=== PATIENT | female | born 1965 | race Caucasian/White ===

== ENCOUNTER 2016-09-13 12:51 | Emergency (ER) | payer OTHER ==
[~2016-09-13] VITALS: Ht 152.4 cm; Wt 79.1 kg
[~2016-09-13 12:51] MED LIST: ARIP20TA4 PO; ASPI81TA28 PO; ATV/1 PO; BUPR-83 PO; BUPR200T2 PO; BUPR8MIS SL; CLON1TAB3 PO; LAMO25TA PO; SERT50TA PO; TRAZ100T29 PO
[2016-09-13 13:02] VITALS: TEMP 36.9; Ht 152.4 cm; Wt 79.1 kg
--- NOTE | 2016-09-13 13:27 | EMERGENCY ROOM VISIT NOTE ---
History Report prepared by Lalitha: Denise Mac Under the Supervision of: Dr. Drake Low M.D. First contact with patient: 13:14 Chief Complaint: HEMATURIA Stated Complaint: BLOOD IN URINE, FEVER, VOMITING,NAUSEA AND PAIN History of Present Illness The patient is a 51 year old female who presents to the Emergency Room with complaints of intermittent hematuria over the last nine months. She currently rates her discomfort as a 7/10 in severity. The patient reports that the hematuria comes and goes and notes that her last episode was two weeks ago. She reports that she saw her PCP's office a week and a half ago regarding the issue and states that she had an ultrasound of her kidneys and bladder that came back normal. The patient reports that she was referred to urology and states that this past week she had a cystoscopy which was normal. The patient reports that over the last two weeks she has been feeling ill. She associates an intermittent fever, nausea, vomiting, intermittent epigastric abdominal pain and intermittent lower back pain. The patient denies any burning with urination and urinary frequency. She reports a history of pancreatitis, but denies her symptoms today feeling similar to her symptoms she experienced with pancreatitis. The patient reports a history of a hysterectomy. She denies being on any anti-coagulants. Source of History: patient Onset: nine months Position: other (global) Symptom Intensity: 7/10 Quality: other (hematuria) Timing: intermittent Associated Symptoms: + fevers, + nausea, + vomiting, + abdominal pain ( epigastric), + back pain (low), No urinary symptoms Review of Systems All systems have been listed, reviewed, and are negative other than those previously mentioned. Please see Additional Medical History Sheet. Past Medical & Surgical Medical Problems: (1) Bipolar Disorder, Unspecified (2) Depressive Disorder Nec (3) Drug Abuse Nec-Unspec (4) Encounter for monitoring Suboxone maintenance therapy (5) Hypertension Nos (6) Lumbar Disc Displacement (7) Lumbosacral Spondylosis (8) Manic-Depressive Nos (9) Opioid Dependence-Remiss (10) Osteoporosis Nos (11) Panic Disorder Without Agoraphobia (12) Unspecified Episodic Mood Disorder Social History Problems: (1) Tobacco Use Disorder Family History Gallbladder disease Kidney disease Kidney stones Social History Smoking Status: Current Every Day Smoker Alcohol Use: none Drug Use: other Marital Status: Housing Status: lives alone Occupation Status: unemployed Current/Historical Medications Scheduled Aripiprazole (Aripiprazole), 10 MG PO DAILY Aspirin (Aspirin Ec), 81 MG PO DAILY Buprenorphine Hcl-Naloxone Hcl (Suboxone 8-2 Mg), 8 MG SL DAILY Bupropion (Wellbutrin Sr), 200 MG PO QAM Bupropion (Wellbutrin), 100 MG PO afternoon Clonazepam (Klonopin), 1 MG PO HS Lamotrigine (Lamictal), 50 MG PO BID Pantoprazole Sodium (Protonix), 1 TAB PO DAILY Sertraline (Zoloft), 0.5 TAB PO DAILY Trazodone Hcl (Trazodone), 200 MG PO HS Scheduled PRN Lorazepam (Ativan), 1 MG PO BID PRN for Anxiety Allergies Coded Allergies: No Known Allergies (Verified , 09/13/16) Physical Exam Vital Signs Date Time Temp Pulse Resp B/P (MAP) Pulse Ox O2 Delivery O2 Flow Rate FiO2 09/13/16 15:00 85 17 152/77 96 Room Air 09/13/16 13:02 36.9 86 18 120/75 100 Room Air Physical Exam GENERAL: Patient awake, alert, oriented x 3. Patient follows commands. Patient does not appear toxic. Patient is adequately hydrated and well- nourished. SKIN: No erythema, pallor, cyanosis or rash HEENT: Normal head, pupils equal, reactive to light and accommodation. Neck: Without adenopathy, no neck vein distention. LUNGS: Clear to auscultation. No wheezes, no rales, no rhonchi. HEART: 2/6 systolic murmur. No gallops. No rubs ABDOMEN: Obese, vague epigastric tenderness. No masses, no rebound, no hepatomegaly or splenomegaly. EXTREMITIES: 1+ plus pedal edema. No signs of trauma. No pedal or pretibial edema. No calf or thigh tenderness. NEUROLOGIC: Cranial nerves II-XII within normal limits. No gross motor sensory function deficits. Medical Decision & Procedures Laboratory Results 09/13/16 13:30 09/13/16 13:30 Test 09/13/16 13:30 Red Blood Count 4.19 M/uL (4.2-5.4) Mean Corpuscular Volume 87.6 fL (80-100) Mean Corpuscular Hemoglobin 29.6 pg (25-34) Mean Corpuscular Hemoglobin Concent 33.8 g/dl (32-36) RDW Standard Deviation 42.5 fL (36.4-46.3) RDW Coefficient of Variation 13.3 % (11.5-14.5) Mean Platelet Volume 9.3 fL (7.4-10.4) Urine Color YELLOW Urine Appearance CLEAR (CLEAR) Urine pH 6.5 (4.5-7.5) Urine Specific [place] 1.014 (1.000-1.030) Urine Protein NEG (NEG) Urine Glucose (UA) NEG (NEG) Urine Ketones NEG (NEG) Urine Occult Blood 1+ (NEG) Urine Nitrite NEG (NEG) Urine Bilirubin NEG (NEG) Urine Urobilinogen NEG (NEG) Urine Leukocyte Esterase NEG (NEG) Urine WBC (Auto) 1-5 /hpf (0-5) Urine RBC (Auto) 5-10 /hpf (0-4) Urine Hyaline Casts (Auto) 0 /lpf (0-5) Urine Epithelial Cells (Auto) 5-10 /lpf (0-5) Urine Bacteria (Auto) NEG (NEG) Anion Gap 8.0 mmol/L (3-11) Est Creatinine Clear Calc Drug Dose 61.9 ml/min Estimated GFR () 75.5 Estimated GFR (Non- 65.2 BUN/Creatinine Ratio 11.7 (10-20) Calcium Level 8.6 mg/dl (8.5-10.1) Total Bilirubin 0.2 mg/dl (0.2-1) Aspartate Amino Transf (AST/SGOT) 16 U/L (15-37) Alanine Aminotransferase (ALT/SGPT) 31 U/L (12-78) Alkaline Phosphatase 119 U/L (45-117) Total Protein 7.8 gm/dl (6.4-8.2) Albumin 3.8 gm/dl (3.4-5.0) Globulin 4.0 gm/dl (2.5-4.0) Albumin/Globulin Ratio 1.0 (0.9-2) Lipase 209 U/L (73-393) Laboratory results as stated above per my review. ED Course 1314: Past medical records reviewed. The patient was evaluated in room C5. A complete history and physical examination was performed. 1511: I reevaluated the patient and she is resting comfortably. I discussed the exam findings with her and I discussed the treatment plan. She verbalized complete understanding and agreement. She is ready for discharge shortly. 1517: Ordered Protonix 40 mg PO. Medical Decision Nurses notes reviewed. Medical history sheet reviewed. Differential diagnosis includes but is not limited to: gastroenteritis, peptic/gastric ulcer diseae, pancreatitis, Crohn's disease, ulcerative colitis. The patient has had chronic hematuria for some time. She had a recent cystoscopy which did not apparently find a source. She now is here with upper abdominal pain. Multiple labs and urinalysis were obtained. Please see above. The patient is not anemic. Her white count is not elevated. She has no evidence of pancreatitis. I believe that she most likely has peptic or gastric ulcer or possibly gastritis. The patient was given Protonix here will continue that medication at home. The patient was strongly encouraged to follow-up with her family physician. I'm cautious about the use of narcotics in this patient as she is currently taking Suboxone. Medication Reconciliation: I attest that I have personally reviewed the patient' s current medication list. Blood pressure Screening: Patient was found to have normal blood pressure on screening and does not require follow up. Impression Primary Impression: Epigastric pain Additional Impression: History of hematuria Scribe Attestation The scribe's documentation has been prepared under my direction and personally reviewed by me in its entirety. I confirm that the note above accurately reflects all work, treatment, procedures, and medical decision making performed by me. Departure Information Dispostion Home / Self-Care Prescriptions Pantoprazole Sodium (PROTONIX) 20 Mg Tab 1 TAB PO DAILY for 30 Days, #30 TAB Prov: Drake Low M.D. 09/13/16 Referrals Camilla Chau D.O. (PCP) Forms HOME CARE DOCUMENTATION FORM, IMPORTANT VISIT INFORMATION Patient Instructions My [facility] [employer] Additional Instructions Take 1 Protonix daily. Continue all of your current medications as prescribed. 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 Problem Qualifiers
[2016-09-13 13:43] LABS: HEMATOCRIT 36.7 % (37-47); MEAN CELL VOLUME 87.6 fL (80-100); MEAN CORPUSCULAR HEMOGLOBIN 29.6 pg (25-34); MEAN CORPUSCULAR HGB CONC 33.8 g/dl (32-36); MEAN PLATELET VOLUME 9.3 fL (7.4-10.4); PLATELET COUNT 262 K/uL (130-400); RED BLOOD COUNT 4.19 M/uL (4.2-5.4); WHITE BLOOD COUNT 7.54 K/uL (4.8-10.8)
[2016-09-13] MEDS ORDERED: ARIP1TAB15 PO (13:46)
[2016-09-13 13:48] LABS: MANUAL MICROSCOPIC REQUIRED? NO; REVIEW REQ? NO; URINE APPEARANCE CLEAR (CLEAR); URINE BILIRUBIN NEG (NEG); URINE COLOR YELLOW; URINE NITRITE NEG (NEG); URINE PH 6.5 (4.5-7.5); URINE SPECIFIC GRAVITY 1.014 (1.000-1.030); UROBILINOGEN NEG (NEG); ZZUR CULT IF INDIC CLEAN CATCH NO
[2016-09-13 13:57] LABS: BUN/CREATININE RATIO 11.7 (10-20); CALCIUM 8.6 mg/dl (8.5-10.1); POTASSIUM 3.7 mmol/L (3.5-5.1)
[2016-09-13] MEDS ORDERED: PANTOprazole SOD 40 MG TAB PO STA (15:17)
[2016-09-13] MEDS ORDERED: PRT/20 PO (15:24)
[2016-09-13 15:37] VITALS: BP 152/77; PULSE 85; O2SAT 96
== END 2016-09-13 15:37 | disposition home or self-care (01) ==
LOC: C.EDB 12:54 → C.EDC 15:37
DX: R10.13 Epigastric pain (principal); R31.9 Hematuria, unspecified; G89.29 Other chronic pain; F31.9 Bipolar disorder, unspecified; I10 Essential (primary) hypertension; M81.0 Age-related osteoporosis without current pathological fracture; F17.200 Nicotine dependence, unspecified, uncomplicated; Z79.82 Long term (current) use of aspirin; Z79.899 Other long term (current) drug therapy; Z83.79 Family history of other diseases of the digestive system; Z84.1 Family history of disorders of kidney and ureter

== ENCOUNTER 2023-06-12 14:21 | Inpatient (IN) ==
--- NOTE | 2023-06-12 14:30 | ED Triage Note ---
Date of Service June 12, 2023 Provider in Triage Author: Perry Wick History of Present Illness This patient was briefly evaluated while in triage. An abbreviated physical exam was performed. This patient is a 58-year-old Female who presents to the ED for evaluation of constipation for the past few weeks. Patient has only had a few small bowel movements over this period of time. The patient usually takes ducosate sodium at nighttime. The patient has also been using lactulose as prescribed by her PCP. The patient recently switched to Senokot and MiraLAX with a few additional small bowel movements. The patient reports progressively worsening pain over the past week. Patient reports discomfort mostly on the left side of the abdomen. Patient reports nausea without vomiting. The patient currently rates her discomfort a 7 out of 10. Patient reports having a low-grade fever this morning of 100.5 F. Physical Exam CONSTITUTIONAL: Healthy and well nourished. Patient appears in mild discomfort. HEENT: No scleral icterus or conjunctival injection. RESPIRATORY: Clear to auscultation bilaterally with no wheezing, crackles, rhonchi or stridor. CARDIOVASCULAR: Regular rate and rhythm with no murmurs, rubs or gallops. GASTROINTESTINAL: Bowel sounds present in all quadrants. Patient has mild left sided abdominal tenderness to palpation without rigidity, guarding or rebound. INTEGUMENTARY: No rash or other significant dermatologic conditions noted. HEMATOLOGIC: No ecchymosis or petechiae. PSYCHIATRIC: Positive affect. NEUROLOGIC: No focal neurologic deficits noted. Initial orders for labs and / or imaging were placed and patient was placed in the waiting area until a bed is available. Please see further documentation for the full ED course.
[2023-06-12] MEDS: ONDANSETRON INJ 2 MG/ML 2 ML VIAL IV STA (14:56)
[2023-06-12] MEDS: SODIUM CHLORIDE 0.9% 500 ML IV ONE (14:56)
[2023-06-12 15:13] LABS: Basophils # (auto) 0.06 K/uL (0.00-0.20); Basophils % (auto) 0.7 %; Eosinophils # (auto) 0.18 K/uL (0.00-0.50); Eosinophils % (auto) 2.2 %; Hematocrit (blood only) 31.7 % (37.0-47.0); Hemoglobin 10.2 g/dl (12.0-16.0); Immature Granulocytes # (auto) 0.03 K/uL (0.01-0.20); Immature Granulocytes % (auto) 0.4 %; Lymphocytes # (auto) 1.45 K/uL (1.20-3.40); Lymphocytes % (auto) 17.5 %; Mean Corpuscular Hemoglobin 28.8 pg (25.0-34.0); Mean Corpuscular Hgb Conc 32.2 g/dL (32.0-36.0); Mean Corpuscular Volume 89.5 fL (80.0-100.0); Mean Platelet Volume 9.2 fL (9.4-12.4); Monocytes # (auto) 0.54 K/uL (0.11-0.59); Monocytes % (auto) 6.5 %; Neutrophils # (auto) 6.01 K/uL (1.40-6.50); Neutrophils % (auto) 72.7 %; Platelet Count 241 K/uL (130-400); RDW Coefficient of Variation 12.7 % (11.5-14.5); RDW Standard Deviation 42.1 fL (36.4-46.3); Red Blood Count 3.54 M/uL (4.20-5.40); White Blood Count 8.27 K/ul (4.8-10.8)
[2023-06-12 15:27] LABS: Albumin Globulin Ratio 1.3 (0.9-2); Albumin Level 3.9 gm/dl (3.4-5.0); BUN Creatinine Ratio 12.6 (10-20); Bilirubin,Total 0.3 mg/dl (0.2-1.0); Calcium 9.1 mg/dl (8.6-10.3); Creatinine Clr Calc Pharmacy 49.2 ml/min; Est GFR (African American) 76.5 ml/min; Globulin 2.9 gm/dl (2.5-4.0); Potassium 2.9 mmol/L (3.5-5.1); Total Protein 6.8 gm/dl (6.0-8.3)
[2023-06-12] MEDS: OPTIRAY 320 100ml IV ONE (15:50)
--- NOTE | 2023-06-12 16:19 | CT Scan Report ---
CT SCAN OF THE ABDOMEN AND PELVIS WITH IV CONTRAST CLINICAL HISTORY: Left lower quadrant abdominal pain. COMPARISON STUDY: Abdominal CT dated 12/30/2013. TECHNIQUE: Following the IV administration of 91 cc of Optiray 320, CT scan of the abdomen and pelvi s is performed from the lung bases to the proximal femora. Images are reviewed in the axial, sagittal , and coronal planes. IV contrast was administered without complication. A dose lowering technique wa s utilized adhering to the principles of ALARA. CT DOSE: 848.51 mGy.cm FINDINGS: Lung bases: The heart is normal in size and without pericardial effusion. There is bibasilar scarring /atelectasis. There is trace left pleural effusion. No airspace consolidation is seen typical for pne umonia. A 10 mm pleural-based nodule in the right middle lobe is seen on image #10 and a pleural-base d nodule in the left lower lobe is seen on image #19. These are unchanged from 2014 and of doubtful s ignificance. Liver: The contrast-enhanced liver is normal in size, contour, and attenuation. There is mild to mode rate intrahepatic biliary ductal dilatation. The hepatic veins and portal veins are patent. Gallbladder: Surgically absent noting clips in the gallbladder fossa. Spleen: Normal in size and attenuation. Pancreas: Unremarkable. Adrenal glands: Unremarkable. Kidneys: The contrast enhanced kidneys are normal in size and without hydronephrosis. The kidneys enh ance symmetrically. A 2.1 cm indeterminate low-attenuation lesion in the lower pole of left kidney is been present dating back to 2013 and likely represents a complex cyst. Additional subcentimeter tiffany ical hypodensities also likely represent cysts but are too small for definitive characterization. Abdominal vasculature: The abdominal aorta is normal in course and caliber noting moderate atheroscle rotic calcification. Bowel: There is no bowel obstruction. Moderate to severe fecal retention is noted in the right colon extending to the descending colon. There is wall thickening and pericolonic inflammation and fluid in volving the left colon at and below the splenic flexure. This is consistent with a nonspecific coliti s, likely STIR coronal. The appendix is not visualized. Peritoneum: There is no intraperitoneal free air or abdominal ascites. There is a fat-containing umbi lical hernia. There is also a fat and fluid containing supraumbilical hernia. Lymphadenopathy: None. Pelvic viscera: The bladder is normal as visualized. The uterus is surgically absent. No adnexal lesi on is seen. Skeletal structures: The skeletal structures are osteopenic. There is a [id number] acute to sub acute appearing superior end plate compression fracture of L1. Fragment retropulsed at this level by up to 6 mm. Paravertebral edema is noted. There is a chronic compression deformity of T11 with eviden ce of prior vertebroplasty. There is spondylotic change throughout the lumbar spine with surgical katarina nge at the lumbosacral junction. No lytic or blastic lesions are seen. There are subacute/healing lef t-sided rib fractures. There are bilateral sacral insufficiency fractures. IMPRESSION: 1. There is moderate to severe fecal retention in the right colon. 2. There is wall thickening involving the left colon at and below the splenic flexure with surroundin g infiltration and fluid. The appearance is consistent with a nonspecific colitis, possibly stercoral . Clinical correlation will be required. 3. No bowel obstruction is seen. 4. There is an acute subacute appearing superior endplate compression fracture of L1 with surrounding paravertebral edema. Correlate clinically. 5. There are subacute/healing left-sided rib fractures. 6. Bilateral sacral insufficiency fractures. 7. There is a 2.1 cm indeterminate lesion in the lower pole of left kidney. This has been present bere ing back to 2014 and likely represents a complex cyst. Nonemergent renal ultrasound is recommended in follow-up. 8. Trace left pleural effusion. 9. Additional findings as above. ACT 112: Negative or not required by law. Electronically signed by: Robbin Lee M.D. 06/12/2023 4:16 PM
--- NOTE | 2023-06-12 16:19 | Emergency Department Note ---
Impression & Plan Stercoral colitis, Constipation ED Provider Note Name: THEO SHAW Age: 58 Sex: Female Arrives Via: Walk-In Informant: Patient ED Provider: Benito Pepper MD Chief Complaint: Abdominal pain Impression: As per impression above Medical Decision Making: Pleasant 58-year-old female with history of chronic constipation, renal colic, venous insufficiency arrives for evaluation of worsening abdominal pain. Patient with 3 weeks of worsening constipation though rapidly worsening abdominal pain in the last few days. On examination she does have some moderate tenderness over the upper abdomen with an easily reducible ventral hernia. No specific peritonitis. She does have hypoactive bowel sounds. CT obtained prior to my evaluation concerning for stercoral colitis and when reviewing with radiologist possibility of minimal pneumatosis. Patient is not having severe pain relatively stable. Labs are reassuring. I did discuss the case with general surgery who evaluated patient agree no indication for surgical intervention at this time. Suggested hospitalization and GI eval/bowel regimen. Will start on antibiotics. She is not septic I do not feel that blood cultures and lactic acid are necessary at this time. She was hydrated some while in department. Triage/Nursing Notes reviewed by Me Differential:Obstruction, diverticulitis, perforation, aortic pathology, bowel ischemia, pancreatitis, renal colic, pyelonephritis, many other pathology here. Vital Signs: reviewed and remarkable for tachy Interventions: nss bolus, zofran iv, zosyn iv Labs:ED labs Reviewed by me and remarkable for no significant abnormalities Imaging:CT ab pelvis as per my informal interpretation shows significant inflammation throughout the left transverse colon and moderate ascending constipation. As per radiologist notes this is consistent with stercoral colitis and minimal pneumatosis possible though no clear evidence of free air or abscess appreciated. Consults:Dr. Murguia general surgery agrees with IV antibiotics hospitalization bowel regimen. Dr. Tiffany Nunes hospitalist Plan: Disposition:Hospitalization. Condition: Good History of Present Illness: 58-year-old female arrives for evaluation of abdominal pain. Patient with 3 weeks of increasing abdominal discomfort. Pain is upper abdomen mostly on the left side but sometimes radiates to right side. At times she feels like she can feel a lump in her upper mid abdomen that goes away. It has been associated with decreased appetite. She is attempted multiple different anticonstipation meds as her bowel movements have decreased significantly. She does note that she continues to pass gas periodically and has had a few very small bowel movements. Previous abdominal surgery including hysterectomy and cholecystectomy. Denies history of diverticulitis. Denies falls, trauma, injuries. Dulcolax, senna, Colace, MiraLAX have not improved her symptoms. Notes multiple attempts at colonoscopy over the past without ability to do scope due to inability to clear bowel. Past Medical History:Chronic constipation, renal colic, venous insufficiency Home Medications:See Below Allergies:oxybutynin Vitals:Blood Pressure: 150/91, Pulse 118, RR 18, T 36.5C, O2 97% on RA Physical Exam: GENERAL: Patient is uncomfortable appearing and in mild distress. Dehydrated appearing RESPIRATORY: No dyspnea. Clear to auscultation and equal bilaterally. CARDIOVASCULAR: Tachy.No murmur appreciated. GASTROINTESTINAL: Soft abdomen with diffuse upper abdominal tenderness palpation. There is a ventral hernia super umbilical easily reducible. Hypoactive bowel sounds noted. EXTREMITIES: Normal motion all extremities, no cyanosis, bilateral lower leg edema. NEUROLOGIC: Alert and oriented. No focal neurologic deficits appreciated SKIN: No rash, no jaundice, no diaphoresis. PSYCH: Appropriate GCS: 15 ED Course: Times/Reassessments: Patient notes feeling bit better after IV fluids she is comfortable plan for hospitalization. Benito Pepper MD Past Med/Surg History Medical History (Updated 06/12/23 @ 19:45 by Benito Pepper MD) Renal colic on right side Surgical History History of cystoscopy History of cholecystectomy History of hysterectomy Social History Smoking Status: Current every day smoker Preferred Language: Upper Sorbian Feels Safe at Home: Yes Allergies Allergies Allergy/AdvReac Type Severity Reaction Status Date / Time oxybutynin [From Ditropan] AdvReac Severe DRY MOUTH Verified 05/08/23 10:12 Home Meds Home Medications Medication Instructions Recorded Confirmed [id number] 250 2 tab PO Q6H PRN Pain 03/18/23 06/12/23 mg-250 mg-65 mg tablet (Excedrin Extra Strength) atorvastatin 20 mg tablet 20 mg PO QAM 03/18/23 06/12/23 famotidine 40 mg tablet 40 mg PO HS PRN Heartburn 03/18/23 06/12/23 furosemide 20 mg tablet (Lasix) 20 mg PO DAILY PRN fluid 03/18/23 06/12/23 accumulation hydroxyzine pamoate 50 mg capsule 50 mg PO HS Sleep 03/18/23 06/12/23 metoprolol succinate 25 mg 12.5 mg PO QAM 03/18/23 06/12/23 tablet,extended release 24 hr ondansetron HCl 4 mg tablet 4 mg PO Q8H PRN Nausea 03/18/23 06/12/23 potassium chloride 10 mEq 10 meq PO DAILY PRN if taking Lasix 03/18/23 06/12/23 tablet,extended release(part/cryst) trazodone 100 mg tablet 100 mg PO HS 03/18/23 06/12/23 buprenorphine 8 mg-naloxone 2 mg 1 film sublingual BID 06/12/23 06/12/23 sublingual film cholecalciferol (vitamin D3) 50 50 mcg PO DAILY 06/12/23 06/12/23 mcg (2,000 unit) tablet lorazepam 0.5 mg tablet 0.5 mg PO DAILY PRN severe anxiety 06/12/23 06/12/23 pantoprazole 40 mg tablet,delayed 40 mg PO AMHS 06/12/23 06/12/23 release teriparatide 20 mcg/dose (600 600 mcg subcut QAM 06/12/23 06/12/23 mcg/2.4 mL) subcutaneous pen injector (Forteo) venlafaxine 25 mg tablet 25 mg PO QAM 06/12/23 06/12/23 venlafaxine 75 mg capsule,extended 75 mg PO QAM 06/12/23 06/12/23 release 24 hr Results & Data (ED) Vital Signs Vital Signs - 24 hr 06/12/23 14:25 06/12/23 16:39 06/12/23 19:17 Temperature 36.5 C Temperature Source Temporal Artery Scan Pulse Rate 118 H 77 Pulse Rate [Right Finger] 78 Pulse Rate from SpO2 Sensor 77 Respiratory Rate 18 16 16 Respiratory Effort / Characteristics Non-Labored Spontaneous Non-Labored Respiratory Depth Normal Normal Blood Pressure 150/91 H 126/76 Blood Pressure [Right Arm] 123/74 Blood Pressure Mean 110 92 Blood Pressure Mean [Right Arm] 90 Pulse Oximetry 97 96 92 Oxygen Delivery Method Room Air Room Air Room Air Sepsis Recent Fever Within 48 Hours Yes Sepsis New/Unexplained Change in Mental Status No Sepsis Action Taken by Nursing No Action Required 06/12/23 19:30 Temperature Temperature Source Pulse Rate 72 Pulse Rate [Right Finger] Pulse Rate from SpO2 Sensor 70 Respiratory Rate 20 Respiratory Effort / Characteristics Respiratory Depth Blood Pressure 142/81 H Blood Pressure [Right Arm] Blood Pressure Mean 100 Blood Pressure Mean [Right Arm] Pulse Oximetry 96 Oxygen Delivery Method Room Air Sepsis Recent Fever Within 48 Hours Sepsis New/Unexplained Change in Mental Status Sepsis Action Taken by Nursing Laboratory Data 06/12/23 14:55 06/12/23 14:55 Lab Results 06/12/23 06/12/23 Range/Units 14:55 16:00 WBC 8.27 (4.8-10.8) K/ul RBC 3.54 L (4.20-5.40) M/uL Hgb 10.2 L (12.0-16.0) g/dl Hct 31.7 L (37.0-47.0) % MCV 89.5 (80.0-100.0) fL MCH 28.8 (25.0-34.0) pg MCHC 32.2 (32.0-36.0) g/dL RDW Std Deviation 42.1 (36.4-46.3) fL RDW Coeff of Meghan 12.7 (11.5-14.5) % Plt Count 241 (130-400) K/uL MPV 9.2 L (9.4-12.4) fL Immature Gran % (Auto) 0.4 % Neut % (Auto) 72.7 % Lymph % (Auto) 17.5 % Grant % (Auto) 6.5 % Eos % (Auto) 2.2 % Baso % (Auto) 0.7 % Neut # (Auto) 6.01 (1.40-6.50) K/uL Lymph # (Auto) 1.45 (1.20-3.40) K/uL Grant # (Auto) 0.54 (0.11-0.59) K/uL Eos # (Auto) 0.18 (0.00-0.50) K/uL Baso # (Auto) 0.06 (0.00-0.20) K/uL Immature Gran # (Auto) 0.03 (0.01-0.20) K/uL Sodium 140 (136-145) mmol/L Potassium 2.9 L (3.5-5.1) mmol/L Chloride 105 (98-107) mmol/L Carbon Dioxide 28 (21-32) mmol/L Anion Gap 7 (3-11) BUN 12 (6-23) mg/dl Creatinine 0.95 (0.6-1.2) mg/dl Est Cr Clr Drug Dosing 49.2 ml/min Est GFR ( Amer) 76.5 ml/min Est GFR (Non-Af Amer) 66.0 ml/min BUN/Creatinine Ratio 12.6 (10-20) Glucose 90 (70-99(Fasting)) mg/dl Calcium 9.1 (8.6-10.3) mg/dl Total Bilirubin 0.3 (0.2-1.0) mg/dl AST 12 L (13-39) U/L ALT 5 L (7-52) U/L Alkaline Phosphatase 106 H (34-104) U/L Total Protein 6.8 (6.0-8.3) gm/dl Albumin 3.9 (3.4-5.0) gm/dl Globulin 2.9 (2.5-4.0) gm/dl Albumin/Globulin Ratio 1.3 (0.9-2) Lipase 18 (11-82) U/L Urine Color Yellow Urine Appearance Clear (Clear) Urine pH 6.0 (4.5-7.5) Ur Specific [place] 1.018 (1.000-1.030) Urine Protein Trace H (Negative) Urine Glucose (UA) Negative (Negative) Urine Ketones Negative (Negative) Urine Blood 3+ H (Negative) Urine Nitrite Negative (Negative) Urine Bilirubin Negative (Negative) Urine Urobilinogen Negative (Negative) Ur Leukocyte Esterase Negative (Negative) Urine WBC (Auto) 1-5 (0-5) /hpf Urine RBC (Auto) >30 H (0-4) /hpf U Hyaline Cast (Auto) 0 (0-5) /lpf U Epithel Cells (Auto) 0-5 (0-5) /lpf Urine Bacteria (Auto) Negative (Negative) Administered Medications Potassium Chloride (K Moose / Wtr) 10 meq in 100 mls @ 100 mls/hr IV Q1H NURA Stop: 06/12/23 20:14 Last Admin: 06/12/23 18:27 Dose: 100 mls/hr Documented By: WILMAN Nicotine (Nicotine 14 Mg/24 Hr Patch) 14 mg TD QAM NURA Stop: 07/12/23 17:44 Last Admin: 06/12/23 18:27 Dose: 14 mg Documented By: WILMAN Discontinued Medications Sodium Chloride (Nss) 500 mls @ 999 mls/hr IV .Q31M ONE Stop: 06/12/23 14:59 Last Infusion: 06/12/23 15:27 Dose: Infused Documented By: Admin: 06/12/23 14:56 Dose: 999 mls/hr Documented By: REGINO Sodium Chloride (Nss) 1,000 mls @ 999 mls/hr IV .Q1H1M ONE Stop: 06/12/23 17:16 Last Infusion: 06/12/23 17:40 Dose: Infused Documented By: Admin: 06/12/23 16:39 Dose: 999 mls/hr Documented By: JUVENCIO Piperacillin Sod/Tazobactam Sod (Zosyn) 4.5 gm in 100 mls @ 200 mls/hr IV NOW ONE Stop: 06/12/23 17:16 Last Infusion: 06/12/23 18:25 Dose: Infused Documented By: Admin: 06/12/23 17:53 Dose: 200 mls/hr Documented By: AMOL Ioversol (Optiray 320 100ml) 91 ml IV ONCE ONE Stop: 06/12/23 15:51 Last Admin: 06/12/23 15:50 Dose: 91 ml Documented By: ADOLFO Ondansetron HCl (Ondansetron Inj 2 Mg/Ml 2 Ml Vial) 4 mg IV NOW STA Stop: 06/12/23 14:30 Last Admin: 06/12/23 14:56 Dose: 4 mg Documented By: REGINO Potassium Chloride (Potassium Chloride Crtab 20 Meq Tabcr) 40 meq PO NOW STA Stop: 06/12/23 18:03 Last Admin: 06/12/23 18:27 Dose: 40 meq Documented By: WILMAN Imaging Data Radiologist's Impression: Abdomen/Pelvis CT 06/12/23 14:30 CT SCAN OF THE ABDOMEN AND PELVIS WITH IV CONTRAST CLINICAL HISTORY: Left lower quadrant abdominal pain. COMPARISON STUDY: Abdominal CT dated 12/30/2013. TECHNIQUE: Following the IV administration of 91 cc of Optiray 320, CT scan of the abdomen and pelvis is performed from the lung bases to the proximal femora. Images are reviewed in the axial, sagittal, and coronal planes. IV contrast was administered without complication. A dose lowering technique was utilized adhering to the principles of ALARA. CT DOSE: 848.51 mGy.cm FINDINGS: Lung bases: The heart is normal in size and without pericardial effusion. There is bibasilar scarring/atelectasis. There is trace left pleural effusion. No airspace consolidation is seen typical for pneumonia. A 10 mm pleural-based nodule in the right middle lobe is seen on image #10 and a pleural-based nodule in the left lower lobe is seen on image #19. These are unchanged from 2014 and of doubtful significance. Liver: The contrast-enhanced liver is normal in size, contour, and attenuation. There is mild to moderate intrahepatic biliary ductal dilatation. The hepatic veins and portal veins are patent. Gallbladder: Surgically absent noting clips in the gallbladder fossa. Spleen: Normal in size and attenuation. Pancreas: Unremarkable. Adrenal glands: Unremarkable. Kidneys: The contrast enhanced kidneys are normal in size and without hydronephrosis. The kidneys enhance symmetrically. A 2.1 cm indeterminate low- attenuation lesion in the lower pole of left kidney is been present dating back to 2014 and likely represents a complex cyst. Additional subcentimeter cortical hypodensities also likely represent cysts but are too small for definitive characterization. Abdominal vasculature: The abdominal aorta is normal in course and caliber noting moderate atherosclerotic calcification. Bowel: There is no bowel obstruction. Moderate to severe fecal retention is noted in the right colon extending to the descending colon. There is wall thickening and pericolonic inflammation and fluid involving the left colon at and below the splenic flexure. This is consistent with a nonspecific colitis, likely STIR coronal. The appendix is not visualized. Peritoneum: There is no intraperitoneal free air or abdominal ascites. There is a fat-containing umbilical hernia. There is also a fat and fluid containing supraumbilical hernia. Lymphadenopathy: None. Pelvic viscera: The bladder is normal as visualized. The uterus is surgically absent. No adnexal lesion is seen. Skeletal structures: The skeletal structures are osteopenic. There is a [id number] acute to subacute appearing superior end plate compression fracture of L1. Fragment retropulsed at this level by up to 6 mm. Paravertebral edema is noted. There is a chronic compression deformity of T11 with evidence of prior vertebroplasty. There is spondylotic change throughout the lumbar spine with surgical change at the lumbosacral junction. No lytic or blastic lesions are seen. There are subacute/healing left-sided rib fractures. There are bilateral sacral insufficiency fractures. IMPRESSION: 1. There is moderate to severe fecal retention in the right colon. 2. There is wall thickening involving the left colon at and below the splenic flexure with surrounding infiltration and fluid. The appearance is consistent with a nonspecific colitis, possibly stercoral. Clinical correlation will be required. 3. No bowel obstruction is seen. 4. There is an acute subacute appearing superior endplate compression fracture of L1 with surrounding paravertebral edema. Correlate clinically. 5. There are subacute/healing left-sided rib fractures. 6. Bilateral sacral insufficiency fractures. 7. There is a 2.1 cm indeterminate lesion in the lower pole of left kidney. This has been present dating back to 2013 and likely represents a complex cyst. Nonemergent renal ultrasound is recommended in follow-up. 8. Trace left pleural effusion. 9. Additional findings as above. ACT 112: Negative or not required by law. Electronically signed by: Robbin Lee M.D. 06/12/2023 4:16 PM Discharge Plan Visit Data Chief Complaint: Constipation Stated Complaint: CONSTIPATION 3WKS ED Provider: Benito Pepper Discharge Problem: Stercoral colitis, Constipation Forms Stand Alone Forms: My [facility] [place] Prescriptions Prescriptions: No Action Excedrin Extra Strength 250-250-65 mg tablet 2 tab PO Q6H PRN (Reason: Pain) metoprolol succinate 25 mg tablet extended release 24 hr 12.5 mg PO QAM Rx Instructions: 1/2 tablet dose hydroxyzine pamoate 50 mg capsule 50 mg PO HS Rx Instructions: ordered as needed but takes it every night famotidine 40 mg tablet 40 mg PO HS PRN (Reason: Heartburn) atorvastatin 20 mg tablet 20 mg PO QAM ondansetron HCl 4 mg tablet 4 mg PO Q8H PRN (Reason: Nausea) furosemide [Lasix] 20 mg tablet 20 mg PO DAILY PRN (Reason: fluid accumulation) potassium chloride 10 mEq tablet,ER particles/crystals 10 meq PO DAILY PRN (Reason: if taking Lasix) trazodone 100 mg tablet 100 mg PO HS teriparatide [Forteo] 20 mcg/dose (600mcg/2.4mL) pen injector 600 mcg SUBCUT QAM venlafaxine 25 mg tablet 25 mg PO QAM lorazepam 0.5 mg tablet 0.5 mg PO DAILY MDD 10 tabs a month PRN (Reason: severe anxiety) venlafaxine 75 mg capsule,extended release 24hr 75 mg PO QAM pantoprazole 40 mg tablet,delayed release (DR/EC) 40 mg PO AMHS cholecalciferol (vitamin D3) 50 mcg (2,000 unit) Tablet 50 mcg PO DAILY buprenorphine-naloxone 8-2 mg film 1 film sublingual BID Referrals Referrals: Camilla Chau DO [Primary Care Provider] - Discharge Problem: Constipation Qualifiers: Constipation type: slow transit constipation Qualified Code(s): K59.01 - Slow transit constipation
[2023-06-12 16:22] LABS: Appearance Urine Clear (Clear); Bacteria Urine Automated Negative (Negative); Bilirubin Urine Negative (Negative); Blood Urine 3+ (Negative); Cast Urine Automated 0 /lpf (0-5); Color Urine Yellow; Epithelial Cell Urine Auto 0-5 /lpf (0-5); Glucose Urine UA Negative (Negative); Ketones Urine Negative (Negative); Leukocyte Esterase Urine Negative (Negative); Nitrite Urine Negative (Negative); Protein Urine Trace (Negative); RBC Urine Automated >30 /hpf (0-4); Specific Gravity Urine 1.018 (1.000-1.030); Urobilinogen Urine Negative (Negative)
[2023-06-12] MEDS: SODIUM CHLORIDE 0.9% 1,000 ML IV ONE (16:39)
--- NOTE | 2023-06-12 17:11 | Surgery Consultation ---
Date of Consultation June 12, 2023 Assessment & Plan (1) Constipation: Her CT images and results were personally viewed and interpreted by myself She has moderate constipation and some inflammation of her left colon consistent with stercoral colitis No plans for any surgical intervention Can have clears tonight from my perspective Would give IV ABX and consult GI for aggressive bowel regimen She would only require surgery if her colon perforated (2) Stercoral colitis: History of Present Illness Reason for Consultation: Constipation, Stercoral colitis History of Present Illness This is a 58 yo female who presented to the ER with 3 weeks of progressive abdominal pain and constipation. She states her pain was initially generalized and then is more on the left side of the abdomen now. She states it is sharp without radiation. No aggravating or relieving factors. She has not had a bowel movement in about a week. She has had nausea but no emesis. She normally takes colace at night but was instructed to take miralax as well which has not helped. She states she had a low grade fever. No melena or hematochezia prior. She has never had a full colonoscopy due to unable to being prepped completely. She has had 2 C-sections and a hysterectomy as well as cholecystectomy. Allergies Allergy/AdvReac Type Severity Reaction Status Date / Time oxybutynin [From Ditropan] AdvReac Severe DRY MOUTH Verified 05/08/23 10:12 Home Medications Medication Instructions Recorded Confirmed Type [id number]-[id number]-[id number] 250 2 tab PO Q6H PRN 03/18/23 05/08/23 History mg-250 mg-65 mg tablet (Excedrin Extra Strength) atorvastatin 20 mg tablet 20 mg PO DAILY 03/18/23 05/08/23 History docusate sodium 100 mg capsule 100 mg PO DAILY 03/18/23 05/08/23 History famotidine 40 mg tablet 40 mg PO DAILY PRN 03/18/23 05/08/23 History furosemide 20 mg tablet (Lasix) 20 mg PO DAILY 03/18/23 05/08/23 History hydroxyzine pamoate 25 mg capsule 25 mg PO BID PRN 03/18/23 05/08/23 History hydroxyzine pamoate 50 mg capsule 50 mg PO ONCE 03/18/23 05/08/23 History lorazepam 1 mg tablet (Ativan) 0.5 mg PO BID PRN Anxiety 03/18/23 05/08/23 History metoprolol succinate 25 mg 12.5 mg PO DAILY 03/18/23 05/08/23 History tablet,extended release 24 hr ondansetron HCl 4 mg tablet 4 mg PO Q8H 03/18/23 05/08/23 History pantoprazole 20 mg tablet,delayed 40 mg PO BID 03/18/23 05/08/23 History release (Protonix) potassium chloride 10 mEq 10 meq PO DAILY 03/18/23 05/08/23 History tablet,extended release(part/cryst) topiramate 50 mg tablet 50 mg PO DAILY 03/18/23 05/08/23 History trazodone 100 mg tablet 100 mg PO HS 03/18/23 05/08/23 History venlafaxine 75 mg capsule,extended 75 mg PO DAILY 03/18/23 05/08/23 History release 24 hr gabapentin 300 mg capsule 300 mg PO TID 04/10/23 05/08/23 History buprenorphine HCl 8 mg sublingual 8 mg sublingual DAILY 05/08/23 05/08/23 History tablet buprenorphine 8 mg-naloxone 2 mg 1 tab sublingual BID 06/12/23 06/12/23 History sublingual tablet naloxegol 25 mg tablet (Movantik) 25 mg PO DAILY 06/12/23 06/12/23 History Patient History Medical History (Updated 06/12/23 @ 17:09 by Deepak Murguia DO) Renal colic on right side Surgical History History of cystoscopy History of cholecystectomy History of hysterectomy Social History Smoking Status: Current every day smoker Preferred Language: Mozambican Feels Safe at Home: Yes Review of Systems Constitutional: no fever and no chills Eyes: no blind spots and no worsening vision Ear, Nose, Mouth, Throat: no ear pain and no hearing loss Respiratory: no cough and no dyspnea Cardiovascular: no chest pain and no dyspnea on exertion Gastrointestinal: + abdominal pain, + nausea and + constip ation; no vomiting, no diarrhea/loose stools, no blood in stools and no melena Genitourinary: no dysuria and no urinary hesitancy Musculoskeletal: no back pain and no neck pain Integumentary: no acne, no erythema and no dry skin Neurologic: no paresthesia and no headache(s) Psychiatric: no behavioral changes and no depression Hematologic / Lymphatic: no easy bleeding and no easy bruising Physical Exam Constitutional: WD/WN, vitals as above Eyes: PERRL, conjunctivae normal, anicteric sclerae ENMT: external ear and nose normal, oropharynx normal Neck: trachea midline, no thyromegaly Respiratory: normal respiratory effort, lungs clear to auscultation Cardiovascular: RRR, no murmur, no edema Gastrointestinal (Abdomen): Inspection/Auscultation: abdomen normal to inspection; abdomen not distended Percussion/Palpation: + abdomen tender (mild generalized) and abdomen soft; no guarding Musculoskeletal: no cyanosis or clubbing, extremities motor strength 5/5 Skin: no rashes, warm and dry Neurologic: PERRL, EOMI, accommodation nl, no face palsy, no dysarthria Psychiatric: A+Ox3, euthymic affect Results & Data Vital Signs (Past 12 Hours) Vital Signs Temp Pulse Pulse Resp BP BP Pulse Ox 06/12/23 16:39 78 16 123/74 96 06/12/23 14:25 36.5 C 118 H 18 150/91 H 97 O2 Del Method 06/12/23 16:39 Room Air 06/12/23 14:25 Room Air PG Care Time/CCT Total # of Minutes Spent Total Time Spent with Patient: Total time spent is greater than 50% in coordination of care (as documented) at patient's floor/unit and/or counseling patient: Coding Level of Care Code 74248 INT INP/OBS CARE 3/75MIN Diagnoses Constipation K59.00 Stercoral colitis K52.89
--- NOTE | 2023-06-12 17:30 | History & Physical Report ---
Date of Service June 12, 2023 Assessment & Plan (1) Abdominal pain: (2) Constipation: (3) Stercoral colitis: Plan: - Admit to med surg - Gen surg has seen the patient and are recommending that GI be consulted for follow up - Started on tap water enema and do Q6H starting now, will continue dulcolax and miralax daily, pt has trialed lactulose at home without effect - Cont IV zosyn - Follow blood cultures, negative lactic, afebrile here, WBC is stable at 8.27 and other labs appear WNL - Replace potassium as it is 2.9 on admission with 40 meq PO, 20 meq IV, trend am labs (4) Osteoporosis: Plan: - Hx of such, continue vit D supplementation 2000 U - PT/OT consults (5) Tobacco use: Plan: - Ordered nicotine patch 14 mcg daily - encouraged cessation at bedside (6) Compression fracture of L1 vertebra: Plan: - Noted on CT as acute L1 fracutre, consult ortho spine for possible recommendation with brace - PT/OT consults - Pain control with Suboxone which is likely contributing to constipation as above (7) Opioid dependence on agonist therapy: Plan: - As above, may continue suboxone therapy for now (8) Venous stasis ulcers: Plan: - Hx of such, non currently - Pressure offloading measures and repositioning with hx of lymphedema DVT ppx: teds, scds FEN/GI: Clear liquids Lines: 2 PIV CODE: FULL Dispo: From home, likely to remain in the hospital x 1-2 days A total of 75 minutes were spent with greater than 50% of that time face to face with the patient, personally reviewing all current laboratories, imaging studies, past medication reconciliation, outpatient chart review, and discussion with specialists to collaborate care for the patient with attending. Please see attending documentation for corrections and/or additions. History of Present Illness Chief Complaint: Constipation, abdominal complaints Primary Care Provider: Camilla Chau DO This is a 58-year-old female with PMHx of osteoporosis, history of closed fracture of the sacrum which is now healed, chronic tobacco use, CKD stage III, hypothyroidism, hx of venous stasis ulceration and following with wound care, bipolar type II disorder, iron deficiency anemia, history of opioid abuse, who presents to the hospital with acute abdominal pain. She is found to have moderate to severe constipation/fecal retention concerning for stercoral constipation, as well as an acute L1 compression fracture noted on imaging. General surgery was consulted and is recommending GI involvement. She has previously followed with Dr. Sol with [facility]. Pt reports hx of constipation for the past 3 weeks, small bowel movements previously, but no BM for the past week. Reports she is passing gas. Po intake is difficult for her due to abdominal pain and she is eating only 1 meal per day. Pt is taking suboxone 8-2 film daily which was switched over from tablet on Thursday this past week. She also reports that at home was using Lactulose 2 Tbsp BID along with dulcolax BID and didn't see any improvement in constipation. She reports lower abdominal pain on the left and right. Reporting subjective fevers and shaking intermittently in the past 2 days or so. Lives at home, ambulates with cane at baseline. Allergies Allergy/AdvReac Type Severity Reaction Status Date / Time oxybutynin [From Ditropan] AdvReac Severe DRY MOUTH Verified 05/08/23 10:12 Home Medications Medication Instructions Recorded Confirmed Type bfumnao-lobsapyttmefx-syieeoba 250 2 tab PO Q6H PRN Pain 03/18/23 06/12/23 History mg-250 mg-65 mg tablet (Excedrin Extra Strength) atorvastatin 20 mg tablet 20 mg PO QAM 03/18/23 06/12/23 History famotidine 40 mg tablet 40 mg PO HS PRN Heartburn 03/18/23 06/12/23 History furosemide 20 mg tablet (Lasix) 20 mg PO DAILY PRN fluid 03/18/23 06/12/23 History accumulation hydroxyzine pamoate 50 mg capsule 50 mg PO HS Sleep 03/18/23 06/12/23 History metoprolol succinate 25 mg 12.5 mg PO QAM 03/18/23 06/12/23 History tablet,extended release 24 hr ondansetron HCl 4 mg tablet 4 mg PO Q8H PRN Nausea 03/18/23 06/12/23 History potassium chloride 10 mEq 10 meq PO DAILY PRN if taking Lasix 03/18/23 06/12/23 History tablet,extended release(part/cryst) trazodone 100 mg tablet 100 mg PO HS 03/18/23 06/12/23 History buprenorphine 8 mg-naloxone 2 mg 1 film sublingual BID 06/12/23 06/12/23 History sublingual film cholecalciferol (vitamin D3) 50 50 mcg PO DAILY 06/12/23 06/12/23 History mcg (2,000 unit) tablet lorazepam 0.5 mg tablet 0.5 mg PO DAILY PRN severe anxiety 06/12/23 06/12/23 History pantoprazole 40 mg tablet,delayed 40 mg PO AMHS 06/12/23 06/12/23 History release teriparatide 20 mcg/dose (600 20 mcg subcut QAM 06/12/23 06/12/23 History mcg/2.4 mL) subcutaneous pen injector (Forteo) venlafaxine 25 mg tablet 25 mg PO QAM 06/12/23 06/12/23 History venlafaxine 75 mg capsule,extended 75 mg PO QAM 06/12/23 06/12/23 History release 24 hr Past Med/Surg History Medical History Renal colic on right side Surgical History History of cystoscopy History of cholecystectomy History of hysterectomy Social History Smoking Status: Current every day smoker Tobacco Type: Cigarettes Cigarettes Per Day: 15; Second Hand Exposure: No; Do You Dip or Chew Tobacco: No; Tobacco Cessation Education Requested by Patient: No Hx Alcohol Use: No Hx Substance Use: No Preferred Language: Uzbek Communication Ability: Effective Sand Buffer Required: No Beliefs That Will Affect Care: None Current Living Situation: Alone Other Information That Helps Us Care for You: No Feels Safe at Home: Yes Safety Concerns: Feels Safe At This Time Assistive Devices: Cane, Glasses and Hospital Bed Review of Systems Review of Systems: Constitutional: + subjective fever, + sweats and chills Eyes: No diplopia, no worsening or blurred vision ENT: normal hearing, no trouble swallowing Respiratory: No cough, sputum, dyspnea at rest or on exertion Cardiovascular: No chest pain, tightness or palpitations Abdomen: As per HPI Musculoskeletal: No joint pain, calf pain, + chronic lymphedema and BLE swelling Neurologic: No weakness, numbness/tingling, + uses cane for issues with balance Psychiatric: + bipolar, + anxiety Skin: No rash or itch, healed venous stasis ulcerations Physical Exam Physical Exam: General: awake, alert, no apparent distress, appears older than stated age Head: Normocephalic, atraumatic ENT: PERRL, EOMI, no pharyngeal exudate, mucous membranes moist Chest: Clear to auscultation, on room air, no adventitious breath sounds Cardiac: Regular rate and rhythm, + FLAKITA, no JVD, normal peripheral pulses, good capillary refill Abdominal: + hypoactive BS x 4 quadrants, no tinkling or high pitch sounds, distended, hard LLQ + tender to palpation in LLQ and RLQ, no rebound or guarding Extremities: + lymphedema, no pitting edema, + healed venous ulcerations, no surrounding erythema, otherwise normal inspection,calfs nontender to palpation Psych: Normal mood and affect Neuro: AAO x 3, strength intact bilaterally and rated 5/5, no motor deficits, speech is clear, no peripheral sensory deficits Results & Data Results & Data Vital Signs (Past 12 Hours) Vital Signs Temp Pulse Pulse Resp BP BP Pulse Ox 06/12/23 16:39 78 16 123/74 96 06/12/23 14:25 36.5 C 118 H 18 150/91 H 97 O2 Del Method 06/12/23 16:39 Room Air 06/12/23 14:25 Room Air Laboratory Results 06/12/23 06/12/23 16:00 14:55 WBC 8.27 RBC 3.54 L Hgb 10.2 L Hct 31.7 L MCV 89.5 MCH 28.8 MCHC 32.2 RDW Std Deviation 42.1 RDW Coeff of Meghan 12.7 Plt Count 241 MPV 9.2 L Immature Gran % (Auto) 0.4 Neut % (Auto) 72.7 Lymph % (Auto) 17.5 Emmet % (Auto) 6.5 Eos % (Auto) 2.2 Baso % (Auto) 0.7 Neut # (Auto) 6.01 Lymph # (Auto) 1.45 Emmet # (Auto) 0.54 Eos # (Auto) 0.18 Baso # (Auto) 0.06 Immature Gran # (Auto) 0.03 Sodium 140 Potassium 2.9 L Chloride 105 Carbon Dioxide 28 Anion Gap 7 BUN 12 Creatinine 0.95 Est Cr Clr Drug Dosing 49.2 Est GFR ( Amer) 76.5 Est GFR (Non-Af Amer) 66.0 BUN/Creatinine Ratio 12.6 Glucose 90 Calcium 9.1 Total Bilirubin 0.3 AST 12 L ALT 5 L Alkaline Phosphatase 106 H Total Protein 6.8 Albumin 3.9 Globulin 2.9 Albumin/Globulin Ratio 1.3 Lipase 18 Urine Color Yellow Urine Appearance Clear Urine pH 6.0 Ur Specific [place] 1.018 Urine Protein Trace H Urine Glucose (UA) Negative Urine Ketones Negative Urine Blood 3+ H Urine Nitrite Negative Urine Bilirubin Negative Urine Urobilinogen Negative Ur Leukocyte Esterase Negative Urine WBC (Auto) 1-5 Urine RBC (Auto) >30 H U Hyaline Cast (Auto) 0 U Epithel Cells (Auto) 0-5 Urine Bacteria (Auto) Negative Diagnostic Findings Abdomen/Pelvis CT 06/12/23 14:30 CT SCAN OF THE ABDOMEN AND PELVIS WITH IV CONTRAST CLINICAL HISTORY: Left lower quadrant abdominal pain. COMPARISON STUDY: Abdominal CT dated 12/30/2013. TECHNIQUE: Following the IV administration of 91 cc of Optiray 320, CT scan of the abdomen and pelvis is performed from the lung bases to the proximal femora. Images are reviewed in the axial, sagittal, and coronal planes. IV contrast was administered without complication. A dose lowering technique was utilized adhering to the principles of ALARA. CT DOSE: 848.51 mGy.cm FINDINGS: Lung bases: The heart is normal in size and without pericardial effusion. There is bibasilar scarring/atelectasis. There is trace left pleural effusion. No airspace consolidation is seen typical for pneumonia. A 10 mm pleural-based nodule in the right middle lobe is seen on image #10 and a pleural-based nodule in the left lower lobe is seen on image #19. These are unchanged from 2014 and of doubtful significance. Liver: The contrast-enhanced liver is normal in size, contour, and attenuation. There is mild to moderate intrahepatic biliary ductal dilatation. The hepatic veins and portal veins are patent. Gallbladder: Surgically absent noting clips in the gallbladder fossa. Spleen: Normal in size and attenuation. Pancreas: Unremarkable. Adrenal glands: Unremarkable. Kidneys: The contrast enhanced kidneys are normal in size and without hydronephrosis. The kidneys enhance symmetrically. A 2.1 cm indeterminate low- attenuation lesion in the lower pole of left kidney is been present dating back to 2013 and likely represents a complex cyst. Additional subcentimeter cortical hypodensities also likely represent cysts but are too small for definitive characterization. Abdominal vasculature: The abdominal aorta is normal in course and caliber noting moderate atherosclerotic calcification. Bowel: There is no bowel obstruction. Moderate to severe fecal retention is noted in the right colon extending to the descending colon. There is wall thickening and pericolonic inflammation and fluid involving the left colon at and below the splenic flexure. This is consistent with a nonspecific colitis, likely STIR coronal. The appendix is not visualized. Peritoneum: There is no intraperitoneal free air or abdominal ascites. There is a fat-containing umbilical hernia. There is also a fat and fluid containing supraumbilical hernia. Lymphadenopathy: None. Pelvic viscera: The bladder is normal as visualized. The uterus is surgically absent. No adnexal lesion is seen. Skeletal structures: The skeletal structures are osteopenic. There is a gyqf-ed-hdymbogl acute to subacute appearing superior end plate compression fracture of L1. Fragment retropulsed at this level by up to 6 mm. Paravertebral edema is noted. There is a chronic compression deformity of T11 with evidence of prior vertebroplasty. There is spondylotic change throughout the lumbar spine with surgical change at the lumbosacral junction. No lytic or blastic lesions are seen. There are subacute/healing left-sided rib fractures. There are bilateral sacral insufficiency fractures. IMPRESSION: 1. There is moderate to severe fecal retention in the right colon. 2. There is wall thickening involving the left colon at and below the splenic flexure with surrounding infiltration and fluid. The appearance is consistent with a nonspecific colitis, possibly stercoral. Clinical correlation will be required. 3. No bowel obstruction is seen. 4. There is an acute subacute appearing superior endplate compression fracture of L1 with surrounding paravertebral edema. Correlate clinically. 5. There are subacute/healing left-sided rib fractures. 6. Bilateral sacral insufficiency fractures. 7. There is a 2.1 cm indeterminate lesion in the lower pole of left kidney. This has been present dating back to 2013 and likely represents a complex cyst. Nonemergent renal ultrasound is recommended in follow-up. 8. Trace left pleural effusion. 9. Additional findings as above. ACT 112: Negative or not required by law. Electronically signed by: Robbin Lee M.D. 06/12/2023 4:16 PM ECG Additional Comments: Reviewed without ST wave inversion or signs of ischemia. Code Status & VTE Plan Code Status Full code - discussed with pt at bedside Supervising Physician Co-Signing Physician Notes delayed entry date of service noted above Attending Addendum: care coordinated with JAY Isaac please refer to her notes for full details, I agree with her notes patient seen and examined, records reviewed by myself as well VS noted and reviewed oriented , not in distress, speaks in sentences with no effort nor accessory muscle use normal rate, regular rhythm, no murmurs clear breath sounds bilaterally non distended, soft, mild tenderness L quadrants no bipedal edema, erythema, warmth no neuro deficits diagnoses and plan of care as per JAY Durand's notes Toby Allen MD (8) Venous stasis ulcers Laterality: unspecified laterality Non-pressure ulcer stage: limited to breakdown of skin Varicose vein presence: unspecified whether present Venous stasis ulcer site: calf Qualified Code(s): I83.002 - Varicose veins of unspecified lower extremity with ulcer of calf; L97.201 - Non-pressure chronic ulcer of unspecified calf limited to breakdown of skin
[2023-06-12] MEDS: PIPERACILLIN/TAZOBACTAM 4.5 GM/100 ML BAG IV ONE (17:53)
[2023-06-12] MEDS: NICOTINE 14 MG/24 HR PATCH TD SCH (18:27)
[2023-06-12] MEDS: POTASSIUM CHLORIDE / WTR 10 MEQ/100 ML PLCT IV SCH (18:27)
[2023-06-12] MEDS: POTASSIUM CHLORIDE CRTAB 20 MEQ TABCR PO STA (18:27)
[2023-06-12] MEDS ORDERED: FAMOTIDINE 40 MG TABLET PO PRN (22:10)
[2023-06-12] MEDS: SODIUM CHLORIDE 0.9% 1,000 ML IV SCH (22:10)
[2023-06-12] MEDS ORDERED: NON-FORMULARY MEDICATION (Aspirin-Acetaminophen-Caffeine [Excedrin Extra Strength] 250-250 PO PRN (22:10)
[2023-06-12] MEDS ORDERED: FUROSEMIDE 20 MG TAB PO PRN (22:10)
[2023-06-12] MEDS ORDERED: POTASSIUM CHLORIDE 10 MEQ TABCR PO PRN (22:10)
[2023-06-12] MEDS ORDERED: ONDANSETRON 4 MG OD TAB PO PRN (22:26)
[2023-06-12] MEDS: BUPRENORPHINE/NALOXONE 8/2 MG TAB SL SCH (23:03)
[2023-06-12] MEDS: hydrOXYzine HCl 25 MG TAB PO SCH (23:04)
[2023-06-12] MEDS: PANTOprazole 40 MG TAB PO SCH (23:04)
[2023-06-12] MEDS: traZODone HCL 100 MG TAB PO SCH (23:04)
[2023-06-12] MEDS: PIPERACILLIN/TAZOBACTAM 4.5 GM in DEXTROSE 5% MINI-B 100 ML IV SCH (23:05)
--- OUTSIDE RECORDS SUMMARY | 2023-06-13 04:00 | External Medical Summary | Summary of Care ---
Author Name Unknown Organization [facility] Address [address] [place] [address] Phone [phone] Care Team Providers Care Head Mva Reactor Operator Name Role Phone Camilla Chau DO Primary Care Provider [phone] Reason for Visit * Reason Onset Date Comments FYI 06/10/2023 Encounter Details Date Type Department Care Team (Late st Contact Info) Description 06/10/2023 Telephone [facility] [address] [place] [address] Camilla Chau DO [address] [place] [address] FYI Allergies Active Allergy Reactions Criticality Noted Date Comments Oxybutynin 08/31/2018 Terrible dry mouth and constipation Influenza Vaccines 12/27/2021 Pt stated she won't get it because it makes her "deathly ill" documented as of this encounter (statuses as of 06/10/2023) Medications Medication Sig Dispensed Refills Start Date End Date Status traZODone (DESYREL) 100 MG Tablet 2 Tablets at bedtime. 0 07/23/2015 Active Topiramate 50 MG Oral Tablet Take 1 Tablet by mouth in the morning and 1 Tablet before bedtime. 0 Active Excedrin Extra Strength 250-250-65 MG Oral Tablet (Aspirin-Acetaminoph en-Caffeine) Take 2 Tablets by mouth every 8 hours as needed. 0 Active hydrOXYzine Pamoate 50 MG Oral Capsule (Vistaril) 1 CAP DAILY AT NIGHT 0 04/14/2022 Active Venlafaxine HCl ER 75 MG Oral Capsule Extended Release 24 Hour (Effexor XR) TAKE 1 CAPSULE BY MOUTH DAILY IN THE MORNING 0 06/16/2022 Active Pantoprazole Sodium 40 MG Oral Tablet Delayed Release (Protonix) Take 1 Tablet by mouth in the morning and 1 Tablet before bedtime. 180 Tablet 3 09/25/2022 Active Famotidine 40 MG Oral Tablet (Pepcid)Indications: Gastroesophageal reflux disease without esophagitis Take 1 Tablet by mouth at bedtime as needed for Heartburn. 90 Tablet 3 10/27/2022 Active Acetaminophen 500 MG Oral Tablet (Tylenol Extra Strength) Take 1 Tablet by mouth every 6 hours as needed for Pain, Moderate. Usually one in the morning and 2 before bed 0 Active Triamcinolone Acetonide 0.1 % External Cream (Aristocort)Indicati ons:Rash and nonspecific skin eruption Apply topically to affected area 2 times a day. To affected area. 15 g 5 02/10/2023 Active LORazepam 0.5 MG Oral Tablet (Ativan) Take 1 Tablet by mouth every 6 hours as needed for Anxiety (take for medical observer anxiety PRN). 0 02/06/2023 Active Furosemide 20 MG Oral Tablet (Lasix)Indications:L ymphedema Take 1 Tablet by mouth in the morning. 30 Tablet 11 03/09/2023 Active Potassium Chloride ER 10 MEQ Oral Capsule Extended ReleaseIndications:L ymphedema Take 1 Capsule by mouth in the morning and 1 Capsule before bedtime. 60 Capsule 5 03/09/2023 Active Metoprolol Succinate ER 25 MG Oral Tablet Extended Release 24 Hour (toPROL XL)Indications:PAC (premature atrial contraction),NICM (nonischemic cardiomyopathy) ([facility]) TAKE 1 TABLET BY MOUTH EVERY DAY 90 Tablet 3 04/03/2023 Active Buprenorphine HCl 8 MG Sublingual Tablet Sublingual (Subutex) 1 twice daily 0 05/07/2023 A ctive Lactulose 10 GM/15ML Oral Solution (Constulose) As needed 0 03/09/2023 Active Vitamin D3 50 MCG (2000 UT) Oral Capsule Take 1 Capsule by mouth in the morning. 0 Active Teriparatide (Recombinant) 600 MCG/2.4ML Subcutaneous Solution Pen-injector (Forteo) Inject 20 mcg under the skin in the morning. 2.4 mL 11 05/12/2023 Active BD Pen Needle Ida U/F 32G X 4 MM (Insulin Pen Needle) Use as directed 30 Each 11 05/12/2023 Active Ondansetron HCl 4 MG Oral TabletIndications:Ce llulitis of left lower extremity,Cellulitis of right lower extremity,Edema, unspecified type Take 1 Tablet by mouth every 8 hours as needed for Nausea. 30 Tablet 0 05/15/2023 Active Atorvastatin Calcium 20 MG Oral Tablet (Lipitor) TAKE 1 TABLET BY MOUTH EVERY DAY IN THE MORNING 90 Tablet 1 05/20/2023 Active predniSONE 10 MG Oral Tablet (Deltasone) Take 5 tablets by mouth daily for five days, then 4 tablets for one day, then 3 tablets for one day, then 2 tablets for one day, then 1 tablet. Then discontinue. 35 Tablet 0 05/25/2023 Active documented as of this encounter (statuses as of 06/10/2023) Active Problems Problem Noted Date Diagnosed Date History of opioid abuse 05/23/2023 Dyslipidemia 05/23/2023 Chronic insomnia 05/23/2023 Iron deficiency anemia 02/05/2022 Hx of nonmelanoma skin cancer 01/30/2022 Overview: basal cell carcinoma (L central upper abdomen 01/25) Chronic kidney disease, stage 3b 10/14/2021 Overview: Per CKD protocol Encounter for monitoring Suboxone maintenance th erapy 01/13/2021 High risk for fracture due to osteoporosis by DE XA scan 01/13/2021 Bipolar 2 disorder 01/13/2021 Sebopsoriasis 04/28/2019 Tobacco use disorder 03/13/2014 Obesity, BMI 33.63 01/14/11 01/14/2011 Migraine with aura and witho ut status migrainosus, not intractable 06/24/2010 Acquired hypothyroidism 12/28/2007 documented as of this encounter (statuses as of 06/10/2023) Resolved Problems Problem Noted Date Diagnosed Date Resolved Date Stage 3b chronic kidney disease 02/05/2022 02/20/2022 Prediabetes 12/16/2021 03/19/2023 Overview: Per Prediabetes protocol Food insecurity 09/16/2021 05/23/2023 Overview: Per [facility] Protocol Panic disorder without agoraphobia 01/13/2021 05/23/2023 Stage 3a chronic kidney disease 02/13/2020 10/17/2021 Overview: Per CKD protocol Prediabetes 07/18/2019 06/19/2021 Overview: Per Prediabetes protocol Kidney disease, chronic, sta ge III (GFR 30-59 ml/min) 02/15/2018 02/16/2020 Overview: Per CKD protocol #1 Abdominal pain, generalized 03/13/2014 09/24/2016 History of diarrhea 03/13/2014 09/25/19 17 History of constipation 03/13/201409/05 Wound, open, ear 03/13/2014 09/24/2016 Poikiloderma of [place] 08/15/201305/07 Seborrheic dermatitis 08/15/20132016 Overview: ICD-10 update of inactive term Cardiomyopathy 08/15/2013 03/13/2014 Kidney disease, chronic, sta ge III (GFR 30-59 ml/min) 05/30/2013 11/10/2014 Overview: Per CKD protocol #1 Tobacco use disorder 12/10/2010 014 Chronic rhinitis 12/10/2010 09/24/2016 ACUTE EXUDATIVE PHARYNGITIS 12/10/2010 09/24/2016 Dysfunction of eustachian tube 12/10/2010 09/24/2016 Fever 12/10/2010 09/24/2016 Malaise and fatigue 12/10/2010 09/25/19 17 Myalgia and myositis 12/10/2010 017 Anemia 04/23/2010 05/23/2023 Chest pain 12/28/2007 09/24/2016 ADVANCE DIRECTIVE INFORMATION 09/12/2004 05/23/2023 Overview: No, Advance Directive brochure given to patient. BIPOLAR AFFEC, MIXED-MOD 07/12/2004 documented as of this encounter (statuses as of 06/10/2023) Immunizations Name Administration Dates Next Due COVID-19 mRNA, LNP-s, No Pre serve, 2-Dose Series (Pfizer) 07/14/2020,06/23/2020 Pneumococcal Conjugate Vaccine, 20-valent (Prevn ar20) 09/25/2022 TDAP (age 11 and older)(Adacel) 04/19/2007 documented as of this encounter Social History Tobacco Use Types Packs/Day Years Used Date Smoking Tobacco: Every Day Cigarettes 1 41 Passive Smoke Exposure: Never Smokeless Tobacco: Never Alcohol Use Standard Drinks/Week Comments No 0 (1 standard drink = 0.6 oz pur e alcohol) PHQ-2 Answer Date Recorded PHQ Adult Total Score 6 12/05/2021 Hunger Vital Sign Answer Date Recorded Within the past 12 months, y ou worried that your food would run out before you got the money to buy more. Sometimes true Within the past 12 months, t he food you bought just didn't last and you didn't have money to get more. Never true Sex and Gender Information Value Date Recorded Sex Assigned at Female 10/06/2018 12:37 PM EDT Gender Identity Female 10/06/2018 12:37 PM EDT Sexual Orientation Straight 10/06/2018 12 :37 PM EDT Job Start Date Occupation Industry Not on file Not on file Not on file documented as of this encounter Miscellaneous Notes * Telephone Encounter - Socorro Gutierrez OSA - 06/10/2023 11:39 AM EST Pt making Dr. Chau aware that pt scheduled an upcoming appointment with Dr. Durand as Dr. Hanley no openings. Per SendRR message. documented in this encounter Plan of Treatment Upcoming Encounters Date Type Department Care Team (Late st Contact Info) Description 06/11/2023 1:00 PM EST [facility] [place] [address] [facility] [facility] [address] [facility] [address] [place] [address] 06/16/2023 3:00 PM EDT [facility] [place] [address] [place] [place] [address] Edinson Durand MD [address] [place] [address] 07/03/2023 3:30 PM EDT Office Visit [facility]ology[facility] [place] [address] [facility] [place] [phone] Elizabeth Serrano CRNP [address] [place] [address] [place] [address] 07/13/2023 10:50 AM EDT [facility] [place] [address] [place] [address] Camilla Chau DO [address] [place] [address] 08/12/2023 11:00 AM EDT Office Visit Cardiology, [facility] [address] [facility] [place] [address] Kitty Cali PAJessica 132 [facility] [place] [address] 09/10/2023 10:30 AM EDT Office Visit Rheumatology [facility] [address] [facility] [place] [address] Selvin Spear PA-C [address] [facility] [place] [address] 10/02/2023 11:00 AM EDT Imaging Radiology [address] 132 [facility] [place] [address] 11/02/2023 11:00 AM EDT Imaging Radiology, [address] [place] [address] 03/15/2024 10:30 AM EST Office Visit Rheumatology [place] [address] [facility] [place] [address] Marcelo Kim CRNP [address] [facility] [place] [address] 03/29/2024 3:00 PM EST Office Visit Dermatology, [place] [phone] [facility] [place] [address] Keiko Almodovar PA-C [address] [place] [address] [place] [address] Health Maintenance Due Date Last Done Comments Hepatitis B (1 of 3 - 19+ 3-dose series) 01/17/1984 Cologuard 2010 Fecal Occult Blood Test 2010 Sigmoidoscopy 2010 Zoster Vaccines (1 of 2) 2015 DTaP,Tdap,and Td Vaccines (2 - Td or Tdap) 04/19/2017 04/19/2007 *BISPHONATE OR OTHER ACCEPTABLE MEDICATION NEEDED FOR OSTEOPOROSIS (REFER TO SMARTSET #1146) 01/15/2021 COVID-19 Vaccine ( season) 2022 07/14/2020, 06/23/2020 Depression Screening 12/05/2022 12/05/2021 Influenza Vaccine (FLU shot) (#1) 2022 Mammogram 08/05/2023 08/04/2022, 05/0 04/2022, 07/09/2021, Additional history exists Albumin/Creatinine Ratio 09/26/2023 023, 09/23/2021, 08/08/2020, Additional history exists CKD PHOS USE SMARTSET 44163 09/26/2023 09/25/2022, 0 04/08/2018 DXA Scan 10/30/2023 10/29/2021, 10/29/2021 GFR 11/13/2023 05/15/2023, 04/07, 03/09/2023, Additional history exists CKD HGB USE SMARTSET 01034 04/30/202404/30, 04/30/2023, 03/09/2023, Additional history exists Diabetes Screening 04/30/2026 04/30/2023, 1 05/10/2022, 09/25/2022, Additional history exists Lipid Panel 11/11/2026 11/11/2021, 11/04, 05/10/2020, Additional history exists Colonoscopy 04/18/2029 04/18/2019, 04/06, 12/16/2012, Additional history exists Colorectal Cancer Screening 04/18/2029 Pneumococcal Vaccine: Pediatrics (0 to 5 Years) and At-Risk Patients (6 to 64 Years) Completed 09/25/2022 LUNG CANCER SCREENING - USE SMARTSET 00570 Completed 09/30/2022 VITAMIN D LEVEL ONCE IN A LIFETIME-USE SMARTSET# [id number] Completed 05/15/2023, 11/17/2022, 05/13/2022, Additional history exists GARDASIL-HPV IMMUNIZATION SERIES Aged Out No longer eligible based on patient's age to complete this topic MENINGOCOCCAL (MENACTRA/MENVEO) Aged Out No longer eligible based on patient's age to complete this topic documented as of this encounter Medical Devices Implanted Type Area Material Assistant Device Identifier Shelf Expiration Date Model / Serial / Lot Cement Hv-R C01a - [id number] Implanted:Qty: 1 on 05/14/2022 by Chao Lund MD at OR [facility] N/A: Spine Thoracic [employer] : NEURO CARE 01/03/2025 C01A / / [id number] documented as of this encounter Advance Directives Latest Code Status on File Code Status Date Activated Date Inactivated Comments Full Code 05/14/2022 7:03 AM 05/14/2022 2:27 PM This or sal reflects the patients wishes and were consensually agreed upon. Question Answer Comments Discussion of Advance Directives occurred with: Patient Care Teams Head Mva Reactor Operator Relationship Specialty Start Date End Date Camilla Chau DO [address] [place] [address] PCP - General Family Medicine 11/17/11 documented as of this encounter
--- OUTSIDE RECORDS SUMMARY | 2023-06-13 04:01 | External Medical Summary | Summary of Care ---
Author Name Unknown Organization [facility] Address [address] [place] [address] Phone [phone] Care Team Providers Care National Sales Executive Name Role Phone Camilla Chau DO Primary Care Provider [phone] Reason for Visit * Reason Onset Date Comments Appointment 04/22/2023 Encounter Details Date Type Department Care Team ([facility] st Contact Info) Description 04/22/2023 Telephone Nephrology, [place] [address] [facility] [place] [address] Sobia Sun MD [address] [facility] [place] [address] Appointment Allergies Active Allergy Reactions Criticality Noted Date Comments Oxybutynin 08/31/2018 Terrible dry mouth and constipation Influenza Vaccines 12/27/2021 Pt stated she won't get it because it makes her "deathly ill" documented as of this encounter (statuses as of 05/29/2023) Medications Medication Sig Dispensed Refills Start Date End Date Status traZODone (DESYREL) 100 MG Tablet 2 Tablets at bedtime. 0 07/23/2015 Active Topiramate 50 MG Oral Tablet Take 1 Tablet by mouth in the morning and 1 Tablet before bedtime. 0 Active Excedrin Extra Strength 250-250-65 MG Oral Tablet (Aspirin-Acetami nophen-Caffeine) Take 2 Tablets by mouth every 8 [...] 09/25/2022 Active Famotidine 40 MG Oral Tablet (Pepcid)Indicati ons:Gastroesopha geal reflux disease without esophagitis Take 1 Tablet by mouth at bedtime as needed for Heartburn. 90 Tablet 3 10/27/2022 Active Acetaminophen 500 MG Oral Tablet (Tylenol Extra Strength) Take 1 Tablet by mouth every 6 hours as needed for Pain, Moderate. Usually one in the morning and 2 before bed 0 Active Triamcinolone Acetonide 0.1 % External Cream (Aristocort)Jodee cations:Rash and nonspecific skin eruption Apply topically to affected area 2 times a day. To affected area. 15 g 5 02/10/2023 Active LORazepam 0.5 MG Oral Tablet (Ativan) Take 1 Tablet by mouth every 6 hours as needed for Anxiety (take for fountain server anxiety PRN). 0 02/06/2023 Active Furosemide 20 MG Oral Tablet (Lasix)Indicatio ns:Lymphedema Take 1 Tablet by mouth in the morning. 30 Tablet 11 03/09/2023 Active Potassium Chloride ER 10 MEQ Oral Capsule Extended ReleaseIndicatio ns:Lymphedema Take 1 Capsule by mouth in the morning and 1 Capsule before bedtime. 60 Capsule 5 03/09/2023 Active Metoprolol Succinate ER 25 MG Oral Tablet Extended Release 24 Hour (toPROL XL)Indications:P AC (premature atrial contraction),PATTI M (nonischemic cardiomyopathy) ([facility]) TAKE 1 TABLET BY MOUTH EVERY DAY 90 Tablet 3 04/03/2023 Active Buprenorphine HCl-Naloxone HCl 8-2 MG Sublingual Film 1 Film in the morning and 1 Film before bedtime. Take one in the AM and one half film in PM. 0 05/12/19 24 Discontinued hydrOXYzine Pamoate 25 MG Oral Capsule Take 1 Capsule by mouth 3 times a day as needed for Anxiety. 0 05/12/19 24 Discontinued Docusate Sodium 100 MG Oral Capsule (Colace) Take 1 Capsule by mouth in the morning and 1 Capsule before bedtime. 0 05/12/19 24 Discontinued Insulin Pen Needle 31G X 5 MM USE TO INJECT FORTEO EVERY DAY 30 Each 11 04/09/2022 05/12/19 24 Discontinued Atorvastatin Calcium 20 MG Oral Tablet (Lipitor) TAKE 1 TABLET BY MOUTH EVERY DAY IN THE MORNING 90 Tablet 1 11/28/2022 05/20/19 24 Discontinued Ondansetron HCl 4 MG Oral TabletIndication s:Cellulitis of left lower extremity,Cellul itis of right lower extremity,Edema, unspecified type Take 1 Tablet by mouth every 8 hours as needed for Nausea. 30 Tablet 0 02/24/2023 05/15/19 24 Discontinued(Ref ill) Mupirocin 2 % External Ointment (Bactroban)Indic ations:Celluliti s of left lower extremity,Cellul itis of right lower extremity,Edema, unspecified type Apply topically to affected area 3 times a day for 14 days. To affected area for up to 14 days. 30 g 2 02/24/2023 05/12/19 24 Discontinued Doxycycline Hyclate 100 MG Oral CapsuleIndicatio ns:Cellulitis and abscess of left leg Take 1 Capsule by mouth in the morning and 1 Capsule before bedtime. Do all this for 10 days. Until gone.. 20 Capsule 0 03/09/2023 05/12/19 24 Discontinued Ondansetron HCl 4 MG Oral Tablet Take 1 Tablet by mouth every 6 hours as needed for Nausea. 30 Tablet 0 04/15/2023 05/12/19 24 Discontinued documented as of this encounter (statuses as of 05/29/2023) Active Problems Problem Noted Date Diagnosed Date [...] Tobacco use disorder 03/13/2014 Obesity, BMI 33.63 10/11/11 01/14/2011 Migraine with aura and witho ut status migrainosus, not intractable 06/24/2010 Acquired hypothyroidism 12/28/2007 documented as of this encounter (statuses as of 05/29/2023) Resolved Problems Problem Noted Date Diagnosed Date [...] 12/10/2010 09/24/2016 Malaise and fatigue 12/10/2010 09/25/19 Myalgia and myositis 12/10/2010 017 Anemia 04/23/2010 05/23/2023 Chest pain 12/28/2007 09/24/2016 ADVANCE DIRECTIVE INFORMATION 09/12/2004 05/23/2023 Overview: No, Advance Directive brochure given to patient. BIPOLAR AFFEC, MIXED-MOD 07/12/2004 documented as of this encounter (statuses as of 05/29/2023) Immunizations Name Administration Dates Next Due COVID-19 [...] encounter Miscellaneous Notes * Telephone Encounter - Kristel Mcguire OSA - 05/29/2023 8:52 AM EST 05/29/23 Called patient, left message. Trying to get patient re-scheduled with Nephrology for appointment. Referral is under active requests. Letter and My G message being sent out as well. patient being removed from list. * Telephone Encounter - Kristel Mcguire OSA - 05/27/2023 11:33 AM EST 05/27/23 Called patient, left message. Trying to get patient re-scheduled with Nephrology for appointment. Referral is under active requests. My G message being sent out as well. * Telephone Encounter - Kristel Mcguire OSA - 04/22/2023 3:13 PM EST 04/22/23 Called patient, left message. Trying to get patient scheduled with Nephrology for appointment. Referral is under active requests. My G message being sent out as well. documented in this encounter Plan of Treatment Upcoming Encounters Date Type Department Care Team (Late st Contact Info) Description 05/30/2023 1:45 PM EST Imaging Radiology [address] 132 [facility] [place] [address] 06/05/2023 1:30 PM EST [facility] [employer] [address] [facility] [phone] [facility] [address] [facility] [place] [address] 07/03/2023 3:30 PM EDT Office Visit [facility]ology[facility] [phone] Elizabeth Serrano CRNP [address] [place] [address] [place] [address] 07/13/2023 10:50 AM EDT Office Visit Family Practice, [employer] [address] [place] [facility] [place] [address] Camilla Chau DO [address] [place] [facility] [address] 08/12/2023 11:00 AM EDT Office Visit Cardiology, [facility] 132 [place] [address] Kitty Cali PA-C 132 [facility] [address] 09/10/2023 10:30 AM EDT Office Visit Rheumatology [address] [place] [address] Selvin Spear PA-C [address] [place], [place] [address] [address] 10/02/2023 11:00 AM EDT Imaging Radiology [facility] [address] [place] [address] 11/02/2023 11:00 AM EDT [address] Radiology, [address] [address] 03/15/2024 10:30 AM EST Office Visit Rheumatology [address] [address] Marcelo Kim CRNP [address] [place] [address] [place] [address] 03/29/2024 3:00 PM EST Office Visit Dermatology, [employer] [address] [place] [facility] [place] [address] Keiko Almodovar PA-C [address] [place] [address] [place] [address] Health Maintenance Due Date Last Done Comments Hepatitis B (1 of 3 - 19+ 3-dose series) 01/17/1984 Cologuard 2010 Fecal Occult Blood Test 2010 Sigmoidoscopy 2010 Zoster Vaccines (1 of 2) 2015 DTaP,Tdap,and Td Vaccines (2 - Td or Tdap) 04/19/2017 04/19/2007 *BISPHONATE OR OTHER ACCEPTABLE MEDICATION NEEDED FOR OSTEOPOROSIS (REFER TO SMARTSET #1146) 01/15/2021 COVID-19 Vaccine (3 season) 2022 07/14/2020, 06/23/2020 Depression Screening 12/05/2022 12/05/2021 Influenza Vaccine (FLU shot) (#1) 2022 Mammogram 08/05/2023 08/04/2022, 05/0 04/2022, 07/09/2021, Additional history exists Albumin/Creatinine Ratio 09/26/2023 023, 09/23/2021, 08/08/2020, Additional history exists CKD PHOS USE SMARTSET 52074 09/26/2023 09/25/2022, 0 04/08/2018 DXA Scan 10/30/2023 10/29/2021, 10/29/2021 GFR 11/13/2023 05/15/2023, 04/07, 03/09/2023, Additional history exists CKD HGB USE SMARTSET 83869 04/30/202404/30, 04/30/2023, 03/09/2023, Additional history exists Diabetes Screening 04/30/2026 04/30/2023, 1 05/10/2022, 09/25/2022, Additional history exists Lipid Panel 11/11/2026 11/11/2021, 11/04, 05/10/2020, Additional history exists Colonoscopy 04/18/2029 04/18/2019, 04/06, 12/16/2012, Additional history exists Colorectal Cancer Screening 04/18/2029 Pneumococcal Vaccine: Pediatrics (0 to 5 Years) and At-Risk Patients (6 to 64 Years) Completed 09/25/2022 LUNG CANCER SCREENING - USE SMARTSET 75537 Completed 09/30/2022 VITAMIN D LEVEL ONCE IN A LIFETIME-USE SMARTSET# 24284 Completed 05/15/2023, 11/17/2022, 05/13/2022, Additional history exists GARDASIL-HPV IMMUNIZATION SERIES Aged Out No longer eligible based on patient's age to complete this topic MENINGOCOCCAL (MENACTRA/MENVEO) Aged Out No longer eligible based on patient's age to complete this topic documented as of this encounter Medical Devices Implanted Type Area Saturator Device Identifier Shelf Expiration Date Model / Serial / Lot Cement Hv-R C01a - [id number] Implanted:Qty: 1 on 05/14/2022 by Chao Lund MD at OR [facility] N/A: Spine Thoracic [employer] : NEURO CARE 01/03/2025 C01A / / [id number] documented as of this encounter Additional Health Concerns Infection Onset Date Last Indicated Resolved Time 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 Question Answer Comments Discussion of Advance Directives occurred with: Patient Care Teams National Sales Executive Relationship Specialty Start Date End Date Camilla Chau DO [address] [place] [address] PCP - General Family Medicine 11/17/11 documented as of this encounter
--- OUTSIDE RECORDS SUMMARY | 2023-06-13 04:01 | External Medical Summary | Summary of Care ---
Author Name Unknown Organization [facility] Address [address] [place] [address] Phone [phone] Care Team Providers Care Antisubmarine Weapons Officer Name Role Phone Camilla Chau DO Primary Care Provider [phone] Reason for Visit * Reason Onset Date Comments Medication Pre-auth 05/28/2023 [employer] appr kallie and shipped Encounter Details Date Type Department Care Team (Late st Contact Info) Description 05/28/2023 Telephone Rheumatology [facility] [address] [place] [address] Marcelo Kim CRNP [address] [place] [address] Medication Pre-auth (Evenity approved and ... Allergies Active Allergy Reactions Criticality Noted Date Comments Oxybutynin 08/31/2018 Terrible dry mouth and constipation Influenza Vaccines 12/27/2021 Pt stated she won't get it because it makes her "deathly ill" documented as of this encounter (statuses as of 05/28/2023) Medications Medication Sig Dispensed Refills Start Date [...] hours as needed for Anxiety (take for geophysical observer anxiety PRN). 0 02/06/2023 Active Furosemide [...] (toPROL XL)Indications:PAC (premature atrial contraction),NICM (nonischemic cardiomyopathy) ([facility]) TAKE 1 TABLET BY MOUTH [...] as of this encounter (statuses as of 05/28/2023) Active Problems Problem Noted Date Diagnosed Date [...] as of this encounter (statuses as of 05/28/2023) Resolved Problems Problem Noted Date Diagnosed Date [...] as of this encounter (statuses as of 05/28/2023) Immunizations Name Administration Dates Next Due COVID-19 [...] encounter Miscellaneous Notes * Telephone Encounter - Marcelo Kim CRNP - 05/28/2023 7:59 AM EST LVMTCB documented in this encounter Plan of Treatment Upcoming Encounters Date Type Department Care Team (Late st Contact Info) Description 05/30/2023 1:45 PM EST Imaging Radiology [address] 132 [facility] [place] [address] 07/03/2023 3:30 PM EDT Office Visit Hematology/Oncology [facility] 200 [facility] [place], [place] [address] Elizabeth Serrano CRNP [address] [place] [address] [place] [address] 07/13/2023 10:50 AM EDT Office Visit [facility] [address] [place] [facility] [place] [phone] Camilla Chau DO [address] [place] [address] 08/12/2023 11:00 AM EDT Office Visit Cardiology, [facility] [address] Kitty Cali PA-Radha [facility] [address] 09/10/2023 10:30 AM EDT Office Visit Rheumatology [address] [place] [address] Selvin Spear [facility] [place] [address] 10/02/2023 11:00 AM EDT Imaging Radiology [address] 132 [facility] [address] 11/02/2023 11:00 AM EDT Imaging Radiology, [address] [place] [address] 03/15/2024 10:30 AM EST Office Visit Rheumatology [address] [place] [address] Marcelo Kim CRNP [address] [facility] [place] [address] 03/29/2024 3:00 PM EST Office Visit Dermatology, [place] [address] [address] [facility] [place] [address] Keiko Almodovar PA-C [address] [place] [address] [place] [address] Health Maintenance Due Date Last Done Comments Hepatitis B (1 of 3 - 19+ 3-dose series) 01/17/1984 Cologuard 2010 Fecal Occult Blood Test 2010 Sigmoidoscopy 2010 Zoster Vaccines (1 of 2) 2015 DTaP,Tdap,and Td Vaccines (2 - Td or Tdap) 04/19/2017 04/19/2007 *BISPHONATE OR OTHER ACCEPTABLE MEDICATION NEEDED FOR OSTEOPOROSIS (REFER TO SMARTSET #1146) 01/15/2021 COVID-19 Vaccine ( - season) 2022 07/14/2020, 06/23/2020 Depression Screening 12/05/2022 12/05/2021 Influenza Vaccine (FLU shot) (#1) 2022 Mammogram 08/05/2023 08/04/2022, 05/0 04/2022, 07/09/2021, Additional history exists Albumin/Creatinine Ratio 09/26/2023 023, 09/23/2021, 08/08/2020, Additional history exists CKD PHOS USE SMARTSET 88284 09/26/2023 09/25/2022, 0 04/08/2018 DXA Scan 10/30/2023 10/29/2021, 10/29/2021 GFR 11/13/2023 05/15/2023, 04/07, 03/09/2023, Additional history exists CKD HGB USE SMARTSET 55936 04/30/202404/30, 04/30/2023, 03/09/2023, Additional history exists Diabetes Screening 04/30/2026 04/30/2023, 1 05/10/2022, 09/25/2022, Additional history exists Lipid Panel 11/11/2026 11/11/2021, 11/04, 05/10/2020, Additional history exists Colonoscopy 04/18/2029 04/18/2019, 04/06, 12/16/2012, Additional history exists Colorectal Cancer Screening 04/18/2029 Pneumococcal Vaccine: Pediatrics (0 to 5 Years) and At-Risk Patients (6 to 64 Years) Completed 09/25/2022 LUNG CANCER SCREENING - USE SMARTSET 09790 Completed 09/30/2022 VITAMIN D LEVEL ONCE IN A LIFETIME-USE SMARTSET# 38015 Completed 05/15/2023, 11/17/2022, 05/13/2022, Additional history exists GARDASIL-HPV IMMUNIZATION SERIES Aged Out No longer eligible based on patient's age to complete this topic MENINGOCOCCAL (MENACTRA/MENVEO) Aged Out No longer eligible based on patient's age to complete this topic documented as of this encounter Medical Devices Implanted Type Area Supervisor Filling And Packing Device Identifier Shelf Expiration Date Model / Serial / Lot Cement Hv-R C01a - [id number] Implanted:Qty: 1 on 05/14/2022 by Chao Lund MD at OR [facility] N/A: Spine Thoracic [employer] : NEURO CARE 01/03/2025 C01A / / [id number] documented as of this encounter Advance Directives Latest Code Status on File Code Status Date Activated Date Inactivated Comments Full Code 05/14/2022 7:03 AM 05/14/2022 2:27 PM This or sal reflects the patients wishes and were consensually agreed upon. Question Answer Comments Discussion of Advance Directives occurred with: Patient Care Teams Antisubmarine Weapons Officer Relationship Specialty Start Date End Date Camilla Chau DO [address] [place] [address] PCP - General Family Medicine 11/17/11 documented as of this encounter
--- OUTSIDE RECORDS SUMMARY | 2023-06-13 04:01 | External Medical Summary | Summary of Care ---
Author Name Unknown Organization [facility] Address [address] [place] [address] Phone [phone] Care Team Providers Care Enamel Applier Name Role Phone Camilla Chau DO Primary Care Provider [phone] Reason for Visit * Reason Onset Date Comments Precert Not Needed 05/21/2023 Forteo Encounter Details Date Type Department Care Team (Late st Contact Info) Description 05/21/2023 Telephone Rheumatology [facility] [address] [place] [address] Marcelo Armstrong CRNP [address] [place] [address] Precert Not Needed ( Forteo) Allergies Active Allergy Reactions Criticality Noted Date Comments Oxybutynin 08/31/2018 Terrible dry mouth and constipation Influenza Vaccines 12/27/2021 Pt stated she won't get it because it makes her "deathly ill" documented as of this encounter (statuses as of 06/02/2023) Medications Medication Sig Dispensed Refills Start Date [...] hours as needed for Anxiety (take for inspector golf ball anxiety PRN). 0 02/06/2023 Active Furosemide 20 [...] (toPROL XL)Indications:PAC (premature atrial contraction),NICM (nonischemic cardiomyopathy) ([facility]) [...] THE MORNING 90 Tablet 1 05/20/2023 Active documented as of this encounter (statuses as of 06/02/2023) Active Problems Problem Noted Date Diagnosed Date [...] as of this encounter (statuses as of 06/02/2023) Resolved Problems Problem Noted Date Diagnosed Date [...] as of this encounter (statuses as of 06/02/2023) Immunizations Name Administration Dates Next Due COVID-19 mRNA, LNP-s, No Pre serve, 2-Dose Series (Spacious App) 07/14/2020,06/23/2020 Pneumococcal Conjugate Vaccine, 20-valent (Prevn ar20) [...] Miscellaneous Notes * Telephone Encounter - Marcelo Armstrong CRNP - 06/02/2023 12:04 PM EST See Patient message. Thank you * Telephone Encounter - Carolyne Allred OSA - 05/21/2023 1:24 PM EST Take Off Worker - Patient Related Communication Reason for Call: Pt just got her first injection .she received letter in the mail about it not being continued. She received temporary supply . They are advising to change the medication or authorization or requesting approval to continue the medication . Please call to discuss. She has telehealth appt today from 3-4 . Please call cell first if no answer call home . KATHIE Cabrera * Telephone Encounter - Daniela Serrano [facility] - 05/21/2023 12:34 PM EST Rheumatology Pre-Certification Request Medication/Disease State Information: Diagnosis: Age-related osteoporosis without current pathological fracture [M81.0] Patient Age: [age] year old Medication/Dose/Route/Interval: Teriperatide (Generic Forteo) 20 mcg daily x 2 years Site of Care: Self-Administered Failed or Intolerant to or Contraindicated: Oral Bisphosphonate: no Comment: Patient bisphosphonate and evenity naiive. She previously started Forteo in Apr 2022-July 2022 then stopped after her mother's passing. Would like to resume therapy. Recommend anabolic therapy such as Forteo > anti-resorptive therapy such as Fosamax or Reclast since patient has a recent spinal fracture (sacral fracture 01/2023). Rheumatology Office Information: Coat Maker: MARCELO ARMSTRONG Rheumatology Pharmacist: Daniela Serrano Notification to the Clinic Needed: Hiroc Appointment Needed:no Labs Needed:no documented in this encounter Plan of Treatment Upcoming Encounters Date Type Department Care Team (Late st Contact Info) Description 06/05/2023 1:30 PM EST Laboratory [address] [phone] [facility] [address] [place] [facility] [place] [address] 07/03/2023 3:30 PM EDT Office Visit Hematology/Oncology [facility] [place] [address] [facility] [phone] Elizabeth Serrano CRNP [address] [place] [address] [place] [address] 07/13/2023 10:50 AM EDT [facility] [place] [address] [address] [facility] [phone] Camilla Chau DO [address] [place] [address] 08/12/2023 11:00 AM EDT Office Visit Cardiology, [facility] 132 [place] [address] Kitty Cali PA-C 132 [facility] [place] [address] 09/10/2023 10:30 AM EDT Office Visit Rheumatology [address] [place] [address] Selvin Spear PA-C [address] [place] [address] [place] [address] 10/02/2023 11:00 AM EDT Imaging Radiology [facility] [facility] [address] 11/02/2023 11:00 AM EDT Imaging Radiology, [address] [place] [address] 03/15/2024 10:30 AM EST Office Visit Rheumatology [address], [place] [address] Marcelo Armstrong, RAZ [address] [place] [address] [place] [address] 03/29/2024 3:00 PM EST Office Visit Dermatology, [place] [address] [facility] [address] Keiko Almodovar PAJessica [address] [place] [address] [place] [address] Health Maintenance Due Date Last Done Comments Hepatitis B (1 of 3 - 19+ 3-dose series) 01/17/1984 Cologuard 2010 Fecal Occult Blood Test 2010 Sigmoidoscopy 2010 Zoster Vaccines (1 of 2) 2015 DTaP,Tdap,and Td Vaccines (2 - Td or Tdap) 04/19/2017 04/19/2007 *BISPHONATE OR OTHER ACCEPTABLE MEDICATION NEEDED FOR OSTEOPOROSIS (REFER TO SMARTSET #1146) 01/15/2021 COVID-19 Vaccine (3 - 2022- season) 2022 07/14/2020, 06/23/2020 Depression Screening 12/05/2022 12/05/2021 Influenza Vaccine (FLU shot) (#1) 2022 Mammogram 08/05/2023 08/04/2022, 05/0 04/2022, 07/09/2021, Additional history exists Albumin/Creatinine Ratio 09/26/2023 023, 09/23/2021, 08/08/2020, Additional history exists CKD PHOS USE SMARTSET 51598 09/26/2023 09/25/2022, 0 04/08/2018 DXA Scan 10/30/2023 10/29/2021, 10/29/2021 GFR 11/13/2023 05/15/2023, 04/07, 03/09/2023, Additional history exists CKD HGB USE SMARTSET 81008 04/30/202404/30, 04/30/2023, 03/09/2023, Additional history exists Diabetes Screening 04/30/2026 04/30/2023, 1 05/10/2022, 09/25/2022, Additional history exists Lipid Panel 11/11/2026 11/11/2021, 11/04, 05/10/2020, Additional history exists Colonoscopy 04/18/2029 04/18/2019, 04/06, 12/16/2012, Additional history exists Colorectal Cancer Screening 04/18/2029 Pneumococcal Vaccine: Pediatrics (0 to 5 Years) and At-Risk Patients (6 to 64 Years) Completed 09/25/2022 LUNG CANCER SCREENING - USE SMARTSET 05004 Completed 09/30/2022 VITAMIN D LEVEL ONCE IN A LIFETIME-USE SMARTSET# 05664 Completed 05/15/2023, 11/17/2022, 05/13/2022, Additional history exists GARDASIL-HPV IMMUNIZATION SERIES Aged Out No longer eligible based on patient's age to complete this topic MENINGOCOCCAL (MENACTRA/MENVEO) Aged Out No longer eligible based on patient's age to complete this topic documented as of this encounter Medical Devices Implanted Type Area Group Fitness Instructor Device Identifier Shelf Expiration Date Model / Serial / Lot Cement Hv-R C01a - [id number] Implanted:Qty: 1 on 05/14/2022 by Chao Lund MD at OR [facility] N/A: Spine Thoracic [employer] : NEURO CARE 01/03/2025 C01A / / [id number] documented as of this encounter Advance Directives Latest Code Status on File Code Status Date Activated Date Inactivated Comments Full Code 05/14/2022 7:03 AM 05/14/2022 2:27 PM This or sal reflects the patients wishes and were consensually agreed upon. Question Answer Comments Discussion of Advance Directives occurred with: Patient Care Teams Enamel Applier Relationship Specialty Start Date End Date Camilla Chau DO [address] [place] [address] PCP - General Family Medicine 11/17/11 documented as of this encounter
--- OUTSIDE RECORDS SUMMARY | 2023-06-13 04:01 | External Medical Summary | Summary of Care ---
Author Name Unknown Organization [facility] Address [address] [place] [address] Phone [phone] Care Team Providers Care Auxiliary Operator Name Role Phone Camilla Chau DO Primary Care Provider [phone] Reason for Visit * Reason Onset Date Comments Appointment 04/22/2023 Encounter Details Date Type Department Care Team ([facility] st Contact Info) Description 04/22/2023 Telephone Nephrology, [place] 200 [facility] [place] [address] Sobia Sun MD 200 [facility] [place] [address] Appointment Allergies Active Allergy Reactions Criticality Noted Date Comments Oxybutynin 08/31/2018 Terrible dry mouth and constipation Influenza Vaccines 12/27/2021 Pt stated she won't get it because it makes her "deathly ill" documented as of this encounter (statuses as of 05/27/2023) Medications Medication Sig Dispensed Refills Start Date [...] hours as needed for Anxiety (take for machinery cleaner anxiety PRN). 0 02/06/2023 Active Furosemide 20 [...] AC (premature atrial contraction),PATTI M (nonischemic cardiomyopathy) ([facility]) TAKE 1 TABLET BY MOUTH EVERY DAY [...] as of this encounter (statuses as of 05/27/2023) Active Problems Problem Noted Date Diagnosed Date [...] as of this encounter (statuses as of 05/27/2023) Resolved Problems Problem Noted Date Diagnosed Date [...] as of this encounter (statuses as of 05/27/2023) Immunizations Name Administration Dates Next Due COVID-19 [...] Description 05/30/2023 1:45 PM EST Imaging Radiology [address] 132 [facility] [place] [address] 07/03/2023 3:30 PM EDT Office Visit Hematology/Oncology [facility] [phone] Elizabeth Serrano CRNP 400 [facility] [place] [address] 07/13/2023 10:50 AM EDT Office Visit [facility] [address] [place] [address] [place] [phone] Camilla Chau DO [address] [place] [address] 08/12/2023 11:00 AM EDT Office Visit Cardiology, [facility] 132 [facility] [place] [address] Kitty Cali PA-C [address] [place] [address] 09/10/2023 10:30 AM EDT Office Visit Rheumatology [address] [place] [address] Selvin Spear PA-C [address] [place] [address] [place] [address] 10/02/2023 11:00 AM EDT Imaging Radiology [facility] 1st [facility], [place] [address] [place] [place] [address] 11/02/2023 11:00 AM EDT Imaging Radiology, [address] [place] [address] 03/15/2024 10:30 AM EST Office Visit Rheumatology [address] [place] [address] Marcelo Kim CRNP [address] [place] [address] [place] [address] 03/29/2024 3:00 PM EST Office Visit Dermatology[address] [address] Keiko Almodovar PAJessica [address] [place] [address] [place] [address] Health Maintenance Due Date Last Done Comments [...] Additional history exists CKD PHOS USE SMARTSET 78091 09/26/2023 09/25/2022, 0 04/08/2018 DXA Scan 10/30/2023 10/29/2021, 10/29/2021 GFR 11/13/2023 05/15/2023, 04/07, 03/09/2023, Additional history exists CKD HGB USE SMARTSET 98331 04/30/202404/30, 04/30/2023, 03/09/2023, Additional history exists Diabetes Screening 04/30/2026 04/30/2023, 1 05/10/2022, 09/25/2022, Additional history exists Lipid Panel 11/11/2026 11/11/2021, 11/04, 05/10/2020, Additional history exists Colonoscopy 04/18/2029 04/18/2019, 04/06, 12/16/2012, Additional history exists Colorectal Cancer Screening 04/18/2029 Pneumococcal Vaccine: Pediatrics (0 to 5 Years) and At-Risk Patients (6 to 64 Years) Completed 09/25/2022 LUNG CANCER SCREENING - USE SMARTSET 03060 Completed 09/30/2022 VITAMIN D LEVEL ONCE IN A LIFETIME-USE SMARTSET# 52134 Completed 05/15/2023, 11/17/2022, 05/13/2022, Additional history exists GARDASIL-HPV IMMUNIZATION SERIES Aged Out No longer eligible based on patient's age to complete this topic MENINGOCOCCAL (MENACTRA/MENVEO) Aged Out No longer eligible based on patient's age to complete this topic documented as of this encounter Medical Devices Implanted Type Area Horticultural Services Supervisor Device Identifier Shelf Expiration Date Model / Serial / Lot Cement Hv-R C01a - [id number] Implanted:Qty: 1 on 05/14/2022 by Chao Lund MD at OR [facility] N/A: Spine Thoracic [employer] : NEURO CARE 01/03/2025 C01A / / [id number] documented as of this encounter Additional Health [...] Advance Directives occurred with: Patient Care Teams Auxiliary Operator Relationship Specialty Start Date End Date Camilla Chau DO [address] [facility] [address] PCP - General Family Medicine 11/17/11 documented as of this encounter
--- OUTSIDE RECORDS SUMMARY | 2023-06-13 04:01 | External Medical Summary | Summary of Care ---
Author Name Unknown Organization [facility] Address [address] [place] [address] Phone [phone] Care Team Providers Care Assistant Sales Director Name Role Phone Camilla Chau DO Primary Care Provider [phone] Reason for Visit * Reason Onset Date Comments Precert Not Needed 05/21/2023 Forteo Encounter Details Date Type Department Care Team (Late st Contact Info) Description 05/21/2023 Telephone Rheumatology [facility] [address] [place] [address] Marcelo Armstrong CRNP [email or web address] [place] [address] Precert Not Needed ( Forteo) Allergies Active Allergy Reactions Criticality Noted Date Comments Oxybutynin 08/31/2018 Terrible dry mouth and constipation Influenza Vaccines 12/27/2021 Pt stated she won't get it because it makes her "deathly ill" documented as of this encounter (statuses as of 06/03/2023) Medications Medication Sig Dispensed Refills Start Date [...] hours as needed for Anxiety (take for enlisted aircrew/aerial observer/gunner anxiety PRN). 0 02/06/2023 Active Furosemide 20 [...] (toPROL XL)Indications:PAC (premature atrial contraction),NICM (nonischemic cardiomyopathy) ([facility]) TAKE 1 TABLET BY MOUTH [...] as of this encounter (statuses as of 06/03/2023) Active Problems Problem Noted Date Diagnosed Date [...] as of this encounter (statuses as of 06/03/2023) Resolved Problems Problem Noted Date Diagnosed Date [...] as of this encounter (statuses as of 06/03/2023) Immunizations Name Administration Dates Next Due COVID-19 mRNA, LNP-s, No Pre serve, 2-Dose Series ([employer]) 07/14/2020,06/23/2020 Pneumococcal Conjugate Vaccine, 20-valent (Prevn ar20) [...] Allred OSA - 05/21/2023 1:24 PM EST Improvement Intern - Patient Related Communication Reason for Call: [...] Cabrera * Telephone Encounter - Daniela Serrano [facility] - 05/21/2023 12:34 PM EST Rheumatology Pre-Certification [...] fracture (sacral fracture 01/2023). Rheumatology Office Information: Suction Dredge Dumping Supervisor: MARCELO ARMSTRONG Rheumatology Pharmacist: Daniela Serrano Notification to the Clinic Needed: Hiroc Appointment Needed:no Labs Needed:no documented in this encounter Plan of Treatment Upcoming Encounters Date Type Department Care Team (Late st Contact Info) Description 06/05/2023 1:30 PM EST Laboratory Laboratory, [address] [phone] [facility] Laboratory [address] [place] [address] 07/03/2023 3:30 PM EDT Office Visit Hematology/Oncology [facility] [place] [facility] [phone] Elizabeth Serrano CRNP [address] [place] [address] [place] [address] 07/13/2023 10:50 AM EDT Office Visit [facility], [place] [address] [address] [facility] [phone] Camilla Chau DO [address] [place] [facility] [place] [address] 08/12/2023 11:00 AM EDT Office Visit Cardiology, [facility] 132 [place] [address] Kitty Cali PA-C 132 [facility] [place] [address] 09/10/2023 10:30 AM EDT Office Visit Rheumatology [address] [place] [address] Selvin Spear PA-C [address] [place] [address] [place] [address] 10/02/2023 11:00 AM EDT Imaging Radiology [facility] 1st [facility] 132 [facility] [address] 11/02/2023 11:00 AM EDT Imaging Radiology, [address] [place] [address] 03/15/2024 10:30 AM EST Office Visit Rheumatology [address], [place] [address] Marcelo Armstrong, RAZ [address] [place] [address] [place] [address] 03/29/2024 3:00 PM EST Office Visit Dermatology, [place] [address] [facility] [address] Keiko Almodovar PAJessica [address] [place] [address] [place] [address] Health Maintenance Due Date Last Done Comments [...] Additional history exists CKD PHOS USE SMARTSET 58718 09/26/2023 09/25/2022, 0 04/08/2018 DXA Scan 10/30/2023 10/29/2021, 10/29/2021 GFR 11/13/2023 05/15/2023, 04/07, 03/09/2023, Additional history exists CKD HGB USE SMARTSET 92922 04/30/202404/30, 04/30/2023, 03/09/2023, Additional history exists Diabetes Screening 04/30/2026 04/30/2023, 1 05/10/2022, 09/25/2022, Additional history exists Lipid Panel 11/11/2026 11/11/2021, 11/04, 05/10/2020, Additional history exists Colonoscopy 04/18/2029 04/18/2019, 04/06, 12/16/2012, Additional history exists Colorectal Cancer Screening 04/18/2029 Pneumococcal Vaccine: Pediatrics (0 to 5 Years) and At-Risk Patients (6 to 64 Years) Completed 09/25/2022 LUNG CANCER SCREENING - USE SMARTSET 32946 Completed 09/30/2022 VITAMIN D LEVEL ONCE IN A LIFETIME-USE SMARTSET# 94612 Completed 05/15/2023, 11/17/2022, 05/13/2022, Additional history exists GARDASIL-HPV IMMUNIZATION SERIES Aged Out No longer eligible based on patient's age to complete this topic MENINGOCOCCAL (MENACTRA/MENVEO) Aged Out No longer eligible based on patient's age to complete this topic documented as of this encounter Medical Devices Implanted Type Area Manufacturing Maintenance Technician Device Identifier Shelf Expiration Date Model / Serial / Lot Cement Hv-R C01a - [id number] Implanted:Qty: 1 on 05/14/2022 by Chao Lund MD at OR [facility] N/A: Spine Thoracic [employer] : NEURO CARE 01/03/2025 C01A / / [id number] documented as of this encounter Advance Directives Latest Code Status on File Code Status Date Activated Date Inactivated Comments Full Code 05/14/2022 7:03 AM 05/14/2022 2:27 PM This or sal reflects the patients wishes and were consensually agreed upon. Question Answer Comments Discussion of Advance Directives occurred with: Patient Care Teams Assistant Sales Director Relationship Specialty Start Date End Date Camilla Chau DO [address] [place] [address] PCP - General Family Medicine 11/17/11 documented as of this encounter
--- OUTSIDE RECORDS SUMMARY | 2023-06-13 04:01 | External Medical Summary | Summary of Care ---
Author Name Unknown Organization [facility] Address [address] [place] [address] Phone [phone] Care Team Providers Care Rougher Merchant Mill Name Role Phone Camilla Chau DO Primary Care Provider [phone] Reason for Visit * Reason Onset Date Comments Precert Not Needed 05/21/2023 Forteo Encounter Details Date Type Department Care Team (Late st Contact Info) Description 05/21/2023 Telephone Rheumatology [facility] [address] [employer] [employer] [place] [address] Marcelo Armstrong CRNP [address] [place] [address] Precert Not Needed ( Forteo) Allergies [...] hours as needed for Anxiety (take for chief service observer anxiety PRN). 0 02/06/2023 Active Furosemide [...] (toPROL XL)Indications:PAC (premature atrial contraction),NICM (nonischemic cardiomyopathy) ([facility]) TAKE 1 TABLET BY MOUTH EVERY DAY [...] mRNA, LNP-s, No Pre serve, 2-Dose Series ([employer]) 07/14/2020,06/23/2020 Pneumococcal Conjugate Vaccine, 20-valent (Prevn ar20) [...] encounter Miscellaneous Notes * Telephone Encounter - Carolyne Allred OSA - 05/21/2023 1:24 PM EST Head Bookkeeper - Patient Related Communication Reason for Call: [...] fracture (sacral fracture 01/2023). Rheumatology Office Information: Engineering Operations Leader: MARCELO ARMSTRONG Rheumatology Pharmacist: Daniela Serrano Notification to the Clinic Needed: Hiroc Appointment Needed:no Labs Needed:no documented in this encounter Plan of Treatment Upcoming Encounters Date Type Department Care Team (Late st Contact Info) Description 05/30/2023 1:45 PM EST Imaging Radiology [facility] [address] [facility] 132 [facility] [place] [address] 07/03/2023 3:30 PM EDT Office Visit Hematology/Oncology [facility] 200 [facility] [address] Elizabeth Serrano CRNP 400 [facility] [place] [address] 07/13/2023 10:50 AM EDT Office Visit [facility] [address] [place] [address] [place] [phone] Camilla Chau DO [address] [place] [address] 08/12/2023 11:00 AM EDT Office Visit Cardiology, [facility] 132 [facility] [place] [address] Kitty Cali PA-C 132 [facility] [place] [address] 09/10/2023 10:30 AM EDT Office Visit Rheumatology [address] [place] [address] Selvin Spear PA-C [address] [place] [address] [place] [address] 10/02/2023 11:00 AM EDT Imaging Radiology [facility] 1st [facility], [place] [address] [place] [address] 11/02/2023 11:00 AM EDT Imaging Radiology, [address] [place] [address] 03/15/2024 10:30 AM EST Office Visit Rheumatology [address] [place] [address] Marcelo Armstrong CRNP [address] [place] [address] [place] [address] 03/29/2024 3:00 PM EST Office Visit Dermatology, [address] [address] Keiko Almodovar PA-C [address] [place] [address] [place] [address] Health Maintenance Due Date Last Done Comments [...] Additional history exists CKD PHOS USE SMARTSET 74175 09/26/2023 09/25/2022, 0 04/08/2018 DXA Scan 10/30/2023 10/29/2021, 10/29/2021 GFR 11/13/2023 05/15/2023, 04/07, 03/09/2023, Additional history exists CKD HGB USE SMARTSET 10675 04/30/202404/30, 04/30/2023, 03/09/2023, Additional history exists Diabetes Screening 04/30/2026 04/30/2023, 1 05/10/2022, 09/25/2022, Additional history exists Lipid Panel 11/11/2026 11/11/2021, 11/04, 05/10/2020, Additional history exists Colonoscopy 04/18/2029 04/18/2019, 04/06, 12/16/2012, Additional history exists Colorectal Cancer Screening 04/18/2029 Pneumococcal Vaccine: Pediatrics (0 to 5 Years) and At-Risk Patients (6 to 64 Years) Completed 09/25/2022 LUNG CANCER SCREENING - USE SMARTSET 57576 Completed 09/30/2022 VITAMIN D LEVEL ONCE IN A LIFETIME-USE SMARTSET# 24796 Completed 05/15/2023, 11/17/2022, 05/13/2022, Additional history exists GARDASIL-HPV IMMUNIZATION SERIES Aged Out No longer eligible based on patient's age to complete this topic MENINGOCOCCAL (MENACTRA/MENVEO) Aged Out No longer eligible based on patient's age to complete this topic documented as of this encounter Medical Devices Implanted Type Area Tube Station Attendant Device Identifier Shelf Expiration Date Model / Serial / Lot Cement Hv-R C01a - [id number] Implanted:Qty: 1 on 05/14/2022 by Chao Lund MD at OR [facility] N/A: Spine Thoracic [employer] : NEURO CARE 01/03/2025 C01A / / [id number] documented as of this encounter Advance Directives Latest Code Status on File Code Status Date Activated Date Inactivated Comments Full Code 05/14/2022 7:03 AM 05/14/2022 2:27 PM This or sal reflects the patients wishes and were consensually agreed upon. Question Answer Comments Discussion of Advance Directives occurred with: Patient Care Teams Rougher Merchant Mill Relationship Specialty Start Date End Date Camilla Chau DO [address] [facility] [place] [address] PCP - General Family Medicine 11/17/11 documented as of this encounter
--- OUTSIDE RECORDS SUMMARY | 2023-06-13 04:01 | External Medical Summary | Summary of Care ---
Author Name Unknown Organization [facility] Address [address] [place] [address] Phone [phone] Care Team Providers Care Grinding Room Inspector Name Role Phone Camilla Chau DO Primary Care Provider [phone] Reason for Visit * Reason Onset Date Comments Precert Not Needed 05/21/2023 Forteo Encounter Details Date Type Department Care Team (Late st Contact Info) Description 05/21/2023 Telephone Rheumatology [facility] [address] [employer] [address] [employer] [place] [address] Marcelo Armstrong CRNP [address] [place] [address] Precert Not Needed ( Forteo) Allergies [...] hours as needed for Anxiety (take for cafeteria food server anxiety PRN). 0 02/06/2023 Active Furosemide [...] XL)Indications:PAC (premature atrial contraction),NICM (nonischemic cardiomyopathy) ([facility]) TAKE 1 TABLET BY MOUTH EVERY DAY [...] mRNA, LNP-s, No Pre serve, 2-Dose Series ([employer]) 07/14/2020,06/23/2020 Pneumococcal Conjugate Vaccine, 20-valent (Prevn ar20) [...] Allred OSA - 05/21/2023 1:24 PM EST Central Office Trouble Shooter - Patient Related Communication Reason for Call: [...] Cabrera * Telephone Encounter - Daniela Serrano [facility] - 05/21/2023 12:34 PM EST [...] fracture (sacral fracture 01/2023). Rheumatology Office Information: Parimutuel Ticket Checker: MARCELO ARMSTRONG Rheumatology Pharmacist: Daniela Serrano Notification to the Clinic Needed: Hiroc Appointment Needed:no Labs Needed:no documented in this encounter Plan of Treatment Upcoming Encounters Date Type Department Care Team (Late st Contact Info) Description 05/30/2023 1:45 PM EST Imaging Radiology [facility] 1st [facility] 132 [facility] [place] [address] 06/05/2023 1:30 PM EST Laboratory Laboratory, [address] [address] [facility] [address] [place] [address] 07/03/2023 3:30 PM EDT Office Visit Hematology/Oncology [facility] 200 [facility] [phone] Elizabeth Serrano CRNP 400 [facility] [place] [address] 07/13/2023 10:50 AM EDT Office Visit [facility] [place] [address] [facility] [phone] Camilla Chau DO [address] [facility] [address] 08/12/2023 11:00 AM EDT Office Visit Cardiology, [facility] 132 [facility] [address] Kitty Cali PA-C 132 [facility] [place] [address] 09/10/2023 10:30 AM EDT Office Visit Rheumatology [address] [place], [place] [address] Selvin Spear PA-C [address] [place] [address] [place] [address] 10/02/2023 11:00 AM EDT Imaging Radiology [facility] 1st [facility] 132 [facility] [place] [address] 11/02/2023 11:00 AM EDT Imaging Radiology, [address] [place] [address] 03/15/2024 10:30 AM EST Office Visit Rheumatology [address] [place], [place] [address] Marcelo Armstrong CRNP [address] [place] [address] [place], [place] [address] 03/29/2024 3:00 PM EST Office Visit Dermatology[address] [place] [address] Keiko Almodovar PA-C [address] [place] [address] [place] [address] Health Maintenance Due Date Last Done Comments [...] Additional history exists CKD PHOS USE SMARTSET 95331 09/26/2023 09/25/2022, 0 04/08/2018 DXA Scan 10/30/2023 10/29/2021, 10/29/2021 GFR 11/13/2023 05/15/2023, 04/07, 03/09/2023, Additional history exists CKD HGB USE SMARTSET 13426 04/30/202404/30, 04/30/2023, 03/09/2023, Additional history exists Diabetes Screening 04/30/2026 04/30/2023, 1 05/10/2022, 09/25/2022, Additional history exists Lipid Panel 11/11/2026 11/11/2021, 11/04, 05/10/2020, Additional history exists Colonoscopy 04/18/2029 04/18/2019, 04/06, 12/16/2012, Additional history exists Colorectal Cancer Screening 04/18/2029 Pneumococcal Vaccine: Pediatrics (0 to 5 Years) and At-Risk Patients (6 to 64 Years) Completed 09/25/2022 LUNG CANCER SCREENING - USE SMARTSET 65992 Completed 09/30/2022 VITAMIN D LEVEL ONCE IN A LIFETIME-USE SMARTSET# 67377 Completed 05/15/2023, 11/17/2022, 05/13/2022, Additional history exists GARDASIL-HPV IMMUNIZATION SERIES Aged Out No longer eligible based on patient's age to complete this topic MENINGOCOCCAL (MENACTRA/MENVEO) Aged Out No longer eligible based on patient's age to complete this topic documented as of this encounter Medical Devices Implanted Type Area Senior Tax Accountant Device Identifier Shelf Expiration Date Model / Serial / Lot Cement Hv-R C01a - [id number] Implanted:Qty: 1 on 05/14/2022 by Chao Lund MD at OR [facility] N/A: Spine Thoracic [employer] : NEURO CARE 01/03/2025 C01A / / [id number] documented as of this encounter Advance Directives Latest Code Status on File Code Status Date Activated Date Inactivated Comments Full Code 05/14/2022 7:03 AM 05/14/2022 2:27 PM This or sal reflects the patients wishes and were consensually agreed upon. Question Answer Comments Discussion of Advance Directives occurred with: Patient Care Teams Grinding Room Inspector Relationship Specialty Start Date End Date Camilla Chau DO [address] [place] [address] PCP - General Family Medicine 11/17/11 documented as of this encounter
--- OUTSIDE RECORDS SUMMARY | 2023-06-13 04:01 | External Medical Summary | Summary of Care ---
Author Name Unknown Organization [facility] Address [address] [place] [address] Phone [phone] Care Team Providers Care Radio Sportscaster Name Role Phone Camilla Chau DO Primary Care Provider [phone] Reason for Visit * Reason Onset Date Comments Precert Not Needed 05/21/2023 Forteo Encounter Details Date Type Department Care Team (Late st Contact Info) Description 05/21/2023 Telephone Rheumatology [facility] [address] [place] [address] Marcelo Armstrong CRNP [address] [place] [address] Precert Not Needed ( Forteo) Allergies [...] hours as needed for Anxiety (take for windows server architect anxiety PRN). 0 02/06/2023 Active Furosemide 20 [...] (toPROL XL)Indications:PAC (premature atrial contraction),NICM (nonischemic cardiomyopathy) ([facility]) TAKE 1 TABLET BY MOUTH [...] mRNA, LNP-s, No Pre serve, 2-Dose Series (for; to (do) Centers) 07/14/2020,06/23/2020 Pneumococcal Conjugate Vaccine, 20-valent (Prevn ar20) [...] Allred OSA - 05/21/2023 1:24 PM EST Ditcher - Patient Related Communication Reason for Call: [...] Cabrera * Telephone Encounter - Daniela Serrano [facility] - 05/21/2023 12:34 PM EST Rheumatology Pre-Certification [...] fracture (sacral fracture 01/2023). Rheumatology Office Information: [place] Line Attendant: MARCELO ARMSTRONG Rheumatology Pharmacist: Daniela Serrano Notification to the Clinic Needed: Hiroc Appointment Needed:no Labs Needed:no documented in this encounter Plan of Treatment Upcoming Encounters Date Type Department Care Team (Late st Contact Info) Description 06/05/2023 1:30 PM EST Laboratory Laboratory, [address] [phone] [facility] [address] [place] [address] 07/03/2023 3:30 PM EDT Office Visit Hematology/Oncology [facility] [place] 200 [facility] [phone] Elizabeth Serrano CRNP [address] [place] [address] [place] [address] 07/13/2023 10:50 AM EDT Office Visit [facility], [place] [address] [address] [facility] [phone] Camilla Chau DO [address] [place] [facility] [place] [address] 08/12/2023 11:00 AM EDT Office Visit Cardiology, [facility] 132 [place] [address] Kitty Cali PA-C 132 [place] [address] 09/10/2023 10:30 AM EDT Office Visit Rheumatology [address] [place] [address] Selvin Spear PA-C [address] [place] [address] [place] [address] 10/02/2023 11:00 AM EDT Imaging Radiology [facility] 1st [facility] 132 [facility] [address] 11/02/2023 11:00 AM EDT Imaging Radiology, [address] [place] [address] 03/15/2024 10:30 AM EST Office Visit Rheumatology [address], [place] [address] Marcelo Armstrong, RAZ [address] [place] [address] [place] [address] 03/29/2024 3:00 PM EST Office Visit Dermatology, [place] [address] [facility] [address] Keiko Almodovar PAJessica [address] [place] [address] [place] [address] Health Maintenance Due Date Last Done Comments [...] Additional history exists CKD PHOS USE SMARTSET 56951 09/26/2023 09/25/2022, 0 04/08/2018 DXA Scan 10/30/2023 10/29/2021, 10/29/2021 GFR 11/13/2023 05/15/2023, 04/07, 03/09/2023, Additional history exists CKD HGB USE SMARTSET 97262 04/30/202404/30, 04/30/2023, 03/09/2023, Additional history exists Diabetes Screening 04/30/2026 04/30/2023, 1 05/10/2022, 09/25/2022, Additional history exists Lipid Panel 11/11/2026 11/11/2021, 11/04, 05/10/2020, Additional history exists Colonoscopy 04/18/2029 04/18/2019, 04/06, 12/16/2012, Additional history exists Colorectal Cancer Screening 04/18/2029 Pneumococcal Vaccine: Pediatrics (0 to 5 Years) and At-Risk Patients (6 to 64 Years) Completed 09/25/2022 LUNG CANCER SCREENING - USE SMARTSET 01516 Completed 09/30/2022 VITAMIN D LEVEL ONCE IN A LIFETIME-USE SMARTSET# 99881 Completed 05/15/2023, 11/17/2022, 05/13/2022, Additional history exists GARDASIL-HPV IMMUNIZATION SERIES Aged Out No longer eligible based on patient's age to complete this topic MENINGOCOCCAL (MENACTRA/MENVEO) Aged Out No longer eligible based on patient's age to complete this topic documented as of this encounter Medical Devices Implanted Type Area Campus Director Device Identifier Shelf Expiration Date Model / Serial / Lot Cement Hv-R C01a - [id number] Implanted:Qty: 1 on 05/14/2022 by Chao Lund MD at OR [facility] N/A: Spine Thoracic [employer] : NEURO CARE 01/03/2025 C01A / / [id number] documented as of this encounter Advance Directives Latest Code Status on File Code Status Date Activated Date Inactivated Comments Full Code 05/14/2022 7:03 AM 05/14/2022 2:27 PM This or sal reflects the patients wishes and were consensually agreed upon. Question Answer Comments Discussion of Advance Directives occurred with: Patient Care Teams Radio Sportscaster Relationship Specialty Start Date End Date Camilla Chau DO [address] [place] [address] PCP - General Family Medicine 11/17/11 documented as of this encounter
--- OUTSIDE RECORDS SUMMARY | 2023-06-13 04:01 | External Medical Summary | Summary of Care ---
Author Name Unknown Organization [facility] Address [address] [place] [address] Phone [phone] Care Team Providers Care Worship Director Name Role Phone Camilla Chau DO Primary Care Provider [phone] Reason for Visit * Reason Onset Date Comments Precert Not Needed 05/21/2023 Forteo Encounter Details Date Type Department Care Team (Late st Contact Info) Description 05/21/2023 Telephone Rheumatology [facility] [address] [place] [address] Marcelo Armstrong CRNP [address] [place] [address] Precert Not Needed ( Forteo) Allergies [...] hours as needed for Anxiety (take for paper conservator anxiety PRN). 0 02/06/2023 Active Furosemide 20 [...] (premature atrial contraction),NICM (nonischemic cardiomyopathy) ([facility]) TAKE 1 TABLET BY MOUTH EVERY [...] mRNA, LNP-s, No Pre serve, 2-Dose Series ([facility]) 07/14/2020,06/23/2020 Pneumococcal Conjugate Vaccine, 20-valent (Prevn ar20) [...] Allred OSA - 05/21/2023 1:24 PM EST Procurement Officer - Patient Related Communication Reason for Call: [...] Telephone Encounter - Daniela Serrano [facility] - 05/21/2023 12:34 PM EST Rheumatology Pre-Certification [...] fracture (sacral fracture 01/2023). Rheumatology Office Information: Owner Oral Surgeon: MARCELO ARMSTRONG Rheumatology Pharmacist: Daniela Serrano Notification to the Clinic Needed: Hiroc Appointment Needed:no Labs Needed:no documented in this encounter Plan of Treatment Upcoming Encounters Date Type Department Care Team (Late st Contact Info) Description 05/30/2023 1:45 PM EST Imaging Radiology [facility] 1st [facility] [address] [facility] [place] [address] 07/03/2023 3:30 PM EDT Office Visit Hematology/Oncology [facility] [address] Elizabeth Serrano CRNP 400 [facility] [place] [address] 07/13/2023 10:50 AM EDT Office Visit [facility] [address] [place] [address] [place] [phone] Camilla Chau DO [address] [place] [address] 08/12/2023 11:00 AM EDT Office Visit Cardiology, [facility] 132 [facility] [place] [address] Kitty Cali PA-C 132 [facility] [place] [address] 09/10/2023 10:30 AM EDT Office Visit Rheumatology [address] [place] [address] Selvin Spear PA-C [address] [place] [address] [place] [address] 10/02/2023 11:00 AM EDT Imaging Radiology [facility] 1st [facility] [place] [address] [place] [address] 11/02/2023 11:00 AM EDT Imaging Radiology, [address] [place] [address] 03/15/2024 10:30 AM EST Office Visit Rheumatology [address] [place] [address] Marcelo Armstrong CRNP [address] [place] [address] [place] [address] 03/29/2024 3:00 PM EST Office Visit Dermatology, [address] [address] Keiko Almodovar PA-C [address] [place] [address] [place] [address] Health Maintenance Due Date Last Done Comments [...] Additional history exists CKD PHOS USE SMARTSET 39750 09/26/2023 09/25/2022, 0 04/08/2018 DXA Scan 10/30/2023 10/29/2021, 10/29/2021 GFR 11/13/2023 05/15/2023, 04/07, 03/09/2023, Additional history exists CKD HGB USE SMARTSET 57148 04/30/202404/30, 04/30/2023, 03/09/2023, Additional history exists Diabetes Screening 04/30/2026 04/30/2023, 1 05/10/2022, 09/25/2022, Additional history exists Lipid Panel 11/11/2026 11/11/2021, 11/04, 05/10/2020, Additional history exists Colonoscopy 04/18/2029 04/18/2019, 04/06, 12/16/2012, Additional history exists Colorectal Cancer Screening 04/18/2029 Pneumococcal Vaccine: Pediatrics (0 to 5 Years) and At-Risk Patients (6 to 64 Years) Completed 09/25/2022 LUNG CANCER SCREENING - USE SMARTSET 22766 Completed 09/30/2022 VITAMIN D LEVEL ONCE IN A LIFETIME-USE SMARTSET# 78608 Completed 05/15/2023, 11/17/2022, 05/13/2022, Additional history exists GARDASIL-HPV IMMUNIZATION SERIES Aged Out No longer eligible based on patient's age to complete this topic MENINGOCOCCAL (MENACTRA/MENVEO) Aged Out No longer eligible based on patient's age to complete this topic documented as of this encounter Medical Devices Implanted Type Area Polymerization Engineer Device Identifier Shelf Expiration Date Model / Serial / Lot Cement Hv-R C01a - [id number] Implanted:Qty: 1 on 05/14/2022 by Chao Lund MD at OR [facility] N/A: Spine Thoracic [employer] : NEURO CARE 01/03/2025 C01A / / [id number] documented as of this encounter Advance Directives Latest Code Status on File Code Status Date Activated Date Inactivated Comments Full Code 05/14/2022 7:03 AM 05/14/2022 2:27 PM This or sal reflects the patients wishes and were consensually agreed upon. Question Answer Comments Discussion of Advance Directives occurred with: Patient Care Teams Worship Director Relationship Specialty Start Date End Date Camilla Chau DO [address] [facility] [place] [address] PCP - General Family Medicine 11/17/11 documented as of this encounter
--- OUTSIDE RECORDS SUMMARY | 2023-06-13 04:02 | External Medical Summary | Summary of Care ---
Author Name Unknown Organization [facility] Address [address] [facility] [place] [address] Phone [phone] Care Team Providers Care Licensed Practical Vocational Nurse Name Role Phone Camilla Chau DO Primary Care Provider [phone] Reason for Visit * Reason Comments NEW PATIENT Lo-spine Encounter Details Date Type Department Care Team (Late st Contact Info) Description 05/25/2023 12:50 PM EST Office Visit Orthopaedics [facility] [address] [place] [address] Padilla Johnson MD [address] [place] [address] Bilateral low back pain without sciatica, unspecified chronicity* Allergies Active Allergy Reactions Criticality Noted Date Comments Oxybutynin 08/31/2018 Terrible dry mouth and constipation Influenza Vaccines 12/27/2021 Pt stated she won't get it because it makes her "deathly ill" documented as of this encounter (statuses as of 05/25/2023) Medications Medication Sig Dispensed Refills Start Date [...] hours as needed for Anxiety (take for field observer anxiety PRN). 0 02/06/2023 Active Furosemide [...] (toPROL XL)Indications:PAC (premature atrial contraction),NICM (nonischemic cardiomyopathy) ([facility]) TAKE 1 TABLET BY MOUTH EVERY [...] as of this encounter (statuses as of 05/25/2023) Active Problems Problem Noted Date Diagnosed Date [...] as of this encounter (statuses as of 05/25/2023) Resolved Problems Problem Noted Date Diagnosed Date [...] as of this encounter (statuses as of 05/25/2023) Immunizations Name Administration Dates Next Due COVID-19 [...] on file documented as of this encounter Progress Notes * Padilla Johnson MD - 05/25/2023 1:13 PM EST Narcisa Thakur [id number] Narcisa Thakur is a 58 year old female who presents for consultation for low back injury/pain to [facility]. Consult requested by Self. Narcisa Thakur is here unaccompanied Quality: reviewed and agree with Nursing Notes for HPI elements History: History - Presents to [facility] (Walk-in Clinic). presents today for low back pain. Pt states this pain just randomly happened, woke up last Thursday and felt pressure then turned into pain. Has difficulties walking. Only time she does not have pain is when sitting ROS: ROS per HPI otherwise non-contributory Past Medical History: Diagnosis Date Anxiety and depression Bipolar I, most recent episode depressed, severe (HCC) Bipolar Affective Disorder Depressed-Severe Cardiac dysrhythmia, unspecified Arrhythmia, unspecified Cardiomyopathy (HCC) Chronic insomnia 05/23/2023 Dyslipidemia 05/23/2023 GERD (gastroesophageal reflux disease) History of opioid abuse ([facility]) Last use 2007 HLD (hyperlipidemia) Obstructive sleep apnea Sleep apnea, obstructive Family History Adopted: Yes Problem Relation Age of Onset No Past Hx None Pt is adopted. Multiple Sclerosis Father Lung Disorder Father Pneumonia, age 41 Social History Socioeconomic History Marital status: Spouse name: Not on file Number of children: Not on file Years of education: Not on file Highest education level: Not on file Occupational History Not on file Tobacco Use Smoking status: Every Day Current packs/day: 1.00 Average packs/day: 1 pack/day for 41.0 years (41.0 ttl pk-yrs) Types: Cigarettes Passive exposure: Never Smokeless tobacco: Never Vaping Use Vaping Use: Never used Substance and Sexual Activity Alcohol use: No Drug use: Not Currently Types: Oxycodone Comment: Last use 2007 Sexual activity: Not Currently Other Topics Concern Not on file Social History Narrative Recovering drug addict, was Opiates on for 20 years. Lives with her daughter, who is 16. Social Determinants of Health Financial Resource Strain: Not on file Food Insecurity: Food Insecurity Present (02/20/2023) Hunger Vital Sign Worried About Running Out of Food in the Last Year: Sometimes true Ran Out of Food in the Last Year: Never true Transportation Needs: Not on file Physical Activity: Not on file Stress: Not on file Social Connections: Not on file Intimate Partner Violence: Not on file Housing Stability: Not on file Physical Exam Constitutional: Generally well-nourished and in no acute distress Psychiatric: Mood and Affect normal Eyes: EOMI Respiratory: Normal respiratory effort with regular rate and rhythm Able to flex her hips and extend her knee Strength 4/5 bilaterally Tender palpate across her lumbar spine Radiology (I have personally reviewed the following films): 05/25/2023: Four view x-ray of the lumbar spine Penetration limits already, L5-S1 fusion, significant degenerative changes multiple levels - per my interpretation. Awaiting formal radiology interpretation. Assessment and Plan: 1) acute on chronic back issues History of L5-S1 fusion through [facility] although her surgeon is no longer part of that practice Patient having severe pain across her back and although I do not note any acute fractures the studyis somewhat limited. She is considered high risk for fracture based on osteoporosis She also is following with [facility] for her chronic back pain and has an MRI pending for this coming Thursday which is 5 days from now. She is also scheduled June 08 with them for follow-up of that study Discussed with her that I am not a back specialist and I recommend keeping those studies. Offered prednisone taper which I provided She denies new incontinence or saddle anesthesia. Her research computing specialist are reportedly aware that those are a chronic issue for her. He has also had recent sacral fracture. For progression of symptoms despite that treatment while she awaits her MRI and consultation she isto present to the ER I also recommend she call [facility] to alert them that her symptoms have increased to see if they are able to see her sooner Padilla Johnson MD Primary Care Sports Medicine Orthopaedics [address] [address] documented in this encounter Nursing Notes * Bianca Downing MED ASSIST - 05/25/2023 12:50 PM EST Patient presents today for low back pain. Pt states this pain just randomly happened, woke up last Thursday and felt pressure then turned into pain. Has difficulties walking. Only time she does not have pain is when sitting. documented in this encounter Plan of Treatment Upcoming Encounters Date Type Department Care Team (Late st Contact Info) Description 05/29/2023 10:00 AM EST Office Visit Nephrico, [place] [address] [place] [address] Kvng Steele MD 200 [facility] [place] [address] 05/30/2023 1:45 PM EST Imaging Radiology [address] 132 [facility] [place] [address] 07/03/2023 3:30 PM EDT Office Visit Hematology/Oncology [facility] 200 [facility] [place] [phone] Elizabeth Serrano CRNP [address] [place] [address] 07/13/2023 10:50 AM EDT Office Visit [facility] [address] [place] [phone] Camilla Chau DO [address] [place] [address] 08/12/2023 11:00 AM EDT Office Visit Cardiology, [facility] 132 [facility] [place] [address] Kitty Cali PA-C 132 [facility] [place] [address] 09/10/2023 10:30 AM EDT Office Visit Rheumatology [place] [address] [facility] [place] [address] Selvin Spear PAMónicaC [address] [place] [address] [place] [address] 10/02/2023 11:00 AM EDT Imaging Radiology [address] 132 [facility] [place] [address] 11/02/2023 11:00 AM EDT Imaging Radiology, [address] [place] [address] 03/15/2024 10:30 AM EST Office Visit Rheumatology [address] [place] [address] Marcelo Kim CRNP [address] [place] [address] 03/29/2024 3:00 PM EST Office Visit Dermatology, [place] [address] [facility] [address] Keiko Almodovar PA-C [address] [place] [address] [place] [address] Pending Results Name Type Priority Associated Diagnoses Date /Time XR L SPINE COMPLETE Medical Imaging Routine Bilateral low back pain without sciatica, unspecified chronicity 05/25/2023 1:09 PM EST Health Maintenance Due Date Last Done Comments [...] Additional history exists CKD PHOS USE SMARTSET 10159 09/26/2023 09/25/2022, 0 04/08/2018 DXA Scan 10/30/2023 10/29/2021, 10/29/2021 GFR 11/13/2023 05/15/2023, 04/07, 03/09/2023, Additional history exists CKD HGB USE SMARTSET 20119 04/30/202404/30, 04/30/2023, 03/09/2023, Additional history exists Diabetes Screening 04/30/2026 04/30/2023, 1 05/10/2022, 09/25/2022, Additional history exists Lipid Panel 11/11/2026 11/11/2021, 11/04, 05/10/2020, Additional history exists Colonoscopy 04/18/2029 04/18/2019, 04/06, 12/16/2012, Additional history exists Colorectal Cancer Screening 04/18/2029 Pneumococcal Vaccine: Pediatrics (0 to 5 Years) and At-Risk Patients (6 to 64 Years) Completed 09/25/2022 LUNG CANCER SCREENING - USE SMARTSET 03233 Completed 09/30/2022 VITAMIN D LEVEL ONCE IN A LIFETIME-USE SMARTSET# 87585 Completed 05/15/2023, 11/17/2022, 05/13/2022, Additional history exists GARDASIL-HPV IMMUNIZATION SERIES Aged Out No longer eligible based on patient's age to complete this topic MENINGOCOCCAL (MENACTRA/MENVEO) Aged Out No longer eligible based on patient's age to complete this topic documented as of this encounter Medical Devices Implanted Type Area Bicycle Technician Device Identifier Shelf Expiration Date Model / Serial / Lot Cement Hv-R C01a - [id number] Implanted:Qty: 1 on 05/14/2022 by Chao Lund MD at OR [facility] N/A: Spine Thoracic [employer] : NEURO CARE 01/03/2025 C01A / / [id number] documented as of this encounter Visit Diagnoses Diagnosis Bilateral low back pain without sciatica, unspecified chronicity- Primary documented in this encounter Advance Directives Latest Code Status on File Code Status Date Activated Date Inactivated Comments Full Code 05/14/2022 7:03 AM 05/14/2022 2:27 PM This or sal reflects the patients wishes and were consensually agreed upon. Question Answer Comments Discussion of Advance Directives occurred with: Patient Care Teams Licensed Practical Vocational Nurse Relationship Specialty Start Date End Date Camilla Chau DO [address] [place] [address] PCP - General Family Medicine 11/17/11 documented as of this encounter
--- OUTSIDE RECORDS SUMMARY | 2023-06-13 04:02 | External Medical Summary | Summary of Care ---
Author Name Unknown Organization [facility] Address [address] [place] [address] Phone [phone] Care Team Providers Care Supervisor Lens Generating Name Role Phone Bill Chaua Yvette BENITO Primary Care Provider [phone] Encounter Details Date Type Department Care Team (Late st Contact Info) Description 05/25/2023 Orders Only Outcomes Research Department [address] [place] [address] Lea Berry CHRA [employer] Research Other*[id number] Allergies Active Allergy Reactions Criticality Noted Date [...] XL)Indications:PAC (premature atrial contraction),NICM (nonischemic cardiomyopathy) ([facility]) TAKE 1 TABLET BY MOUTH EVERY DAY [...] Pen Needle) Use as directed 30 Each 05/12/2023 Active Ondansetron HCl 4 MG Oral [...] on file documented as of this encounter Plan of Treatment Upcoming Encounters Date Type Department Care Team (Late st Contact Info) Description 05/29/2023 10:00 AM EST Office Visit Nephrology, [facility] [address] [place] [address] Kvng Steele MD [address] [place] [address] 05/30/2023 1:45 PM EST Imaging Radiology [address] 132 [facility] [place] [address] 07/03/2023 3:30 PM EDT Office Visit Hematology/Oncology [facility] [place] [address] [place] [address] Elizabeth Serrano CRNP 400 [facility] [place] [address] 07/13/2023 10:50 AM EDT Office Visit [facility] [address] [facility] [phone] Camilla Chau DO [address] [facility] [place] [address] 08/12/2023 11:00 AM EDT Office Visit Cardiology, [facility] [address] Kitty Cali PA-C 132 [facility] [address] 09/10/2023 10:30 AM EDT Office Visit Rheumatology [address] [place] [address] Selvin Spear PA-C [address] [place] [address] [place] [address] 10/02/2023 11:00 AM EDT Imaging Radiology [address] [facility] [place] [address] 11/02/2023 11:00 AM EDT Imaging Radiology, [address] [place] [address] 03/15/2024 10:30 AM EST Office Visit Rheumatology [address] [place], [place] [address] Marcelo Kim CRNP [address] [place] [address] [place] [address] 03/29/2024 3:00 PM EST Office Visit [address] [address] Keiko Almodovar PA-C [address] [place] [address] [place] [address] Scheduled Orders Name Type Priority Associated Diagnoses Orde r Schedule MYCODE SUBSEQUENT ADULT Lab Routine MyCode Research Other*[id number] Every 6 Months for 2 Occurrences starting 05/25/2023 until 06/13/2024 Health Maintenance Due Date Last Done Comments Hepatitis B (1 of 3 - 19+ 3-dose series) 01/17/1984 Cologuard 2010 Fecal Occult Blood Test 2010 Sigmoidoscopy 2010 Zoster Vaccines (1 of 2) 2015 DTaP,Tdap,and Td Vaccines (2 - Td or Tdap) 04/19/2017 04/19/2007 *BISPHONATE OR OTHER ACCEPTABLE MEDICATION NEEDED FOR OSTEOPOROSIS (REFER TO SMARTSET #1146) 01/15/2021 COVID-19 Vaccine (3 - season) 2022 07/14/2020, 06/23/2020 Depression Screening 12/05/2022 12/05/2021 Influenza Vaccine (FLU shot) (#1) 2022 Mammogram 08/05/2023 08/04/2022, 050 04/2022, 07/09/2021, Additional history exists Albumin/Creatinine Ratio 09/26/2023 023, 09/23/2021, 08/08/2020, Additional history exists CKD PHOS USE SMARTSET 60267 09/26/2023 09/25/2022, 0 04/08/2018 DXA Scan 10/30/2023 10/29/2021, 10/29/2021 GFR 11/13/2023 05/15/2023, 04/07, 03/09/2023, Additional history exists CKD HGB USE SMARTSET 51083 04/30/202404/30, 04/30/2023, 03/09/2023, Additional history exists Diabetes Screening 04/30/2026 04/30/2023, 1 05/10/2022, 09/25/2022, Additional history exists Lipid Panel 11/11/2026 11/11/2021, 11/04, 05/10/2020, Additional history exists Colonoscopy 04/18/2029 04/18/2019, 04/06, 12/16/2012, Additional history exists Colorectal Cancer Screening 04/18/2029 Pneumococcal Vaccine: Pediatrics (0 to 5 Years) and At-Risk Patients (6 to 64 Years) Completed 09/25/2022 LUNG CANCER SCREENING - USE SMARTSET 52565 Completed 09/30/2022 VITAMIN D LEVEL ONCE IN A LIFETIME-USE SMARTSET# 18580 Completed 05/15/2023, 11/17/2022, 05/13/2022, Additional history exists GARDASIL-HPV IMMUNIZATION SERIES Aged Out No longer eligible based on patient's age to complete this topic MENINGOCOCCAL (MENACTRA/MENVEO) Aged Out No longer eligible based on patient's age to complete this topic documented as of this encounter Medical Devices Implanted Type Area Passenger Tire Builder Device Identifier Shelf Expiration Date Model / Serial / Lot Cement Hv-R C01a - [id number] Implanted:Qty: 1 on 05/14/2022 by Chao Lund MD at OR [facility] N/A: Spine Thoracic [employer] : NEURO CARE 01/03/2025 C01A / / [id number] documented as of this encounter Visit Diagnoses Diagnosis MyCode Research Other*[id number] documented in this encounter Advance Directives Latest Code Status on File Code Status Date Activated Date Inactivated Comments Full Code 05/14/2022 7:03 AM 05/14/2022 2:27 PM This or sal reflects the patients wishes and were consensually agreed upon. Question Answer Comments Discussion of Advance Directives occurred with: Patient Care Teams Supervisor Lens Generating Relationship Specialty Start Date End Date Camilla Chau DO [address] [place] [place] [address] PCP - General Family Medicine 11/17/11 documented as of this encounter
--- OUTSIDE RECORDS SUMMARY | 2023-06-13 04:02 | External Medical Summary | Summary of Care ---
Author Name Unknown Organization [facility] Address [address] [place] [address] Phone [phone] Care Team Providers Care Medical Office Administrator Name Role Phone Camilla Chau DO Primary Care Provider [phone] Reason for Visit * Reason Onset Date Comments Medication Pre-auth 05/21/2023 Forteo Encounter Details Date Type Department Care Team (Late st Contact Info) Description 05/21/2023 Telephone Rheumatology [facility] [address] [place] [address] Marcelo Armstrong CRNP [address] [place] [address] Medication Pre-auth (Forteo) Allergies Active Allergy Reactions Criticality Noted Date Comments Oxybutynin 08/31/2018 Terrible dry mouth and constipation Influenza Vaccines 12/27/2021 Pt stated she won't get it because it makes her "deathly ill" documented as of this encounter (statuses as of 05/21/2023) Medications Medication Sig Dispensed Refills Start Date [...] hours as needed for Anxiety (take for hotel server anxiety PRN). 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 BIPOLAR AFFEC, MIXED-MOD 07/12/2004 documented as of this encounter (statuses as of 05/21/2023) Resolved Problems Problem Noted Date Diagnosed Date Resolved Date Stage 3b chronic kidney disease 02/05/2022 02/20/2022 Prediabetes 12/16/2021 03/19/2023 Overview: Per Prediabetes protocol Stage 3a chronic kidney disease 02/13/2020 10/17/2021 Overview: Per CKD protocol Prediabetes 07/18/2019 06/19/2021 Overview: Per Prediabetes protocol Kidney disease, chronic, sta ge III (GFR 30-59 ml/min) 02/15/2018 02/16/2020 Overview: Per CKD protocol #1 Abdominal pain, generalized 03/13/2014 09/24/2016 History of diarrhea 03/13/2014 09/25/19 17 History of constipation 03/13/201409/05 Wound, open, ear 03/13/2014 09/24/2016 Seborrheic dermatitis 08/15/20132016 Overview: ICD-10 update of inactive term Cardiomyopathy 08/15/2013 03/13/2014 Kidney disease, chronic, sta ge III (GFR 30-59 ml/min) 05/30/2013 11/10/2014 Overview: Per CKD protocol #1 Obesity, BMI 33.63 01/14/11 01/14/2011 09/24/2016 Tobacco use disorder 12/10/2010 014 Chronic rhinitis 12/10/2010 09/24/2016 ACUTE EXUDATIVE PHARYNGITIS 12/10/2010 09/24/2016 Dysfunction of eustachian tube 12/10/2010 09/24/2016 Fever 12/10/2010 09/24/2016 Malaise and fatigue 12/10/2010 09/25/19 17 Myalgia and myositis 12/10/2010 017 Chest pain 12/28/2007 09/24/2016 documented as of this encounter (statuses as of 05/21/2023) Immunizations Name Administration Dates Next Due COVID-19 [...] Allred OSA - 05/21/2023 1:24 PM EST [place] - Patient Related Communication Reason for Call: [...] KATHIE Cabrera * Telephone Encounter - Daniela Serrano, [facility] - 05/21/2023 12:34 PM EST Rheumatology Pre-Certification [...] fracture (sacral fracture 01/2023). Rheumatology Office Information: Pretzel Twisting Machine Operator: MARCELO ARMSTRONG Rheumatology Pharmacist: Daniela Serrano Notification to the Clinic Needed: Hiroc Appointment Needed:no Labs Needed:no Electronically signed by Daniela Serrano, [facility] at 05/21/2023 12:49 PM EST documented in this encounter Plan of Treatment Upcoming Encounters Date Type Department Care Team (Late st Contact Info) Description 05/29/2023 10:00 AM EST Office Visit Nephrology, [facility] [address] [facility] [place] [address] Kvng Steele MD [address] [facility] [place] [address] 05/30/2023 1:45 PM EST Imaging Radiology [address] 132 [facility] [place] [address] 07/03/2023 3:30 PM EDT Office Visit Hematology/Oncology [facility] [address] [facility] [place] [address] Elizabeth Serrano CRNP 400 [facility] [place] [address] 07/13/2023 10:50 AM EDT Office Visit [facility] [address] [place] [phone] Camilla Chau DO [address] [place] [address] 08/12/2023 11:00 AM EDT Office Visit Cardiology, [facility] [address] [facility] [place] [address] Kitty Cali PA-C 132 [facility] [place] [address] 09/10/2023 10:30 AM EDT Office Visit Rheumatology [address] [place] [address] Selvin Spear PA-C [address] [place] [address] [place] [address] 10/02/2023 11:00 AM EDT Imaging Radiology [facility] 1st [facility] [address] [facility] [place] [address] 11/02/2023 11:00 AM EDT Imaging Radiology, [address] [place] [address] 03/15/2024 10:30 AM EST Office Visit Rheumatology [address] [place] [address] Marcelo Armstrong CRNP [address] [place] [address] [place] [address] 03/29/2024 3:00 PM EST Office Visit Dermatology[address] [place] [address] Keiko Almodovar PA-C [address] [place] [address] [place] [address] Health Maintenance Due Date Last Done Comments Hepatitis B (1 of 3 - 3-dose series) 1965 Cologuard 2010 Fecal Occult Blood Test 2010 [...] Additional history exists CKD PHOS USE SMARTSET 93857 09/26/2023 09/25/2022, 0 04/08/2018 DXA Scan 10/30/2023 10/29/2021, 10/29/2021 GFR 11/13/2023 05/15/2023, 04/07, 03/09/2023, Additional history exists CKD HGB USE SMARTSET 37513 04/30/202404/30, 04/30/2023, 03/09/2023, Additional history exists Diabetes Screening 04/30/2026 04/30/2023, 1 05/10/2022, 09/25/2022, Additional history exists Lipid Panel 11/11/2026 11/11/2021, 11/04, 05/10/2020, Additional history exists Colonoscopy 04/18/2029 04/18/2019, 04/06, 12/16/2012, Additional history exists Colorectal Cancer Screening 04/18/2029 Pneumococcal Vaccine: Pediatrics (0 to 5 Years) and At-Risk Patients (6 to 64 Years) Completed 09/25/2022 LUNG CANCER SCREENING - USE SMARTSET 61016 Completed 09/30/2022 VITAMIN D LEVEL ONCE IN A LIFETIME-USE SMARTSET# 30437 Completed 05/15/2023, 11/17/2022, 05/13/2022, Additional history exists GARDASIL-HPV IMMUNIZATION SERIES Aged Out No longer eligible based on patient's age to complete this topic MENINGOCOCCAL (MENACTRA/MENVEO) Aged Out No longer eligible based on patient's age to complete this topic documented as of this encounter Medical Devices Implanted Type Area Diagnostic Imaging Manager Device Identifier Shelf Expiration Date Model / Serial / Lot Cement Hv-R C01a - [id number] Implanted:Qty: 1 on 05/14/2022 by Chao Lund MD at OR [facility] N/A: Spine Thoracic [employer] : NEURO CARE 01/03/2025 C01A / / [id number] documented as of this encounter Advance Directives Latest Code Status on File Code Status Date Activated Date Inactivated Comments Full Code 05/14/2022 7:03 AM 05/14/2022 2:27 PM This or sal reflects the patients wishes and were consensually agreed upon. Question Answer Comments Discussion of Advance Directives occurred with: Patient Care Teams Medical Office Administrator Relationship Specialty Start Date End Date Camilla Chau DO [address] [facility] [address] PCP - General Family Medicine 11/17/11 documented as of this encounter
--- OUTSIDE RECORDS SUMMARY | 2023-06-13 04:02 | External Medical Summary | Summary of Care ---
Author Name Unknown Organization [facility] Address [address] [place] [address] Phone [phone] Care Team Providers Care Die Hardener Name Role Phone Camilla Chau DO Primary Care Provider + [phone] Encounter Details Date Type Department Care Team (Late st Contact Info) Description 05/23/2023 Telephone Family Practice [facility] [address] [place] [address] Scotty Giron MD [address] [place] [address] Allergies Active Allergy Reactions Criticality Noted Date Comments Oxybutynin 08/31/2018 Terrible dry mouth and constipation Influenza Vaccines 12/27/2021 Pt stated she won't get it because it makes her "deathly ill" documented as of this encounter (statuses as of 05/23/2023) Medications Medication Sig Dispensed Refills Start Date [...] (premature atrial contraction),NICM (nonischemic cardiomyopathy) ([facility]) TAKE 1 TABLET BY MOUTH [...] as of this encounter (statuses as of 05/23/2023) Active Problems Problem Noted Date Diagnosed Date [...] as of this encounter (statuses as of 05/23/2023) Resolved Problems Problem Noted Date Diagnosed Date [...] as of this encounter (statuses as of 05/23/2023) Immunizations Name Administration Dates Next Due COVID-19 mRNA, LNP-s, No Pre serve, 2-Dose Series (SpinGo) 07/14/2020,06/23/2020 Pneumococcal Conjugate Vaccine, 20-valent (Prevn ar20) [...] Care Team (Late st Contact Info) Description 05/23/2023 3:40 PM EST Telemedicine Family Practice [facility] 132 [facility] [place] [address] Scotty Giron MD 132 [facility] [place] [address] 05/29/2023 10:00 AM EST Office Visit Nephrology, [facility] [address] [place] [address] Kvng Steele MD [address] [place] [address] 05/30/2023 1:45 PM EST Imaging Radiology [address] 132 [facility] [place] [address] 07/03/2023 3:30 PM EDT Office Visit Hematology/Oncology [facility] [address] [place] [address] Elizabeth Serrano CRNP [address] [place] [address] 07/13/2023 10:50 AM EDT Office Visit Family [facility], [place] [address] [place] [facility] [place] [place] [phone] Camilla Chau, [address] [place] [facility] [place] [address] 08/12/2023 11:00 AM EDT Office Visit Cardiology, [facility] 132 [place] [address] Kitty Cali, PA-C 132 [place] [address] 09/10/2023 10:30 AM EDT Office Visit Rheumatology [place] [address] [facility] [place] [address] Selvin Spear PA-C [facility] [place] [place] [address] 10/02/2023 11:00 AM EDT Imaging Radiology [address] [place] [address] 11/02/2023 11:00 AM EDT Imaging Radiology, [place] [address] [facility] [place] [address] 03/15/2024 10:30 AM EST Office Visit Rheumatology [address] [place] [address] Marcelo Kim CRNP 55[address] [facility] [place] [address] 03/29/2024 3:00 PM EST Office Visit Dermatology, [place] [address] [place] [facility] [place] [address] Keiko Almodovar PA-C [address] [place] [address] [place] [address] Health Maintenance Due Date Last Done Comments Hepatitis B (1 of 3 - 19+ 3-dose series) 01/17/1984 Cologuard 2010 Fecal Occult Blood Test 2010 Sigmoidoscopy 2010 Zoster Vaccines (1 of 2) 2015 DTaP,Tdap,and Td Vaccines (2 - Td or Tdap) 04/19/2017 04/19/2007 *BISPHONATE OR OTHER ACCEPTABLE MEDICATION NEEDED FOR OSTEOPOROSIS (REFER TO SMARTSET #1146) 01/15/2021 COVID-19 Vaccine ( - 2022- season) 2022 07/14/2020, 06/23/2020 Depression Screening 12/05/2022 12/05/2021 Influenza Vaccine (FLU shot) (#1) 2022 Mammogram 08/05/2023 08/04/2022, 050 04/2022, 07/09/2021, Additional history exists Albumin/Creatinine Ratio 09/26/2023 023, 09/23/2021, 08/08/2020, Additional history exists CKD PHOS USE SMARTSET 24438 09/26/2023 09/25/2022, 0 04/08/2018 DXA Scan 10/30/2023 10/29/2021, 10/29/2021 GFR 11/13/2023 05/15/2023, 04/07, 03/09/2023, Additional history exists CKD HGB USE SMARTSET 26373 04/30/202404/30, 04/30/2023, 03/09/2023, Additional history exists Diabetes Screening 04/30/2026 04/30/2023, 1 05/10/2022, 09/25/2022, Additional history exists Lipid Panel 11/11/2026 11/11/2021, 11/04, 05/10/2020, Additional history exists Colonoscopy 04/18/2029 04/18/2019, 04/06, 12/16/2012, Additional history exists Colorectal Cancer Screening 04/18/2029 Pneumococcal Vaccine: Pediatrics (0 to 5 Years) and At-Risk Patients (6 to 64 Years) Completed 09/25/2022 LUNG CANCER SCREENING - USE SMARTSET 32155 Completed 09/30/2022 VITAMIN D LEVEL ONCE IN A LIFETIME-USE SMARTSET# 79315 Completed 05/15/2023, 11/17/2022, 05/13/2022, Additional history exists GARDASIL-HPV IMMUNIZATION SERIES Aged Out No longer eligible based on patient's age to complete this topic MENINGOCOCCAL (MENACTRA/MENVEO) Aged Out No longer eligible based on patient's age to complete this topic documented as of this encounter Medical Devices Implanted Type Area Restorative Coordinator Device Identifier Shelf Expiration Date Model / Serial / Lot Cement Hv-R C01a - [id number] Implanted:Qty: 1 on 05/14/2022 by Chao Lund MD at OR [facility] N/A: Spine Thoracic [employer] : NEURO CARE 01/03/2025 C01A / / [id number] documented as of this encounter Advance Directives Latest Code Status on File Code Status Date Activated Date Inactivated Comments Full Code 05/14/2022 7:03 AM 05/14/2022 2:27 PM This or sal reflects the patients wishes and were consensually agreed upon. Question Answer Comments Discussion of Advance Directives occurred with: Patient Care Teams Die Hardener Relationship Specialty Start Date End Date Camilla Chau DO [address] [place] [address] PCP - General Family Medicine 11/17/11 documented as of this encounter
--- OUTSIDE RECORDS SUMMARY | 2023-06-13 04:02 | External Medical Summary | Summary of Care ---
Author Name Unknown Organization [facility] Address [address] [place] [address] Phone [phone] Care Team Providers Care Hand Rigger Name Role Phone Camilla Chau DO Primary Care Provider [phone] Reason for Visit * Reason Onset Date Comments Medication Pre-auth 05/21/2023 Forteo Encounter Details Date Type Department Care Team (Late st Contact Info) Description 05/21/2023 Telephone Rheumatology [facility] [address] [place] [address] Marcelo Armstrong CRNP [address] [place] [address] Medication Pre-auth (Forteo) Allergies Active Allergy [...] hours as needed for Anxiety (take for casino beverage server anxiety PRN). 0 02/06/2023 Active Furosemide [...] (toPROL XL)Indications:PAC (premature atrial contraction),NICM (nonischemic cardiomyopathy) ([facility]) TAKE 1 TABLET BY MOUTH EVERY DAY [...] encounter Miscellaneous Notes * Telephone Encounter - Daniela Serrano RPh - 05/21/2023 12:34 PM EST Rheumatology Pre-Certification [...] fracture (sacral fracture 01/2023). Rheumatology Office Information: Plumber Supervisor: MARCELO ARMSTRONG Rheumatology Pharmacist: Daniela Serrano Notification to the Clinic Needed: Hiroc Appointment Needed:no Labs Needed:no documented in this encounter Plan of Treatment Upcoming Encounters Date Type Department Care Team (Late st Contact Info) Description 05/29/2023 10:00 AM EST Office Visit Nephrology, [place] [facility] [place] [address] Kvng Steele MD [address] [place], [place] [address] 05/30/2023 1:45 PM EST Imaging Radiology [address] [facility] [address] 07/03/2023 3:30 PM EDT Office Visit Hematology/Oncology [facility] [address] [place] [address] Elizabeth Serrano CRNP 400 [facility] [place] [address] 07/13/2023 10:50 AM EDT Office Visit [address] [phone] Camilla Chau [address] [place] [address] 08/12/2023 11:00 AM EDT Office Visit Cardiology, [facility] [address] Kitty Cali PAJessica [address] [facility] [address] 09/10/2023 10:30 AM EDT Office Visit Rheumatology [place] [address] [facility] [place], [place] [address] Selvin Spear PA-C [address] [place] [address] 10/02/2023 11:00 AM EDT Imaging Radiology [address] [facility] [address] 11/02/2023 11:00 AM EDT Imaging Radiology, [place] [address] [facility] [place] [address] 03/15/2024 10:30 AM EST Office Visit Rheumatology [facility] [address] [facility] [place] [address] Marcelo Armstrong CRNP [address] [facility] [place] [address] 03/29/2024 3:00 PM EST Office Visit Dermatology[address] [place] [address] Keiko Almodovar PA-C [address] [place] [address] [place] [address] Health Maintenance Due Date Last Done Comments [...] Additional history exists CKD PHOS USE SMARTSET 58399 09/26/2023 09/25/2022, 0 04/08/2018 DXA Scan 10/30/2023 10/29/2021, 10/29/2021 GFR 11/13/2023 05/15/2023, 04/07, 03/09/2023, Additional history exists CKD HGB USE SMARTSET 44206 04/30/202404/30, 04/30/2023, 03/09/2023, Additional history exists Diabetes Screening 04/30/2026 04/30/2023, 1 05/10/2022, 09/25/2022, Additional history exists Lipid Panel 11/11/2026 11/11/2021, 11/04, 05/10/2020, Additional history exists Colonoscopy 04/18/2029 04/18/2019, 04/06, 12/16/2012, Additional history exists Colorectal Cancer Screening 04/18/2029 Pneumococcal Vaccine: Pediatrics (0 to 5 Years) and At-Risk Patients (6 to 64 Years) Completed 09/25/2022 LUNG CANCER SCREENING - USE SMARTSET 45258 Completed 09/30/2022 VITAMIN D LEVEL ONCE IN A LIFETIME-USE SMARTSET# 47066 Completed 05/15/2023, 11/17/2022, 05/13/2022, Additional history exists GARDASIL-HPV IMMUNIZATION SERIES Aged Out No longer eligible based on patient's age to complete this topic MENINGOCOCCAL (MENACTRA/MENVEO) Aged Out No longer eligible based on patient's age to complete this topic documented as of this encounter Medical Devices Implanted Type Area Rn Endocrinology Device Identifier Shelf Expiration Date Model / Serial / Lot Cement Hv-R C01a - [id number] Implanted:Qty: 1 on 05/14/2022 by Chao Lund MD at OR [facility] N/A: Spine Thoracic [employer] : NEURO CARE 01/03/2025 C01A / / [id number] documented as of this encounter Advance Directives Latest Code Status on File Code Status Date Activated Date Inactivated Comments Full Code 05/14/2022 7:03 AM 05/14/2022 2:27 PM This or sal reflects the patients wishes and were consensually agreed upon. Question Answer Comments Discussion of Advance Directives occurred with: Patient Care Teams Hand Rigger Relationship Specialty Start Date End Date Camilla Chau DO [address] [facility] [address] PCP - General Family Medicine 11/17/11 documented as of this encounter
--- OUTSIDE RECORDS SUMMARY | 2023-06-13 04:02 | External Medical Summary | Summary of Care ---
Author Name Unknown Organization [facility] Address [address] [place] [address] Phone [phone] Care Team Providers Care Slitting Machine Operator Name Role Phone Camilla Chau DO Primary Care Provider [phone] Reason for Visit * Reason Onset Date Comments Medication Pre-auth 05/21/2023 Forteo Encounter Details Date Type Department Care Team (Late st Contact Info) Description 05/21/2023 Telephone Rheumatology [facility] [address] [place] [address] Marcelo Armstrong CRNP [address] [employer] [place] [address] Medication Pre-auth (Forteo) Allergies Active Allergy [...] hours as needed for Anxiety (take for server administrator anxiety PRN). 0 02/06/2023 Active Furosemide 20 [...] (premature atrial contraction),NICM (nonischemic cardiomyopathy) ([facility]) TAKE 1 TABLET BY MOUTH [...] Allred OSA - 05/21/2023 1:24 PM EST [place] - Patient Related Communication Reason for Call: [...] Cabrera * Telephone Encounter - Daniela Serrano, [facility] - 05/21/2023 12:34 PM EST [...] fracture (sacral fracture 01/2023). Rheumatology Office Information: Clean Out Driller Helper: MARCELO ARMSTRONG Rheumatology Pharmacist: Daniela Serrano Notification to the Clinic Needed: Hiroc Appointment Needed:no Labs Needed:no documented in this encounter Plan of Treatment Upcoming Encounters Date Type Department Care Team (Late st Contact Info) Description 05/29/2023 10:00 AM EST Office Visit Nephrology, [facility] 200 [facility] [place] [address] Kvng Steele MD 200 [facility] [place] [address] 05/30/2023 1:45 PM EST Imaging Radiology [address] 132 [facility] [place] [address] 07/03/2023 3:30 PM EDT Office Visit Hematology/Oncology [facility] 200 [facility] [place] [address] Elizabeth Serrano CRNP 400 [facility] [place] [address] 07/13/2023 10:50 AM EDT Office Visit [facility] [address] [place] [phone] Camilla Chau DO [address] [place] [address] 08/12/2023 11:00 AM EDT Office Visit Cardiology, [facility] 132 [facility] [place] [address] Kitty Cali PA-C 132 [facility] [place] [address] 09/10/2023 10:30 AM EDT Office Visit Rheumatology [address] [place] [address] Selvin Spear PA-C [address] [place] [address] [place] [address] 10/02/2023 11:00 AM EDT Imaging Radiology [facility] 1st [facility] [address] [facility] [place] [address] 11/02/2023 11:00 AM EDT Imaging Radiology, [address] [place] [address] 03/15/2024 10:30 AM EST Office Visit Rheumatology [address] [place] [address] Marcelo Armstrong CRNP [address] [place] [address] [place] [address] 03/29/2024 3:00 PM EST Office Visit Dermatology[address] [place] [address] Keiko Almodovar PA-C [address] [place] [address] [place] [address] Health Maintenance Due Date Last Done Comments [...] Additional history exists CKD PHOS USE SMARTSET 24706 09/26/2023 09/25/2022, 0 04/08/2018 DXA Scan 10/30/2023 10/29/2021, 10/29/2021 GFR 11/13/2023 05/15/2023, 04/07, 03/09/2023, Additional history exists CKD HGB USE SMARTSET 83252 04/30/202404/30, 04/30/2023, 03/09/2023, Additional history exists Diabetes Screening 04/30/2026 04/30/2023, 1 05/10/2022, 09/25/2022, Additional history exists Lipid Panel 11/11/2026 11/11/2021, 11/04, 05/10/2020, Additional history exists Colonoscopy 04/18/2029 04/18/2019, 04/06, 12/16/2012, Additional history exists Colorectal Cancer Screening 04/18/2029 Pneumococcal Vaccine: Pediatrics (0 to 5 Years) and At-Risk Patients (6 to 64 Years) Completed 09/25/2022 LUNG CANCER SCREENING - USE SMARTSET 67511 Completed 09/30/2022 VITAMIN D LEVEL ONCE IN A LIFETIME-USE SMARTSET# 44988 Completed 05/15/2023, 11/17/2022, 05/13/2022, Additional history exists GARDASIL-HPV IMMUNIZATION SERIES Aged Out No longer eligible based on patient's age to complete this topic MENINGOCOCCAL (MENACTRA/MENVEO) Aged Out No longer eligible based on patient's age to complete this topic documented as of this encounter Medical Devices Implanted Type Area Factory Clerk Device Identifier Shelf Expiration Date Model / Serial / Lot Cement Hv-R C01a - [id number] Implanted:Qty: 1 on 05/14/2022 by Chao Lund MD at OR [facility] N/A: Spine Thoracic [employer] : NEURO CARE 01/03/2025 C01A / / [id number] documented as of this encounter Advance Directives Latest Code Status on File Code Status Date Activated Date Inactivated Comments Full Code 05/14/2022 7:03 AM 05/14/2022 2:27 PM This or sal reflects the patients wishes and were consensually agreed upon. Question Answer Comments Discussion of Advance Directives occurred with: Patient Care Teams Slitting Machine Operator Relationship Specialty Start Date End Date Camilla Chau DO [address] [facility] [place] [address] PCP - General Family Medicine 11/17/11 documented as of this encounter
--- OUTSIDE RECORDS SUMMARY | 2023-06-13 04:02 | External Medical Summary | Summary of Care ---
Author Name Unknown Organization [facility] Address [address] [place] [address] Phone [phone] Care Team Providers Care Automobile Mechanic Motor Name Role Phone Camilla Chau DO Primary Care Provider [phone] Reason for Visit * Reason Onset Date Comments Medication Pre-auth 05/21/2023 Forteo Encounter Details Date Type Department Care Team (Late st Contact Info) Description 05/21/2023 Telephone Rheumatology [facility] [address] [place] [address] Marcelo Armstrong CRNP [address] [employer] [place] [address] Medication Pre-auth (Forteo) Allergies Active Allergy Reactions Criticality Noted Date Comments Oxybutynin 08/31/2018 Terrible dry mouth and constipation Influenza Vaccines 12/27/2021 Pt stated she won't get it because it makes her "deathly ill" documented as of this encounter (statuses as of 05/26/2023) Medications Medication Sig Dispensed Refills Start Date [...] hours as needed for Anxiety (take for beverage server anxiety PRN). 0 02/06/2023 Active [...] (toPROL XL)Indications:PAC (premature atrial contraction),NICM (nonischemic cardiomyopathy) ([facility]) TAKE 1 TABLET BY MOUTH EVERY DAY [...] as of this encounter (statuses as of 05/26/2023) Active Problems Problem Noted Date Diagnosed Date [...] as of this encounter (statuses as of 05/26/2023) Resolved Problems Problem Noted Date Diagnosed Date [...] as of this encounter (statuses as of 05/26/2023) Immunizations Name Administration Dates Next Due COVID-19 mRNA, LNP-s, No Pre serve, 2-Dose Series ([employer]) 07/14/2020,06/23/2020 Pneumococcal Conjugate Vaccine, 20-valent (Prevn ar20) [...] Allred OSA - 05/21/2023 1:24 PM EST [place] - Patient Related Communication Reason for Call: [...] Cabrera * Telephone Encounter - Daniela Serrano [facility] - 05/21/2023 12:34 PM EST Rheumatology [...] fracture (sacral fracture 01/2023). Rheumatology Office Information: Hand Chain Maker: MARCELO ARMSTRONG Rheumatology Pharmacist: Daniela Serrano Notification to the Clinic Needed: Hiroc Appointment Needed:no Labs Needed:no documented in this encounter Plan of Treatment Upcoming Encounters Date Type Department Care Team (Late st Contact Info) Description 05/29/2023 10:00 AM EST Office Visit Nephrology, [facility] 200 [facility] [place] [address] Kvng Steele MD 200 [facility] [place] [address] 05/30/2023 1:45 PM EST Imaging Radiology [address] 132 [facility] [place] [address] 07/03/2023 3:30 PM EDT Office Visit Hematology/Oncology [facility] 200 [facility] [place] [phone] Elizabeth Serrano CRNP [address] [place] [address] [place] [address] 07/13/2023 10:50 AM EDT Office Visit [facility] [phone] Camilla Chau DO [address] [facility] [place] [address] 08/12/2023 11:00 AM EDT Office Visit Cardiology, [facility] 132 [facility] [place] [address] Kitty Cali PA-C [address] [place] [address] 09/10/2023 10:30 AM EDT Office Visit Rheumatology [address] [place] [address] Selvin Spear PA-C [address] [place] [address] [place] [address] 10/02/2023 11:00 AM EDT Imaging Radiology [facility] 1st [facility] 132 [facility] [place] [address] 11/02/2023 11:00 AM EDT Imaging Radiology, [address] [place] [address] 03/15/2024 10:30 AM EST Office Visit Rheumatology [address] [place] [address] Marcelo Armstrong CRNP [address] [place] [address] [place] [address] 03/29/2024 3:00 PM EST Office Visit Dermatology[address] [address] Keiko Almodovar PA-C [address] [place] [address] [place] [address] Health Maintenance Due Date Last Done Comments [...] Additional history exists CKD PHOS USE SMARTSET 42231 09/26/2023 09/25/2022, 0 04/08/2018 DXA Scan 10/30/2023 10/29/2021, 10/29/2021 GFR 11/13/2023 05/15/2023, 04/07, 03/09/2023, Additional history exists CKD HGB USE SMARTSET 71700 04/30/202404/30, 04/30/2023, 03/09/2023, Additional history exists Diabetes Screening 04/30/2026 04/30/2023, 1 05/10/2022, 09/25/2022, Additional history exists Lipid Panel 11/11/2026 11/11/2021, 11/04, 05/10/2020, Additional history exists Colonoscopy 04/18/2029 04/18/2019, 04/06, 12/16/2012, Additional history exists Colorectal Cancer Screening 04/18/2029 Pneumococcal Vaccine: Pediatrics (0 to 5 Years) and At-Risk Patients (6 to 64 Years) Completed 09/25/2022 LUNG CANCER SCREENING - USE SMARTSET 05917 Completed 09/30/2022 VITAMIN D LEVEL ONCE IN A LIFETIME-USE SMARTSET# 44974 Completed 05/15/2023, 11/17/2022, 05/13/2022, Additional history exists GARDASIL-HPV IMMUNIZATION SERIES Aged Out No longer eligible based on patient's age to complete this topic MENINGOCOCCAL (MENACTRA/MENVEO) Aged Out No longer eligible based on patient's age to complete this topic documented as of this encounter Medical Devices Implanted Type Area Cheese Wrapper Device Identifier Shelf Expiration Date Model / Serial / Lot Cement Hv-R C01a - [id number] Implanted:Qty: 1 on 05/14/2022 by Chao Lund MD at OR [facility] N/A: Spine Thoracic [employer] : NEURO CARE 01/03/2025 C01A / / [id number] documented as of this encounter Advance Directives Latest Code Status on File Code Status Date Activated Date Inactivated Comments Full Code 05/14/2022 7:03 AM 05/14/2022 2:27 PM This or sal reflects the patients wishes and were consensually agreed upon. Question Answer Comments Discussion of Advance Directives occurred with: Patient Care Teams Automobile Mechanic Motor Relationship Specialty Start Date End Date Camilla Chau DO [address] [facility] [place] [address] PCP - General Family Medicine 11/17/11 documented as of this encounter
--- OUTSIDE RECORDS SUMMARY | 2023-06-13 04:02 | External Medical Summary | Summary of Care ---
Author Name Unknown Organization [facility] Address [address] [facility] [place] [address] Phone [phone] Care Team Providers Care Button Bradder Name Role Phone Camilla Chau DO Primary Care Provider [phone] Encounter Details Date Type Department Care Team (Late st Contact Info) Description 05/23/2023 3:40 PM EST Telemedicine Family Practice [facility] [address] [place] [address] Scotty Giron MD [address] [place] [address] Chronic bilateral low back pain with bilateral sciatica* Allergies Active Allergy Reactions Criticality Noted Date Comments Oxybutynin 08/31/2018 Terrible dry mouth and constipation Influenza Vaccines 12/27/2021 Pt stated she won't get it because it makes her "deathly ill" documented as of this encounter (statuses as of 05/24/2023) Medications Medication Sig Dispensed Refills Start Date [...] hours as needed for Anxiety (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 0 02/06/2023 Active Furosemide 20 [...] (premature atrial contraction),NICM (nonischemic cardiomyopathy) ([facility]) TAKE 1 TABLET BY MOUTH EVERY DAY 90 Tablet 3 04/03/2023 Active Buprenorphine HCl 8 MG Sublingual Tablet Sublingual (Subutex) 1 twice daily 0 05/07/2023 A ctive Lactulose 10 GM/15ML Oral Solution (Constulose) As needed 0 03/09/2023 Active Vitamin D3 50 MCG (1999 [place]) Oral Capsule Take 1 Capsule by [...] as of this encounter (statuses as of 05/24/2023) Active Problems Problem Noted Date Diagnosed Date [...] as of this encounter (statuses as of 05/24/2023) Resolved Problems Problem Noted Date Diagnosed Date [...] as of this encounter (statuses as of 05/24/2023) Immunizations Name Administration Dates Next Due COVID-19 mRNA, LNP-s, No Pre serve, 2-Dose Series ([employer]) 07/14/2020,06/23/2020 Pneumococcal Conjugate Vaccine, 20-valent (Prevn ar20) [...] as of this encounter Progress Notes * Scotty Giron MD - 05/24/2023 10:44 AM EST Patient location: HOME. I was in a hospital or clinic location. After connecting through televideo,patient was verified with two unique identifiers. Patient (or authorized legal parts sales representative) was then informed that this was a Telemedicine visit and being conducted confidentially over secure lines. Methods to assure confidentiality were taken. Patient acknowledged consent and understanding of pr ivacy and security of the Telemedicine visit. The patient agreed to participate. SUBJECTIVE: Narcisa Thakur is a 58 year old female. No chief complaint on file. HPI: Records reviewed including recent ortho visits prior to this video visit. Patient complaining of chronic lower back pain. This is a video visit at a weekend clinic so I told unfortunately there is not a whole lot I can do for her today and she needs to follow up with her PCP and back specialists tosort out treatment. Nothing she describes in terms of her pain is acute nor urgent today. 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 Topiramate 50 MG Oral Tablet Take 1 Tablet by mouth in the morning and 1 Tablet before bedtime. Excedrin Extra Strength 250-250-65 MG Oral Tablet (Ybkjrki-Qdjknordivqob-Vpsmnkbh) Take 2 Tablets by mouth every 8 hours as needed. hydrOXYzine Pamoate 50 MG Oral Capsule (Vistaril) 1 CAP DAILY AT NIGHT Venlafaxine HCl ER 75 MG Oral Capsule Extended Release 24 Hour (Effexor XR) TAKE 1 CAPSULE BY MOUTHDAILY IN THE MORNING Pantoprazole Sodium 40 MG Oral Tablet Delayed Release (Protonix) Take 1 Tablet by mouth in the morning and 1 Tablet before bedtime. 180 Tablet 3 Famotidine 40 MG Oral Tablet (Pepcid) Take 1 Tablet by mouth at bedtime as needed for Heartburn. 90Tablet 3 Acetaminophen 500 MG Oral Tablet (Tylenol Extra Strength) Take 1 Tablet by mouth every 6 hours as needed for Pain, Moderate. Usually one in the morning and 2 before bed Triamcinolone Acetonide 0.1 % External Cream (Aristocort) Apply topically to affected area 2 times a day. To affected area. 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 Furosemide 20 MG Oral Tablet (Lasix) Take 1 Tablet by mouth in the morning. 30 Tablet 11 Potassium Chloride ER 10 MEQ Oral Capsule Extended Release Take 1 Capsule by mouth in the morning and 1 Capsule before bedtime. 60 Capsule 5 Metoprolol Succinate ER 25 MG Oral Tablet Extended Release 24 Hour (toPROL XL) TAKE 1 TABLET BY MOUTH EVERY DAY 90 Tablet 3 Buprenorphine HCl 8 MG Sublingual Tablet Sublingual (Subutex) 1 twice daily Lactulose 10 GM/15ML Oral Solution (Constulose) As needed Vitamin D3 50 MCG (1999 UT) Oral Capsule Take 1 Capsule by mouth in the morning. Teriparatide (Recombinant) 600 MCG/2.4ML Subcutaneous Solution Pen-injector (Forteo) Inject 20 mcg under the skin in the morning. 2.4 mL 11 BD Pen Needle Ida U/F 32G X 4 MM (Insulin Pen Needle) Use as directed 30 Each 11 Ondansetron HCl 4 MG Oral Tablet Take 1 Tablet by mouth every 8 hours as needed for Nausea. 30 Tablet 0 Atorvastatin Calcium 20 MG Oral Tablet (Lipitor) TAKE 1 TABLET BY MOUTH EVERY DAY IN THE MORNING 90Tablet 1 No current facility-administered medications for this visit. Allergy: Review of patient's allergies indicates: Allergen Reactions Ditropan [Oxybutynin] Terrible dry mouth and constipation Influenza Vaccines Pt stated she won't get it because it makes her "deathly ill" OBJECTIVE: There were no vitals taken for this visit. Gen: nad ASSESSMENT AND PLAN: (M54.42, M54.41, G89.29) Chronic bilateral low back pain with bilateral sciatica (primary encounterdiagnosis) Plan: advised to follow up with primary care team and her group of specialists Follow up as needed. No other complaints were offered at this time. Scotty Giron MD documented in this encounter Plan of Treatment Upcoming Encounters Date Type Department Care Team (Late st Contact Info) Description 05/29/2023 10:00 AM EST Office Visit Nephrology, [facility] [address] [place] [address] Kvng Steele MD [address] [place] [address] 05/30/2023 1:45 PM EST Imaging Radiology [address], [place] 132 [facility] [place] [address] 07/03/2023 3:30 PM EDT Office Visit Hematology/Oncology [facility] [address] [place] [address] Elizabeth Serrano CRNP [address] [place] [address] 07/13/2023 10:50 AM EDT Office Visit [place] [address] [place] [facility] [place] [address] Camilla Chau DO [address] [facility] [place] [address] 08/12/2023 11:00 AM EDT Office Visit Cardiology, [facility] 132 [facility] [address] Kitty Cali PA-C 132 [place] [address] 09/10/2023 10:30 AM EDT Office Visit Rheumatology [place] [address]50 [facility] [place], [place] [address] Selvin Spear [facility] [place], [place] [address] 10/02/2023 11:00 AM EDT Imaging Radiology [facility] 1st [facility] 132 [facility] [address] 11/02/2023 11:00 AM EDT Imaging Radiology, [address] [place] [address] 03/15/2024 10:30 AM EST Office Visit Rheumatology [address] [place] [address] Marcelo Kim CRNP [address]10 [facility] [place] [address] 03/29/2024 3:00 PM EST Office Visit Dermatology, [place] [address] [place] [address] Keiko Almodovar PA-C [address] [place] [address] [place] [phone] Health Maintenance Due Date Last Done Comments [...] Additional history exists CKD PHOS USE SMARTSET 20548 09/26/2023 09/25/2022, 0 04/08/2018 DXA Scan 10/30/2023 10/29/2021, 10/29/2021 GFR 11/13/2023 05/15/2023, 04/07, 03/09/2023, Additional history exists CKD HGB USE SMARTSET 80270 04/30/202404/30, 04/30/2023, 03/09/2023, Additional history exists Diabetes Screening 04/30/2026 04/30/2023, 1 05/10/2022, 09/25/2022, Additional history exists Lipid Panel 11/11/2026 11/11/2021, 11/04, 05/10/2020, Additional history exists Colonoscopy 04/18/2029 04/18/2019, 04/06, 12/16/2012, Additional history exists Colorectal Cancer Screening 04/18/2029 Pneumococcal Vaccine: Pediatrics (0 to 5 Years) and At-Risk Patients (6 to 64 Years) Completed 09/25/2022 LUNG CANCER SCREENING - USE SMARTSET 77214 Completed 09/30/2022 VITAMIN D LEVEL ONCE IN A LIFETIME-USE SMARTSET# 19457 Completed 05/15/2023, 11/17/2022, 05/13/2022, Additional history exists GARDASIL-HPV IMMUNIZATION SERIES Aged Out No longer eligible based on patient's age to complete this topic MENINGOCOCCAL (MENACTRA/MENVEO) Aged Out No longer eligible based on patient's age to complete this topic documented as of this encounter Medical Devices Implanted Type Area Employer Relations Representative Device Identifier Shelf Expiration Date Model / Serial / Lot Cement Hv-R C01a - [id number] Implanted:Qty: 1 on 05/14/2022 by Chao Lund MD at OR [facility] N/A: Spine Thoracic [employer] : NEURO CARE 01/03/2025 C01A / / [id number] documented as of this encounter Visit Diagnoses Diagnosis Chronic bilateral low back pain with bilateral sciatica- Primary documented in this encounter Advance Directives Latest Code Status on File Code Status Date Activated Date Inactivated Comments Full Code 05/14/2022 7:03 AM 05/14/2022 2:27 PM This or sal reflects the patients wishes and were consensually agreed upon. Question Answer Comments Discussion of Advance Directives occurred with: Patient Care Teams Button Bradder Relationship Specialty Start Date End Date Camilla Chau DO [address] [facility] [place] [address] PCP - General Family Medicine 11/17/11 documented as of this encounter
--- OUTSIDE RECORDS SUMMARY | 2023-06-13 04:02 | External Medical Summary | Summary of Care ---
Author Name Unknown Organization [facility] Address [address] [place] [address] Phone [phone] Care Team Providers Care Repacker Name Role Phone Camilla Chau DO Primary Care Provider [phone] Reason for Visit * Reason Onset Date Comments Medication Pre-auth 05/21/2023 Forteo Encounter Details Date Type Department Care Team (Late st Contact Info) Description 05/21/2023 Telephone Rheumatology [facility] [address] [place] [address] Marcelo Armstrong CRNP [address] [place] [address] Medication Pre-auth (Forteo) Allergies Active Allergy [...] hours as needed for Anxiety (take for buffet server anxiety PRN). 0 02/06/2023 Active Furosemide [...] mRNA, LNP-s, No Pre serve, 2-Dose Series (Akvo) 07/14/2020,06/23/2020 Pneumococcal Conjugate Vaccine, 20-valent (Prevn ar20) [...] Allred OSA - 05/21/2023 1:24 PM EST [place] - Patient Related Communication Reason for Call: [...] Telephone Encounter - Daniela Serrano [facility] - 05/21/2023 12:34 PM EST Rheumatology Pre-Certification [...] fracture (sacral fracture 01/2023). Rheumatology Office Information: Outcome Analyst: MARCELO ARMSTRONG Rheumatology Pharmacist: Daniela Serrano Notification to the Clinic Needed: Hiroc Appointment Needed:no Labs Needed:no documented in this encounter Plan of Treatment Upcoming Encounters Date Type Department Care Team (Late st Contact Info) Description 05/23/2023 3:40 PM EST Telemedicine [facility] [address] [facility] [place] [address] Scotty Giron MD 132 [facility] [place] [address] 05/29/2023 10:00 AM EST Office Visit Nephrology, [facility] [address] [facility] [address] [place] [address] Kvng Steele MD [address] [facility] [place] [address] 05/30/2023 1:45 PM EST Imaging Radiology [facility] 1st [facility] 132 [facility] [place] [address] 07/03/2023 3:30 PM EDT Office Visit Hematology/Oncology [facility] [address] [place] [address] Elizabeth Serrano CRNP [address] [place] [address] 07/13/2023 10:50 AM EDT Office [address] [id number] Camilla Chau DO [address] [place] [address] 08/12/2023 11:00 AM EDT Office Visit Cardiology, [facility] 132 [place] [address] Kitty Cali PA-C [address] [place] [address] 09/10/2023 10:30 AM EDT Office Visit Rheumatology [address] [place] [address] Selvin Spear PA-C [address] [place] [address] [place] [address] 10/02/2023 11:00 AM EDT Imaging Radiology [facility] 1st [facility] [address] [place] [address] 11/02/2023 11:00 AM EDT Imaging Radiology, [address] [place] [address] 03/15/2024 10:30 AM EST Office Visit Rheumatology [address] [place], [place] [address] Marcelo Armstrong CRNP [address] [place] [address] [place] [address] 03/29/2024 3:00 PM EST Office Visit Dermatology, [place] [address] [place] [address] Keiko Almodovar PA-C [address] [place] [address] [place] [address] Health Maintenance Due Date Last Done Comments [...] Additional history exists CKD PHOS USE SMARTSET 62237 09/26/2023 09/25/2022, 0 04/08/2018 DXA Scan 10/30/2023 10/29/2021, 10/29/2021 GFR 11/13/2023 05/15/2023, 04/07, 03/09/2023, Additional history exists CKD HGB USE SMARTSET 31074 04/30/202404/30, 04/30/2023, 03/09/2023, Additional history exists Diabetes Screening 04/30/2026 04/30/2023, 1 05/10/2022, 09/25/2022, Additional history exists Lipid Panel 11/11/2026 11/11/2021, 11/04, 05/10/2020, Additional history exists Colonoscopy 04/18/2029 04/18/2019, 04/06, 12/16/2012, Additional history exists Colorectal Cancer Screening 04/18/2029 Pneumococcal Vaccine: Pediatrics (0 to 5 Years) and At-Risk Patients (6 to 64 Years) Completed 09/25/2022 LUNG CANCER SCREENING - USE SMARTSET 01769 Completed 09/30/2022 VITAMIN D LEVEL ONCE IN A LIFETIME-USE SMARTSET# [id number] Completed 05/15/2023, 11/17/2022, 05/13/2022, Additional history exists GARDASIL-HPV IMMUNIZATION SERIES Aged Out No longer eligible based on patient's age to complete this topic MENINGOCOCCAL (MENACTRA/MENVEO) Aged Out No longer eligible based on patient's age to complete this topic documented as of this encounter Medical Devices Implanted Type Area Hypo Dipper Device Identifier Shelf Expiration Date Model / Serial / Lot Cement Hv-R C01a - [id number] Implanted:Qty: 1 on 05/14/2022 by Chao Lund MD at OR [facility] N/A: Spine Thoracic [employer] : NEURO CARE 01/03/2025 C01A / / [id number] documented as of this encounter Advance Directives Latest Code Status on File Code Status Date Activated Date Inactivated Comments Full Code 05/14/2022 7:03 AM 05/14/2022 2:27 PM This or sal reflects the patients wishes and were consensually agreed upon. Question Answer Comments Discussion of Advance Directives occurred with: Patient Care Teams Repacker Relationship Specialty Start Date End Date Camilla Chau DO [address] [place] [facility] [place] [address] PCP - General Family Medicine 11/17/11 documented as of this encounter
--- OUTSIDE RECORDS SUMMARY | 2023-06-13 04:03 | External Medical Summary | Summary of Care ---
Author Name Unknown Organization [facility] Address [address] [place] [address] Phone [phone] Care Team Providers Care Roll Contour Grinder Name Role Phone Camilla Chau DO Primary Care Provider + [phone] Reason for Visit * Reason Onset Date Comments Appointment 05/12/2023 PT Faxed to Erik er Encounter Details Date Type Department Care Team (Late st Contact Info) Description 05/12/[address] [facility] [address] [place] [address] Camilla Chau DO [address] [place] [address] Appointment (PT Faxed to Anjelica) Allergies Active Allergy Reactions Criticality Noted Date Comments Oxybutynin 08/31/2018 Terrible dry mouth and constipation Influenza Vaccines 12/27/2021 Pt stated she won't get it because it makes her "deathly ill" documented as of this encounter (statuses as of 05/12/2023) Medications Medication Sig Dispensed Refills Start Date [...] for Heartburn. 90 Tablet 3 10/27/2022 Active Atorvastatin Calcium 20 MG Oral Tablet (Lipitor) TAKE 1 TABLET BY MOUTH EVERY DAY IN THE MORNING 90 Tablet 1 11/28/2022 Active Acetaminophen 500 MG Oral Tablet (Tylenol Extra Strength) Take 1 Tablet by mouth every 6 hours as needed for Pain, Moderate. Usually one in the morning and 2 before bed 0 Active Triamcinolone Acetonide 0.1 % External Cream (Aristocort)Indicati ons:Rash and nonspecific skin eruption Apply topically to affected area 2 times a day. To affected area. 15 g 5 02/10/2023 Active Ondansetron HCl 4 MG Oral TabletIndications:Ce llulitis of left lower extremity,Cellulitis of right lower extremity,Edema, unspecified type Take 1 Tablet by mouth every 8 hours as needed for Nausea. 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 0 02/06/2023 Active [...] XL)Indications:PAC (premature atrial contraction),NICM (nonischemic cardiomyopathy) ([facility]) TAKE 1 TABLET BY MOUTH EVERY [...] the morning. 2.4 mL 11 05/12/2023 Active documented as of this encounter (statuses as of 05/12/2023) Active Problems Problem Noted Date Diagnosed Date [...] as of this encounter (statuses as of 05/12/2023) Resolved Problems Problem Noted Date Diagnosed Date [...] as of this encounter (statuses as of 05/12/2023) Immunizations Name Administration Dates Next Due COVID-19 [...] encounter Miscellaneous Notes * Telephone Encounter - Kacie Dickerson OSA - 05/12/2023 12:22 PM EST Faxed PT order to Anjelica [place]. documented in this encounter Plan of Treatment Upcoming Encounters Date Type Department Care Team (Late st Contact Info) Description 05/29/2023 10:00 AM EST Office Visit Nephrology, [facility] [address] [place] [address] Kvng Steele MD [address] [place] [address] 05/30/2023 1:45 PM EST Imaging Radiology [facility] 1st [facility] 132 [facility] [place] [address] 06/05/2023 9:30 AM EST Office Visit Hematology/Oncology [facility] [place] [address] [place] [address] Elizabeth Serrano CRNP [address] [place] [address] 07/13/2023 10:50 AM EDT Office Visit [address] [place] [phone] Camilla Chau DO [address] [place] [address] 08/12/2023 11:00 AM EDT Office Visit Cardiology, [facility] 132 [place] [address] Kitty Cali PA-C 132 [facility] [place] [address] 09/10/2023 10:30 AM EDT Office Visit Rheumatology [address] [place] [address] Selvin Spear PA-C [address] [place], [place] [address] [address] 10/02/2023 11:00 AM EDT Imaging Radiology [facility] 1st [facility] 132 [place] [address] 11/02/2023 11:00 AM EDT Imaging Radiology, [address] [address] 03/15/2024 10:30 AM EST Office Visit Rheumatology [address], [place] [address] Marcelo Kim CRNP [address] [place], [place] [address] [address] 03/29/2024 3:00 PM EST Office Visit Dermatology, [place] [address] [place] [address] Keiko Almodovar PA-C [address] [place] [address] [place] [address] Health Maintenance Due Date Last Done Comments [...] (FLU shot) (#1) 2022 Mammogram 08/05/2023 08/04/2022, 0504/2022, 07/09/2021, Additional history exists Albumin/Creatinine Ratio 09/26/2023 023, 09/23/2021, 08/08/2020, Additional history exists CKD PHOS USE SMARTSET 60641 09/26/2023 09/25/2022, 0 04/08/2018 GFR 10/29/2023 04/30/2023, 12/0 07/2022, 11/17/2022, Additional history exists DXA Scan 10/30/2023 10/29/2021, 10/29/2021 CKD HGB USE SMARTSET 94969 04/30/202404/30, 04/30/2023, 03/09/2023, Additional history exists Diabetes Screening 04/30/2026 04/30/2023, 1 05/10/2022, 09/25/2022, Additional history exists Lipid Panel 11/11/2026 11/11/2021, 11/04, 05/10/2020, Additional history exists Colonoscopy 04/18/2029 04/18/2019, 04/06, 12/16/2012, Additional history exists Colorectal Cancer Screening 04/18/2029 Pneumococcal Vaccine: Pediatrics (0 to 5 Years) and At-Risk Patients (6 to 64 Years) Completed 09/25/2022 LUNG CANCER SCREENING - USE SMARTSET 42042 Completed 09/30/2022 VITAMIN D LEVEL ONCE IN A LIFETIME-USE SMARTSET# 42332 Completed 11/17/2022, 05/13/2022, 04/02/2022 GARDASIL-HPV IMMUNIZATION SERIES Aged Out No longer eligible based on patient's age to complete this topic MENINGOCOCCAL (MENACTRA/MENVEO) Aged Out No longer eligible based on patient's age to complete this topic documented as of this encounter Medical Devices Implanted Type Area Rough Rounder Device Identifier Shelf Expiration Date Model / Serial / Lot Cement Hv-R C01a - [id number] Implanted:Qty: 1 on 05/14/2022 by Chao Lund MD at OR [facility] N/A: Spine Thoracic [employer] : NEURO CARE 01/03/2025 C01A / / [id number] documented as of this encounter Advance Directives Latest Code Status on File Code Status Date Activated Date Inactivated Comments Full Code 05/14/2022 7:03 AM 05/14/2022 2:27 PM This or sal reflects the patients wishes and were consensually agreed upon. Question Answer Comments Discussion of Advance Directives occurred with: Patient Care Teams Roll Contour Grinder Relationship Specialty Start Date End Date Camilla Chau DO [address] [place] [facility] [place] [address] PCP - General Family Medicine 11/17/11 documented as of this encounter
--- OUTSIDE RECORDS SUMMARY | 2023-06-13 04:03 | External Medical Summary | Summary of Care ---
Author Name Unknown Organization [facility] Address [address] [place] [address] Phone [phone] Care Team Providers Care International Tax Manager Name Role Phone Isac Camilla Yvette BENITO Primary Care Provider [phone] Reason for Referral * Precert (Within 24 hrs (call dept; emergent)) - Authorized Specialty Diagnoses / Procedures Referred By Contac t Referred To Contact Radiology Diagnoses Sacral insufficiency fracture with routine healing, subsequent encounter Saddle anesthesia Full incontinence of feces Chronic right-sided low back pain with right-sided sciatica Procedures MRI L SPINE W WO CONTRAST Gerda Cifuentes MD [address] [place] [address] Referral ID Status Reason Start Date Expiration Date V isits Requested Visits Authorized [id number] Authorized 05/04/2023 999 999 Reason for Visit * Reason Comments Follow Up Sacral fx Encounter Details Date Type Department Care Team (Latest Contact Info) Description 05/04/2023 10:30 AM EST Office Visit Orthopaedics [facility] [address] [place] [address] Gerda Cifuentes MD [address] [place] [address] Sacral insufficiency fracture with routine healing, subsequent encounter*; Saddle anesthesia; Full incontinence of feces; Chronic right-sided low back pain with right-sided sciatica Allergies Active Allergy Reactions Criticality Noted Date Comments Oxybutynin 08/31/2018 Terrible dry mouth and constipation Influenza Vaccines 12/27/2021 Pt stated she won't get it because it makes her "deathly ill" documented as of this encounter (statuses as of 05/15/2023) Medications Medication Sig Dispensed Refills Start Date [...] as needed for Anxiety (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 0 02/06/2023 Active Furosemide [...] AC (premature atrial contraction),PATTI M (nonischemic cardiomyopathy) ([facility]) TAKE 1 TABLET BY MOUTH EVERY DAY [...] 30 Each 11 04/09/2022 05/12/19 24 Discontinued Ondansetron HCl 4 MG [...] needed for Nausea. 30 Tablet 0 04/15/2023 02/06/20 24 Discontinued documented as of this encounter (statuses as of 05/15/2023) Active Problems Problem Noted Date Diagnosed Date [...] as of this encounter (statuses as of 05/15/2023) Resolved Problems Problem Noted Date Diagnosed Date [...] as of this encounter (statuses as of 05/15/2023) Immunizations Name Administration Dates Next Due COVID-19 mRNA, LNP-s, No Pre serve, 2-Dose Series (EzFlop - A First of Its Kind Flip Flop) 07/14/2020,06/23/2020 Pneumococcal Conjugate Vaccine, 20-valent (Prevn ar20) [...] as of this encounter Progress Notes * Gerda Cifuentes MD - 05/04/2023 11:42 AM EST Narcisa Thakur is a 58 year old female who presents for follow up hip pain/[facility] [place] [facility] Narcisa Thakur is here unaccompanied History: Chief Complaint Patient presents with Follow Up Sacral fx Nursing Notes: Bianca Downing, MED ASSIST 05/04/23 1026 Signed Patient presents today for follow up on sacral fx, DOI 01/13/23. Pt did not go to PT, due to being in pain. I initially saw patient 02/09/2023 as an ER follow-up for a sacral insufficiency fracture that occurred 01/13/2023. Fracture was nondisplaced if she had no neurologic symptoms. I referred her to physical therapy and advised a 6 week follow up. She had a delay in follow up, but is here today for follow up. She reports that she has had 2 falls since our last encounter. She states that she had imaging after these and was told that there were no new fractures. She also saw her primary care physician 03/09/2023. This office note was reviewed. She reports that she mentioned some new onset numbness in her groin region and buttock as well as 2 episodes of bowel incontinence. She had a CT scan performed after that visit was told everything was okay. She has not had any further episodes of bowel incontinence since but notes that she has some significant fecal urgency that was not there present. She has chronic bladder incontinence that has not changed. She denies any fevers chills or unexplained weight loss. In addition to the above, she notes that she now has pain that radiates down the right leg into thetoes. Follows more of a anterior route down the front and middle aspect of the leg. She also has worsening numbness in the left leg. She has chronic back pain. Had previous surgery at [facility] by Dr. Brand Reports that he has no longer there. Has not seen them recently. Chronic back pain seems to occasionally get better if she bends over. Worsens with standing or sitting up straight. Review of Systems: All others negative except those noted above in HPI. Objective: [facility] 06/23/2022 08:50 04/20/2023 08:02 [facility] Date of Service 2022-06-26 2023-05-04 Appt Label now now [facility] Quality of Life Survey Physical (Pt Reported) 19.9508 [facility] Quality of Life Survey Mental (Pt Reported) 42.5551 Short Form 12 Quality of Life survey Physical Health (Pt Reported) 23.1281 Short Form 12 Quality of Life survey Mental Health (Pt Reported) 39.8655 [place] [address] Mental 41.2382 [place] [address] Mental Full 39.9531 [place] [address] Physical 39.2364 [place] [address] Physical Full 37.2569 Physical Exam There were no vitals filed for this visit. Estimated body mass index is 33.13 kg/m as calculated from the following: Height as of 02/24/23: 1.448 m (4' 9"). Weight as of 03/09/23: 69.4 kg (153 lb 1.6 oz). General: generally well-nourished and in no acute distress HEENT: normocephalic, atraumatic, sclera anicteric. Psych: mood and affect normal , cooperative Card: Peripheral pulses with regular rate and rhythm in affected extremity (s) Resp: equal chest rise, non-tachypneic, non-labored breathing Skin: no rash, normal Neuro: Sensation: Subjectively decreased in an L4 and L5 distribution on the left leg MSK: Back exam: Hunched over gait with use of a cane. Nonantalgic but shuffling. I significant limitations in flexion and extension of the lumbar spine with pain. Strength 5/5 to knee flexion-extension plantar flexion dorsiflexion lower extremities. Reflexes: Patellar (L4) - Right - 2/4 Left - 2/4 Achilles (S1) - Right - 2/4 Left - 2/4 Nerve root tests: Positive slump and straight leg raise bilaterally Radiology (I have personally reviewed the following films): EXAM: CT LUMBAR SPINE WITHOUT CONTRAST HISTORY: Low back pain; Trauma and/or suspected fracture; Mild/moderate trauma; No lumbar CT result available; Lumbar x-ray with questionable finding or inadequate anatomic coverage; No known/automatically detected potential contraindications to CT COMPARISON: Lumbar spine MRI dated 08/04/2022 TECHNIQUE: CT lumbar spine without contrast was performed. FINDINGS: VERTEBRAE: The bones are demineralized. The L1 through L4 vertebral bodies are normal in height andalignment. There is mild loss of L5 vertebral body height and grade 1 anterolisthesis at L5-S1. Postsurgical changes are present related to posterior fusion at L5-S1 with bilateral pedicle screws, vertical connecting rods and an interbody cage. There is partial osseous fusion of the L5-S1 disc space. The bilateral S1 screws projects slightly beyond the anterior cortex. No findings to suggest hardware loosening. No hardware fracture. Sacral insufficiency fractures are present bilaterally with associated sclerosis and callus formation and therefore possibly subacute in age. Mild presacral edema is present. DISC LEVELS: T12-L1: No central or foraminal stenosis. L1-L2: No central or foraminal stenosis. L2-L3: No central or foraminal stenosis. L3-L4: Bulging disc with bilateral facet degeneration and infolding of ligamentum flavum. Mild central and no foraminal stenosis. L4-L5: Central canal is obscured by artifact related to spinal hardware. There is a posterior laminectomy defect. No foraminal stenosis. L5-S1: Central canal and foramina are obscured by artifact related to spinal hardware. SOFT TISSUES: Unremarkable. MISCELLANEOUS: There is no significant abnormality noted otherwise. IMPRESSION: 1. Sacral insufficiency fracture, suspected subacute in age. 2. Postsurgical changes related to posterior and interbody fusion at L5-S1. No hardware fracture orevidence of loosening. Assessment and Plan: ICD-10-CM 1. Sacral insufficiency fracture with routine healing, subsequent encounter M84.48XD 2. Saddle anesthesia R20.0 3. Full incontinence of feces R15.9 4. Chronic right-sided low back pain with right-sided sciatica M54.41 G89.29 58-year-old female who was initially seeing just as a referral for sacral fracture, that has had 2 more recent falls with no new fractures but new symptoms of saddle anesthesia and bladder incontinence in addition to her chronic low back pain. Discussed that with these findings, recommend stat MRI to evaluate for cord compression. Has had a CT scan that was fairly unremarkable but MRI is gold standard for evaluating for cord compression. We will have this performed today and I will review the results with her over the phone. I recommend spine surgery follow up. She has been operated on at [facility] in the past. I recommend that she reach out to them to establish with a provider there. If she was unable to make an appointment there, I asked her to reach out to me at which point I will have an appointment arranged with Dr. Lund. The above assessment and plan were discussed at length. All questions were answered, and the patient expressed understanding. Gerda Cifuentes MD Primary Care Sports Medicine [place] [facility] [address] [place] [address] documented in this encounter Nursing Notes * Bianca Downing MED ASSIST - 05/04/2023 10:24 AM EST Patient presents today for follow up on sacral fx, DOI 01/13/23. Pt did not go to PT, due to being in pain. documented in this encounter Plan of Treatment Upcoming Encounters Date Type Department Care Team (Late st Contact Info) Description 05/29/2023 10:00 AM EST Office Visit Nephrology, [facility] [address] [facility] [address] [place] [address] Kvng Steele MD 200 [facility] [place] [address] 05/30/2023 1:45 PM EST Imaging Radiology [facility] 1st [facility] 132 [facility] [place] [address] 07/03/2023 3:30 PM EDT Office Visit Hematology/Oncology [facility] 200 [facility] [place] [address] Elizabeth Serrano CRNP [address] [place] [address] [place] [address] 07/13/2023 10:50 AM EDT Office Visit Family Practice, [place] [address] [place] [facility] [place] [address] Camilla Chau DO [address] [facility] [place] [address] 08/12/2023 11:00 AM EDT Office Visit Cardiology, [facility] 132 [place] [address] Kitty Cali PA-C [address] [facility] [address] 09/10/2023 10:30 AM EDT Office Visit Rheumatology [address] [place] [address] Selvin Spear PA-C [facility]0 [facility] [place] [address] 10/02/2023 11:00 AM EDT Imaging Radiology [facility] 1st [address] [address] 11/02/2023 11:00 AM EDT Imaging Radiology, [address] [place] [address] 03/15/2024 10:30 AM EST Office Visit Rheumatology [address] [place] [address] Marcelo Kim CRNP [facility]0 [facility] [place] [address] 03/29/2024 3:00 PM EST Office Visit Dermatology, [place] [address] [place] [facility] [place] [address] Keiko Almodovar PA-[address] [place] [address] Scheduled Orders Name Type Priority Associated Diagnoses Orde r Schedule MRI L SPINE W WO CONTRAST Medical Imaging STAT Sacral insufficiency fracture with routine healing, subsequent encounter Saddle anesthesia Full incontinence of feces Chronic right-sided low back pain with right-sided sciatica Expected: 05/04/2023, Expires: 06/03/2024 Health Maintenance Due Date Last Done Comments [...] Additional history exists CKD PHOS USE SMARTSET 43903 09/26/2023 09/25/2022, 0 04/08/2018 GFR 10/29/2023 04/30/2023, 1207/2022, 11/17/2022, Additional history exists DXA Scan 10/30/2023 10/29/2021, 10/29/2021 CKD HGB USE SMARTSET 93587 04/30/202404/30, 04/30/2023, 03/09/2023, Additional history exists Diabetes Screening 04/30/2026 04/30/2023, 1 05/10/2022, 09/25/2022, Additional history exists Lipid Panel 11/11/2026 11/11/2021, 11/04, 05/10/2020, Additional history exists Colonoscopy 04/18/2029 04/18/2019, 04/06, 12/16/2012, Additional history exists Colorectal Cancer Screening 04/18/2029 Pneumococcal Vaccine: Pediatrics (0 to 5 Years) and At-Risk Patients (6 to 64 Years) Completed 09/25/2022 LUNG CANCER SCREENING - USE SMARTSET 79881 Completed 09/30/2022 VITAMIN D LEVEL ONCE IN A LIFETIME-USE SMARTSET# 48015 Completed 11/17/2022, 05/13/2022, 04/02/2022 GARDASIL-HPV IMMUNIZATION SERIES Aged Out No longer eligible based on patient's age to complete this topic MENINGOCOCCAL (MENACTRA/MENVEO) Aged Out No longer eligible based on patient's age to complete this topic documented as of this encounter Medical Devices Implanted Type Area Technical Director Device Identifier Shelf Expiration Date Model / Serial / Lot Cement Hv-R C01a - [id number] Implanted:Qty: 1 on 05/14/2022 by Chao Lund MD at OR [facility] N/A: Spine Thoracic [employer] : NEURO CARE 01/03/2025 C01A / / [id number] documented as of this encounter Visit Diagnoses Diagnosis Sacral insufficiency fracture with routine healing, subsequent encounter- Primary Saddle anesthesia Disturbance of skin sensation Full incontinence of feces Chronic right-sided low back pain with right-sided sciatica documented in this encounter Advance Directives Latest Code Status on File Code Status Date Activated Date Inactivated Comments Full Code 05/14/2022 7:03 AM 05/14/2022 2:27 PM This or sal reflects the patients wishes and were consensually agreed upon. Question Answer Comments Discussion of Advance Directives occurred with: Patient Care Teams International Tax Manager Relationship Specialty Start Date End Date Camilla Chau DO [address] [facility] [address] PCP - General Family Medicine 11/17/11 documented as of this encounter
--- OUTSIDE RECORDS SUMMARY | 2023-06-13 04:03 | External Medical Summary ---
Author Name Unknown Address Unknown Organization K01:[facility] [place] [address] [place] [address] Laboratory Report Ordering Provider Test Date Status NATHANIEL SALGADO 05/15/2023 12:53:49 Final Observation Date Value Abnormality Reference (Units ) Status Creatinine 05/15/2023 12:53:49 1.1 Above high normal 0.5-1.0 (mg/dL) Final Glomerular filtration rate/1.73 sq M.predicted [Volume Rate/Area] in Serum, Plasma or Blood by Creatinine-based formula (CKD-EPI) 05/15/2023 12:53:49 58 Below low normal >=60 (mL/min) Final eGFR is calculated based on the CKD-EPI 2020 equation Performing Location [facility] [place] [address] [place] [address]
--- OUTSIDE RECORDS SUMMARY | 2023-06-13 04:03 | External Medical Summary | Summary of Care ---
Author Name Unknown Organization [facility] Address [address] [place] [address] Phone [phone] Care Team Providers Care Gas Meter Mechanic Name Role Phone Alvarez Caldera DO Primary Care Provider [phone] Encounter Details Date Type Department Care Team (Late st Contact Info) Description 05/15/2023 Refill [facility] [address] [place] [address] Alvarez Caldera DO [address] [place] [address] Cellulitis of left lower extremity; Cellulitis of right lower extremity; Edema, unspecified type Allergies Active Allergy Reactions Criticality Noted Date [...] Excedrin Extra Strength 250-250-65 MG Oral Tablet (Aspirin-Acetamino phen-Caffeine) Take 2 Tablets by mouth every 8 [...] 09/25/2022 Active Famotidine 40 MG Oral Tablet (Pepcid)Indication s:Gastroesophageal reflux disease without esophagitis Take 1 Tablet [...] Active Triamcinolone Acetonide 0.1 % External Cream (Aristocort)Indica tions:Rash and nonspecific skin eruption Apply topically to affected area 2 times a day. To affected area. 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 0 02/06/2023 Active Furosemide 20 MG Oral Tablet (Lasix)Indications :Lymphedema Take 1 Tablet by mouth in the morning. 30 Tablet 11 03/09/2023 Active Potassium Chloride ER 10 MEQ Oral Capsule Extended ReleaseIndications :Lymphedema Take 1 Capsule by mouth in the morning and 1 Capsule before bedtime. 60 Capsule 5 03/09/2023 Active Metoprolol Succinate ER 25 MG Oral Tablet Extended Release 24 Hour (toPROL XL)Indications:PAC (premature atrial contraction),NICM (nonischemic cardiomyopathy) ([facility]) TAKE 1 TABLET BY MOUTH EVERY DAY 90 Tablet 3 04/03/2023 Active Buprenorphine HCl 8 MG Sublingual Tablet Sublingual (Subutex) 1 twice daily 0 05/07/2023 Active Lactulose 10 GM/15ML Oral Solution (Constulose) As [...] 05/12/2023 Active Ondansetron HCl 4 MG Oral TabletIndications: Cellulitis of left lower extremity,Cellulit is of right lower extremity,Edema, unspecified type Take 1 Tablet by mouth every 8 hours as needed for Nausea. 30 Tablet 0 05/15/2023 Active Ondansetron HCl 4 MG Oral TabletIndications: Cellulitis of left lower extremity,Cellulit is of right lower extremity,Edema, unspecified type Take 1 Tablet by mouth every 8 hours as needed for Nausea. 30 Tablet 0 02/24/2023 Discontinue d(Refill) documented as of this encounter (statuses as [...] mRNA, LNP-s, No Pre serve, 2-Dose Series (Creditera) 07/14/2020,06/23/2020 Pneumococcal Conjugate Vaccine, 20-valent (Prevn ar20) [...] encounter Miscellaneous Notes * Telephone Encounter - Alvarez Caldera DO - 05/15/2023 1:49 PM ESTSigned Prescriptions: Disp Refills Ondansetron HCl 4 MG Oral Tablet 30 Tab*0 Sig: Take 1 Tablet by mouth every 8 hours as needed for Nausea.Authorizing Provider: ALVAREZ CALDERA documented in this encounter Plan of Treatment Upcoming Encounters Date Type Department Care Team (Late st Contact Info) Description 05/29/2023 10:00 AM EST Office Visit [facility] [address] [place] [address] Kvng Steele MD [address] [place] [employer], [place] [address] 05/30/2023 1:45 PM EST Imaging Radiology [address] 132 [facility] [place] [address] 06/05/2023 9:30 AM EST Office Visit Hematology/Oncology [facility] [address] [place] [address] Elizabeth Serrano CRNP [facility] [place] [address] 07/13/2023 10:50 AM EDT Office Visit [facility] [address] [place] [address] Alvarez Caldera DO [address] [place] [address] 08/12/2023 11:00 AM EDT Office Visit Cardiology, [facility] 132 [facility] [place] [address] Kitty Cali PA-C [facility] [place] [address] 09/10/2023 10:30 AM EDT Office Visit Rheumatology [address] [place], [place] [address] Selvin Spear PAJessica [address] [place] [address] [place] [address] 10/02/2023 11:00 AM EDT Imaging Radiology [address] 132 [facility] [place] [address] 11/02/2023 11:00 AM EDT Imaging Radiology, [place] [address] [facility] [place] [address] 03/15/2024 10:30 AM EST Office Visit Rheumatology [place] [address] [email or web address] [place] [address] Marcelo Kim CRNP [address] [place] [address] 03/29/2024 3:00 PM EST Office Visit Dermatology, [place] [address] [place] [facility] [place] [address] Keiko Almodovar PA-C [address] [place] [address] [place] [address] Health Maintenance Due Date Last Done Comments [...] 0504/2022, 07/09/2021, Additional history exists Albumin/Creatinine Ratio 09/26/20232 023, 09/23/2021, 08/08/2020, Additional history exists CKD PHOS USE SMARTSET 85810 09/26/2023 09/25/2022, 0 04/08/2018 GFR 10/29/2023 04/30/2023, 1207/2022, 11/17/2022, Additional history exists DXA Scan 10/30/2023 10/29/2021, 10/29/2021 CKD HGB USE SMARTSET 29136 04/30/202404/30, 04/30/2023, 03/09/2023, Additional history exists Diabetes Screening 04/30/2026 04/30/2023, 1 05/10/2022, 09/25/2022, Additional history exists Lipid Panel 11/11/2026 11/11/2021, 11/04, 05/10/2020, Additional history exists Colonoscopy 04/18/2029 04/18/2019, 04/06, 12/16/2012, Additional history exists Colorectal Cancer Screening 04/18/2029 Pneumococcal Vaccine: Pediatrics (0 to 5 Years) and At-Risk Patients (6 to 64 Years) Completed 09/25/2022 LUNG CANCER SCREENING - USE SMARTSET 60199 Completed 09/30/2022 VITAMIN D LEVEL ONCE IN A LIFETIME-USE SMARTSET# 61674 Completed 11/17/2022, 05/13/2022, 04/02/2022 GARDASIL-HPV IMMUNIZATION SERIES Aged Out No longer eligible based on patient's age to complete this topic MENINGOCOCCAL (MENACTRA/MENVEO) Aged Out No longer eligible based on patient's age to complete this topic documented as of this encounter Medical Devices Implanted Type Area Orthopedic Assistant Device Identifier Shelf Expiration Date Model / Serial / Lot Cement Hv-R C01a - [id number] Implanted:Qty: 1 on 05/14/2022 by Chao Lund MD at OR [facility] N/A: Spine Thoracic [employer] : NEURO CARE 01/03/2025 C01A / / [id number] documented as of this encounter Visit Diagnoses Diagnosis Cellulitis of left lower extremity Cellulitis and abscess of leg, except foot Cellulitis of right lower extremity Cellulitis and abscess of leg, except foot Edema, unspecified type documented in this encounter Advance Directives Latest Code Status on File Code Status Date Activated Date Inactivated Comments Full Code 05/14/2022 7:03 AM 05/14/2022 2:27 PM This or sal reflects the patients wishes and were consensually agreed upon. Question Answer Comments Discussion of Advance Directives occurred with: Patient Care Teams Gas Meter Mechanic Relationship Specialty Start Date End Date Alvarez Caldera DO [address] [place] [address] PCP - General Family Medicine 11/17/11 documented as of this encounter
--- OUTSIDE RECORDS SUMMARY | 2023-06-13 04:03 | External Medical Summary ---
Author Name Unknown Address Unknown Organization K01:LABORATORY [facility] [place] - [address] [place] [address] Laboratory Report Ordering Provider Test Date Status ERIC RODRIGUEZ 05/15/2023 12:53:49 Final Observation Date Value Abnormality Reference (Units ) Status MYCODE SPECIMEN-SST 05/15/2023 12:53:49 Freezing of extracted DNA, whole blood and/or serum. Final Performing Location LABORATORY [facility] - [address] [address]
--- OUTSIDE RECORDS SUMMARY | 2023-06-13 04:03 | External Medical Summary ---
Author Name Unknown Address Unknown Organization K01:[facility] [place] [address] [place] [address] Laboratory Report Ordering Provider Test Date Status NATHANIEL SALGADO 05/15/2023 12:53:49 Final Deficient: <20 ng/mL
Ins ufficient: 20-29 ng/mL
Recommended/Optimum:30-50 ng/mL

Vitamin D intoxication is rare. If suspicious of Vitamin D toxicity, evaluation of serum Calcium and PTH is recommended. Observation Date Value Abnormality Reference (Units ) Status 25-OH Vitamin D total 05/15/2023 12:53:49 47 >19 (ng/mL) Final Performing Location LABORATORY C - [address] [place] [address]
--- OUTSIDE RECORDS SUMMARY | 2023-06-13 04:03 | External Medical Summary | Summary of Care ---
Author Name Unknown Organization [facility] Address [address] [place] [address] Phone [phone] Care Team Providers Care Mail Handler Name Role Phone Camilla Chau DO Primary Care Provider [phone] Reason for Visit * Reason Onset Date Comments Medication Refill 05/12/2023 Encounter Details Date Type Department Care Team (Late st Contact Info) Description 05/12/2023 Refill Rheumatology [facility] [address] [place] [address] Marcelo Armstrong CRNP [address] [place] [address] Allergies Active Allergy Reactions Criticality Noted Date [...] hours as needed for Anxiety (take for meteorological observer anxiety PRN). 0 02/06/2023 Active Furosemide [...] (toPROL XL)Indications:PAC (premature atrial contraction),NICM (nonischemic cardiomyopathy) ([facility]) TAKE 1 TABLET BY MOUTH EVERY DAY [...] as directed 30 Each 11 05/12/2023 Active documented as of this [...] encounter Miscellaneous Notes * Telephone Encounter - Mikhail Mora RPh - 05/12/2023 3:34 PM ESTSigned Prescriptions: Disp Refills BD Pen Needle Ida U/F 32G X 4 MM (Insulin*30 Each11 Sig: Use asdirectedAuthorizing Provider: MARCELO ARMSTRONGOrderpearl User: MIKHAIL MORA * Telephone Encounter - Arnol Vail RPh - 05/12/2023 3:25 PM EST Pending rx for pen needles to inject Teriparatide. Please sign if appropriate Thanks, Arnol Vail, PharmD [facility] 05/12/2023, 3:26 PM documented in this encounter Plan of Treatment Upcoming Encounters Date Type Department Care Team (Late st Contact Info) Description 05/29/2023 10:00 AM EST Office Visit Nephrology, [place] [address] Kvng Steele MD [address] [place] [address] 05/30/2023 1:45 PM EST Imaging Radiology [address] 132 [facility] [address] 06/05/2023 9:30 AM EST Office Visit Hematology/Oncology [facility] [address] [place] [address] Elizabeth Serrano CRNP 400 [facility] [place] [address] 07/13/2023 10:50 AM EDT Office Visit [address] [phone] Camilla Chau [address] [place] [address] 08/12/2023 11:00 AM EDT Office Visit Cardiology, [facility] 132 [facility] [place] [address] Kitty Cali PA-Radha 132 [facility] [address] 09/10/2023 10:30 AM EDT Office Visit Rheumatology [place] [address] [place], [place] [address] Selvin Spear PA-C [address] [facility] [place], [place] [address] 10/02/2023 11:00 AM EDT Imaging Radiology [address] 132 [facility] [address] 11/02/2023 11:00 AM EDT Imaging Radiology, [place] [address] [facility] [place] [address] 03/15/2024 10:30 AM EST Office Visit Rheumatology [facility] 2520 [facility] [place] [address] Marcelo Armstrong CRNP 2520 [facility] [place] [address] 03/29/2024 3:00 PM EST Office Visit Dermatology[address] [place] [address] Keiko Almodovar, KEY [address] [place] [address] [place] [address] Health Maintenance Due Date Last Done Comments [...] Additional history exists CKD PHOS USE SMARTSET 40318 09/26/2023 09/25/2022, 0 04/08/2018 GFR 10/29/2023 04/30/2023, 12/0 07/2022, 11/17/2022, Additional history exists DXA Scan 10/30/2023 10/29/2021, 10/29/2021 CKD HGB USE SMARTSET 05265 04/30/202404/30, 04/30/2023, 03/09/2023, Additional history exists Diabetes Screening 04/30/2026 04/30/2023, 1 05/10/2022, 09/25/2022, Additional history exists Lipid Panel 11/11/2026 11/11/2021, 11/04, 05/10/2020, Additional history exists Colonoscopy 04/18/2029 04/18/2019, 04/06, 12/16/2012, Additional history exists Colorectal Cancer Screening 04/18/2029 Pneumococcal Vaccine: Pediatrics (0 to 5 Years) and At-Risk Patients (6 to 64 Years) Completed 09/25/2022 LUNG CANCER SCREENING - USE SMARTSET 78264 Completed 09/30/2022 VITAMIN D LEVEL ONCE IN A LIFETIME-USE SMARTSET# 69510 Completed 11/17/2022, 05/13/2022, 04/02/2022 GARDASIL-HPV IMMUNIZATION SERIES Aged Out No longer eligible based on patient's age to complete this topic MENINGOCOCCAL (MENACTRA/MENVEO) Aged Out No longer eligible based on patient's age to complete this topic documented as of this encounter Medical Devices Implanted Type Area Mail Examiner Device Identifier Shelf Expiration Date Model / Serial / Lot Cement Hv-R C01a - [id number] Implanted:Qty: 1 on 05/14/2022 by Chao Lund MD at OR [facility] N/A: Spine Thoracic [employer] : NEURO CARE 01/03/2025 C01A / / [id number] documented as of this encounter Advance Directives Latest Code Status on File Code Status Date Activated Date Inactivated Comments Full Code 05/14/2022 7:03 AM 05/14/2022 2:27 PM This or sal reflects the patients wishes and were consensually agreed upon. Question Answer Comments Discussion of Advance Directives occurred with: Patient Care Teams Mail Handler Relationship Specialty Start Date End Date Camilla Chau DO [address] [place] [facility] [place] [address] PCP - General Family Medicine 11/17/11 documented as of this encounter
--- OUTSIDE RECORDS SUMMARY | 2023-06-13 04:03 | External Medical Summary ---
Author Name Unknown Address Unknown Organization K01:[facility] [place] [address] [place] [address] Laboratory Report Ordering Provider Test Date Status NATHANIEL SALGADO 05/15/2023 12:53:49 Final Observation Date Value Abnormality Reference (Units ) Status Parathyrin.intact [Mass/volume] in Serum or Plasma 05/15/2023 12:53:49 33 15-65 (pg/mL) Final Performing Location [facility] [place] [address] [place] [address]
--- OUTSIDE RECORDS SUMMARY | 2023-06-13 04:03 | External Medical Summary | Summary of Care ---
Author Name Unknown Organization [facility] Address [address] [place] [address] Phone [phone] Care Team Providers Care Wooden Furniture Polisher Name Role Phone Camilla Chau DO Primary Care Provider [phone] Encounter Details Date Type Department Care Team (Late st Contact Info) Description 05/13/2023 Orders Only PATIENT PORTAL DO NOT DELETE THIS DEPT USED BY [place] [id number] Allergies Active Allergy Reactions Criticality Noted Date Comments Oxybutynin 08/31/2018 Terrible dry mouth and constipation Influenza Vaccines 12/27/2021 Pt stated she won't get it because it makes her "deathly ill" documented as of this encounter (statuses as of 05/13/2023) Medications Medication Sig Dispensed Refills Start Date [...] hours as needed for Anxiety (take for granulator tender anxiety PRN). 0 02/06/2023 Active Furosemide 20 [...] (toPROL XL)Indications:PAC (premature atrial contraction),NICM (nonischemic cardiomyopathy) (HCC) TAKE 1 TABLET BY MOUTH EVERY DAY [...] as of this encounter (statuses as of 05/13/2023) Active Problems Problem Noted Date Diagnosed Date [...] as of this encounter (statuses as of 05/13/2023) Resolved Problems Problem Noted Date Diagnosed Date [...] as of this encounter (statuses as of 05/13/2023) Immunizations Name Administration Dates Next Due COVID-19 [...] 05/29/2023 10:00 AM EST Office Visit Nephrology, [facility] [place] [address] [place] [address] Kvng Steele MD [address] [place] [address] 05/30/2023 1:45 PM EST Imaging Radiology [address] 132 [facility] [place] [address] 06/05/2023 9:30 AM EST Office Visit Hematology/Oncology [facility] 200 [facility] [place] [address] Elizabeth Serrano CRNP 400 [facility] [place] [address] 07/13/2023 10:50 AM EDT Office Visit Family [facility] [address] [place], [place] [address] [phone] Camilla Chau DO [address] [facility] [place] [address] 08/12/2023 11:00 AM EDT Office Visit Cardiology, [facility] 132 [facility] [place] [address] Kitty Cali PA-C 132 [facility] [place] [address] 09/10/2023 10:30 AM EDT Office Visit Rheumatology [place] [address] [facility] [place] [address] Selvin Spear PA-C [facility] [place] [address] 10/02/2023 11:00 AM EDT Imaging [facility] 1st [facility] [place] [address] [facility] [place] [address] 11/02/2023 11:00 AM EDT Imaging Radiology, [address] [place] [address] 03/15/2024 10:30 AM EST Office Visit Rheumatology [address] [place] [address] Marcelo Kim CRNP [address] [place] [address] [place] [address] 03/29/2024 3:00 PM EST Office Visit Dermatology[address] [address] Keiko Almodovar PA-C [address] [place] [address] [place] [address] Health Maintenance Due Date Last Done Comments [...] Additional history exists CKD PHOS USE SMARTSET 99810 09/26/2023 09/25/2022, 0 04/08/2018 GFR 10/29/2023 04/30/2023, 1207/2022, 11/17/2022, Additional history exists DXA Scan 10/30/2023 10/29/2021, 10/29/2021 CKD HGB USE SMARTSET 13595 04/30/202404/30, 04/30/2023, 03/09/2023, Additional history exists Diabetes Screening 04/30/2026 04/30/2023, 1 05/10/2022, 09/25/2022, Additional history exists Lipid Panel 11/11/2026 11/11/2021, 11/04, 05/10/2020, Additional history exists Colonoscopy 04/18/2029 04/18/2019, 04/06, 12/16/2012, Additional history exists Colorectal Cancer Screening 04/18/2029 Pneumococcal Vaccine: Pediatrics (0 to 5 Years) and At-Risk Patients (6 to 64 Years) Completed 09/25/2022 LUNG CANCER SCREENING - USE SMARTSET 47461 Completed 09/30/2022 VITAMIN D LEVEL ONCE IN A LIFETIME-USE SMARTSET# 57495 Completed 11/17/2022, 05/13/2022, 04/02/2022 GARDASIL-HPV IMMUNIZATION SERIES Aged Out No longer eligible based on patient's age to complete this topic MENINGOCOCCAL (MENACTRA/MENVEO) Aged Out No longer eligible based on patient's age to complete this topic documented as of this encounter Medical Devices Implanted Type Area Headlight Assembler Device Identifier Shelf Expiration Date Model / Serial / Lot Cement Hv-R C01a - [id number] Implanted:Qty: 1 on 05/14/2022 by Chao Lund MD at OR [facility] N/A: Spine Thoracic [employer] : NEURO CARE 01/03/2025 C01A / / [id number] documented as of this encounter Advance Directives Latest Code Status on File Code Status Date Activated Date Inactivated Comments Full Code 05/14/2022 7:03 AM 05/14/2022 2:27 PM This or sal reflects the patients wishes and were consensually agreed upon. Question Answer Comments Discussion of Advance Directives occurred with: Patient Care Teams Wooden Furniture Polisher Relationship Specialty Start Date End Date Camilla Chau DO [address] [place] [address] PCP - General Family Medicine 11/17/11 documented as of this encounter
--- OUTSIDE RECORDS SUMMARY | 2023-06-13 04:03 | External Medical Summary | Summary of Care ---
Author Name Unknown Organization [facility] Address [address] [place] [address] Phone [phone] Care Team Providers Care Ferry Engineer Name Role Phone Alvarez Chau DO Primary Care Provider [phone] Reason for Visit * Reason Comments eRx-Medication Refill Encounter Details Date Type Department Care Team (Late st Contact Info) Description 05/19/2023 Refill [facility] [address] [place] [address] Alvarez Chau DO [address] [place] [address] Allergies Active Allergy Reactions Criticality Noted Date Comments Oxybutynin 08/31/2018 Terrible dry mouth and constipation Influenza Vaccines 12/27/2021 Pt stated she won't get it because it makes her "deathly ill" documented as of this encounter (statuses as of 05/20/2023) Medications Medication Sig Dispensed Refills Start Date [...] hours as needed for Anxiety (take for patient observer anxiety PRN). 0 02/06/2023 Active Furosemide [...] XL)Indications:PAC (premature atrial contraction),NICM (nonischemic cardiomyopathy) ([facility]) TAKE 1 TABLET BY MOUTH EVERY DAY [...] THE MORNING 90 Tablet 1 05/20/2023 Active Atorvastatin Calcium 20 MG Oral Tablet (Lipitor) TAKE 1 TABLET BY MOUTH EVERY DAY IN THE MORNING 90 Tablet 1 11/28/2022 Discontinued documented as of this encounter (statuses as of 05/20/2023) Active Problems Problem Noted Date Diagnosed Date [...] as of this encounter (statuses as of 05/20/2023) Resolved Problems Problem Noted Date Diagnosed Date [...] as of this encounter (statuses as of 05/20/2023) Immunizations Name Administration Dates Next Due COVID-19 [...] encounter Miscellaneous Notes * Telephone Encounter - Faby Sanon RP - 05/20/2023 11:06 AM EST Signed Prescriptions: Disp Refills Atorvastatin Calcium 20 MG Oral Tablet (Li*90 Tab*1 Sig: TAKE 1 TABLET BY MOUTH EVERY DAY IN THE MORNINGAuthorizing Provider: ALVAREZ CHAU User: FABY SANON * Telephone Encounter - Faby Sanon RP - 05/20/2023 11:05 AM EST Provided 90 days supply with 1 refill(s) until next routine labs will approximately be drawn. Per refill protocol patient should have lipid on file within past year. Reviewed AMP report, Care Gaps/Health Maintenance, medications list, and for any routine labs typically ordered for this patient. Laborders placed. Patient can complete labs with next routine lab work. Thank you, Faby Sanon, LauritaD. Clinical Pharmacist Centralized Clinical Pharmacy Services (CCPS) (formerly Telepharmacy) 05/20/2023, 11:06 AM documented in this encounter Plan of Treatment Upcoming Encounters Date Type Department Care Team (Late st Contact Info) Description 05/29/2023 10:00 AM EST Office Visit Nephrology, [facility] [address] [place] [address] Kvng Steele MD [address] [place] [address] 05/30/2023 1:45 PM EST Imaging Radiology [address] 132 [facility] [place] [address] 07/03/2023 3:30 PM EDT Office Visit Hematology/Oncology [facility] [address] [place] [address] Elizabeth Serrano, RAZ [address] [place] [address] 07/13/2023 10:50 AM EDT Office Visit [facility] [address] [place] [phone] Alvarez Chau, [address] [place] [address] 08/12/2023 11:00 AM EDT Office Visit Cardiology, [facility] 132 [facility] [place] [address] Kitty Cali PA-C 132 [facility] [place] [address] 09/10/2023 10:30 AM EDT Office Visit Rheumatology [address] [place] [address] Selvin Spear PA-C 2520 [facility] [place] [address] 10/02/2023 11:00 AM EDT Imaging Radiology [facility] 1st [facility] [place] [address] [place] [address] 11/02/2023 11:00 AM EDT Imaging Radiology, [address] [place] [address] 03/15/2024 10:30 AM EST Office Visit Rheumatology [place] [address] [facility] [place] [address] Marcelo Kim CRNP [facility]0 [facility] [place] [address] 03/29/2024 3:00 PM EST Office Visit [address], [place] [address] Keiko Almodovar PA-C [address] [place] [address] [place] [address] Health Maintenance Due Date Last Done Comments [...] Additional history exists CKD PHOS USE SMARTSET 83623 09/26/2023 09/25/2022, 0 04/08/2018 DXA Scan 10/30/2023 10/29/2021, 10/29/2021 GFR 11/13/2023 05/15/2023, 04/07, 03/09/2023, Additional history exists CKD HGB USE SMARTSET 92963 04/30/202404/30, 04/30/2023, 03/09/2023, Additional history exists Diabetes Screening 04/30/2026 04/30/2023, 1 05/10/2022, 09/25/2022, Additional history exists Lipid Panel 11/11/2026 11/11/2021, 11/04, 05/10/2020, Additional history exists Colonoscopy 04/18/2029 04/18/2019, 04/06, 12/16/2012, Additional history exists Colorectal Cancer Screening 04/18/2029 Pneumococcal Vaccine: Pediatrics (0 to 5 Years) and At-Risk Patients (6 to 64 Years) Completed 09/25/2022 LUNG CANCER SCREENING - USE SMARTSET 56764 Completed 09/30/2022 VITAMIN D LEVEL ONCE IN A LIFETIME-USE SMARTSET# 92983 Completed 05/15/2023, 11/17/2022, 05/13/2022, Additional history exists GARDASIL-HPV IMMUNIZATION SERIES Aged Out No longer eligible based on patient's age to complete this topic MENINGOCOCCAL (MENACTRA/MENVEO) Aged Out No longer eligible based on patient's age to complete this topic documented as of this encounter Medical Devices Implanted Type Area Artificial Limb Maker Device Identifier Shelf Expiration Date Model / Serial / Lot Cement Hv-R C01a - [id number] Implanted:Qty: 1 on 05/14/2022 by Chao Lund MD at OR [facility] N/A: Spine Thoracic [employer] : NEURO CARE 01/03/2025 C01A / / [id number] documented as of this encounter Advance Directives Latest Code Status on File Code Status Date Activated Date Inactivated Comments Full Code 05/14/2022 7:03 AM 05/14/2022 2:27 PM This or sal reflects the patients wishes and were consensually agreed upon. Question Answer Comments Discussion of Advance Directives occurred with: Patient Care Teams Ferry Engineer Relationship Specialty Start Date End Date Alvarez Chau DO [address] [place] [address] PCP - General Family Medicine 11/17/11 documented as of this encounter
--- OUTSIDE RECORDS SUMMARY | 2023-06-13 04:03 | External Medical Summary ---
Author Name Unknown Address Unknown Organization K01:[facility] [place] [address] [place] [address] Laboratory Report Ordering Provider Test Date Status ERIC RODRIGUEZ 05/15/2023 12:53:49 Final Observation Date Value Abnormality Reference (Units ) Status MYCODE SPECIMEN-SST 05/15/2023 12:53:49 Freezing of extracted DNA, whole blood and/or serum. Final Performing Location LABORATORY [facility] - [address] [place] [address]
--- OUTSIDE RECORDS SUMMARY | 2023-06-13 04:03 | External Medical Summary | Summary of Care ---
Author Name Unknown Organization [facility] Address [address] [place] [address] Phone [phone] Care Team Providers Care It Application Administrator Name Role Phone Camilla Chau DO Primary Care Provider + [phone] Reason for Visit * Reason Comments Outpatient Testing Encounter Details Date Type Department Care Team (Late st Contact Info) Description 05/15/2023 12:50 PM EST Laboratory Laboratory, [place] [address] [place] [address] [facility] [address] [place] [address] [facility] Other*[id number]; Senile osteoporosis; Chronic kidney disease, stage 3b (HCC) Allergies Active Allergy Reactions Criticality Noted Date [...] (toPROL XL)Indications:PAC (premature atrial contraction),NICM (nonischemic cardiomyopathy) ([facility]) TAKE 1 TABLET BY MOUTH EVERY [...] 10:00 AM EST Office Visit Nephrology, [facility] [address] [place] [address] Kvng Steele MD [address] [place] [address] 05/30/2023 1:45 PM EST Imaging Radiology [address] 132 [facility] [place] [address] 06/05/2023 9:30 AM EST Office Visit Hematology/Oncology [facility] [address] [place] [address] Elizabeth Serrano CRNP 400 [facility] [place] [address] 07/13/2023 10:50 AM EDT Office Visit [facility] [address] [place], [place] [address] [phone] Camilla Chau DO [address] [facility] [place] [address] 08/12/2023 11:00 AM EDT Office Visit Cardiology, [facility] 132 [facility] [address] Kitty Cali PA-C 132 [facility] [place] [address] 09/10/2023 10:30 AM EDT Office Visit Rheumatology [address] [place] [address] Selvin Spear PA-C [address] [place] [address] [place] [address] 10/02/2023 11:00 AM EDT Imaging Radiology [facility] 1st [facility] 132 [facility] [place] [address] 11/02/2023 11:00 AM EDT Imaging Radiology, [address] [place] [address] 03/15/2024 10:30 AM EST Office Visit Rheumatology [address] [place], [place] [address] Marcelo Kim CRNP [address] [place] [address] [place], [place] [address] 03/29/2024 3:00 PM EST Office Visit [address] [place] [address] Keiko Almodovar PA-C [address] [place] [address] [place] [address] Pending Results Name Type Priority Associated Diagnoses Date /Time MYCODE SUBSEQUENT ADULT Lab Routine [employer] Other*[id number] 05/15/2023 12:53 PM EST 25-HYDROXY VITAMIN D Lab Routine Senile osteoporosis 05/15/2023 12:53 PM EST PTH Lab Routine Senile osteoporosis 05/15/2023 12:53 PM EST CREATININE Lab Routine Chronic kidney disease, stage 3b (HCC) 05/15/2023 12:53 PM EST MYCODE SST1 Lab Routine [employer] Other*[id number] 05/15/2023 12:53 PM EST MYCODE SST2 Lab Routine [employer] Other*[id number] 05/15/2023 12:53 PM EST Health Maintenance Due Date Last [...] Additional history exists CKD PHOS USE SMARTSET 02719 09/26/2023 09/25/2022, 0 04/08/2018 GFR 10/29/2023 04/30/2023, 12/0 07/2022, 11/17/2022, Additional history exists DXA Scan 10/30/2023 10/29/2021, 10/29/2021 CKD HGB USE SMARTSET 01300 04/30/202404/30, 04/30/2023, 03/09/2023, Additional history exists Diabetes Screening 04/30/2026 04/30/2023, 1 05/10/2022, 09/25/2022, Additional history exists Lipid Panel 11/11/2026 11/11/2021, 11/04, 05/10/2020, Additional history exists Colonoscopy 04/18/2029 04/18/2019, 04/06, 12/16/2012, Additional history exists Colorectal Cancer Screening 04/18/2029 Pneumococcal Vaccine: Pediatrics (0 to 5 Years) and At-Risk Patients (6 to 64 Years) Completed 09/25/2022 LUNG CANCER SCREENING - USE SMARTSET 94759 Completed 09/30/2022 VITAMIN D LEVEL ONCE IN A LIFETIME-USE SMARTSET# 85985 Completed 11/17/2022, 05/13/2022, 04/02/2022 GARDASIL-HPV IMMUNIZATION SERIES Aged Out No longer eligible based on patient's age to complete this topic MENINGOCOCCAL (MENACTRA/MENVEO) Aged Out No longer eligible based on patient's age to complete this topic documented as of this encounter Medical Devices Implanted Type Area Anesthetic Assistant Device Identifier Shelf Expiration Date Model / Serial / Lot Cement Hv-R C01a - [id number] Implanted:Qty: 1 on 05/14/2022 by Chao Lund MD at OR [facility] N/A: Spine Thoracic [employer] : NEURO CARE 01/03/2025 C01A / / [id number] documented as of this encounter Visit Diagnoses Diagnosis [employer] Other*[id number] Senile osteoporosis Chronic kidney disease, stage 3b (HCC) documented in this encounter Advance Directives Latest Code Status on File Code Status Date Activated Date Inactivated Comments Full Code 05/14/2022 7:03 AM 05/14/2022 2:27 PM This or sal reflects the patients wishes and were consensually agreed upon. Question Answer Comments Discussion of Advance Directives occurred with: Patient Care Teams It Application Administrator Relationship Specialty Start Date End Date Camilla Chau DO [address] [place] [address] PCP - General Family Medicine 11/17/11 documented as of this encounter
--- OUTSIDE RECORDS SUMMARY | 2023-06-13 04:03 | External Medical Summary | Summary of Care ---
Author Name Unknown Organization [facility] Address [address] [place] [address] Phone [phone] Care Team Providers Care [employer] Executive Name Role Phone Camilla Chau DO Primary Care Provider [phone] Reason for Visit * Reason Comments Rheum Follow Up Recheck osteoporosis Encounter Details Date Type Department Care Team (Late st Contact Info) Description 05/12/2023 10:30 AM EST Office Visit Rheumatology [place] [address] [place] [address] Marcelo Kim CRNP [address] [place] [address] Senile osteoporosis*; Generalized osteoarthritis; Chronic kidney disease, stage 3b (HCC); Gait abnormality Allergies Active Allergy Reactions Criticality Noted Date [...] 02/10/2023 Active Ondansetron HCl 4 MG Oral TabletIndications: Cellulitis of left lower extremity,Cellulit is of right lower extremity,Edema, unspecified type Take 1 Tablet by mouth every 8 hours as needed for Nausea. 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 0 02/06/2023 Active Furosemide 20 [...] atrial contraction),NICM (nonischemic cardiomyopathy) ([facility]) TAKE 1 TABLET BY MOUTH EVERY [...] the morning. 2.4 mL 11 05/12/2023 Active Buprenorphine HCl-Naloxone HCl 8-2 MG Sublingual Film 1 Film in the morning and 1 Film before bedtime. Take one in the AM and one half film in PM. 0 4 Discontinued hydrOXYzine Pamoate 25 MG Oral Capsule Take 1 Capsule by mouth 3 times a day as needed for Anxiety. 0 4 Discontinued Docusate Sodium 100 MG Oral Capsule (Colace) Take 1 Capsule by mouth in the morning and 1 Capsule before bedtime. 0 4 Discontinued Insulin Pen Needle 31G X 5 MM USE TO INJECT FORTEO EVERY DAY 30 Each 11 04/09/2022 4 Discontinued Mupirocin 2 % External Ointment (Bactroban)Indicat ions:Cellulitis of left lower extremity,Cellulit is of right lower extremity,Edema, unspecified type Apply topically to affected area 3 times a day for 14 days. To affected area for up to 14 days. 30 g 2 02/24/2023 4 Discontinued Doxycycline Hyclate 100 MG Oral CapsuleIndications :Cellulitis and abscess of left leg Take 1 Capsule by mouth in the morning and 1 Capsule before bedtime. Do all this for 10 days. Until gone.. 20 Capsule 0 03/09/2023 4 Discontinued Ondansetron HCl 4 MG Oral Tablet Take 1 Tablet by mouth every 6 hours as needed for Nausea. 30 Tablet 0 04/15/2023 4 Discontinued documented as of this encounter (statuses [...] mRNA, LNP-s, No Pre serve, 2-Dose Series ([employer]) 07/14/2020,06/23/2020 Pneumococcal Conjugate Vaccine, 20-valent (Prevn ar20) 09/25/2022 TDAP (age 11 and older)(Adacel) 04/19/2007 documented as of this encounter Social History Tobacco Use Types Packs/Day Years Used Date Smoking Tobacco: Every Day Cigarettes 1 41 Passive Smoke Exposure: Never Smokeless Tobacco: Never Tobacco Cessation:Ready to Q uit: Not Asked; Counseling Given: Not Answered Alcohol Use Standard Drinks/Week Comments No 0 [...] on file documented as of this encounter Last Filed Vital Signs Vital Sign Reading Time Taken Comments Blood Pressure 110/58 05/12/2023 10:42 AM EST Pulse - - Temperature 36.5 C (97.7 F) 05/12/2023 10:[address] Respiratory Rate - - Oxygen Saturation - - Inhaled Oxygen Concentration - - Weight 65.8 kg (145 lb) 05/12/2023 10:42 AM EST Height - - Body Mass Index 31.38 02/24/2023 3:22 PM EST documented in this encounter Patient Instructions * Patient Instructions* Marcelo Kim CRNP - 05/12/2023 11:26 AM EST Update labs today Start auth for Forteo Follow up 4 months Continue taking Vit D 2,000 IU daily, recommended to take Calcium 1,200 mg daily Schedule DEXA on or after 10/30/2021 Contact clinic with any questions or concerns Teriparatide Pen Injector Brands: Forteo Uses For bone strength. Instructions This medicine is used by injecting it into the skin. Please ask your doctor, nurse or pharmacist for the correct places on your body where this medicine can be injected. Read and make sure you understand the instructions for measuring dose and using syringe. If you have any questions, talk to your doctor, nurse, or pharmacist. The liquid should be clear and colorless. Check the medicine before each use. If the liquid medicine has any particles in it, appears discolored, or if the vial appears damaged, do not use it. Keep medicine in refrigerator. Do not freeze. If frozen, throw away. Protect medicine from light. Never use any medicine that has . Please ask your doctor, nurse, or pharmacist how to discard unused medicines safely. Change the location of the injection each time. Choose a location at least 1 inch from the last injection. It is important that you keep taking each dose of this medicine on time even if you are feeling well. If you forget to take a dose on time, take it as soon as you remember. If it is almost time for thenext dose, do not take the missed dose. Return to your normal schedule. Do not take 2 doses at one time. Drug interactions can change how medicines work or increase risk for side effects. Tell your healthcare providers about all medicines taken. Include prescription and tlld-lcc-qjooufv medicines, vitamins, and herbal medicines. Speak with your doctor or pharmacist before starting or stopping any medicine. You may need vitamin and mineral supplements while on this medicine. Please speak with your doctor or pharmacist. Keep all appointments for medical exams and tests while on this medicine. Cautions During , this medicine should be used only when clearly needed. Talk to your doctor about the risks and benefits. Tell your doctor and pharmacist if you ever had an allergic reaction to a medicine. Do not use the medication any more than instructed. This medicine may cause dizziness or fainting, especially after exercising or in hot weather. Be very careful when standing or sitting up quickly. Your ability to stay alert or to react quickly may be impaired by this medicine. Do not drive or operate machinery until you know how this medicine will affect you. Please check with your doctor before drinking alcohol while on this medicine. Do not breastfeed while on this medicine. Ask your pharmacist how to properly throw away used needles or syringes. Do not share this medicine with anyone who has not been prescribed this medicine. Some patients have serious side effects from this medicine. Ask your pharmacist to show you the information from the Food and Drug Administration (FDA) and discuss it with you. Side Effects The following is a list of some common side effects from this medicine. Please speak with your doctor about what you should do if you experience these or other side effects. dizziness low blood pressure pain, redness, swelling near injection muscle cramps nausea rapid heartbeat Call your doctor or get medical help right away if you notice any of these more serious side effects: severe or persistent bone, joint or jaw pain confusion constipation fainting muscle weakness unusual or unexplained tiredness or weakness vomiting A few people may have an allergic reaction to this medicine. Symptoms can include difficulty breathing, skin rash, itching, swelling, or severe dizziness. If you notice any of these symptoms, seek medical help quickly. documented in this encounter Progress Notes * Marcelo Kim CRNP - 05/12/2023 8:14 AM EST [facility] ([facility]): follow up Supervised by: Dr. Howard Bentley Previous Visit Plan from 11/11/2022 reviewed. Current medication therapy: None Prior medication therapy: Forteo Date of last labs reviewed from 04/30/2023 Creatinine 1.2, calcium 9.1 Vitamin-D 27 from 11/17/2022 CT scan 03/17/23 IMPRESSION: 1. Sacral insufficiency fracture, suspected subacute in age. 2. Postsurgical changes related to posterior and interbody fusion at L5-S1. No hardware fracture orevidence of loosening. Reason for visit: Patient seen today for further follow-up/evaluation of osteoporosis. She notes she did not start Evenity at this point due to concerns of side effects. She notes she did start taking Vit D 2,000 IU daily supplements, denies taking Calcium supplements. She is wondering about re-star eleazar Ambrose. She notes she fell 01/13/2023 and had a closed fracture of the sacrum which has healed. She notes she has an MRI 05/30 due to lingering pain in the right hip radiating down the thight with a sharp, stabbing pain intermittently. She notes she fell two more times in the fall. She continues to use a cane. She notes she was in too much pain to start Physical therapy. She notes she has venous stasis and saw [facility] center and was treated with ABT and current infection and ulcers are resolved but still wears compression stockings. She notes she in on the first floor and has two steps to get in with railing. She notes she continues to smoke. May be interested in physical therapy at this point. Bone Health Summary: Risks: Falls since last [facility] visit: yes Personal History of Fx since last [facility] Visit: yes- sacral fracture Prevention: Exercise : 3 or more times weekly: No Nutrition: eats calcium rich foods, No Gait: unsteady with walking, Yes, use of cane/walker, Yes, at all times Calcium and Vitamin D supplements in adequate doses: Yes, Vit D Current Smoker: Yes Chronic Glucocorticoid use: No Rheumatoid Arthritis: No Alcohol 3 or more per day: No ROS: . Constitutional: normal . Head normal . Eyes: normal . Ears, nose, throat, mouth: normal . Cardiovascular: normal . Respiratory: normal . Gastrointestinal: nausea . Musculoskeletal: right hip pain . Neurologic: numbness and tingling in the pelvis and buttock area L>R . Skin: scarring on ankles L>R . Psychiatric: normal . Endocrine: normal . Hematologic/lymphatic: normal . Allergic/immunologic: normal . Genitourinary: normal Medications: All other ROS reviewed and negative. Pertinent positives listed in HPI. Current Outpatient Medications Medication Sig Dispense Refill traZODone (DESYREL) 100 MG Tablet 2 Tablets at bedtime. Topiramate 50 MG Oral Tablet Take 1 Tablet by mouth in the morning and 1 Tablet before bedtime. Excedrin Extra Strength 250-250-65 MG Oral Tablet (Fixaoda-Fkwcloiivanmn-Ervegoyi) Take 2 Tablets by mouth every 8 [...] bedtime as needed for Heartburn. 90Tablet 3 Atorvastatin Calcium 20 MG Oral Tablet (Lipitor) TAKE 1 TABLET BY MOUTH EVERY DAY IN THE MORNING 90Tablet 1 Acetaminophen 500 MG Oral Tablet (Tylenol Extra Strength) Take 1 Tablet by mouth every 6 hours as needed for Pain, Moderate. Usually one in the morning and 2 before bed Triamcinolone Acetonide 0.1 % External Cream (Aristocort) Apply topically to affected area 2 times a day. To affected area. 15 g 5 Ondansetron HCl 4 MG Oral Tablet Take 1 Tablet by mouth every 8 hours as needed for Nausea. 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 Furosemide 20 MG Oral Tablet [...] (Constulose) As needed Vitamin D3 50 MCG (2000 UT) Oral Capsule Take 1 Capsule by mouth in the morning. No current facility-administered medications for this visit. Social History: Social History Tobacco Use Smoking status: Every Day Packs/day: 1.00 Years: 41.00 Additional pack years: 0.00 Total pack years: 41.00 Types: Cigarettes Passive exposure: Never Smokeless tobacco: Never Vaping Use Vaping Use: Never used Substance Use Topics Alcohol use: No Drug use: Not Currently Types: Oxycodone Comment: Last use 2007 PHYSICAL EXAM: General appearance: NAD Eyes: Normal Heme/Lymph: goiter: No Musculoskeletal: Kyphosis Yes, muscle strength + 3/5 LE and UE Heart: normal Lungs: normal Neuro: no focal findings Diagnostic Testing: Results of labs and DXA were reviewed and discussed with the patient. Labs: Satisfactory: 25-OH Vitamin D calcium creatinine DXA Result: 10/29/2021 Lumbar spine: 0.577 gms/cm2 T-score: -4.0 Z-score: -2.9 Left femoral neck: 0.565 gms/cm2 T-score: -2.6 Z-score: -1.4 Assessment: (M81.0) Senile osteoporosis (primary encounter diagnosis) Plan: 25-HYDROXY VITAMIN D, PTH, PHYSICAL THERAPY EVALUATION HIGH COMPLEX 45 MIN, DEXA SCAN/BONE MINERAL AXIAL (M15.9) Generalized osteoarthritis Plan: PHYSICAL THERAPY EVALUATION HIGH COMPLEX 45 MIN (N18.32) Chronic kidney disease, stage 3b (HCC) Plan: CREATININE (R26.9) Gait abnormality Plan: PHYSICAL THERAPY EVALUATION HIGH COMPLEX 45 MIN 58 year old female with osteoporosis who needs assessment for ongoing treatment. Since last visit she did not start taking Evenity. We will start new authorization for Forteo as she feels she is ready to be compliant with it at this point. We will get updated labs. Most recent labs were stable. Discussed benefits and side effects with education printed at checkout. Recommended starting calcium supplement and continuing vitamin-D supplement. Recommended physical therapy for improved gait and strength training and placed the order at this time. Will continue to monitor DXA every 2 year. Next DEXA due in October,. I recommend continuation of a healthy diet with calcium rich foods as well as calcium and vitamin D supplement. Patient encouraged to participate in weight-bearing exercise (i.e., walking). Discussed fall avoidance measures and recommend fall prevention. Although falls are never planned, I discussed with the patient the goal of therapy to slow down / stop the process of osteoporosis from progressing. Patient voiced understanding of the discussion. Discussed the above in detail with the patient. All questions were answered. Recommend treatment with Forteo for 2 years then followed by [facility]. Renal disease contraindicating bisphosphonates: CKD 3 GI Disease contraindicating oral bisphosphonates: GERD Plan: The following items are ordered or are in progress: 1. Education: Osteoporosis education was provided by the [facility] team (topics included disease process, DXA, calcium/vitamin D, osteoporosis medications - including administration instructions and risks/benefits, weight bearing exercise, fall prevention/safety). The patient was provided with [facility] patient education instruction sheet(s): Forteo. 2. Prevention: . Eye Examination recommended annually, as good vision may help to prevent falls . Exercise recommended: standing, walking, light lifting . Fall Prevention/Safety Education recommended and discussed . Physical Therapy Evaluation for Gait Training/Exercise Recommendation . Continue calcium rich foods (goal of 3 servings daily) 3. Osteoporosis Medications : Consider Forteo 20mcg subq daily. Prior Auth approved through 2023 we will order medication at thistime 4. Bone Density Testing: due 2 year(s) from previous 5. Laboratory: 25-OH Vitamin D, Creatinine, PTH(intact) 6. Followup: 4 months 7. Discussed the above in detail with the patient. All questions answered. 8. Encouraged patient to contact clinic with any questions or concerns CC. RAZ Gould [facility] Team I saw the patient. I agree with the findings and plan as documented by Marcelo CRANDALL in this note. Howard Bentley MD Rheumatology Department documented in this encounter Nursing Notes * Agustín Aiken LPN - 05/12/2023 10:33 AM EST Chief Complaint Patient presents with Rheum Follow Up Recheck osteoporosis documented in this encounter Plan of Treatment Upcoming Encounters Date Type Department Care Team (Late st Contact Info) Description 05/29/2023 10:00 AM EST Office Visit Nephrology, [facility] [address] [facility] [address] [place] [address] Kvng [place] MD [address] [facility] [place] [place] [address] 05/30/2023 1:45 PM EST Imaging Radiology [facility] 1st [facility] [address] [facility] [place] [address] 06/05/2023 9:30 AM EST Office Visit Hematology/Oncology [facility] [address] [place] [address] Elizabeth Serrano CRNP [address] [place] [address] [place] [address] 07/13/2023 10:50 AM EDT [address] [id number] Camilla Chau DO [address] [place] [address] 08/12/2023 11:00 AM EDT Office Visit Cardiology, [facility] [address] [place] [address] Kitty Cali PA-C [address] [place] [address] 09/10/2023 10:30 AM EDT Office Visit Rheumatology [address] [place] [address] Selvin Spear PA-C [address] [place] [address] [place] [address] 10/02/2023 11:00 AM EDT Imaging Radiology [facility] [address] [place] [address] 11/02/2023 11:00 AM EDT Imaging Radiology, [address] [place] [address] 03/15/2024 10:30 AM EST Office Visit Rheumatology [address] [place] [address] Marcelo Kim CRNP [address] [place] [address] [place] [address] 03/29/2024 3:00 PM EST Office Visit Dermatology, [place] [address] [place] [address] Keiko Almodovar PA-C [address] [place] [address] [place] [address] Scheduled Orders Name Type Priority Associated Diagnoses Orde r Schedule 25-HYDROXY VITAMIN D Lab Routine Senile osteoporosis Expected: 05/12/2023, Expires: 05/12/2024 PTH Lab Routine Senile osteoporosis Expected: 05/12/2023, Expires: 05/12/2024 PHYSICAL THERAPY EVALUATION HIGH COMPLEX 45 MIN Procedures Routine Senile osteoporosis Generalized osteoarthritis Gait abnormality Ordered: 05/12/2023 DEXA SCAN/BONE MINERAL AXIAL Medical Imaging Routine Senile osteoporosis Expected: 10/31/2023, Expires: 06/09/2024 CREATININE Lab Routine Chronic kidney disease, stage 3b (HCC) Expected: 05/12/2023, Expires: 05/12/2024 Health Maintenance Due Date Last Done Comments [...] (FLU shot) (#1) 2022 Mammogram 08/05/2023 08/04/2022, 04/2022, 07/09/2021, Additional history exists Albumin/Creatinine Ratio 09/26/2023 023, 09/23/2021, 08/08/2020, Additional history exists CKD PHOS USE SMARTSET 70253 09/26/2023 09/25/2022, 0 04/08/2018 GFR 10/29/2023 04/30/2023, 1207/2022, 11/17/2022, Additional history exists DXA Scan 10/30/2023 10/29/2021, 10/29/2021 CKD HGB USE SMARTSET [id number] 04/30/202404/30, 04/30/2023, 03/09/2023, Additional history exists Diabetes Screening 04/30/2026 04/30/2023, 1 05/10/2022, 09/25/2022, Additional history exists Lipid Panel 11/11/2026 11/11/2021, 11/04, 05/10/2020, Additional history exists Colonoscopy 04/18/2029 04/18/2019, 04/06, 12/16/2012, Additional history exists Colorectal Cancer Screening 04/18/2029 Pneumococcal Vaccine: Pediatrics (0 to 5 Years) and At-Risk Patients (6 to 64 Years) Completed 09/25/2022 LUNG CANCER SCREENING - USE SMARTSET [id number] Completed 09/30/2022 VITAMIN D LEVEL ONCE IN A LIFETIME-USE SMARTSET# [id number] Completed 11/17/2022, 05/13/2022, 04/02/2022 GARDASIL-HPV IMMUNIZATION SERIES Aged Out No longer eligible based on patient's age to complete this topic MENINGOCOCCAL (MENACTRA/MENVEO) Aged Out No longer eligible based on patient's age to complete this topic documented as of this encounter Medical Devices Implanted Type Area Veterans' Counselor Device Identifier Shelf Expiration Date Model / Serial / Lot Cement Hv-R C01a - [id number] Implanted:Qty: 1 on 05/14/2022 by Chao Lund MD at [facility] N/A: Spine Thoracic [employer] : NEURO CARE 01/03/2025 [id number] / / [id number] documented as of this encounter Visit Diagnoses Diagnosis Senile osteoporosis- Primary Generalized osteoarthritis Generalized osteoarthrosis, unspecified site Chronic kidney disease, stage 3b (HCC) Gait abnormality Abnormality of gait documented in this encounter Advance Directives Latest Code Status on File Code Status Date Activated Date Inactivated Comments Full Code 05/14/2022 7:03 AM 05/14/2022 2:27 PM This or sal reflects the patients wishes and were consensually agreed upon. Question Answer Comments Discussion of Advance Directives occurred with: Patient Care Teams [employer] Executive Relationship Specialty Start Date End Date Camilla Chau DO [address] [place] [address] PCP - General Family Medicine 11/17/11 documented as of this encounter
--- OUTSIDE RECORDS SUMMARY | 2023-06-13 04:03 | External Medical Summary | Summary of Care ---
Author Name Unknown Organization [facility] Address [address] [place] [address] Phone [phone] Care Team Providers Care Operating Room Nurse Name Role Phone Camilla Chau DO Primary Care Provider [phone] Reason for Visit * Reason Onset Date Comments Films 05/19/2023 Encounter Details Date Type Department Care Team ([facility] st Contact Info) Description 05/19/2023 Telephone Radiology Film File [address] [place] [address] Camilla Chau DO [address] [place] [address] Films Allergies Active Allergy Reactions Criticality Noted Date Comments Oxybutynin 08/31/2018 Terrible dry mouth and constipation Influenza Vaccines 12/27/2021 Pt stated she won't get it because it makes her "deathly ill" documented as of this encounter (statuses as of 05/19/2023) Medications Medication Sig Dispensed Refills Start Date [...] hours as needed for Anxiety (take for gaming surveillance observer anxiety PRN). 0 02/06/2023 Active Furosemide [...] (nonischemic cardiomyopathy) (FORMER[facility]) TAKE 1 TABLET BY MOUTH EVERY DAY 90 Tablet 3 04/03/2023 Active Buprenorphine HCl 8 MG Sublingual Tablet Sublingual (Subutex) 1 twice daily 0 05/07/2023 A ctive Lactulose 10 GM/15ML Oral Solution (Constulose) As needed 0 03/09/2023 Active Vitamin D3 50 MCG (2000 UT) Oral Capsule Take 1 Capsule by mouth in the morning. 0 Active Teriparatide (Recombinant) 600 MCG/2.4ML Subcutaneous Solution Pen-injector (AMGaseo) Inject 20 mcg under the skin in [...] for Nausea. 30 Tablet 0 05/15/2023 Active documented as of this encounter (statuses as of 05/19/2023) Active Problems Problem Noted Date Diagnosed Date [...] as of this encounter (statuses as of 05/19/2023) Resolved Problems Problem Noted Date Diagnosed Date [...] as of this encounter (statuses as of 05/19/2023) Immunizations Name Administration Dates Next Due COVID-19 [...] encounter Miscellaneous Notes * Telephone Encounter - Emilia Chambers OSA - 05/19/2023 10:07 AM EST [facility] requesting L Spine images be pushed to their system. Fults Authorization to Release on file. Images pushed to [facility] external connection through PACs Report(s) faxed to [phone]. Successful fax confirmation received. documented in this encounter Plan of Treatment Upcoming Encounters Date Type Department Care Team (Late st Contact Info) Description 05/29/2023 10:00 AM EST Office Visit Nephrology, [facility] [address] [place] [address] Kvng Steele MD [address] [place] [address] [address] 05/30/2023 1:45 PM EST Imaging Radiology [facility] 1st [facility] [place] 132 [facility] [place] [id number] 07/03/2023 3:30 PM EDT Office Visit Hematology/Oncology [facility] L[facility]ano [place] [address] [place] [address] [address] Elizabeth Serrano CRNP [address] [place] [address] [place] [address] 07/13/2023 10:50 AM EDT Office Visit Family Practice, [place] [address] [place] [address] Camilla Chau DO [address] [facility] [place] [address] 08/12/2023 11:00 AM EDT Office Visit [facility], [facility] 132 [place] [address] Kitty Cali PA-C [facility] [address] 09/10/2023 10:30 AM EDT Office Visit Rheumatology [address] [place] [address] Selvin Spear PA-C [address] [place] [address] [place], [place] [address] 10/02/2023 11:00 AM EDT Imaging Radiology [facility] 1st [facility] [address] 11/02/2023 11:00 AM EDT Imaging Radiology, [address] [place] [address] 03/15/2024 10:30 AM EST Office Visit Rheumatology [address] [place] [address] Marcelo Kim CRNP [address] [place] [address] [place] [address] 03/29/2024 3:00 PM EST Office Visit Dermatology, [place] [address] [place] [address] Keiko Almodovar, PAJessica [address] [place] [address] [place] [address] Health Maintenance Due Date Last Done Comments [...] Additional history exists CKD PHOS USE SMARTSET 56797 09/26/2023 09/25/2022, 0 04/08/2018 DXA Scan 10/30/2023 10/29/2021, 10/29/2021 GFR 11/13/2023 05/15/2023, 04/07, 03/09/2023, Additional history exists CKD HGB USE SMARTSET 53232 04/30/202404/30, 04/30/2023, 03/09/2023, Additional history exists Diabetes Screening 04/30/2026 04/30/2023, 1 05/10/2022, 09/25/2022, Additional history exists Lipid Panel 11/11/2026 11/11/2021, 11/04, 05/10/2020, Additional history exists Colonoscopy 04/18/2029 04/18/2019, 04/06, 12/16/2012, Additional history exists Colorectal Cancer Screening 04/18/2029 Pneumococcal Vaccine: Pediatrics (0 to 5 Years) and At-Risk Patients (6 to 64 Years) Completed 09/25/2022 LUNG CANCER SCREENING - USE SMARTSET 50571 Completed 09/30/2022 VITAMIN D LEVEL ONCE IN A LIFETIME-USE SMARTSET# 64304 Completed 05/15/2023, 11/17/2022, 05/13/2022, Additional history exists GARDASIL-HPV IMMUNIZATION SERIES Aged Out No longer eligible based on patient's age to complete this topic MENINGOCOCCAL (MENACTRA/MENVEO) Aged Out No longer eligible based on patient's age to complete this topic documented as of this encounter Medical Devices Implanted Type Area Roofer Applicator Device Identifier Shelf Expiration Date Model / Serial / Lot Cement Hv-R C01a - [id number] Implanted:Qty: 1 on 05/14/2022 by Chao Lund MD at OR [facility] N/A: Spine Thoracic [employer] : NEURO CARE 01/03/2025 C01A / / [id number] documented as of this encounter Advance Directives Latest Code Status on File Code Status Date Activated Date Inactivated Comments Full Code 05/14/2022 7:03 AM 05/14/2022 2:27 PM This or sal reflects the patients wishes and were consensually agreed upon. Question Answer Comments Discussion of Advance Directives occurred with: Patient Care Teams Operating Room Nurse Relationship Specialty Start Date End Date Camilla Chau DO [address] [facility] [address] PCP - General Family Medicine 11/17/11 documented as of this encounter
--- OUTSIDE RECORDS SUMMARY | 2023-06-13 04:04 | External Medical Summary | Summary of Care ---
Author Name Unknown Organization [facility] Address [address] [place] [facility] [place] [address] Phone [phone] Care Team Providers Care Professor Of Apologetics Name Role Phone Camilla Chau DO Primary Care Provider [phone] Encounter Details Date Type Department Care Team (Late st Contact Info) Description 05/05/2023 Telephone Orthopaedics [facility] [address] [place] [address] Gerda Cifuentes MD [address] [place] [address] Allergies Active Allergy Reactions Criticality Noted Date Comments Oxybutynin 08/31/2018 Terrible dry mouth and constipation Influenza Vaccines 12/27/2021 Pt stated she won't get it because it makes her "deathly ill" documented as of this encounter (statuses as of 05/05/2023) Medications Medication Sig Dispensed Refills Start Date End Date Status traZODone (DESYREL) 100 MG Tablet 2 Tablets at bedtime. 0 07/23/2015 Active Buprenorphine HCl-Naloxone HCl 8-2 MG Sublingual Film 1 Film in the morning and 1 Film before bedtime. Take one in the AM and one half film in PM. 0 Active Topiramate 50 MG Oral Tablet Take 1 Tablet by mouth in the morning and 1 Tablet before bedtime. 0 Active Excedrin Extra Strength 250-250-65 MG Oral Tablet (Aspirin-Acetaminoph en-Caffeine) Take 2 Tablets by mouth every 8 hours as needed. 0 Active hydrOXYzine Pamoate 25 MG Oral Capsule Take 1 Capsule by mouth 3 times a day as needed for Anxiety. 0 Active Docusate Sodium 100 MG Oral Capsule (Colace) Take 1 Capsule by mouth in the morning and 1 Capsule before bedtime. 0 Active hydrOXYzine Pamoate 50 MG Oral [...] hours as needed for Anxiety (take for gravity prospecting observer anxiety PRN). 0 02/06/2023 Active Furosemide [...] EVERY DAY 90 Tablet 3 04/03/2023 Active Ondansetron HCl 4 MG Oral Tablet Take 1 Tablet by mouth every 6 hours as needed for Nausea. 30 Tablet 0 04/15/2023 Active documented as of this encounter (statuses as of 05/05/2023) Active Problems Problem Noted Date Diagnosed Date [...] as of this encounter (statuses as of 05/05/2023) Resolved Problems Problem Noted Date Diagnosed Date [...] as of this encounter (statuses as of 05/05/2023) Immunizations Name Administration Dates Next Due COVID-19 mRNA, LNP-s, No Pre serve, 2-Dose Series (Chujian) 07/14/2020,06/23/2020 Pneumococcal Conjugate Vaccine, 20-valent (Prevn ar20) [...] encounter Miscellaneous Notes * Telephone Encounter - Bianca Downing MED ASSIST - 05/05/2023 11:34 AM EST Called patient back. Asked her if everything was okay due to her having a STAT MRI yesterday and not having it completed. She informed me she left home and tried getting to [place]. Does not haveGPS in her car and does not know what to use her phone GPS. She was given paper directions and tried following those but ended up lost and went back home. She called and let them know what happened, they rescheduled her for 05/07/23 here is [facility]. * Telephone Encounter - Bianca Downing MED ASSIST - 05/05/2023 11:14 AM EST Called patient. Patient informed me she is on the phone with the hospital [place]. [place] [phone] [place] she calls. documented in this encounter Plan of Treatment Upcoming Encounters Date Type Department Care Team (Late st Contact Info) Description 05/07/2023 12:15 PM EST Imaging Radiology [facility] 1st [facility] [place] 132 [facility] [place] [address] 05/07/2023 3:00 PM EST Office Visit Hematology/Oncology [facility] [place] [address] [facility] [address] Elizabeth Serrano CRNP [address] [place] [address] 05/12/2023 10:30 AM EST Office Visit [facility]umatology [facility] [address] [facility] [place] [address] Marcelo Kim CRNP [address] [facility] [place] [address] 05/29/2023 10:00 AM EST Office [facility], [facility] [place] [address] Kvng Steele MD [address] [place] [address] 07/13/2023 10:50 AM EDT Office Visit Family Practice, [place] [address] [facility] [place] [id number] Camilla Chau DO [address] [place] [address] 08/12/2023 11:00 AM EDT Office Visit Cardiology, [facility] 132 [facility] [place] [address] Kitty Cali PA-C 132 [facility] [place] [address] 10/02/2023 11:00 AM EDT Imaging Radiology [facility] 1st [facility] 132 [facility] [place] [address] 03/29/2024 3:00 PM EST Office Visit Dermatology, [place] [address] [place] [address] Keiko Almodovar PA-C [address] [place] [address] [place] [address] Health Maintenance Due Date Last Done Comments [...] Additional history exists CKD PHOS USE SMARTSET 51089 09/26/2023 09/25/2022, 0 04/08/2018 GFR 10/29/2023 04/30/2023, 12/07/2022, 11/17/2022, Additional history exists DXA Scan 10/30/2023 10/29/2021, 10/29/2021 CKD HGB USE SMARTSET 80581 04/30/202404/30, 04/30/2023, 03/09/2023, Additional history exists Diabetes Screening 04/30/2026 04/30/2023, 1 05/10/2022, 09/25/2022, Additional history exists Lipid Panel 11/11/2026 11/11/2021, 11/04, 05/10/2020, Additional history exists Colonoscopy 04/18/2029 04/18/2019, 04/06, 12/16/2012, Additional history exists Colorectal Cancer Screening 04/18/2029 Pneumococcal Vaccine: Pediatrics (0 to 5 Years) and At-Risk Patients (6 to 64 Years) Completed 09/25/2022 LUNG CANCER SCREENING - USE SMARTSET 92324 Completed 09/30/2022 VITAMIN D LEVEL ONCE IN A LIFETIME-USE SMARTSET# 50769 Completed 11/17/2022, 05/13/2022, 04/02/2022 GARDASIL-HPV IMMUNIZATION SERIES Aged Out No longer eligible based on patient's age to complete this topic MENINGOCOCCAL (MENACTRA/MENVEO) Aged Out No longer eligible based on patient's age to complete this topic documented as of this encounter Medical Devices Implanted Type Area Crna Device Identifier Shelf Expiration Date Model / Serial / Lot Cement Hv-R C01a - [id number] Implanted:Qty: 1 on 05/14/2022 by Chao Lund MD at OR [facility] N/A: Spine Thoracic [employer] : NEURO CARE 01/03/2025 C01A / / [id number] documented as of this encounter Advance Directives Latest Code Status on File Code Status Date Activated Date Inactivated Comments Full Code 05/14/2022 7:03 AM 05/14/2022 2:27 PM This or sal reflects the patients wishes and were consensually agreed upon. Question Answer Comments Discussion of Advance Directives occurred with: Patient Care Teams Professor Of Apologetics Relationship Specialty Start Date End Date [facility]illa [facility]au [facility] [address] [facility] [id number] PCP - General Family Medicine 11/17/11 documented as of this encounter
--- OUTSIDE RECORDS SUMMARY | 2023-06-13 04:04 | External Medical Summary ---
Author Name Unknown Address Unknown Organization K01:LABORATORY C - [address] [place] [address] Laboratory Report Ordering Provider Test Date Status ERIC RODRIGUEZ 04/30/2023 14:09:18 Final Observation Date Value Abnormality Reference (Units ) Status MYCODE SPECIMEN-SST 04/30/2023 14:09:18 Freezing of extracted DNA, whole blood and/or serum. Final Performing Location [facility] - [address] [place] [address]
--- OUTSIDE RECORDS SUMMARY | 2023-06-13 04:04 | External Medical Summary ---
Author Name Unknown Address Unknown Organization K01:LABORATORY [facility] - [address] [facility] [address] Laboratory Report Ordering Provider Test Date Status LISBETH RIVERA 04/30/2023 14:09:18 Final Observation Date Value Abnormality Reference (Units ) Status SYNC LEUKOCYTES IN BLOOD BY AUTOMATED COUNT 04/30/2023 14:09:18 6.04 4.00-10.80 (K/uL) Final Segs 04/30/2023 14:09:18 57.5 40.0-75.0 (%) Final Lymphs % 04/30/2023 14:09:18 31.6 18.0-42.0 (%) Final Monos 04/30/2023 14:09:18 6.6 1.0-11.0 (%) Final Eosinophils 04/30/2023 14:09:18 2.8 0.0-6.0 (%) Final Basos 04/30/2023 14:09:18 1.2 0.0-2.0 (%) Final Immature Granulocyte, Percent 04/30/2023 14:09:18 0.3 0.0-2.0 (%) Final Absolute Segs 04/30/2023 14:09:18 3.47 1.80-7.70 (K/uL) Final Lymphs, absolute 04/30/2023 14:09:18 1.91 1.00-4.80 (K/ul) Final Monos, Abs 04/30/2023 14:09:18 0.40 0.00-1.10 (K/uL) Final Eos, Abs 04/30/2023 14:09:18 0.17 0.00-0.70 (K/uL) Final Basos, Abs 04/30/2023 14:09:18 0.07 0.00-0.20 (K/uL) Final Immature Granulocytes, Number 04/30/2023 14:09:18 0.02 0.00-0.20 (K/uL) Final Performing Location LABORATORY [facility] - [facility] [address] [place] [address]
--- OUTSIDE RECORDS SUMMARY | 2023-06-13 04:04 | External Medical Summary | Summary of Care ---
Author Name Unknown Organization [facility] Address [address] [facility] [place] [address] Phone [phone] Care Team Providers Care Sat Act Instructor Name Role Phone Camilla Chau DO Primary Care Provider [phone] Encounter Details Date Type Department Care Team (Late st Contact Info) Description 05/05/[address] [facility] [address] [place] [address] Gerda Cifuentes MD [address] [place] [address] Allergies Active Allergy Reactions Criticality Noted Date [...] as needed for Anxiety (take for server assistant anxiety PRN). 0 02/06/2023 Active Furosemide 20 [...] mRNA, LNP-s, No Pre serve, 2-Dose Series (CoachBase) 07/14/2020,06/23/2020 Pneumococcal Conjugate Vaccine, 20-valent (Prevn ar20) [...] [place]. [place] [phone] when she calls. documented in this encounter Plan of Treatment Upcoming Encounters Date Type Department Care Team (Late st Contact Info) Description 05/07/2023 12:15 PM EST Imaging Radiology [facility] 1st [facility] 132 [facility] [place] [address] 05/07/2023 3:00 PM EST Office Visit Hematology/Oncology [facility] 200 [facility] [place] [address] Elizabeth Serrano CRNP 400 [facility] [place] [address] 05/12/2023 10:30 AM EST Office Visit Rheumatology [facility] [facility] [place] [address] Marcelo Kim CRNP [address] [facility] [place] [address] 05/29/2023 10:00 AM EST Office Visit Nephrology, [facility] 200 [facility] [place] [address] Kvng Steele MD 200 [facility] [place] [address] 07/13/2023 10:50 AM EDT Office Visit Family Practice, [place] [address] [place] [address] Camilla Chau DO [address] [place] [address] 08/12/2023 11:00 AM EDT Office Visit Cardiology, [facility] [address] Kitty Cali [facility]C [facility] [address] 10/02/2023 11:00 AM EDT Imaging Radiology [facility] 1st [facility] 132 [place] [address] 03/29/2024 3:00 PM EST Office Visit Dermatology, [place] [address] [place] [address] Keiko Almodovar PA-C [address] [place] [address] [place] [address] Health Maintenance Due Date Last Done Comments [...] Additional history exists CKD PHOS USE SMARTSET 26878 09/26/2023 09/25/2022, 0 04/08/2018 GFR 10/29/2023 04/30/2023, 07/2022, 11/17/2022, Additional history exists DXA Scan 10/30/2023 10/29/2021, 10/29/2021 CKD HGB USE SMARTSET 28475 04/30/202404/30, 04/30/2023, 03/09/2023, Additional history exists Diabetes Screening 04/30/2026 04/30/2023, 1 05/10/2022, 09/25/2022, Additional history exists Lipid Panel 11/11/2026 11/11/2021, 11/04, 05/10/2020, Additional history exists Colonoscopy 04/18/2029 04/18/2019, 04/06, 12/16/2012, Additional history exists Colorectal Cancer Screening 04/18/2029 Pneumococcal Vaccine: Pediatrics (0 to 5 Years) and At-Risk Patients (6 to 64 Years) Completed 09/25/2022 LUNG CANCER SCREENING - USE SMARTSET 17269 Completed 09/30/2022 VITAMIN D LEVEL ONCE IN A LIFETIME-USE SMARTSET# 13651 Completed 11/17/2022, 05/13/2022, 04/02/2022 GARDASIL-HPV IMMUNIZATION SERIES Aged Out No longer eligible based on patient's age to complete this topic MENINGOCOCCAL (MENACTRA/MENVEO) Aged Out No longer eligible based on patient's age to complete this topic documented as of this encounter Medical Devices Implanted Type Area Large Animal Veterinarian Device Identifier Shelf Expiration Date Model / Serial / Lot Cement Hv-R C01a - [id number] Implanted:Qty: 1 on 05/14/2022 by Chao Lund MD at OR [facility] N/A: Spine Thoracic [employer] : NEURO CARE 01/03/2025 C01A / / [id number] documented as of this encounter Advance Directives Latest Code Status on File Code Status Date Activated Date Inactivated Comments Full Code 05/14/2022 7:03 AM 05/14/2022 2:27 PM This or sal reflects the patients wishes and were consensually agreed upon. Question Answer Comments Discussion of Advance Directives occurred with: Patient Care Teams Sat Act Instructor Relationship Specialty Start Date End Date Camilla Chau DO [address] [place] [address] PCP - General Family Medicine 11/17/11 documented as of this encounter
--- OUTSIDE RECORDS SUMMARY | 2023-06-13 04:04 | External Medical Summary ---
Author Name Unknown Address Unknown Organization K01:LAB[facility]ORY [facility] - [address] [place] [address] Laboratory Report Ordering Provider Test Date Status ERIC RODRIGUEZ 04/30/2023 14:09:18 Final Observation Date Value Abnormality Reference (Units ) Status MYCODE SPECIMEN-SST 04/30/2023 14:09:18 Freezing of extracted DNA, whole blood and/or serum. Final Performing Location [facility] - [address] [place] [address]
--- OUTSIDE RECORDS SUMMARY | 2023-06-13 04:04 | External Medical Summary | Summary of Care ---
Author Name Unknown Organization [facility] Address [address] [place] [address] Phone [phone] Care Team Providers Care Product Coordinator Name Role Phone Camilla Chau DO Primary Care Provider + [phone] Reason for Visit * Reason Comments Outpatient Testing Encounter Details Date Type Department Care Team (Late st Contact Info) Description 04/30/2023 2:00 PM EST Laboratory Laboratory, [place] [address] [place] [address] [place] [address] [place] [address] Iron deficiency anemia, unspecified iron deficiency anemia type; MyCode Research Other*[id number] Allergies Active Allergy Reactions Criticality Noted Date Comments Oxybutynin 08/31/2018 Terrible dry mouth and constipation Influenza Vaccines 12/27/2021 Pt stated she won't get it because it makes her "deathly ill" documented as of this encounter (statuses as of 04/30/2023) Medications Medication Sig Dispensed Refills Start Date [...] as of this encounter (statuses as of 04/30/2023) Active Problems Problem Noted Date Diagnosed Date [...] as of this encounter (statuses as of 04/30/2023) Resolved Problems Problem Noted Date Diagnosed Date [...] as of this encounter (statuses as of 04/30/2023) Immunizations Name Administration Dates Next Due COVID-19 [...] Care Team (Late st Contact Info) Description 05/04/2023 10:30 AM EST Office Visit Orthopaedics [facility] [address] [place] [address] Gerda Cifuentes MD [address] [place] [address] 05/07/2023 3:00 PM EST Office Visit Hematology/Oncology [facility] 200 [facility] [place] [address] Elizabeth Serrano CRNP 400 [facility] [place] [address] 05/12/2023 10:30 AM EST Office Visit Rheumatology [place] [id number] [facility] [place] [address] Marcelo Kim CRNP [address] [facility] [place] [address] 07/13/2023 10:50 AM EDT Office Visit [address] [place] [phone] Camilla Chau DO [address] [place] [address] [place] [address] 08/12/2023 11:00 AM EDT Office Visit Cardiology, [facility] 132 [facility] [place] [address] Kitty Cali PA-C [address] [place] [address] 10/02/2023 11:00 AM EDT Imaging [facility] 132 [facility] [place] [address] 03/29/2024 3:00 PM EST Office Visit Dermatology, [place] [address] [place] [address] Keiko Almodovar, KEY [address] [place] [address] [place] [address] Pending Results Name Type Priority Associated Diagnoses Date /Time CBC WITH WBC DIFFERENTIAL Lab STAT Iron deficiency anemia, unspecified iron deficiency anemia type 04/30/2023 2:09 PM EST COMPREHENSIVE METABOLIC PANEL Lab STAT Iron deficiency anemia, unspecified iron deficiency anemia type 04/30/2023 2:09 PM EST FERRITIN Lab STAT Iron deficiency anemia, unspecified iron deficiency anemia type 04/30/2023 2:09 PM EST IRON SCREEN, INCLUDING TIBC Lab STAT Iron deficiency anemia, unspecified iron deficiency anemia type 04/30/2023 2:09 PM EST MYCODE SUBSEQUENT ADULT Lab Routine MyCode Research Other*[id number] 04/30/2023 2:09 PM EST CBC Lab STAT Iron deficiency anemia, unspecified iron deficiency anemia type 04/30/2023 2:09 PM EST DIFFERENTIAL, AUTOMATED Lab STAT Iron deficiency anemia, unspecified iron deficiency anemia type 04/30/2023 2:09 PM EST MYCODE SST1 Lab Routine [employer] Research Other*[id number] 04/30/2023 2:09 PM EST MYCODE SST2 Lab Routine [employer] Other*[id number] 04/30/2023 2:09 PM EST Health Maintenance Due Date Last [...] 08/05/2023 08/04/2022, 0504/2022, 07/09/2021, Additional history exists GFR 09/08/2023 03/09/2023, 11/04, 09/25/2022, Additional history exists Albumin/Creatinine Ratio 09/26/2023 023, 09/23/2021, 08/08/2020, Additional history exists CKD PHOS USE SMARTSET 75613 09/26/2023 09/25/2022, 0 04/08/2018 DXA Scan 10/30/2023 10/29/2021, 10/29/2021 CKD HGB USE SMARTSET 93920 03/09/202403/09, 09/25/2022, 09/25/2022, Additional history exists Diabetes Screening 03/09/2026 03/09/2023, 0 09/25/2022, 05/13/2022, Additional history exists Lipid Panel 11/11/2026 11/11/2021, 11/04, 05/10/2020, Additional history exists Colonoscopy 04/18/2029 04/18/2019, 04/06, 12/16/2012, Additional history exists Colorectal Cancer Screening 04/18/2029 Pneumococcal Vaccine: Pediatrics (0 to 5 Years) and At-Risk Patients (6 to 64 Years) Completed 09/25/2022 LUNG CANCER SCREENING - USE SMARTSET 50719 Completed 09/30/2022 VITAMIN D LEVEL ONCE IN A LIFETIME-USE SMARTSET# 79703 Completed 11/17/2022, 05/13/2022, 04/02/2022 GARDASIL-HPV IMMUNIZATION SERIES Aged Out No longer eligible based on patient's age to complete this topic MENINGOCOCCAL (MENACTRA/MENVEO) Aged Out No longer eligible based on patient's age to complete this topic documented as of this encounter Medical Devices Implanted Type Area Sports Equipment Supervisor Device Identifier Shelf Expiration Date Model / Serial / Lot Cement Hv-R C01a - [id number] Implanted:Qty: 1 on 05/14/2022 by Chao Lund MD at OR [facility] N/A: Spine Thoracic [employer] : NEURO CARE 01/03/2025 C01A / / [id number] documented as of this encounter Visit Diagnoses Diagnosis Iron deficiency anemia, unspecified iron deficiency anemia type MyCode Research Other*[id number] documented in this encounter Advance Directives Latest Code Status on File Code Status Date Activated Date Inactivated Comments Full Code 05/14/2022 7:03 AM 05/14/2022 2:27 PM This or sal reflects the patients wishes and were consensually agreed upon. Question Answer Comments Discussion of Advance Directives occurred with: Patient Care Teams Product Coordinator Relationship Specialty Start Date End Date Camilla Chau DO [address] [facility] [place] [address] PCP - General Family Medicine 11/17/11 documented as of this encounter
--- OUTSIDE RECORDS SUMMARY | 2023-06-13 04:04 | External Medical Summary ---
Author Name Unknown Address Unknown Organization K01:[facility] [place] [address] [place] [address] Laboratory Report Ordering Provider Test Date Status LISBETH RIVERA 04/30/2023 14:09:18 Final Observation Date Value Abnormality Reference (Units ) Status Ferritin 04/30/2023 14:09:18 257 Above high normal 13 -150 (ng/mL) Final Postmenopausal women have hi gher ferritin levels than pre-menopausal women. The above reference interval is based on pre-menopausal women. Performing Location [facility] [place] [place] [address] [place] [address]
--- OUTSIDE RECORDS SUMMARY | 2023-06-13 04:04 | External Medical Summary | Summary of Care ---
Author Name Unknown Organization [facility] Address [address] [place] [address] Phone [phone] Care Team Providers Care Rn Rehab Name Role Phone Camilla Chau DO Primary Care Provider Encounter Details Date Type Department Care Team ([facility] st Contact Info) Description 05/04/2023 Patient Reported Data Patient Survey Ortho [facility]BERD Allergies Active Allergy Reactions Criticality Noted Date Comments Oxybutynin 08/31/2018 Terrible dry mouth and constipation Influenza Vaccines 12/27/2021 Pt stated she won't get it because it makes her "deathly ill" documented as of this encounter (statuses as of 05/04/2023) Medications Medication Sig Dispensed Refills Start Date [...] hours as needed for Anxiety (take for electrical prospecting observer anxiety PRN). 0 02/06/2023 Active [...] (premature atrial contraction),NICM (nonischemic cardiomyopathy) ([facility]) TAKE 1 TABLET BY MOUTH EVERY DAY 90 Tablet 3 04/03/2023 Active Ondansetron HCl 4 MG Oral Tablet Take 1 Tablet by mouth every 6 hours as needed for Nausea. 30 Tablet 0 04/15/2023 Active documented as of this encounter (statuses as of 05/04/2023) Active Problems Problem Noted Date Diagnosed Date [...] as of this encounter (statuses as of 05/04/2023) Resolved Problems Problem Noted Date Diagnosed Date [...] as of this encounter (statuses as of 05/04/2023) Immunizations Name Administration Dates Next Due COVID-19 mRNA, LNP-s, No Pre serve, 2-Dose Series (Adpeps) 07/14/2020,06/23/2020 Pneumococcal Conjugate Vaccine, 20-valent (Prevn ar20) [...] Description 05/07/2023 12:15 PM EST Imaging Radiology [facility] 1st [facility] [address] [facility] [place] [address] 05/07/2023 3:00 PM EST Office Visit Hematology/Oncology [facility] 200 [facility] [place] [address] Elizabeth Serrano CRNP 400 [facility] [place] [address] 05/12/2023 10:30 AM EST Office Visit Rheumatology [place] [address] [facility] [place] [address] Marcelo Kim CRNP [address] [place] [address] 05/29/2023 10:00 AM EST Office Visit Nephrology, [facility] 200 [facility] [place] [address] Kvng Steele MD 200 [facility] [place] [address] 07/13/2023 10:50 AM EDT Office Visit [facility] [address] [facility] [phone] Camilla Chau DO [address] [facility] [place] [address] 08/12/2023 11:00 AM EDT Office Visit Cardiology, [facility] [address] [facility] [place] [address] Kitty Cali PA-C [address] [place] [address] 10/02/2023 11:00 AM EDT Imaging Radiology [address], [place] [address] [place] [address] 03/29/2024 3:00 PM EST Office Visit Dermatology, [place] [address] [facility], [place] [address] Keiko Almodovar PA-C [address] [place] [address] [place] [address] Health Maintenance Due Date Last Done Comments [...] Additional history exists CKD PHOS USE SMARTSET 89696 09/26/2023 09/25/2022, 0 04/08/2018 GFR 10/29/2023 04/30/2023, 12/0 07/2022, 11/17/2022, Additional history exists DXA Scan 10/30/2023 10/29/2021, 10/29/2021 CKD HGB USE SMARTSET 19504 04/30/202404/30, 04/30/2023, 03/09/2023, Additional history exists Diabetes Screening 04/30/2026 04/30/2023, 1 05/10/2022, 09/25/2022, Additional history exists Lipid Panel 11/11/2026 11/11/2021, 11/04, 05/10/2020, Additional history exists Colonoscopy 04/18/2029 04/18/2019, 04/06, 12/16/2012, Additional history exists Colorectal Cancer Screening 04/18/2029 Pneumococcal Vaccine: Pediatrics (0 to 5 Years) and At-Risk Patients (6 to 64 Years) Completed 09/25/2022 LUNG CANCER SCREENING - USE SMARTSET 87069 Completed 09/30/2022 VITAMIN D LEVEL ONCE IN A LIFETIME-USE SMARTSET# 36609 Completed 11/17/2022, 05/13/2022, 04/02/2022 GARDASIL-HPV IMMUNIZATION SERIES Aged Out No longer eligible based on patient's age to complete this topic MENINGOCOCCAL (MENACTRA/MENVEO) Aged Out No longer eligible based on patient's age to complete this topic documented as of this encounter Medical Devices Implanted Type Area Nanotechnologist Device Identifier Shelf Expiration Date Model / Serial / Lot Cement Hv-R C01a - [id number] Implanted:Qty: 1 on 05/14/2022 by Chao Lund MD at OR [facility] N/A: Spine Thoracic [employer] : NEURO CARE 01/03/2025 C01A / / [id number] documented as of this encounter Advance Directives Latest Code Status on File Code Status Date Activated Date Inactivated Comments Full Code 05/14/2022 7:03 AM 05/14/2022 2:27 PM This or sal reflects the patients wishes and were consensually agreed upon. Question Answer Comments Discussion of Advance Directives occurred with: Patient Care Teams Rn Rehab Relationship Specialty Start Date End Date Camilla Chau DO [address] [facility] [address] PCP - General Family Medicine 11/17/11 documented as of this encounter
--- OUTSIDE RECORDS SUMMARY | 2023-06-13 04:04 | External Medical Summary ---
Author Name Unknown Address Unknown Organization K01:LABORATORY [facility] - [address] [place] [address] Laboratory Report Ordering Provider Test Date Status LISBETH RIVERA 04/30/2023 14:09:18 Final Observation Date Value Abnormality Reference (Units ) Status WBC, Total 04/30/2023 14:09:18 6.04 4.00-10.80 (K/uL) Final RBC 04/30/2023 14:09:18 3.43 3.85-5.15 (M/uL) Final Hemoglobin 04/30/2023 14:09:18 10.4 Below low normal 12.0-15.3 (g/dL) Final HCT 04/30/2023 14:09:18 33.4 Below low normal 36.0-45.2 (%) Final MCV 04/30/2023 14:09:18 97.4 81.5-97.5 (fL) Final MCH 04/30/2023 14:09:18 30.3 27.0-34.0 (pg) Final MCHC 04/30/2023 14:09:18 31.1 32.0-36.0 (g/dL) Final RDW 04/30/2023 14:09:18 13.4 11.5-15.5 (%) Final Platelets 04/30/2023 14:09:18 159 140-400 (K/uL) Final MPV 04/30/2023 14:09:18 11.8 6.6-11.1 (fL) Final Nucleated erythrocytes/100 leukocytes [Ratio] in Blood by Automated count 04/30/2023 14:09:18 0 <=0 (/100 WBCs) Final Performing Location LAB[facility]ORY [facility] - [address] [place] [address]
--- OUTSIDE RECORDS SUMMARY | 2023-06-13 04:04 | External Medical Summary ---
Author Name Unknown Address Unknown Organization K01:[facility]ATORY [facility] - [address] [facility] [address] Laboratory Report Ordering Provider Test Date Status LISBETH RIVERA 04/30/2023 14:09:18 Final Observation Date Value Abnormality Reference (Units ) Status BUN 04/30/2023 14:09:18 16 6-20 (mg/dL) Final Creatinine 04/30/2023 14:09:18 1.2 Above high normal 0.5-1.0 (mg/dL) Final Glomerular filtration rate/1.73 sq M.predicted [Volume Rate/Area] in Serum, Plasma or Blood by Creatinine-based formula (CKD-EPI) 04/30/2023 14:09:18 55 Below low normal >=60 (mL/min) Final eGFR is calculated based on the CKD-EPI 2020 equation SODIUM 04/30/2023 14:09:18 146 135-146 (m mol/L) Final Potassium 04/30/2023 14:09:18 4.2 3.5-5.1 (m mol/L) Final Cl 04/30/2023 14:09:18 108 Above high normal 98 -107 (mmol/L) Final CO2 04/30/2023 14:09:18 27 22-32 (mmo l/L) Final Anion gap 04/30/2023 14:09:18 11 7-15 (mmol /L) Final Glucose 04/30/2023 14:09:18 85 70-120 (mg /dL) Final Albumin 04/30/2023 14:09:18 4.1 3.8-5.0 (g /dL) Final AST (Aspartate aminotransferase) 04/30/2023 14:09:18 26 10-35 (U/L) Fin al Alk Phos 04/30/2023 14:09:18 136 Above high normal 35 -130 (U/L) Final Bilirubin, Total 04/30/2023 14:09:18 0.2 <=1 .2 (mg/dL) Final Calcium 04/30/2023 14:09:18 9.1 8.4-10.2 ( mg/dL) Final Protein 04/30/2023 14:09:18 6.4 6.0-8.3 (g /dL) Final ALT (Alanine aminotransferase) 04/30/2023 14:09:18 15 10-35 (U/L) Sanju bustamante Performing Location [facility]ORY [facility] - [facility] [address] [facility] [address]
--- OUTSIDE RECORDS SUMMARY | 2023-06-13 04:05 | External Medical Summary | Summary of Care ---
Author Name Unknown Organization [facility] Address [address] [place] [address] Phone [phone] Care Team Providers Care Commercial Lines Underwriter Name Role Phone Camilla hCau DO Primary Care Provider [phone] Encounter Details Date Type Department Care Team (Late st Contact Info) Description 04/02/[address] [facility] [address] [place] [address] Camilla Chau DO [address] [place] [address] Allergies Active Allergy Reactions Criticality Noted Date Comments Oxybutynin 08/31/2018 Terrible dry mouth and constipation Influenza Vaccines 12/27/2021 Pt stated she won't get it because it makes her "deathly ill" documented as of this encounter (statuses as of 04/24/2023) Medications Medication Sig Dispensed Refills Start Date [...] hours as needed for Anxiety (take for line server anxiety PRN). 0 02/06/2023 Active Furosemide [...] EVERY DAY 90 Tablet 3 04/03/2023 Active documented as of this encounter (statuses as of 04/24/2023) Active Problems Problem Noted Date Diagnosed Date [...] as of this encounter (statuses as of 04/24/2023) Resolved Problems Problem Noted Date Diagnosed Date [...] as of this encounter (statuses as of 04/24/2023) Immunizations Name Administration Dates Next Due COVID-19 [...] encounter Miscellaneous Notes * Telephone Encounter - Kristine Lees LPN - 04/02/2023 8:27 AM EST [facility] requesting [facility] 90 day supply of Fursomide 20mg tab along with potassium cl ER 10 meq capsule. documented in this encounter Plan of Treatment Upcoming Encounters Date Type Department Care Team (Late st Contact Info) Description 04/28/2023 3:00 PM EST Office Visit Cardiology, [facility] [address] Kitty Cali PA-C 132 [facility] [address] 04/29/2023 1:40 PM EST Office Visit Nephrology, [address] [place] [address] Jaime Dillon MD [address] [place] [address] [place] [address] 04/30/2023 2:00 PM EST Laboratory Laboratory, [place] [address] [place] [facility] [place] [phone] [place] [address] [place] [address] 05/04/2023 10:30 AM EST Office Visit Orthopaedics [facility] [address] [place] [address] Gerda Cifuentes MD [address] [place] [address] 05/07/2023 3:00 PM EST Office Visit Hematology/Oncology [facility] [place] 200 [facility] [place] [address] Elizabeth Serrano CRNP 400 [facility] [place] [address] 05/12/2023 10:30 AM EST Office Visit Rheumatology [facility] [address] [facility] [place] [address] Marcelo Kim CRNP [address] [facility] [place] [address] 07/13/2023 10:50 AM EDT Office Visit Family Practice, [place] [address] [place] [phone] Camilla Chau, [address] [place] [address] 10/02/2023 11:00 AM EDT Imaging Radiology [address] 132 [place] [address] 03/29/2024 3:00 PM EST Office Visit Dermatology, [place] [address] [place] [address] Keiko Almodovar PA-C [address] [place] [address] [place] [address] Health Maintenance Due Date Last Done Comments [...] 08/04/2022, 05/0 04/2022, 07/09/2021, Additional history exists GFR 09/08/2023 03/09/2023, 11/04, 09/25/2022, Additional history exists Albumin/Creatinine Ratio 09/26/2023 023, 09/23/2021, 08/08/2020, Additional history exists CKD PHOS USE SMARTSET 60849 09/26/2023 09/25/2022, 0 04/08/2018 DXA Scan 10/30/2023 10/29/2021, 10/29/2021 CKD HGB USE SMARTSET 77059 03/09/202403/09, 09/25/2022, 09/25/2022, Additional history exists Diabetes Screening 03/09/2026 03/09/2023, 0 09/25/2022, 05/13/2022, Additional history exists Lipid Panel 11/11/2026 11/11/2021, 11/04, 05/10/2020, Additional history exists Colonoscopy 04/18/2029 04/18/2019, 04/06, 12/16/2012, Additional history exists Colorectal Cancer Screening 04/18/2029 Pneumococcal Vaccine: Pediatrics (0 to 5 Years) and At-Risk Patients (6 to 64 Years) Completed 09/25/2022 LUNG CANCER SCREENING - USE SMARTSET 25675 Completed 09/30/2022 VITAMIN D LEVEL ONCE IN A LIFETIME-USE SMARTSET# 03167 Completed 11/17/2022, 05/13/2022, 04/02/2022 GARDASIL-HPV IMMUNIZATION SERIES Aged Out No longer eligible based on patient's age to complete this topic MENINGOCOCCAL (MENACTRA/MENVEO) Aged Out No longer eligible based on patient's age to complete this topic documented as of this encounter Medical Devices Implanted Type Area Network Architect Manager Device Identifier Shelf Expiration Date Model / Serial / Lot Cement Hv-R C01a - [id number] Implanted:Qty: 1 on 05/14/2022 by Chao Lund MD at OR [facility] N/A: Spine Thoracic [employer] : NEURO CARE 01/03/2025 C01A / / [id number] documented as of this encounter Additional Health Concerns Infection Onset Date Last Indicated Resolved Time MRSA 02/24/2023 02/24/2023 documented as of this encounter Advance Directives Latest Code Status on File Code Status Date Activated Date Inactivated Comments Full Code 05/14/2022 7:03 AM 05/14/2022 2:27 PM This or sal reflects the patients wishes and were consensually agreed upon. Question Answer Comments Discussion of Advance Directives occurred with: Patient Care Teams Commercial Lines Underwriter Relationship Specialty Start Date End Date Camilla Chau DO [address] [place] [facility] [place] [address] PCP - General Family Medicine 11/17/11 documented as of this encounter
--- OUTSIDE RECORDS SUMMARY | 2023-06-13 04:05 | External Medical Summary | Summary of Care ---
Author Name Unknown Organization [facility] Address [address] [place] [address] Phone [phone] Care Team Providers Care Machine Repair Person Name Role Phone Camilla Chau DO Primary Care Provider + [phone] Reason for Visit * Reason Onset Date Comments Advice 04/09/2023 Encounter Details Date Type Department Care Team (Late st Contact Info) Description 04/09/2023 Telephone [facility] [address] [place] [address] Camilla Chau DO [address] [place] [address] Advice Allergies Active Allergy Reactions Criticality Noted Date Comments Oxybutynin 08/31/2018 Terrible dry mouth and constipation Influenza Vaccines 12/27/2021 Pt stated she won't get it because it makes her "deathly ill" documented as of this encounter (statuses as of 04/21/2023) Medications Medication Sig Dispensed Refills Start Date [...] Excedrin Extra Strength 250-250-65 MG Oral Tablet (Aspirin-Acetamin ophen-Caffeine) Take 2 Tablets by mouth every 8 [...] 09/25/2022 Active Famotidine 40 MG Oral Tablet (Pepcid)Indicatio ns:Gastroesophage al reflux disease without esophagitis Take 1 Tablet [...] Active Triamcinolone Acetonide 0.1 % External Cream (Aristocort)Indic ations:Rash and nonspecific skin eruption Apply topically to affected area 2 times a day. To affected area. 15 g 5 02/10/2023 Active Ondansetron HCl 4 MG Oral TabletIndications :Cellulitis of left lower extremity,Celluli tis of right lower extremity,Edema, unspecified type Take 1 Tablet by mouth every 8 hours as needed for Nausea. 30 Tablet 0 02/24/2023 Active LORazepam 0.5 MG Oral Tablet (Ativan) Take 1 Tablet by mouth every 6 hours as needed for Anxiety (take for windows server support technician anxiety PRN). 0 02/06/2023 Active Furosemide 20 MG Oral Tablet (Lasix)Indication s:Lymphedema Take 1 Tablet by mouth in the morning. 30 Tablet 11 03/09/2023 Active Potassium Chloride ER 10 MEQ Oral Capsule Extended ReleaseIndication s:Lymphedema Take 1 Capsule by mouth in the morning and 1 Capsule before bedtime. 60 Capsule 5 03/09/2023 Active Metoprolol Succinate ER 25 MG Oral Tablet Extended Release 24 Hour (toPROL XL)Indications:PA C (premature atrial contraction),NICM (nonischemic cardiomyopathy) (HCC) TAKE 1 TABLET BY MOUTH EVERY DAY 90 Tablet 3 04/03/2023 Active Ondansetron HCl 4 MG Oral Tablet Take 1 Tablet by mouth every 6 hours as needed for Nausea. 30 Tablet 0 03/09/2023 04/12/2023 Discontinue d(Refill) documented as of this encounter (statuses as of 04/21/2023) Active Problems Problem Noted Date Diagnosed Date [...] as of this encounter (statuses as of 04/21/2023) Resolved Problems Problem Noted Date Diagnosed Date [...] as of this encounter (statuses as of 04/21/2023) Immunizations Name Administration Dates Next Due COVID-19 [...] encounter Miscellaneous Notes * Telephone Encounter - Payton Villarreal LPN - 04/20/2023 3:11 PM EST MyG sent * Telephone Encounter - Camilla Chau DO - 04/20/2023 11:11 AM EST Yes it c ould. I would be willing to have her see a wine specialist if she would like. Let me know * Telephone Encounter - Payton Villarreal LPN - 04/17/2023 8:20 AM EST MyG sent * Telephone Encounter - Camilla Chau DO - 04/13/2023 11:32 AM EST 2020 she had dopplers on her legs to rule out clots. Otherwise she has had no imaging. She did have an echocardiogram in 2021 and showed her heart function is normal. So the swelling is not related to her heart. Once the clot and heart function are normal. The lymphedema is considered the diagnosis, there is no imaging that can be ordered to diagnosis this * Telephone Encounter - Ana Paula Mars LPN - 04/11/2023 12:01 PM EST MYG message sent * Telephone Encounter - Camilla Chau DO - 04/10/2023 8:35 AM EST She has lymphedema in her legs. That has caused cellulitis. She needs to wear compression socks andcont the lasix. Are her legs better * Telephone Encounter - Sangeeta Tejada OSA - 04/09/2023 8:24 AM EST Pt has 2 questions & would like a call back. When was pt diagnosed w/swelling of her legs? 2. Did pt ever get any test done regarding of the swelling of her legs? Please advice. documented in this encounter Plan of Treatment Upcoming Encounters Date Type Department Care Team (Late st Contact Info) Description 04/28/2023 3:00 PM EST Office Visit Cardiology, [facility] [place] [address] Kitty Cali PA-C [address] [place] [address] 04/30/2023 2:00 PM EST Laboratory Laboratory[facility] [place] [address] [address] [facility] [address] [place], Laboratory [address] [place] [address] 05/04/2023 10:30 AM EST Office Visit Orthopaedics [facility] [address] [place] [address] Gerda Cifuentes MD [address] [place] [address] 05/07/2023 3:00 PM EST Office Visit Hematology/Oncology [facility] [place] [address] [place] [address] Elizabeth Serrano CRNP [address] [facility] [place] [address] 05/12/2023 10:30 AM EST Office Visit Rheumatology [facility] [address] [facility] [place] [address] Marcelo Kim CRNP [address] [facility] [place] [address] 07/13/2023 10:50 AM EDT Office Visit Family Practice, [place] [address] [facility] [place] [phone] Camilla Chau, [address] [place] [address] 10/02/2023 11:00 AM EDT Imaging Radiology [facility] 1st [facility] [address] [address] 03/29/2024 3:00 PM EST Office Visit Dermatology, [place] [address] [place] [address] Keiko Almodovar PA-C [address] [place] [address] [place] [address] Health Maintenance Due Date Last Done Comments [...] Additional history exists CKD PHOS USE SMARTSET 30243 09/26/2023 09/25/2022, 0 04/08/2018 DXA Scan 10/30/2023 10/29/2021, 10/29/2021 CKD HGB USE SMARTSET 87529 03/09/202403/09, 09/25/2022, 09/25/2022, Additional history exists Diabetes Screening 03/09/2026 03/09/2023, 0 09/25/2022, 05/13/2022, Additional history exists Lipid Panel 11/11/2026 11/11/2021, 11/04, 05/10/2020, Additional history exists Colonoscopy 04/18/2029 04/18/2019, 04/06, 12/16/2012, Additional history exists Colorectal Cancer Screening 04/18/2029 Pneumococcal Vaccine: Pediatrics (0 to 5 Years) and At-Risk Patients (6 to 64 Years) Completed 09/25/2022 LUNG CANCER SCREENING - USE SMARTSET 78802 Completed 09/30/2022 VITAMIN D LEVEL ONCE IN A LIFETIME-USE SMARTSET# [id number] Completed 11/17/2022, 05/13/2022, 04/02/2022 GARDASIL-HPV IMMUNIZATION SERIES Aged Out No longer eligible based on patient's age to complete this topic MENINGOCOCCAL (MENACTRA/MENVEO) Aged Out No longer eligible based on patient's age to complete this topic documented as of this encounter Medical Devices Implanted Type Area Ceramic Tile Setter Device Identifier Shelf Expiration Date Model / Serial / Lot Cement Hv-R C01a - [id number] Implanted:Qty: 1 on 05/14/2022 by Chao Lund MD at OR [facility] N/A: Spine Thoracic [employer] : NEURO CARE 01/03/2025 C01A / / [id number] documented as of this encounter Additional Health [...] Advance Directives occurred with: Patient Care Teams Machine Repair Person Relationship Specialty Start Date End Date Camilla Chau DO [address] [place], [place] [phone] PCP - General Family Medicine 11/17/11 documented as of this encounter
--- OUTSIDE RECORDS SUMMARY | 2023-06-13 04:05 | External Medical Summary | Summary of Care ---
Author Name Unknown Organization [facility] Address [address] [place] [address] Phone [phone] Care Team Providers Care Harness Placer Name Role Phone Camilla Chau DO Primary Care Provider + [phone] Reason for Visit * Reason Onset Date Comments Advice 04/09/2023 Encounter Details Date Type Department Care Team (Late st Contact Info) Description 04/09/[address] [facility] [address] [place] [address] Camilla Chau DO [address] [place] [address] Advice Allergies Active Allergy Reactions Criticality Noted Date Comments Oxybutynin 08/31/2018 Terrible dry mouth and constipation Influenza Vaccines 12/27/2021 Pt stated she won't get it because it makes her "deathly ill" documented as of this encounter (statuses as of 04/20/2023) Medications Medication Sig Dispensed Refills Start Date [...] as needed for Anxiety (take for food and beverage server anxiety PRN). 0 02/06/2023 Active [...] as of this encounter (statuses as of 04/20/2023) Active Problems Problem Noted Date Diagnosed Date [...] as of this encounter (statuses as of 04/20/2023) Resolved Problems Problem Noted Date Diagnosed Date [...] as of this encounter (statuses as of 04/20/2023) Immunizations Name Administration Dates Next Due COVID-19 [...] be willing to have her see a speed runner if she would like. Let me know [...] 04/28/2023 3:00 PM EST Office Visit Cardiology, [facility] [place] [address] Kitty Cali PA-C [address] [place] [address] 04/30/2023 2:00 PM EST Laboratory Laboratory, [place] [address] [address] [facility] [address] [place], Laboratory [address] [place] [address] 05/04/2023 10:30 AM EST Office Visit Orthopaedics [facility] [address] [place] [address] Gerda Cifuentes MD [address] [place] [address] 05/07/2023 3:00 PM EST Office Visit Hematology/Oncology [facility] [place] [address] [place] [address] Elizabeth Serrano CRNP 400 [facility] [place] [address] 05/12/2023 10:30 AM EST Office Visit Rheumatology [facility] [address] [facility] [place] [address] Marcelo Kim CRNP [address] [facility] [place] [address] 07/13/2023 10:50 AM EDT Office Visit Family Practice, [place] [address] [facility] [place] [phone] Camilla Chau, [address] [place] [address] 10/02/2023 11:00 AM EDT Imaging Radiology [facility] 1st [facility] [address] [address] 03/29/2024 3:00 PM EST Office Visit Dermatology, [place] [address] [place] [address] Keiko Almodovar PA-C [address] [place] [address] [place] [address] Health Maintenance Due Date Last Done Comments [...] Additional history exists CKD PHOS USE SMARTSET 26942 09/26/2023 09/25/2022, 0 04/08/2018 DXA Scan 10/30/2023 10/29/2021, 10/29/2021 CKD HGB USE SMARTSET 27375 03/09/202403/09, 09/25/2022, 09/25/2022, Additional history exists Diabetes Screening 03/09/2026 03/09/2023, 0 09/25/2022, 05/13/2022, Additional history exists Lipid Panel 11/11/2026 11/11/2021, 11/04, 05/10/2020, Additional history exists Colonoscopy 04/18/2029 04/18/2019, 04/06, 12/16/2012, Additional history exists Colorectal Cancer Screening 04/18/2029 Pneumococcal Vaccine: Pediatrics (0 to 5 Years) and At-Risk Patients (6 to 64 Years) Completed 09/25/2022 LUNG CANCER SCREENING - USE SMARTSET 69179 Completed 09/30/2022 VITAMIN D LEVEL ONCE IN A LIFETIME-USE SMARTSET# [id number] Completed 11/17/2022, 05/13/2022, 04/02/2022 GARDASIL-HPV IMMUNIZATION SERIES Aged Out No longer eligible based on patient's age to complete this topic MENINGOCOCCAL (MENACTRA/MENVEO) Aged Out No longer eligible based on patient's age to complete this topic documented as of this encounter Medical Devices Implanted Type Area Dope Firer Device Identifier Shelf Expiration Date Model / Serial / Lot Cement Hv-R C01a - [id number] Implanted:Qty: 1 on 05/14/2022 by Chao Lund MD at OR [facility] N/A: Spine Thoracic [employer] : NEURO CARE 01/03/2025 C01A / / [id number] documented as of this encounter Additional Health [...] Advance Directives occurred with: Patient Care Teams Harness Placer Relationship Specialty Start Date End Date Camilla Chau DO [address], [place] [phone] PCP - General Family Medicine 11/17/11 documented as of this encounter
--- OUTSIDE RECORDS SUMMARY | 2023-06-13 04:05 | External Medical Summary | Summary of Care ---
Author Name Unknown Organization [facility] Address [address] [place] [address] Phone [phone] Care Team Providers Care Bender Helper Name Role Phone Alvarez Chau DO Primary Care Provider + [phone] Reason for Referral * Evaluate & Treat - Unlimited Visits (Within 10 days (routine)) - Authorized Specialty Diagnoses / Procedures Referred By Verito t Referred To Contact Nephrology Diagnoses Worsening renal function Alvarez Chau DO [address] [place] [address] Referral ID Status Reason Start Date Expiration Date Visits Requested Visits Authorized [id number] Authorized Specialty Services Required 04/22/2023 999 999 Question Answer Referral Priority Within 10 days (routine) Where should this appointment be scheduled? Des What condition is this patient being seen for? Other (please specify) Comments Lymphedema Reason for Visit * Reason Onset Date Comments Advice 04/09/2023 Encounter Details Date Type Department Care Team ([facility] st Contact Info) Description 04/09/2023 Telephone [facility], [place] [address] [place] [address] Alvarez Chau DO [address] [place], [place] [phone] Advice Allergies Active Allergy Reactions Criticality Noted Date Comments Oxybutynin 08/31/2018 Terrible dry mouth and constipation Influenza Vaccines 12/27/2021 Pt stated she won't get it because it makes her "deathly ill" documented as of this encounter (statuses as of 04/22/2023) Medications Medication Sig Dispensed Refills Start Date [...] hours as needed for Anxiety (take for breakfast server anxiety PRN). 0 02/06/2023 Active Furosemide [...] as of this encounter (statuses as of 04/22/2023) Active Problems Problem Noted Date Diagnosed Date [...] as of this encounter (statuses as of 04/22/2023) Resolved Problems Problem Noted Date Diagnosed Date [...] as of this encounter (statuses as of 04/22/2023) Immunizations Name Administration Dates Next Due COVID-19 [...] as of this encounter Miscellaneous Notes * Addendum Note - Alvarez Chau DO - 04/22/2023 2:22 PM ESTAddended by: ALVAREZ CHAU on: 04/22/2023 02:22 PM Modules accepted: Orders * Addendum Note - Ana Paula Mars LPN - 04/21/2023 4:47 PM ESTAddended by: ANA PAULA MARS on: 04/21/2023 04:47 PM Modules accepted: Orders * Telephone Encounter - Payton Villarreal LPN - 04/20/2023 3:11 PM EST MyG sent * Telephone Encounter - Alvarez Chau DO - 04/20/2023 11:11 AM EST Yes it c ould. I would be willing to have her see a insurance rater if she would like. Let me know * Telephone Encounter - Payton Villarreal LPN - 04/17/2023 8:20 AM EST MyG sent * Telephone Encounter - Alvarez Chau DO - 04/13/2023 11:32 AM EST [...] MYG message sent * Telephone Encounter - Alvarez Chau DO - 04/10/2023 8:35 AM EST She has lymphedema in her legs. That has caused cellulitis. She needs to wear compression socks andcont the lasix. Are her legs better * Telephone Encounter - Terrell July, - 04/09/2023 8:24 AM EST Pt has [...] 04/28/2023 3:00 PM EST Office Visit Cardiology, [facility] 132 [facility] [place] [address] Kitty Cali PA-C 132 [facility] [place] [address] 04/30/2023 2:00 PM EST Laboratory Laboratory, [place] [address] [place] [phone] [place], [facility] [address] [place] [address] 05/04/2023 10:30 AM EST Office Visit Orthopaedics [facility] 132 [facility] [place] [address] Gerda Cifuentes MD 132 [facility] [place] [address] 05/07/2023 3:00 PM EST Office Visit Hematology/Oncology [facility] [address] [facility] [address] [place] [address] Elizabeth Serrano CRNP [address] [place] [address] [place] [address] 05/12/2023 10:30 AM EST Office Visit Rheumatology [facility] [address] [facility] [place] [address] Marcelo Kim CRNP [address] [facility] [place] [address] 07/13/2023 10:50 AM EDT Office Visit Family Practice, [place] [address] [facility] [phone] Alvarez Chau DO [address] [facility] [place] [address] 10/02/2023 11:00 AM EDT Imaging Radiology [address], [place] [address] [facility] [place] [address] 03/29/2024 3:00 PM EST Office Visit Dermatology, [place] [address] [facility] [place] [address] Keiko Almodovar PA-C [address] [place] [address] [place] [address] Scheduled Referrals Name Type Priority Associated Diagnoses Orde r Schedule NEPHROLOGY REFERRAL OP Referral Within 10 days (routine) Worsening renal function Ordered: 04/22/2023 Health Maintenance Due Date Last Done Comments [...] Additional history exists CKD PHOS USE SMARTSET 88943 09/26/2023 09/25/2022, 0 04/08/2018 DXA Scan 10/30/2023 10/29/2021, 10/29/2021 CKD HGB USE SMARTSET 95205 03/09/202403/09, 09/25/2022, 09/25/2022, Additional history exists Diabetes Screening 03/09/2026 03/09/2023, 0 09/25/2022, 05/13/2022, Additional history exists Lipid Panel 11/11/2026 11/11/2021, 11/04, 05/10/2020, Additional history exists Colonoscopy 04/18/2029 04/18/2019, 04/06, 12/16/2012, Additional history exists Colorectal Cancer Screening 04/18/2029 Pneumococcal Vaccine: Pediatrics (0 to 5 Years) and At-Risk Patients (6 to 64 Years) Completed 09/25/2022 LUNG CANCER SCREENING - USE SMARTSET 51809 Completed 09/30/2022 VITAMIN D LEVEL ONCE IN A LIFETIME-USE SMARTSET# 21049 Completed 11/17/2022, 05/13/2022, 04/02/2022 GARDASIL-HPV IMMUNIZATION SERIES Aged Out No longer eligible based on patient's age to complete this topic MENINGOCOCCAL (MENACTRA/MENVEO) Aged Out No longer eligible based on patient's age to complete this topic documented as of this encounter Medical Devices Implanted Type Area Dog Groomer Device Identifier Shelf Expiration Date Model / Serial / Lot Cement Hv-R C01a - [id number] Implanted:Qty: 1 on 05/14/2022 by [facility]A: Spine Thoracic [employer] : NEURO CARE 01/03/2025 C01A / / [id number] documented as of this encounter Visit Diagnoses Diagnosis Worsening renal function- Primary documented in this encounter Additional Health Concerns Infection Onset [...] Advance Directives occurred with: Patient Care Teams Bender Helper Relationship Specialty Start Date End Date Alvarez Chau DO [address] [place], [place] [phone] PCP - General Family Medicine 11/17/11 documented as of this encounter
--- OUTSIDE RECORDS SUMMARY | 2023-06-13 04:05 | External Medical Summary | Summary of Care ---
Author Name Unknown Organization [facility] Address [address] [place] [address] Phone [phone] Care Team Providers Care Director Operations Name Role Phone Alvarez Chau DO Primary Care Provider + [phone] Reason for Referral * Evaluate & Treat - Unlimited Visits (Within 10 days (routine)) - Authorized Specialty Diagnoses / Procedures Referred By Verito t Referred To Contact Nephrology Diagnoses Worsening renal function Alvarez Chau DO [address] [place] [address] Referral ID Status Reason Start Date Expiration Date Visits Requested Visits Authorized [id number] Authorized Specialty Services Required 04/22/2023 999 999 Question Answer Referral Priority Within 10 days (routine) Where should this appointment be scheduled? Des What condition is this patient being seen for? Other (please specify) Comments Lymphedema Reason for Visit * Reason Onset Date Comments Advice 04/09/2023 Encounter Details Date Type Department Care Team ([facility] st Contact Info) Description 04/09/2023 Telephone [facility], [place] [address] [place] [address] Alvarez Chau DO [address] [place], [place] [phone] Advice Allergies Active Allergy Reactions Criticality Noted [...] encounter Miscellaneous Notes * Telephone Encounter - Keiko Power OSA - 04/22/2023 2:27 PM EST MyG message sent to schedule. 04/22/2023 * Addendum Note - Alvarez Chau DO - 04/22/2023 2:22 PM ESTAddended by: ALVAREZ CHAU on: 04/22/2023 02:22 PM Modules accepted: Orders * Addendum Note - Ana Paula Ramon LPN - 04/21/2023 4:47 PM ESTAddended by: ANA PAULA RAMON on: 04/21/2023 04:47 PM Modules accepted: Orders * Telephone Encounter - Payton Villarreal LPN - 04/20/2023 3:11 PM EST MyG sent * Telephone Encounter - Alvarez Chau DO - 04/20/2023 11:11 AM EST Yes it c ould. I would be willing to have her see a drug counselor if she would like. Let me know [...] this * Telephone Encounter - Ana Paula Ramon LPN - 04/11/2023 12:01 PM EST MYG [...] 04/28/2023 3:00 PM EST Office Visit Cardiology, [facility] 132 [facility] [place] [address] Kitty Cali PA-C 132 [facility] [place] [address] 04/30/2023 2:00 PM EST Laboratory Laboratory, [place] [address] [place] [address] [place] [address] [place] [address] 05/04/2023 10:30 AM EST Office Visit Orthopaedics [facility] [address] [facility] [place] [address] Gerda Cifuentes MD 132 [facility] [place] [address] 05/07/2023 3:00 PM EST Office Visit Hematology/Oncology [place], [place] 200 [facility] [place], [place] [address] Elizabeth Serrano CRNP [address] [place] [address] 05/12/2023 10:30 AM EST Office Visit Rheumatology [facility] [address] [facility] [place] [address] Marcelo Kim CRNP [address] [facility] [place] [address] 07/13/2023 10:50 AM EDT Office Visit Family Practice, [place] [address] [facility] [place] [phone] Alvarez Chau [address] [place] [address] 10/02/2023 11:00 AM EDT Imaging Radiology [address] [facility] [place] [address] 03/29/2024 3:00 PM EST Office Visit Dermatology, [place] [address] [place] [address] Keiko Almodovar PA-C [address] [place] [address] [place] [address] Scheduled Referrals Name Type Priority Associated Diagnoses [...] Additional history exists CKD PHOS USE SMARTSET 23358 09/26/2023 09/25/2022, 0 04/08/2018 DXA Scan 10/30/2023 10/29/2021, 10/29/2021 CKD HGB USE SMARTSET 91061 03/09/202403/09, 09/25/2022, 09/25/2022, Additional history exists Diabetes Screening 03/09/2026 03/09/2023, 0 09/25/2022, 05/13/2022, Additional history exists Lipid Panel 11/11/2026 11/11/2021, 11/04, 05/10/2020, Additional history exists Colonoscopy 04/18/2029 04/18/2019, 04/06, 12/16/2012, Additional history exists Colorectal Cancer Screening 04/18/2029 Pneumococcal Vaccine: Pediatrics (0 to 5 Years) and At-Risk Patients (6 to 64 Years) Completed 09/25/2022 LUNG CANCER SCREENING - USE SMARTSET 80328 Completed 09/30/2022 VITAMIN D LEVEL ONCE IN A LIFETIME-USE SMARTSET# [id number] Completed 11/17/2022, 05/13/2022, 04/02/2022 GARDASIL-HPV IMMUNIZATION SERIES Aged Out No longer eligible based on patient's age to complete this topic MENINGOCOCCAL (MENACTRA/MENVEO) Aged Out No longer eligible based on patient's age to complete this topic documented as of this encounter Medical Devices Implanted Type Area Iuss Analyst Device Identifier Shelf Expiration Date Model / Serial / Lot Cement Hv-R C01a - [id number] Implanted:Qty: 1 on 05/14/2022 by Chao Lund MD at OR [facility] N/A: Spine Thoracic [employer] : NEURO CARE 01/03/2025 C01A / / [id number] documented as of this encounter Visit Diagnoses [...] Advance Directives occurred with: Patient Care Teams Director Operations Relationship Specialty Start Date End Date Alvarez Chau DO [address] [place] [address] PCP - General Family Medicine 11/17/11 documented as of this encounter
--- OUTSIDE RECORDS SUMMARY | 2023-06-13 04:05 | External Medical Summary | Continuity of Care Document ---
Author Name Unknown Organization [facility] [address] 1 Address [address] [place], [place] [id number] Care Team Providers Care Investment Banking Associate Name Role Phone Olivarez Jacey G Primary Care Physician [phone] Encounter [facility] FINNBR [id number] Date(s): 04/22/23 - 04/22/23 [facility] 303 [facility] 1 [facility] 303 [facility], [address] [place], [place] [phone] Encounter Diagnosis Ventricular premature depolarization(Final) - Primary central sleep apnea(Final) - Discharge Disposition: Home or Self Care Attending Physician: MD Uribe Soraya M Referring Physician: MD Uribe Soraya M Allergies, Adverse Reactions, Alerts No Known Allergies Medications atorvastatin 20 mg oral tablet Start: 02/06/23 10:03:00 EDT, 1 tab, PO, Daily Start Date: 02/06/23 Status: Ordered buprenorphine-naloxone 8 mg-[address] 1 & 1/2 FILM STRIPS UNDER TONGUE ONCE A DAY Start Date: 02/06/23 Status: Ordered famotidine 40 mg oral tablet TAKE 1 TABLET BY MOUTH EVERY DAY AT BEDTIME NEEDED FOR HEARTBURN Start Date: 02/06/23 Status: Ordered hydrOXYzine pamoate 25 mg oral capsule TAKE 1 CAP BY MOUTH IN THE MORNING AND 1 CAP AT 2 PM NEEDED FOR ANXIETY Start Date: 02/06/23 Status: Ordered LORazepam 0.5 mg oral tablet Start: 02/06/23 10:04:00 EDT, 1 tab, PO, Daily, PRN: as needed for anxiety Start Date: 02/06/23 Status: Ordered Metoprolol Succinate ER 25 mg oral tablet, extended release Start: 02/06/23 10:02:00 EDT, 0.5 tab, PO, Daily Start Date: 02/06/23 Status: Ordered pantoprazole 40 mg oral delayed release tablet Start: 02/06/23 10:03:00 EDT, 1 tab, PO, Daily Start Date: 02/06/23 Status: Ordered topiramate 50 mg oral tablet Start: 02/06/23 10:04:00 EDT, 1 tab, PO, Daily Start Date: 02/06/23 Status: Ordered traZODone 100 mg oral tablet Start: 02/06/23 10:04:00 EDT, 1 tab, PO, qhs Start Date: 02/06/23 Status: Ordered venlafaxine 75 mg oral capsule, extended release Start: 02/06/23 10:03:00 EDT, 1 cap, PO, Daily Start Date: 02/06/23 Status: Ordered Problem List Condition Confirmation Course Effective Dates Status Health St atus Informant Bipolar illness Confirmed Active CKD (chronic kidney disease) Confirmed Active Osteoporosis Confirmed Active Results Laboratory List Name Date Basic Metabolic Panel (BASIC METAB PANEL ) 04/22/23 Most recent to oldest [Reference Range]: 1 eGFR CKD-EPI [>60 mL/min/1.73 m2] 57 mL/ min/1.73 m2 1 *LOW* (04/22/23 2:07 PM) Estimated CrCl 43.78 mL/min (04/22/23 2:48 PM) Anion Gap [5-14 mmol/L] 7 mmol/L (04/22/23 2:07 PM) BUN [7-20 mg/dL] 20 mg/dL (04/22/23 2:07 PM) Ca [8.4-10.2 mg/dL] 8.8 mg/dL (04/22/23 2:07 PM) Cl- [96-107 mmol/L] 109 mmol/L *HI* (04/22/23 2:07 PM) HCO3 [22-30 mmol/L] 28 mmol/L (04/22/23 2:07 PM) Cret [0.60-1.00 mg/dL] 1.12 mg/dL *HI* (04/22/23 2:07 PM) Glu [74-106 mg/dL] 96 mg/dL (04/22/23 2:07 PM) K [3.5-5.1 mmol/L] 3.6 mmol/L (04/22/23 2:07 PM) Na [137-145 mmol/L] 144 mmol/L (04/22/23 2:07 PM) 1Result Comment: Testing Performed By: Dept of Pathology [facility] [address], [address], [place] [address] Social History Social History Type Response Smoking Status [facility] Sex Female Patient Care team information Care Team Personnel Name: DO Olivarez Katelyn G Position: Referring Member Role: Primary Care Provider Address: Address: [facility] [address] [place] [address] [place] [address]
--- OUTSIDE RECORDS SUMMARY | 2023-06-13 04:05 | External Medical Summary | Summary of Care ---
Author Name Unknown Organization [facility] Address [address] [place] [address] Phone [phone] Care Team Providers Care Senior Office Assistant Name Role Phone Camilla Chau DO Primary Care Provider [phone] Reason for Visit * Reason Onset Date Comments Appointment 04/22/2023 Encounter Details Date Type Department Care Team (Late st Contact Info) Description 04/22/2023 Telephone Nephrology, [place] 200 [facility] [place] [address] Sobia Sun MD 200 [facility] [place] [address] Appointment Allergies Active Allergy Reactions Criticality Noted [...] as needed for Anxiety (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 0 02/06/2023 Active Furosemide 20 [...] 04/28/2023 3:00 PM EST Office Visit Cardiology, [facility] 132 [facility] [place] [address] Kitty Cali PA-C 132 [facility] [place] [address] 04/30/2023 2:00 PM EST Laboratory Laboratory, [place] [address] [facility] [phone] [place], Laboratory [address] [place] [address] 05/04/2023 10:30 AM EST Office Visit Orthopaedics [facility] 132 [facility] [place] [address] Gerda Cifuentes MD [address] [place] [address] 05/07/2023 3:00 PM EST Office Visit Hematology/Oncology [facility] 200 [facility] [place] [address] Elizabeth Serrano CRNP [address] [place] [address] 05/12/2023 10:30 AM EST Office Visit Rheumatology [facility] 25[address] [facility] [place] [address] Marcelo Kim CRNP 25[address] [facility] [place] [address] 07/13/2023 10:50 AM EDT Office Visit Family [facility] [address] [place] [address] Camilla Chau DO [address] [place] [address] 10/02/2023 11:00 AM EDT Imaging Radiology [address] 132 [facility] [place] [address] 03/29/2024 3:00 PM EST Office Visit Dermatology, [place] [address] [place] [address] Keiko Almodovar PA-C [address] [place] [address] [place] [address] Health Maintenance Due Date Last Done Comments [...] Additional history exists CKD PHOS USE SMARTSET 58631 09/26/2023 09/25/2022, 0 04/08/2018 DXA Scan 10/30/2023 10/29/2021, 10/29/2021 CKD HGB USE SMARTSET 40307 03/09/202403/09, 09/25/2022, 09/25/2022, Additional history exists Diabetes Screening 03/09/2026 03/09/2023, 0 09/25/2022, 05/13/2022, Additional history exists Lipid Panel 11/11/2026 11/11/2021, 11/04, 05/10/2020, Additional history exists Colonoscopy 04/18/2029 04/18/2019, 04/06, 12/16/2012, Additional history exists Colorectal Cancer Screening 04/18/2029 Pneumococcal Vaccine: Pediatrics (0 to 5 Years) and At-Risk Patients (6 to 64 Years) Completed 09/25/2022 LUNG CANCER SCREENING - USE SMARTSET 92982 Completed 09/30/2022 VITAMIN D LEVEL ONCE IN A LIFETIME-USE SMARTSET# [id number] Completed 11/17/2022, 05/13/2022, 04/02/2022 GARDASIL-HPV IMMUNIZATION SERIES Aged Out No longer eligible based on patient's age to complete this topic MENINGOCOCCAL (MENACTRA/MENVEO) Aged Out No longer eligible based on patient's age to complete this topic documented as of this encounter Medical Devices Implanted Type Area Receiving And Processing Supervisor Device Identifier Shelf Expiration Date Model / Serial / Lot Cement Hv-R C01a - [id number] Implanted:Qty: 1 on 05/14/2022 by Chao Lund MD at OR [facility] N/A: Spine Thoracic [employer] : NEURO CARE 01/03/2025 C01A / / [id number] documented as of this encounter Additional Health [...] Advance Directives occurred with: Patient Care Teams Senior Office Assistant Relationship Specialty Start Date End Date Camilla Chau DO [address] [place] [address] PCP - General Family Medicine 11/17/11 documented as of this encounter
--- OUTSIDE RECORDS SUMMARY | 2023-06-13 04:05 | External Medical Summary | Summary of Care ---
Author Name Unknown Organization [facility] Address [address] [place] [address] Phone [phone] Care Team Providers Care Mental Health Clinician Name Role Phone Camilla Chau DO Primary Care Provider [phone] Reason for Visit * Reason Onset Date Comments Test Results Imaging Study 04/27/2023 Encounter Details Date Type Department Care Team ([facility] st Contact Info) Description 04/27/2023 Telephone Radiology Film File [address] [place] [address] Camilla Chau DO [address] [place], [place] [id number] Test Results Imaging Study Allergies Active Allergy Reactions Criticality Noted Date Comments Oxybutynin 08/31/2018 Terrible dry mouth and constipation Influenza Vaccines 12/27/2021 Pt stated she won't get it because it makes her "deathly ill" documented as of this encounter (statuses as of 04/27/2023) Medications Medication Sig Dispensed Refills Start Date [...] as of this encounter (statuses as of 04/27/2023) Active Problems Problem Noted Date Diagnosed Date [...] as of this encounter (statuses as of 04/27/2023) Resolved Problems Problem Noted Date Diagnosed Date [...] as of this encounter (statuses as of 04/27/2023) Immunizations Name Administration Dates Next Due COVID-19 [...] encounter Miscellaneous Notes * Telephone Encounter - Nina Garza OSA - 04/27/2023 1:[address] Tobin Platt requesting all spine imaging 05/02/22 through 03/17/23. [place] Authorization to Release form on file. Report(s) faxed to [phone]. Successful fax confirmation received. documented in this encounter Plan of Treatment Upcoming Encounters Date Type Department Care Team (Late st Contact Info) Description 04/28/2023 3:00 PM EST Office Visit Cardiology, [facility] 132 [facility] [place] [address] Kitty Cali PA-C 132 [facility] [place] [address] 04/29/2023 1:40 PM EST Office Visit Nephrology, [address], [place] [address] Jaime Dillon MD [address] [place] [address] [place] [address] 04/30/2023 2:00 PM EST Laboratory Laboratory, [address] [address] [facility] [address] [place] [address] 05/04/2023 10:30 AM EST Office Visit Orthopaedics [facility] 132 [facility] [place] [address] Gerda Cifuentes MD 132 [facility] [place] [address] 05/07/2023 3:00 PM EST Office Visit Hematology/Oncology [facility] 200 [facility] [address] Elizabeth Serrano CRNP 400 [facility] [place] [address] 05/12/2023 10:30 AM EST Office Visit Rheumatology [facility] 2520 [facility] [place] [address] Marcelo Kim CRNP [address] [facility] [place] [address] 07/13/2023 10:50 AM EDT Office Visit Family [facility] 8[address] [facility], [place] [address] Camilla Chau, DO [address] [place] [address] 10/02/2023 11:00 AM EDT Imaging Radiology [facility] 1st [facility] 132 [facility] [place] [address] 03/29/2024 3:00 PM EST Office Visit Dermatology, [place] [address] [place] [address] Keiko Almodovar PA-C [address] [place] [address] [place] [address] Health Maintenance Due Date Last Done Comments [...] Additional history exists CKD PHOS USE SMARTSET 28944 09/26/2023 09/25/2022, 0 04/08/2018 DXA Scan 10/30/2023 10/29/2021, 10/29/2021 CKD HGB USE SMARTSET 39056 03/09/202403/09, 09/25/2022, 09/25/2022, Additional history exists Diabetes Screening 03/09/2026 03/09/2023, 0 09/25/2022, 05/13/2022, Additional history exists Lipid Panel 11/11/2026 11/11/2021, 11/04, 05/10/2020, Additional history exists Colonoscopy 04/18/2029 04/18/2019, 04/06, 12/16/2012, Additional history exists Colorectal Cancer Screening 04/18/2029 Pneumococcal Vaccine: Pediatrics (0 to 5 Years) and At-Risk Patients (6 to 64 Years) Completed 09/25/2022 LUNG CANCER SCREENING - USE SMARTSET 91716 Completed 09/30/2022 VITAMIN D LEVEL ONCE IN A LIFETIME-USE SMARTSET# [id number] Completed 11/17/2022, 05/13/2022, 04/02/2022 GARDASIL-HPV IMMUNIZATION SERIES Aged Out No longer eligible based on patient's age to complete this topic MENINGOCOCCAL (MENACTRA/MENVEO) Aged Out No longer eligible based on patient's age to complete this topic documented as of this encounter Medical Devices Implanted Type Area Hollow Tile Partition Erector Device Identifier Shelf Expiration Date Model / Serial / Lot Cement Hv-R C01a - [id number] Implanted:Qty: 1 on 05/14/2022 by Chao Lund MD at OR [facility] N/A: Spine Thoracic [employer] : NEURO CARE 01/03/2025 C01A / / [id number] documented as of this encounter Advance Directives Latest Code Status on File Code Status Date Activated Date Inactivated Comments Full Code 05/14/2022 7:03 AM 05/14/2022 2:27 PM This or sal reflects the patients wishes and were consensually agreed upon. Question Answer Comments Discussion of Advance Directives occurred with: Patient Care Teams Mental Health Clinician Relationship Specialty Start Date End Date Camilla Chau DO [address] [place] [facility] [place] [address] PCP - General Family Medicine 11/17/11 documented as of this encounter
--- OUTSIDE RECORDS SUMMARY | 2023-06-13 04:05 | External Medical Summary | Summary of Care ---
Author Name Unknown Organization [facility] Address [address] [place] [address] Phone [phone] Care Team Providers Care Corncob Pipe Supervisor Name Role Phone Camilla Chau DO Primary Care Provider [phone] Reason for Visit * Reason Onset Date Comments Advice 04/09/2023 Encounter Details Date Type Department Care Team (Late st Contact Info) Description 04/09/2023 Telephone [facility] [address] [place] [address] Camilla Chau DO [address] [place] [address] Advice Allergies Active Allergy Reactions [...] encounter Miscellaneous Notes * Telephone Encounter - Camilla Chau DO - 04/20/2023 11:11 AM EST Yes it c ould. I would be willing to have her see a director of industrial relations if she would like. Let me know [...] legs better * Telephone Encounter - Terrell JulyKATHIE - 04/09/2023 8:24 AM EST Pt has [...] 04/28/2023 3:00 PM EST Office Visit Cardiology, [facility] 132 [facility] [place] [address] Kitty Cali PA-C 132 [facility] [place] [address] 04/30/2023 2:00 PM EST Laboratory Laboratory, [place] [address] [place] [address] [place], Laboratory [address] [place] [address] 05/04/2023 10:30 AM EST Office Visit Orthopaedics [facility] [place] [address] Gerda Cifuentes MD [address] [place] [address] 05/07/2023 3:00 PM EST Office Visit Hematology/Oncology [facility] [place] 200 [facility] [place] [address] Elizabeth Serrano CRNP [address] [place] [address] 05/12/2023 10:30 AM EST Office Visit Rheumatology [facility] 2520 [facility] [place] [address] Marcelo Kim CRNP [address] [facility] [place] [address] 07/13/2023 10:50 AM EDT Office Visit Family [facility], [place] [address] [place] [address] Camilla Chau, [address] [place] [address] 10/02/2023 11:00 AM EDT Imaging Radiology [facility] 1st [facility] 132 [facility] [place] [address] 03/29/2024 3:00 PM EST Office Visit Dermatology, [place] [address] [place] [address] Keiko Almodovar PA-C [address] [place] [address] [place] [address] Health Maintenance Due Date Last Done Comments Hepatitis B (1 of 3 - 3-dose series) 1965 Cologuard 2010 Fecal Occult Blood Test 2010 Sigmoidoscopy 2010 Zoster Vaccines (1 of 2) 2015 DTaP,Tdap,and Td Vaccines (2 - Td or Tdap) 04/19/2017 04/19/2007 *BISPHONATE OR OTHER ACCEPTABLE MEDICATION NEEDED FOR OSTEOPOROSIS (REFER TO SMARTSET #1146) 01/15/2021 COVID-19 Vaccine (24 season) 2022 07/14/2020, 06/23/2020 Depression Screening 12/05/2022 12/05/2021 Influenza Vaccine (FLU shot) (#1) 2022 Mammogram 08/05/2023 08/04/2022, 05/0 04/2022, 07/09/2021, Additional history exists GFR 09/08/2023 03/09/2023, 11/04, 09/25/2022, Additional history exists Albumin/Creatinine Ratio 09/26/2023 023, 09/23/2021, 08/08/2020, Additional history exists CKD PHOS USE SMARTSET 59798 09/26/2023 09/25/2022, 0 04/08/2018 DXA Scan 10/30/2023 10/29/2021, 10/29/2021 CKD HGB USE SMARTSET 50768 03/09/202403/09, 09/25/2022, 09/25/2022, Additional history exists Diabetes Screening 03/09/2026 03/09/2023, 0 09/25/2022, 05/13/2022, Additional history exists Lipid Panel 11/11/2026 11/11/2021, 11/04, 05/10/2020, Additional history exists Colonoscopy 04/18/2029 04/18/2019, 04/06, 12/16/2012, Additional history exists Colorectal Cancer Screening 04/18/2029 Pneumococcal Vaccine: Pediatrics (0 to 5 Years) and At-Risk Patients (6 to 64 Years) Completed 09/25/2022 LUNG CANCER SCREENING - USE SMARTSET 72143 Completed 09/30/2022 VITAMIN D LEVEL ONCE IN A LIFETIME-USE SMARTSET# [id number] Completed 11/17/2022, 05/13/2022, 04/02/2022 GARDASIL-HPV IMMUNIZATION SERIES Aged Out No longer eligible based on patient's age to complete this topic MENINGOCOCCAL (MENACTRA/MENVEO) Aged Out No longer eligible based on patient's age to complete this topic documented as of this encounter Medical Devices Implanted Type Area Brand Analyst Device Identifier Shelf Expiration Date Model / Serial / Lot Cement Hv-R C01a - [id number] Implanted:Qty: 1 on 05/14/2022 by Chao Lund MD at OR [facility] N/A: Spine Thoracic [employer] : NEURO CARE 01/03/2025 C01A / / [id number] documented as of this encounter Additional Health [...] Advance Directives occurred with: Patient Care Teams Corncob Pipe Supervisor Relationship Specialty Start Date End Date Camilla Chau DO [address] [place] [address] PCP - General Family Medicine 11/17/11 documented as of this encounter
--- OUTSIDE RECORDS SUMMARY | 2023-06-13 04:05 | External Medical Summary | Summary of Care ---
Author Name Unknown Organization [facility] Address [address] [place] [address] Phone [phone] Care Team Providers Care Pleating Supervisor Name Role Phone Camilla Chau DO Primary Care Provider Encounter Details Date Type Department Care Team ([facility] st Contact Info) Description 04/20/2023 Patient Reported Data Patient Survey Ortho OBERD [...] hours as needed for Anxiety (take for time study observer anxiety PRN). 0 02/06/2023 Active Furosemide [...] atrial contraction),NICM (nonischemic cardiomyopathy) ([facility]) TAKE 1 TABLET BY MOUTH EVERY DAY [...] mRNA, LNP-s, No Pre serve, 2-Dose Series (Filmaster) 07/14/2020,06/23/2020 Pneumococcal Conjugate Vaccine, 20-valent (Prevn ar20) [...] 04/28/2023 3:00 PM EST Office Visit Cardiology, [facility] 132 [facility] [place] [address] Kitty Cali PA-C 132 [facility] [place] [address] 04/30/2023 2:00 PM EST Laboratory Laboratory, [place] [address] [place] [phone] [place] [address] [place] [address] 05/04/2023 10:30 AM EST Office Visit Orthopaedics [facility] 132 [facility] [place] [address] Gerda Cifuentes MD 132 [facility] [place] [address] 05/07/2023 3:00 PM EST Office Visit Hematology/Oncology [facility] [place] 200 [facility] [place] [address] Elizabeth Serrano CRNP [address] [place] [address] 05/12/2023 10:30 AM EST Office Visit Rheumatology [place] [address] [facility] [place] [address] Marcelo Kim CRNP [address] [place] [address] [place] [address] 07/13/2023 10:50 AM EDT Office Visit Family Practice, [place] [address] [facility] [address] Camilla Chau DO [address] [facility] [address] 10/02/2023 11:00 AM EDT Imaging Radiology [address], [address] [place] [address] 03/29/2024 3:00 PM EST Office Visit Dermatology, [place] [address] [facility] [address] Keiko Almodovar PA-C [address] [place] [address] [place] [address] Health Maintenance Due Date Last Done Comments [...] 11/04, 09/25/2022, Additional history exists Albumin/Creatinine Ratio 09/26/202309/25/2 023, 09/23/2021, 08/08/2020, Additional history exists CKD PHOS USE SMARTSET 80220 09/26/2023 09/25/2022, 0 04/08/2018 DXA Scan 10/30/2023 10/29/2021, 10/29/2021 CKD HGB USE SMARTSET 07449 03/09/202403/09, 09/25/2022, 09/25/2022, Additional history exists Diabetes Screening 03/09/2026 03/09/2023, 0 09/25/2022, 05/13/2022, Additional history exists Lipid Panel 11/11/2026 11/11/2021, 11/04, 05/10/2020, Additional history exists Colonoscopy 04/18/2029 04/18/2019, 04/06, 12/16/2012, Additional history exists Colorectal Cancer Screening 04/18/2029 Pneumococcal Vaccine: Pediatrics (0 to 5 Years) and At-Risk Patients (6 to 64 Years) Completed 09/25/2022 LUNG CANCER SCREENING - USE SMARTSET 52546 Completed 09/30/2022 VITAMIN D LEVEL ONCE IN A LIFETIME-USE SMARTSET# 58756 Completed 11/17/2022, 05/13/2022, 04/02/2022 GARDASIL-HPV IMMUNIZATION SERIES Aged Out No longer eligible based on patient's age to complete this topic MENINGOCOCCAL (MENACTRA/MENVEO) Aged Out No longer eligible based on patient's age to complete this topic documented as of this encounter Medical Devices Implanted Type Area Commander Police Reserves Device Identifier Shelf Expiration Date Model / Serial / Lot Cement Hv-R C01a - [id number] Implanted:Qty: 1 on 05/14/2022 by Chao Lund MD at OR [facility] N/A: Spine Thoracic [employer] : NEURO CARE 01/03/2025 C01A / / [id number] documented as of this encounter Additional Health [...] Advance Directives occurred with: Patient Care Teams Pleating Supervisor Relationship Specialty Start Date End Date Camilla Chau DO [address] [place] [address] PCP - General Family Medicine 11/17/11 documented as of this encounter
--- OUTSIDE RECORDS SUMMARY | 2023-06-13 04:05 | External Medical Summary | Summary of Care ---
Author Name Unknown Organization [facility] Address [address] [place] [address] Phone [phone] Care Team Providers Care Junior Accountant Name Role Phone Camilla Chau DO Primary Care Provider + [phone] Reason for Visit * Reason Onset Date Comments Advice 04/09/2023 Encounter Details Date Type Department Care Team (Late st Contact Info) Description 04/09/2023 Telephone [facility] [address] [place] [address] Camilla Chau DO [address] [place] [address] Advice Allergies Active Allergy Reactions [...] hours as needed for Anxiety (take for seismic prospecting observer helper anxiety PRN). 0 02/06/2023 Active Furosemide 20 [...] encounter Miscellaneous Notes * Addendum Note - Ana Paula Ramon [...] to have her see a director of district office if she would like. Let me know [...] 04/28/2023 3:00 PM EST Office Visit Cardiology, [facility] 132 [facility] [place] [address] Kitty Cali, [place] [address] [place] [address] 04/30/2023 2:00 PM EST Laboratory Laboratory, [place] [address] [facility], [place] [phone] [facility] [address] [place] [facility] [place] [address] 05/04/2023 10:30 AM EST Office Visit Orthopaedics [facility] 132 [facility] [place] [address] Gerda Cifuentes MD 132 [facility] [place] [address] 05/07/2023 3:00 PM EST Office Visit Hematology[facility]Oncology [facility] [address] [facility] [address] Elizabeth Serrano CRNP [facility] [address] 05/12/2023 10:30 AM EST Office Visit Rheumatology [facility] [address] [facility], [place] [address] Marcelo Kim CRNP [address] [place] [address], [place] [address] 07/13/2023 10:50 AM EDT Office Visit Family Practice, [place] [address] [facility], [place] [phone] Camilla Chau DO [address] [facility], [place] [address] 10/02/2023 11:00 AM EDT Imaging Radiology [facility] 1st [facility] 132 [facility] [place] [address] 03/29/2024 3:00 PM EST Office Visit Dermatology, [place] [address] [facility] [place] [address] Keiko Almodovar PA-C [address] [place] [address] [place] [address] Health Maintenance Due Date Last Done Comments [...] 08/04/2022, 050 04/2022, 07/09/2021, Additional history exists GFR 09/08/2023 03/09/2023, 11/04, 09/25/2022, Additional history exists Albumin/Creatinine Ratio 09/26/2023 023, 09/23/2021, 08/08/2020, Additional history exists CKD PHOS USE SMARTSET 73046 09/26/2023 09/25/2022, 0 04/08/2018 DXA Scan 10/30/2023 10/29/2021, 10/29/2021 CKD HGB USE SMARTSET 82633 03/09/202403/09, 09/25/2022, 09/25/2022, Additional history exists Diabetes Screening 03/09/2026 03/09/2023, 0 09/25/2022, 05/13/2022, Additional history exists Lipid Panel 11/11/2026 11/11/2021, 11/04, 05/10/2020, Additional history exists Colonoscopy 04/18/2029 04/18/2019, 04/06, 12/16/2012, Additional history exists Colorectal Cancer Screening 04/18/2029 Pneumococcal Vaccine: Pediatrics (0 to 5 Years) and At-Risk Patients (6 to 64 Years) Completed 09/25/2022 LUNG CANCER SCREENING - USE SMARTSET 25803 Completed 09/30/2022 VITAMIN D LEVEL ONCE IN A LIFETIME-USE SMARTSET# [id number] Completed 11/17/2022, 05/13/2022, 04/02/2022 GARDASIL-HPV IMMUNIZATION SERIES Aged Out No longer eligible based on patient's age to complete this topic MENINGOCOCCAL (MENACTRA/MENVEO) Aged Out No longer eligible based on patient's age to complete this topic documented as of this encounter Medical Devices Implanted Type Area Receiver Device Identifier Shelf Expiration Date Model / Serial / Lot Cement Hv-R C01a - [id number] Implanted:Qty: 1 on 05/14/2022 by Chao Lund MD at OR [facility] N/A: Spine Thoracic [employer] : NEURO CARE 01/03/2025 C01A / / [id number] documented as of this encounter Additional Health [...] Advance Directives occurred with: Patient Care Teams Junior Accountant Relationship Specialty Start Date End Date Camilla Chau DO [address] [place] [address] PCP - General Family Medicine 11/17/11 documented as of this encounter
--- OUTSIDE RECORDS SUMMARY | 2023-06-13 04:06 | External Medical Summary | Summary of Care ---
Author Name Unknown Organization [facility] Address [address] [place] [address] Phone [phone] Care Team Providers Care Freelance Digital Project Manager Name Role Phone Camilla Chau DO Primary Care Provider + [phone] Reason for Visit * Reason Onset Date Comments Advice 04/09/2023 Encounter Details Date Type Department Care Team (Late st Contact Info) Description 04/09/2023 Telephone [facility] [address] [place] [address] Camilla Chau DO [address] [place] [address] Advice Allergies Active Allergy Reactions Criticality Noted Date Comments Oxybutynin 08/31/2018 Terrible dry mouth and constipation Influenza Vaccines 12/27/2021 Pt stated she won't get it because it makes her "deathly ill" documented as of this encounter (statuses as of 04/11/2023) Medications Medication Sig Dispensed Refills Start Date [...] prospecting observer anxiety PRN). 0 02/06/2023 Active Ondansetron HCl 4 MG Oral Tablet Take 1 Tablet by mouth every 6 hours as needed for Nausea. 30 Tablet 0 03/09/2023 Active Furosemide 20 MG Oral Tablet (Lasix)Indications:L [...] as of this encounter (statuses as of 04/11/2023) Active Problems Problem Noted Date Diagnosed Date [...] as of this encounter (statuses as of 04/11/2023) Resolved Problems Problem Noted Date Diagnosed Date [...] as of this encounter (statuses as of 04/11/2023) Immunizations Name Administration Dates Next Due COVID-19 [...] encounter Miscellaneous Notes * Telephone Encounter - Ana Paula Mars [...] Description 04/30/2023 2:00 PM EST Laboratory Laboratory, [place] [address] [address] [facility] [place] [address] [facility] [address] [place] [address] 05/04/2023 10:30 AM EST Office Visit Orthopaedics [facility] 132 [facility] [place] [address] Gerda Cifuentes MD 132 [facility] [place] [address] 05/07/2023 3:00 PM EST Office Visit Hematology/Oncology [facility] 200 [facility] [place] [address] Elizabeth Serrano CRNP 400 [facility] [place] [address] 05/12/2023 10:30 AM EST Office Visit Rheumatology [address] [place] [address] Marcelo Kim CRNP [address] [place] [address] [place] [address] 07/13/2023 10:50 AM EDT Office Visit Family [facility] [address] [place] [facility] [place] [phone] Camilla Chau DO [address] [place] [address] 10/02/2023 11:00 AM EDT Imaging Radiology [facility] 132 [facility] [place] [address] 03/29/2024 3:00 PM EST Office Visit Dermatology, [place] [address] [place] [address] Keiko Almodovar PA-C [address] [place] [address] [place] [address] Health Maintenance Due Date Last Done Comments [...] Additional history exists CKD PHOS USE SMARTSET 35366 09/26/2023 09/25/2022, 0 04/08/2018 DXA Scan 10/30/2023 10/29/2021, 10/29/2021 CKD HGB USE SMARTSET 07655 03/09/202403/09, 09/25/2022, 09/25/2022, Additional history exists Diabetes Screening 03/09/2026 03/09/2023, 0 09/25/2022, 05/13/2022, Additional history exists Lipid Panel 11/11/2026 11/11/2021, 11/04, 05/10/2020, Additional history exists Colonoscopy 04/18/2029 04/18/2019, 04/06, 12/16/2012, Additional history exists Colorectal Cancer Screening 04/18/2029 Pneumococcal Vaccine: Pediatrics (0 to 5 Years) and At-Risk Patients (6 to 64 Years) Completed 09/25/2022 LUNG CANCER SCREENING - USE SMARTSET 74943 Completed 09/30/2022 VITAMIN D LEVEL ONCE IN A LIFETIME-USE SMARTSET# 85745 Completed 11/17/2022, 05/13/2022, 04/02/2022 GARDASIL-HPV IMMUNIZATION SERIES Aged Out No longer eligible based on patient's age to complete this topic MENINGOCOCCAL (MENACTRA/MENVEO) Aged Out No longer eligible based on patient's age to complete this topic documented as of this encounter Medical Devices Implanted Type Area Lithographic Proofer Device Identifier Shelf Expiration Date Model / Serial / Lot Cement Hv-R C01a - [id number] Implanted:Qty: 1 on 05/14/2022 by Chao Lund MD at OR [facility] N/A: Spine Thoracic [employer] : NEURO CARE 01/03/2025 C01A / / [id number] documented as of this encounter Additional Health [...] Advance Directives occurred with: Patient Care Teams Freelance Digital Project Manager Relationship Specialty Start Date End Date Camilla Chau DO [address] [facility] [place] [address] PCP - General Family Medicine 11/17/11 documented as of this encounter
--- OUTSIDE RECORDS SUMMARY | 2023-06-13 04:06 | External Medical Summary | Summary of Care ---
Author Name Unknown Organization [facility] Address [address] [place] [address] Phone [phone] Care Team Providers Care Lumber Hacker Name Role Phone Camilla Chau DO Primary Care Provider + [phone] Reason for Visit * Reason Onset Date Comments Advice 04/09/2023 Encounter Details Date Type Department Care Team (Late st Contact Info) Description 04/09/2023 Telephone [facility] [address] [place] [address] Camilla Chau DO [address] [place] [address] Advice Allergies Active Allergy Reactions Criticality Noted Date Comments Oxybutynin 08/31/2018 Terrible dry mouth and constipation Influenza Vaccines 12/27/2021 Pt stated she won't get it because it makes her "deathly ill" documented as of this encounter (statuses as of 04/17/2023) Medications Medication Sig Dispensed Refills Start Date [...] as of this encounter (statuses as of 04/17/2023) Active Problems Problem Noted Date Diagnosed Date [...] as of this encounter (statuses as of 04/17/2023) Resolved Problems Problem Noted Date Diagnosed Date [...] as of this encounter (statuses as of 04/17/2023) Immunizations Name Administration Dates Next Due COVID-19 [...] heart function are normal. The lymphedema is consideredthe diagnosis, there is no imaging that can [...] 04/28/2023 3:00 PM EST Office Visit Cardiology, [facility] [address] [place] [address] Kitty Cali PA-C [address] [place] [address] 04/30/2023 2:00 PM EST Laboratory Laboratory, [place] [address] [place] [phone] [place] [address] [place] [address] 05/04/2023 10:30 AM EST Office Visit Orthopaedics [facility] [address] [place] [address] Gerda Cifuentes MD [address] [place] [address] 05/07/2023 3:00 PM EST Office Visit Hematology/Oncology [facility] [address] Elizabeth Serrano CRNP [address] [place] [address] [place] [address] 05/12/2023 10:30 AM EST Office Visit Rheumatology [facility] [facility] [place] [address] Marcelo Kim CRNP [address] [facility] [place] [address] 07/13/2023 10:50 AM EDT Office Visit Family Practice, [place] [address] [facility], [place] [address] Camilla Chau DO [address] [place] [address] 10/02/2023 11:00 AM EDT Imaging Radiology [facility]st [facility] [place] 132 [facility] [place] [address] 03/29/2024 3:00 PM EST Office Visit Dermatology, [place] [address] [place] [facility] [place] [address] Keiko Almodovar PA-C [address] [place] [address] [place] [address] Health Maintenance Due Date Last Done Comments [...] Additional history exists CKD PHOS USE SMARTSET 14562 09/26/2023 09/25/2022, 0 04/08/2018 DXA Scan 10/30/2023 10/29/2021, 10/29/2021 CKD HGB USE SMARTSET 08728 03/09/202403/09, 09/25/2022, 09/25/2022, Additional history exists Diabetes Screening 03/09/2026 03/09/2023, 0 09/25/2022, 05/13/2022, Additional history exists Lipid Panel 11/11/2026 11/11/2021, 11/04, 05/10/2020, Additional history exists Colonoscopy 04/18/2029 04/18/2019, 04/06, 12/16/2012, Additional history exists Colorectal Cancer Screening 04/18/2029 Pneumococcal Vaccine: Pediatrics (0 to 5 Years) and At-Risk Patients (6 to 64 Years) Completed 09/25/2022 LUNG CANCER SCREENING - USE SMARTSET 34557 Completed 09/30/2022 VITAMIN D LEVEL ONCE IN A LIFETIME-USE SMARTSET# 63239 Completed 11/17/2022, 05/13/2022, 04/02/2022 GARDASIL-HPV IMMUNIZATION SERIES Aged Out No longer eligible based on patient's age to complete this topic MENINGOCOCCAL (MENACTRA/MENVEO) Aged Out No longer eligible based on patient's age to complete this topic documented as of this encounter Medical Devices Implanted Type Area Sporting Goods Sales Manager Device Identifier Shelf Expiration Date Model / Serial / Lot Cement Hv-R C01a - [id number] Implanted:Qty: 1 on 05/14/2022 by Chao Lund MD at OR [facility] N/A: Spine Thoracic [employer] : NEURO CARE 01/03/2025 C01A / / [id number] documented as of this encounter Additional Health [...] Advance Directives occurred with: Patient Care Teams Lumber Hacker Relationship Specialty Start Date End Date Camilla Chau DO [address] [facility] [place] [address] PCP - General Family Medicine 11/17/11 documented as of this encounter
--- OUTSIDE RECORDS SUMMARY | 2023-06-13 04:06 | External Medical Summary | Summary of Care ---
Author Name Unknown Organization [facility] Address [address] [place] [address] Phone [phone] Care Team Providers Care Space Operations Officer Name Role Phone Camilla Chau DO Primary Care Provider [phone] Reason for Visit * Reason Comments eRx-Medication Refill Encounter Details Date Type Department Care Team (Late st Contact Info) Description 04/01/2023 Refill Cardiology, [facility] [address] [place] [place] [address] Davon Chau DO [address] [place] [address] PAC (premature atrial contraction); NICM (nonischemic cardiomyopathy) ([facility]) Allergies Active Allergy Reactions Criticality Noted Date Comments Oxybutynin 08/31/2018 Terrible dry mouth and constipation Influenza Vaccines 12/27/2021 Pt stated she won't get it because it makes her "deathly ill" documented as of this encounter (statuses as of 04/13/2023) Medications Medication Sig Dispensed Refills Start Date [...] 02/10/2023 Active Ondansetron HCl 4 MG Oral TabletIndication s:Cellulitis [...] observer helper anxiety PRN). 0 02/06/2023 Active Ondansetron HCl 4 MG Oral Tablet Take 1 Tablet by mouth every 6 hours as needed for Nausea. 30 Tablet 0 03/09/2023 Active Furosemide 20 MG Oral Tablet (Lasix)Indicatio [...] AC (premature atrial contraction),PATTI M (nonischemic cardiomyopathy) (HCC) TAKE 1 TABLET BY MOUTH EVERY DAY 90 Tablet 3 04/03/2023 Active Metoprolol Succinate ER 25 MG Oral Tablet Extended Release 24 Hour (toPROL XL)Indications:P AC (premature atrial contraction),PATTI M (nonischemic cardiomyopathy) (HCC) TAKE 1 TABLET BY MOUTH EVERY DAY 90 Tablet 3 02/17/2022 3 Discontinued Insulin Pen Needle 31G X 5 MM USE TO INJECT FORTEO EVERY DAY 30 Each 11 04/09/2022 4 Additional Information Patient not taking.Reported on 03/09/2023 documented as of this encounter (statuses as of 04/13/2023) Active Problems Problem Noted Date Diagnosed Date [...] as of this encounter (statuses as of 04/13/2023) Resolved Problems Problem Noted Date Diagnosed Date [...] as of this encounter (statuses as of 04/13/2023) Immunizations Name Administration Dates Next Due COVID-19 [...] encounter Miscellaneous Notes * Telephone Encounter - Coleman Henry OSA - 04/13/2023 9:04 AM ESTSigned Prescriptions: Disp Refills Metoprolol Succinate ER 25 MG Oral Tablet *90 Tab*3 Sig: TAKE 1 TABLET BY MOUTH EVERY DAYAuthorizing Provider: DAVON CHAU * Telephone Encounter - Coleman Henry OSA - 04/13/2023 9:04 AM EST Called patient she is all set up for: RETURN CARDIOLOGY at 3:00 PM (30 min)Arrive by 2:45 PM Friday April 28, 2023 * Telephone Encounter - Thelma Nix CMA - 04/01/2023 4:44 PM ESTPending Prescriptions: Disp Refills Metoprolol Succinate ER 25 MG Oral Tablet *90 Tab*3 Sig: TAKE 1 TABLET BY MOUTH EVERY DAY * Telephone Encounter - Thelma Nix CMA - 04/01/2023 4:43 PM EST Scheduling - please contact patient to schedule overdue f/u. * Telephone Encounter - Thelma Nix CMA - 04/01/2023 4:42 PM EST Did you pend patient's preferred pharmacy and medication before forwarding?yes Pharmacy: [id number] [address] [facility] Pending Prescriptions: Disp Refills Metoprolol Succinate ER 25 MG Oral Tablet*90 Tab*3 Sig: TAKE 1 TABLET BY MOUTH EVERY DAY Last Visit: 09/03/2021 (in office), 07/04/2019 (telemedicine) Next Visit: Visit date not found If no future appointments scheduled, and last appointment is greater than a year ago, please schedule patient for a follow-up appointment Last date the medication was ordered: 02/17/22 Is this request for a controlled substance?No Urine Drug Screen:No results found. However, due to the size of the patient record, not all encounters were searched. Please check Results Review for a complete set of results. Patient Phone Numbers Labs: Lab Results Component Value Date/Time CREAT 1.2 (H) 03/09/2023 01:48 PM CREAT 1.3 (H) 12/14/2019 12:14 PM CREAT 0.6 (L) 07/04/1996 02:30 PM POTASSIUM 3.9 03/09/2023 01:48 PM POTASSIUM 4.7 12/14/2019 12:14 PM POTASSIUM 3.8 07/04/1996 02:30 PM TSH 1.47 11/11/2021 08:30 AM TSH 1.86 01/13/2018 04:30 PM TSH 0.55 06/22/1996 02:30 PM LDLCALC 69 05/10/2020 08:05 AM LDLCALC 09/21/2019 11:46 AM Uninterpretable, recommend direct LDL cholesterol testing. LDLDIRECT 74 11/11/2021 08:30 AM LDLDIRECT 70 09/21/2019 11:46 AM ALT 17 09/25/2022 11:33 AM ALT 27 12/14/2019 12:14 PM ALT 43 07/04/1996 02:30 PM HGBA1C 5.6 05/13/2022 11:58 AM HGBA1C 5.8 (H) 12/14/2019 12:14 PM documented in this encounter Plan of Treatment Upcoming Encounters Date Type Department Care Team (Late st Contact Info) Description 04/28/2023 3:00 PM EST Office Visit Cardiology, [facility] 132 [facility] [place] [address] Kitty Cali PA-C 132 [facility] [place] [address] 04/30/2023 2:00 PM EST Laboratory Laboratory, [place] [address] [address] [facility] [phone] [place], [place] [address] [facility] [address] 05/04/2023 10:30 AM EST Office Visit Orthopaedics [facility] 132 [facility] [place] [address] Gerda Cifuentes MD 132 [place] [address] 05/07/2023 3:00 PM EST Office Visit Hematology/Oncology [facility] [place] 200 [facility] [place] [address] Elizabeth Serrano CRNP [address] [place] [address] 05/12/2023 10:30 AM EST Office Visit Rheumatology [facility] [address] [facility] [place] [address] Marcelo Kim CRNP [address] [facility] [place] [address] 07/13/2023 10:50 AM EDT Office Visit Family Practice, [place] [address] [facility], [place] [phone] Camilla Chau, [address] [place] [address] 10/02/2023 11:00 AM EDT Imaging Radiology [address] [place] [address] 03/29/2024 3:00 PM EST Office Visit Dermatology, [place] [address] [place] [address] Keiko Almodovar PA-C [address] [place] [address] [place] [address] Health Maintenance Due Date Last Done Comments [...] Additional history exists CKD PHOS USE SMARTSET 94857 09/26/2023 09/25/2022, 0 04/08/2018 DXA Scan 10/30/2023 10/29/2021, 10/29/2021 CKD HGB USE SMARTSET 66657 03/09/202403/09, 09/25/2022, 09/25/2022, Additional history exists Diabetes Screening 03/09/2026 03/09/2023, 0 09/25/2022, 05/13/2022, Additional history exists Lipid Panel 11/11/2026 11/11/2021, 11/04, 05/10/2020, Additional history exists Colonoscopy 04/18/2029 04/18/2019, 04/06, 12/16/2012, Additional history exists Colorectal Cancer Screening 04/18/2029 Pneumococcal Vaccine: Pediatrics (0 to 5 Years) and At-Risk Patients (6 to 64 Years) Completed 09/25/2022 LUNG CANCER SCREENING - USE SMARTSET 51693 Completed 09/30/2022 VITAMIN D LEVEL ONCE IN A LIFETIME-USE SMARTSET# 36376 Completed 11/17/2022, 05/13/2022, 04/02/2022 GARDASIL-HPV IMMUNIZATION SERIES Aged Out No longer eligible based on patient's age to complete this topic MENINGOCOCCAL (MENACTRA/MENVEO) Aged Out No longer eligible based on patient's age to complete this topic documented as of this encounter Medical Devices Implanted Type Area Fitness Plan Coordinator Device Identifier Shelf Expiration Date Model / Serial / Lot Cement Hv-R C01a - [id number] Implanted:Qty: 1 on 05/14/2022 by Chao Lund MD at OR [facility] N/A: Spine Thoracic [employer] : NEURO CARE 01/03/2025 C01A / / [id number] documented as of this encounter Visit Diagnoses Diagnosis PAC (premature atrial contraction) Supraventricular premature beats NICM (nonischemic cardiomyopathy) (HCC) Other primary cardiomyopathies documented in this encounter Additional Health Concerns [...] Advance Directives occurred with: Patient Care Teams Space Operations Officer Relationship Specialty Start Date End Date Camilla Chau DO [address] [place] [address] PCP - General Family Medicine 11/17/11 documented as of this encounter
--- OUTSIDE RECORDS SUMMARY | 2023-06-13 04:06 | External Medical Summary | Summary of Care ---
Author Name Unknown Organization [facility] Address [address] [place] [address] Phone [phone] Care Team Providers Care Terminal Carman Name Role Phone Camilla Chua DO Primary Care Provider + [phone] Reason for Visit * Reason Onset Date Comments Advice 04/09/2023 Encounter Details Date Type Department Care Team (Late st Contact Info) Description 04/09/2023 Telephone [facility] [address] [place] [address] Camilla Chau DO [address] [place] [address] Advice Allergies Active Allergy Reactions [...] field observer anxiety PRN). 0 02/06/2023 Active Ondansetron [...] 04/28/2023 3:00 PM EST Office Visit Cardiology, [facility] 132 [facility] [address] Kitty Cali PA-C 132 [facility] [address] 04/30/2023 2:00 PM EST Laboratory Laboratory, [place] [address] [place] [phone] [facility] [address] [place] [address] 05/04/2023 10:30 AM EST Office Visit Orthopaedics [facility] 132 [facility] [place] [address] Gerda Cifuentes MD 132 [facility] [place] [address] 05/07/2023 3:00 PM EST Office Visit Hematology/Oncology [facility] [place] 200 [facility] [place] [address] Elizabeth Serrano CRNP [address] [place] [id number] 05/12/2023 10:30 AM EST Office Visit Rheumatology [place] 695[address] [facility] [place], [place] [address] Marcelo Kim CRNP 0660 [facility] [place] [address] 07/13/2023 10:50 AM EDT Office Visit Family Practice, [place] [address] [facility] [phone] Camilla Chau DO 819 [facility] [address] 10/02/2023 11:00 AM EDT Imaging Radiology [facility] 1st [facility], [address] [place] [address] 03/29/2024 3:00 PM EST Office Visit Dermatology, [place] [address] [facility] [address] Keiko Almodovar PA-C [address] [place] [address] [place] [address] Health Maintenance Due Date Last Done Comments [...] 11/04, 09/25/2022, Additional history exists Albumin/Creatinine Ratio 09/26/20232 023, 09/23/2021, 08/08/2020, Additional history exists CKD PHOS USE SMARTSET 24778 09/26/2023 09/25/2022, 0 04/08/2018 DXA Scan 10/30/2023 10/29/2021, 10/29/2021 CKD HGB USE SMARTSET 20344 03/09/202403/09, 09/25/2022, 09/25/2022, Additional history exists Diabetes Screening 03/09/2026 03/09/2023, 0 09/25/2022, 05/13/2022, Additional history exists Lipid Panel 11/11/2026 11/11/2021, 11/04, 05/10/2020, Additional history exists Colonoscopy 04/18/2029 04/18/2019, 04/06, 12/16/2012, Additional history exists Colorectal Cancer Screening 04/18/2029 Pneumococcal Vaccine: Pediatrics (0 to 5 Years) and At-Risk Patients (6 to 64 Years) Completed 09/25/2022 LUNG CANCER SCREENING - USE SMARTSET 33199 Completed 09/30/2022 VITAMIN D LEVEL ONCE IN A LIFETIME-USE SMARTSET# [id number] Completed 11/17/2022, 05/13/2022, 04/02/2022 GARDASIL-HPV IMMUNIZATION SERIES Aged Out No longer eligible based on patient's age to complete this topic MENINGOCOCCAL (MENACTRA/MENVEO) Aged Out No longer eligible based on patient's age to complete this topic documented as of this encounter Medical Devices Implanted Type Area Manager Sap Device Identifier Shelf Expiration Date Model / Serial / Lot Cement Hv-R C01a - [id number] Implanted:Qty: 1 on 05/14/2022 by Chao Lund MD at OR [facility] N/A: Spine Thoracic [employer] : NEURO CARE 01/03/2025 C01A / / [id number] documented as of this encounter Additional Health [...] Advance Directives occurred with: Patient Care Teams Terminal Carman Relationship Specialty Start Date End Date Camilla Chau DO [address] [place] [address] PCP - General Family Medicine 11/17/11 documented as of this encounter
--- OUTSIDE RECORDS SUMMARY | 2023-06-13 04:06 | External Medical Summary | Summary of Care ---
Author Name Unknown Organization [facility] Address [address] [place] [address] Phone [phone] Care Team Providers Care Malt Roaster Name Role Phone Camilla Chau DO Primary Care Provider + [phone] Reason for Visit * Reason Onset Date Comments Advice 04/09/2023 Encounter Details Date Type Department Care Team (Late st Contact Info) Description 04/09/[address] [facility] [address] [place] [address] Camilla Chau DO [address] [place] [address] Advice Allergies Active Allergy Reactions [...] hours as needed for Anxiety (take for room service food server anxiety PRN). 0 02/06/2023 Active Ondansetron HCl [...] Description 04/30/2023 2:00 PM EST Laboratory Laboratory, [place] [address] [facility] [place] [address] [facility] [address] [place] [address] 05/04/2023 10:30 AM EST Office Visit Orthopaedics [facility] 132 [facility] [place] [address] Gerda Cifuentes MD 132 [facility] [place] [address] 05/07/2023 3:00 PM EST Office Visit Hematology/Oncology [facility] 200 [facility] [place] [address] Elizabeth Serrano CRNP 400 [facility] [place] [address] 05/12/2023 10:30 AM EST Office Visit Rheumatology [address] [place] [address] Marcelo Kim CRNP [address] [place] [address] [place] [address] 07/13/2023 10:50 AM EDT Office Visit Family [facility] [address] [facility] [phone] Camilla Chau DO [address] [place] [address] 10/02/2023 11:00 AM EDT [facility] 132 [facility] [place] [address] 03/29/2024 3:00 PM EST Office Visit Dermatology, [place] [address] [place] [address] Keiko Almodovar PA-C [address] [address] [place] [address] Health Maintenance Due Date Last Done Comments [...] Additional history exists CKD PHOS USE SMARTSET 30213 09/26/2023 09/25/2022, 0 04/08/2018 DXA Scan 10/30/2023 10/29/2021, 10/29/2021 CKD HGB USE SMARTSET 74922 03/09/202403/09, 09/25/2022, 09/25/2022, Additional history exists Diabetes Screening 03/09/2026 03/09/2023, 0 09/25/2022, 05/13/2022, Additional history exists Lipid Panel 11/11/2026 11/11/2021, 11/04, 05/10/2020, Additional history exists Colonoscopy 04/18/2029 04/18/2019, 04/06, 12/16/2012, Additional history exists Colorectal Cancer Screening 04/18/2029 Pneumococcal Vaccine: Pediatrics (0 to 5 Years) and At-Risk Patients (6 to 64 Years) Completed 09/25/2022 LUNG CANCER SCREENING - USE SMARTSET 09090 Completed 09/30/2022 VITAMIN D LEVEL ONCE IN A LIFETIME-USE SMARTSET# 31345 Completed 11/17/2022, 05/13/2022, 04/02/2022 GARDASIL-HPV IMMUNIZATION SERIES Aged Out No longer eligible based on patient's age to complete this topic MENINGOCOCCAL (MENACTRA/MENVEO) Aged Out No longer eligible based on patient's age to complete this topic documented as of this encounter Medical Devices Implanted Type Area Fabrication Specialist Device Identifier Shelf Expiration Date Model / Serial / Lot Cement Hv-R C01a - [id number] Implanted:Qty: 1 on 05/14/2022 by Chao Lund MD at OR [facility] N/A: Spine Thoracic [employer] : NEURO CARE 01/03/2025 C01A / / [id number] documented as of this encounter Additional Health [...] Advance Directives occurred with: Patient Care Teams Malt Roaster Relationship Specialty Start Date End Date Camilla Chau DO [address] [facility] [place] [address] PCP - General Family Medicine 11/17/11 documented as of this encounter
--- OUTSIDE RECORDS SUMMARY | 2023-06-13 04:06 | External Medical Summary | Summary of Care ---
Author Name Unknown Organization [facility] Address [address] [place] [address] Phone [phone] Care Team Providers Care Energy Efficiency Specialist Name Role Phone Camilla Chau DO Primary Care Provider Encounter Details Date Type Department Care Team ([facility] st Contact Info) Description 04/20/2023 Patient [...] hours as needed for Anxiety (take for banquet server anxiety PRN). 0 02/06/2023 Active Furosemide [...] (premature atrial contraction),NICM (nonischemic cardiomyopathy) ([facility]) TAKE 1 TABLET BY MOUTH [...] mRNA, LNP-s, No Pre serve, 2-Dose Series ([employer]) 07/14/2020,06/23/2020 Pneumococcal Conjugate Vaccine, 20-valent (Prevn ar20) [...] 04/28/2023 3:00 PM EST Office Visit Cardiology, [facility] 132 [facility] [place] [address] Kitty Cali PA-C 132 [facility] [place] [address] 04/30/2023 2:00 PM EST Laboratory Laboratory, [place] [address] [place] [phone] [place] [address] [place] [address] 05/04/2023 10:30 AM EST Office Visit Orthopaedics [facility] 132 [facility] [place] [address] Gerda Cifuentes MD 132 [facility] [place] [address] 05/07/2023 3:00 PM EST Office Visit Hematology/Oncology [facility] [place] 200 [facility] [place] [address] Elizabeth Serrano CRNP [address] [place] [address] 05/12/2023 10:30 AM EST Office Visit Rheumatology [place] [address] [facility] [place] [address] Marcelo Kim CRNP [address] [place] [address] [place] [address] 07/13/2023 10:50 AM EDT Office Visit Family Practice, [place] [address] [facility] [phone] Camilla Chau DO 8[address] [facility] [address] 10/02/2023 11:00 AM EDT Imaging Radiology [address], [address] [place] [address] 03/29/2024 3:00 PM EST Office Visit Dermatology, [place] [address] [facility] [address] Keiko Almodovar PA-C [address] [place] [address] [place] [address] Health Maintenance Due Date Last Done Comments [...] Additional history exists CKD PHOS USE SMARTSET 50038 09/26/2023 09/25/2022, 0 04/08/2018 DXA Scan 10/30/2023 10/29/2021, 10/29/2021 CKD HGB USE SMARTSET 92082 03/09/202403/09, 09/25/2022, 09/25/2022, Additional history exists Diabetes Screening 03/09/2026 03/09/2023, 0 09/25/2022, 05/13/2022, Additional history exists Lipid Panel 11/11/2026 11/11/2021, 11/04, 05/10/2020, Additional history exists Colonoscopy 04/18/2029 04/18/2019, 04/06, 12/16/2012, Additional history exists Colorectal Cancer Screening 04/18/2029 Pneumococcal Vaccine: Pediatrics (0 to 5 Years) and At-Risk Patients (6 to 64 Years) Completed 09/25/2022 LUNG CANCER SCREENING - USE SMARTSET 37944 Completed 09/30/2022 VITAMIN D LEVEL ONCE IN A LIFETIME-USE SMARTSET# 48996 Completed 11/17/2022, 05/13/2022, 04/02/2022 GARDASIL-HPV IMMUNIZATION SERIES Aged Out No longer eligible based on patient's age to complete this topic MENINGOCOCCAL (MENACTRA/MENVEO) Aged Out No longer eligible based on patient's age to complete this topic documented as of this encounter Medical Devices Implanted Type Area Zig Zag Spring Machine Operator Device Identifier Shelf Expiration Date Model / Serial / Lot Cement Hv-R C01a - [id number] Implanted:Qty: 1 on 05/14/2022 by Chao Lund MD at OR [facility] N/A: Spine Thoracic [employer] : NEURO CARE 01/03/2025 C01A / / [id number] documented as of this encounter Additional Health [...] Advance Directives occurred with: Patient Care Teams Energy Efficiency Specialist Relationship Specialty Start Date End Date Camilla Chau DO [address] [place] [address] PCP - General Family Medicine 11/17/11 documented as of this encounter
--- OUTSIDE RECORDS SUMMARY | 2023-06-13 04:06 | External Medical Summary | Summary of Care ---
Author Name Unknown Organization [facility] Address [address] [place] [address] Phone [phone] Care Team Providers Care Cad Drafter Name Role Phone Camilla Chau DO Primary Care Provider Encounter Details Date Type Department Care Team ([facility] st Contact Info) Description 04/20/2023 Patient Reported [...] (toPROL XL)Indications:PAC (premature atrial contraction),NICM (nonischemic cardiomyopathy) ([facility]) TAKE 1 TABLET BY MOUTH EVERY DAY [...] mRNA, LNP-s, No Pre serve, 2-Dose Series ([employer]) 07/14/2020,06/23/2020 Pneumococcal Conjugate Vaccine, 20-valent (Prevn ar20) [...] 04/28/2023 3:00 PM EST Office Visit Cardiology, [facility] 132 [facility] [place] [address] Kitty Cali PA-C 132 [facility] [place] [address] 04/30/2023 2:00 PM EST Laboratory Laboratory, [place] [address] [place] [address] [place] [address] [place] [address] 05/04/2023 10:30 AM EST Office Visit Orthopaedics [facility] 132 [facility] [place] [address] Gerda Cifuentes MD 132 [facility] [place] [address] 05/07/2023 3:00 PM EST Office Visit Hematology/Oncology [facility] [place] 200 [facility] [place] [address] Elizabeth Serrano CRNP [address] [place] [address] 05/12/2023 10:30 AM EST Office Visit Rheumatology [place] [address] [facility] [place] [address] Marcelo Kim CRNP [address] [place] [address] [place] [address] 07/13/2023 10:50 AM EDT Office Visit Family Practice, [place] [facility] [facility] [phone] Camilla Chau DO [facility] [address] 10/02/2023 11:00 AM EDT Imaging Radiology [address], [address] [place] [address] 03/29/2024 3:00 PM EST Office Visit Dermatology, [place] 8[address] [facility] [address] Keiko Almodovar PA-C [address] [place] [address] [place] [address] Health Maintenance Due Date Last Done Comments [...] Additional history exists CKD PHOS USE SMARTSET 03168 09/26/2023 09/25/2022, 0 04/08/2018 DXA Scan 10/30/2023 10/29/2021, 10/29/2021 CKD HGB USE SMARTSET 54138 03/09/202403/09, 09/25/2022, 09/25/2022, Additional history exists Diabetes Screening 03/09/2026 03/09/2023, 0 09/25/2022, 05/13/2022, Additional history exists Lipid Panel 11/11/2026 11/11/2021, 11/04, 05/10/2020, Additional history exists Colonoscopy 04/18/2029 04/18/2019, 04/06, 12/16/2012, Additional history exists Colorectal Cancer Screening 04/18/2029 Pneumococcal Vaccine: Pediatrics (0 to 5 Years) and At-Risk Patients (6 to 64 Years) Completed 09/25/2022 LUNG CANCER SCREENING - USE SMARTSET 77256 Completed 09/30/2022 VITAMIN D LEVEL ONCE IN A LIFETIME-USE SMARTSET# 59723 Completed 11/17/2022, 05/13/2022, 04/02/2022 GARDASIL-HPV IMMUNIZATION SERIES Aged Out No longer eligible based on patient's age to complete this topic MENINGOCOCCAL (MENACTRA/MENVEO) Aged Out No longer eligible based on patient's age to complete this topic documented as of this encounter Medical Devices Implanted Type Area Rural Mail Carrier Device Identifier Shelf Expiration Date Model / Serial / Lot Cement Hv-R C01a - [id number] Implanted:Qty: 1 on 05/14/2022 by Chao Lund MD at OR [facility] N/A: Spine Thoracic [employer] : NEURO CARE 01/03/2025 C01A / / [id number] documented as of this encounter Additional Health [...] Advance Directives occurred with: Patient Care Teams Cad Drafter Relationship Specialty Start Date End Date Camilla Chau DO [address] [place] [address] PCP - General Family Medicine 11/17/11 documented as of this encounter
--- OUTSIDE RECORDS SUMMARY | 2023-06-13 04:06 | External Medical Summary | Summary of Care ---
Author Name Unknown Organization [facility] Address [address] [place] [address] Phone [phone] Care Team Providers Care Pricing Strategist Name Role Phone Alvarez Caldera DO Primary Care Provider [phone] Reason for Visit * Reason Onset Date Comments Medication Refill 04/12/2023 Encounter Details Date Type Department Care Team (Late st Contact Info) Description 04/12/[address] [facility] [address] [place] [address] Alvarez Caldera DO [address] [place] [address] Allergies Active Allergy Reactions Criticality Noted Date Comments Oxybutynin 08/31/2018 Terrible dry mouth and constipation Influenza Vaccines 12/27/2021 Pt stated she won't get it because it makes her "deathly ill" documented as of this encounter (statuses as of 04/15/2023) Medications Medication Sig Dispensed Refills Start Date [...] hours as needed for Anxiety (take for dining car server anxiety PRN). 0 02/06/2023 Active Furosemide [...] for Nausea. 30 Tablet 0 04/15/2023 Active Ondansetron HCl 4 MG Oral Tablet Take 1 Tablet by mouth every 6 hours as needed for Nausea. 30 Tablet 0 03/09/2023 04/12/2023 Discontinue d(Refill) documented as of this encounter (statuses as of 04/15/2023) Active Problems Problem Noted Date Diagnosed Date [...] as of this encounter (statuses as of 04/15/2023) Resolved Problems Problem Noted Date Diagnosed Date [...] as of this encounter (statuses as of 04/15/2023) Immunizations Name Administration Dates Next Due COVID-19 [...] Telephone Encounter - Alvarez Caldera DO - 04/15/2023 2:22 PM ESTSigned Prescriptions: Disp Refills Ondansetron HCl 4 MG Oral Tablet 30 Tab*0 Sig: Take 1 Tablet by mouth every 6 hours as needed for Nausea. Authorizing Provider: ALVAREZ CALDERA * Telephone Encounter - Linh Mejía [facility] - 04/14/2023 10:17 AM EST Pending Prescriptions: Disp Refills Ondansetron HCl 4 MG Oral Tablet 30 Tab*0 Sig: Take 1 Tablet by mouth every 6 hours as needed for Nausea. * Telephone Encounter - Linh Mejía RPh - 04/14/2023 10:17 AM EST Patient comment: I usually take 1 pill in the AM because I seem to be nauseated first thing in the morning. Forwarding to provider for further evaluation. Please approve and authorize additional refills if you would like patient to continue this medication. Thanks, Linh Mejía, PharmD Clinical Pharmacist [facility] ([facility]) (formerly Telepharmacy) [phone] 04/14/2023,10:17 AM documented in this encounter Plan of Treatment Upcoming Encounters Date Type Department Care Team (Late st Contact Info) Description 04/28/2023 3:00 PM EST Office Visit Cardiology, [facility] [address] [place] [address] Kitty Cali PA-C 132 [place] [address] 04/30/2023 2:00 PM EST Laboratory Laboratory, [address] [phone] [place] [address] [place] [address] 05/04/2023 10:30 AM EST Office Visit Orthopaedics [facility] 132 [place] [address] Gerda Cifuentes MD 132 [place] [address] 05/07/2023 3:00 PM EST Office Visit Hematology/Oncology [facility] [address] [place] [address] Elizabeth Serrano CRNP [address] [place] [address] 05/12/2023 10:30 AM EST Office Visit Rheumatology [facility] 2520 [facility] [place], [place] [address] Marcelo Kim CRNP 2520 [facility] [place], [place] [address] 07/13/2023 10:50 AM EDT Office Visit Family Practice, [place] [address] [facility] [place] [phone] Alvarez Caldera DO [address] [place] [address] 10/02/2023 11:00 AM EDT Imaging Radiology [address] 132 [facility] [address] 03/29/2024 3:00 PM EST Office Visit Dermatology, [place] [address] [place] [address] Keiko Almodovar PA-C [address] [place] [address] [place] [address] Health Maintenance Due Date Last Done Comments [...] Additional history exists CKD PHOS USE SMARTSET 05812 09/26/2023 09/25/2022, 0 04/08/2018 DXA Scan 10/30/2023 10/29/2021, 10/29/2021 CKD HGB USE SMARTSET 84349 03/09/202403/09, 09/25/2022, 09/25/2022, Additional history exists Diabetes Screening 03/09/2026 03/09/2023, 0 09/25/2022, 05/13/2022, Additional history exists Lipid Panel 11/11/2026 11/11/2021, 11/04, 05/10/2020, Additional history exists Colonoscopy 04/18/2029 04/18/2019, 04/06, 12/16/2012, Additional history exists Colorectal Cancer Screening 04/18/2029 Pneumococcal Vaccine: Pediatrics (0 to 5 Years) and At-Risk Patients (6 to 64 Years) Completed 09/25/2022 LUNG CANCER SCREENING - USE SMARTSET 24296 Completed 09/30/2022 VITAMIN D LEVEL ONCE IN A LIFETIME-USE SMARTSET# 03377 Completed 11/17/2022, 05/13/2022, 04/02/2022 GARDASIL-HPV IMMUNIZATION SERIES Aged Out No longer eligible based on patient's age to complete this topic MENINGOCOCCAL (MENACTRA/MENVEO) Aged Out No longer eligible based on patient's age to complete this topic documented as of this encounter Medical Devices Implanted Type Area Test Car Driver Device Identifier Shelf Expiration Date Model / Serial / Lot Cement Hv-R C01a - [id number] Implanted:Qty: 1 on 05/14/2022 by Chao Lund MD at OR [facility] N/A: Spine Thoracic [employer] : NEURO CARE 01/03/2025 C01A / / [id number] documented as of this encounter Additional Health [...] Advance Directives occurred with: Patient Care Teams Pricing Strategist Relationship Specialty Start Date End Date Alvarez Caldera DO [address] [facility] [place] [address] PCP - General Family Medicine 11/17/11 documented as of this encounter
--- OUTSIDE RECORDS SUMMARY | 2023-06-13 04:06 | External Medical Summary | Summary of Care ---
Author Name Unknown Organization [facility] Address [address] [place] [address] Phone [phone] Care Team Providers Care Coke Worker Name Role Phone Camilla Chau DO Primary Care Provider + [phone] Reason for Visit * Reason Onset Date Comments Advice 04/09/2023 Encounter Details Date Type Department Care Team (Late st Contact Info) Description 04/09/2023 Telephone [facility] [address] [place] [address] Camilla Chau DO [address] [place] [address] Advice Allergies Active Allergy Reactions [...] buffet server anxiety PRN). 0 02/06/2023 Active Ondansetron [...] Description 04/30/2023 2:00 PM EST Laboratory Laboratory, [place] [address] [address] [facility] [place] [address] [facility] [address] [place] [address] 05/04/2023 10:30 AM EST Office Visit Orthopaedics [facility] 132 [facility] [place] [address] Gerda Cifuentes MD 132 [facility] [place] [address] 05/07/2023 3:00 PM EST Office Visit Hematology/Oncology [facility] 200 [facility] [place] [address] Elizabeth Serrano CRNP 400 [facility] [place] [address] 05/12/2023 10:30 AM EST Office Visit Rheumatology [address] [place] [address] Marcelo Kim CRNP [address] [place] [address] [place] [address] 07/13/2023 10:50 AM EDT Office Visit Family [facility] [address] [place] [facility] [place] [phone] Camilla Chau DO [address] [place] [address] 10/02/2023 11:00 AM EDT Imaging [facility] 132 [facility] [place] [address] 03/29/2024 3:00 PM EST Office Visit Dermatology, [place] [address] [place] [address] Keiko Almodovar PA-C [address] [place] [address] [place] [address] Health Maintenance Due Date Last Done Comments [...] Additional history exists CKD PHOS USE SMARTSET 91652 09/26/2023 09/25/2022, 0 04/08/2018 DXA Scan 10/30/2023 10/29/2021, 10/29/2021 CKD HGB USE SMARTSET 16921 03/09/202403/09, 09/25/2022, 09/25/2022, Additional history exists Diabetes Screening 03/09/2026 03/09/2023, 0 09/25/2022, 05/13/2022, Additional history exists Lipid Panel 11/11/2026 11/11/2021, 11/04, 05/10/2020, Additional history exists Colonoscopy 04/18/2029 04/18/2019, 04/06, 12/16/2012, Additional history exists Colorectal Cancer Screening 04/18/2029 Pneumococcal Vaccine: Pediatrics (0 to 5 Years) and At-Risk Patients (6 to 64 Years) Completed 09/25/2022 LUNG CANCER SCREENING - USE SMARTSET 05841 Completed 09/30/2022 VITAMIN D LEVEL ONCE IN A LIFETIME-USE SMARTSET# 98446 Completed 11/17/2022, 05/13/2022, 04/02/2022 GARDASIL-HPV IMMUNIZATION SERIES Aged Out No longer eligible based on patient's age to complete this topic MENINGOCOCCAL (MENACTRA/MENVEO) Aged Out No longer eligible based on patient's age to complete this topic documented as of this encounter Medical Devices Implanted Type Area Structural Steel Worker Helper Device Identifier Shelf Expiration Date Model / Serial / Lot Cement Hv-R C01a - [id number] Implanted:Qty: 1 on 05/14/2022 by Chao Lund MD at OR [facility] N/A: Spine Thoracic [employer] : NEURO CARE 01/03/2025 C01A / / [id number] documented as of this encounter Additional Health [...] Advance Directives occurred with: Patient Care Teams Coke Worker Relationship Specialty Start Date End Date Camilla Chau DO [address] [facility] [place] [address] PCP - General Family Medicine 11/17/11 documented as of this encounter
--- OUTSIDE RECORDS SUMMARY | 2023-06-13 04:06 | External Medical Summary | Summary of Care ---
Author Name Unknown Organization [facility] Address [address] [place] [address] Phone [phone] Care Team Providers Care Piece Dye Worker Name Role Phone Camilla Chau DO Primary Care Provider + [phone] Reason for Visit * Reason Onset Date Comments Advice 04/09/2023 Encounter Details Date Type Department Care Team (Late st Contact Info) Description 04/09/2023 Telephone [facility] [address] [place] [address] Camilla Chau DO [address] [place] [address] Advice Allergies Active Allergy Reactions [...] hours as needed for Anxiety (take for wine bottle inspector anxiety PRN). 0 02/06/2023 Active Furosemide 20 [...] 04/28/2023 3:00 PM EST Office Visit Cardiology, [facility] [address] [place] [address] Kitty Cali PA-C [address] [place] [address] 04/30/2023 2:00 PM EST Laboratory Laboratory, [place] [address] [place] [phone] [place] [address] [place] [address] 05/04/2023 10:30 AM EST Office Visit Orthopaedics [facility] [address] [place] [address] Gerda Cifuentes MD [address] [place] [address] 05/07/2023 3:00 PM EST Office Visit Hematology/Oncology [facility] 200 [facility] [address] Elizabeth Serrano CRNP [address] [place] [address] [place] [address] 05/12/2023 10:30 AM EST Office Visit Rheumatology [facility] 25[address] [facility] [place] [address] Marcelo Kim CRNP [address] [facility] [place] [address] 07/13/2023 10:50 AM EDT Office Visit Family Practice, [place] [address] [facility], [place] [address] Camilla Chau DO [address] [place] [address] 10/02/2023 11:00 AM EDT Imaging Radiology [facility] 1st [facility] [place] 132 [facility] [place] [address] 03/29/2024 3:00 PM EST Office Visit Dermatology, [place] [address] [place] [facility] [place] [address] Keiko Almodovar PA-C [address] [place] [address] [place] [address] Health Maintenance Due Date Last Done Comments [...] Additional history exists CKD PHOS USE SMARTSET 39201 09/26/2023 09/25/2022, 0 04/08/2018 DXA Scan 10/30/2023 10/29/2021, 10/29/2021 CKD HGB USE SMARTSET 71494 03/09/202403/09, 09/25/2022, 09/25/2022, Additional history exists Diabetes Screening 03/09/2026 03/09/2023, 0 09/25/2022, 05/13/2022, Additional history exists Lipid Panel 11/11/2026 11/11/2021, 11/04, 05/10/2020, Additional history exists Colonoscopy 04/18/2029 04/18/2019, 04/06, 12/16/2012, Additional history exists Colorectal Cancer Screening 04/18/2029 Pneumococcal Vaccine: Pediatrics (0 to 5 Years) and At-Risk Patients (6 to 64 Years) Completed 09/25/2022 LUNG CANCER SCREENING - USE SMARTSET 58730 Completed 09/30/2022 VITAMIN D LEVEL ONCE IN A LIFETIME-USE SMARTSET# 18488 Completed 11/17/2022, 05/13/2022, 04/02/2022 GARDASIL-HPV IMMUNIZATION SERIES Aged Out No longer eligible based on patient's age to complete this topic MENINGOCOCCAL (MENACTRA/MENVEO) Aged Out No longer eligible based on patient's age to complete this topic documented as of this encounter Medical Devices Implanted Type Area Manager Practice Device Identifier Shelf Expiration Date Model / Serial / Lot Cement Hv-R C01a - [id number] Implanted:Qty: 1 on 05/14/2022 by Chao Lund MD at OR [facility] N/A: Spine Thoracic [employer] : NEURO CARE 01/03/2025 C01A / / [id number] documented as of this encounter Additional Health [...] Advance Directives occurred with: Patient Care Teams Piece Dye Worker Relationship Specialty Start Date End Date Camilla Chau DO [address] [facility] [place] [address] PCP - General Family Medicine 11/17/11 documented as of this encounter
--- OUTSIDE RECORDS SUMMARY | 2023-06-13 04:06 | External Medical Summary | Summary of Care ---
Author Name Unknown Organization [facility] Address [address] [place] [address] Phone [phone] Care Team Providers Care Home Health Lpn Name Role Phone Camilla Chau DO Primary Care Provider + [phone] Reason for Visit * Reason Onset Date Comments Advice 04/09/2023 Encounter Details Date Type Department Care Team (Late st Contact Info) Description 04/09/2023 Telephone [facility] [address] [place] [address] Camilla Chau DO [address] [place] [address] Advice Allergies Active Allergy Reactions [...] hours as needed for Anxiety (take for process server anxiety PRN). 0 02/06/2023 Active Furosemide [...] 04/28/2023 3:00 PM EST Office Visit Cardiology, [facility] [address] [place] [address] Kitty Cali PA-C [address] [place] [address] 04/30/2023 2:00 PM EST Laboratory Laboratory, [place] [address] [place] [phone] [place] [address] [place] [address] 05/04/2023 10:30 AM EST Office Visit Orthopaedics [facility] [address] [place] [address] Gerda Cifuentes MD [address] [place] [address] 05/07/2023 3:00 PM EST Office Visit Hematology/Oncology [facility] 200 [facility] [address] Elizabeth Serrano CRNP [address] [place] [address] [place] [address] 05/12/2023 10:30 AM EST Office Visit Rheumatology [facility] [address] [facility] [place] [address] Marcelo Kim CRNP [address] [facility] [place] [address] 07/13/2023 10:50 AM EDT Office Visit Family Practice, [place] [address] [facility], [place] [address] Camilla Chau DO [address] [place] [address] 10/02/2023 11:00 AM EDT Imaging Radiology [facility] 1st [facility] [place] 132 [facility] [place] [address] 03/29/2024 3:00 PM EST Office Visit Dermatology, [place] [address] [place] [facility] [place] [address] Keiko Almodovar PA-C [address] [place] [address] [place] [address] Health Maintenance Due Date Last Done Comments [...] Additional history exists CKD PHOS USE SMARTSET 87662 09/26/2023 09/25/2022, 0 04/08/2018 DXA Scan 10/30/2023 10/29/2021, 10/29/2021 CKD HGB USE SMARTSET 45774 03/09/202403/09, 09/25/2022, 09/25/2022, Additional history exists Diabetes Screening 03/09/2026 03/09/2023, 0 09/25/2022, 05/13/2022, Additional history exists Lipid Panel 11/11/2026 11/11/2021, 11/04, 05/10/2020, Additional history exists Colonoscopy 04/18/2029 04/18/2019, 04/06, 12/16/2012, Additional history exists Colorectal Cancer Screening 04/18/2029 Pneumococcal Vaccine: Pediatrics (0 to 5 Years) and At-Risk Patients (6 to 64 Years) Completed 09/25/2022 LUNG CANCER SCREENING - USE SMARTSET 45207 Completed 09/30/2022 VITAMIN D LEVEL ONCE IN A LIFETIME-USE SMARTSET# 31357 Completed 11/17/2022, 05/13/2022, 04/02/2022 GARDASIL-HPV IMMUNIZATION SERIES Aged Out No longer eligible based on patient's age to complete this topic MENINGOCOCCAL (MENACTRA/MENVEO) Aged Out No longer eligible based on patient's age to complete this topic documented as of this encounter Medical Devices Implanted Type Area Wedding Day Coordinator Device Identifier Shelf Expiration Date Model / Serial / Lot Cement Hv-R C01a - [id number] Implanted:Qty: 1 on 05/14/2022 by Chao Lund MD at OR [facility] N/A: Spine Thoracic [employer] : NEURO CARE 01/03/2025 C01A / / [id number] documented as of this encounter Additional Health [...] Advance Directives occurred with: Patient Care Teams Home Health Lpn Relationship Specialty Start Date End Date Camilla Chau DO [address] [facility] [place] [address] PCP - General Family Medicine 11/17/11 documented as of this encounter
--- OUTSIDE RECORDS SUMMARY | 2023-06-13 04:07 | External Medical Summary | Summary of Care ---
Author Name Unknown Organization [facility] Address [address] [place] [address] Phone [phone] Care Team Providers Care Merchant Mariner Name Role Phone Camilla Chau DO Primary Care Provider [phone] Reason for Visit * Reason Onset Date Comments Appointment 03/04/2023 Encounter Details Date Type Department Care Team (Late st Contact Info) Description 03/04/2023 Telephone Wound Care, [address] [place] [address] Janet Dolan, [place] [address] [facility] [place] [address] Appointment Allergies Active Allergy Reactions Criticality Noted Date Comments Oxybutynin 08/31/2018 Terrible dry mouth and constipation Influenza Vaccines 12/27/2021 Pt stated she won't get it because it makes her "deathly ill" documented as of this encounter (statuses as of 03/04/2023) Medications Medication Sig Dispensed Refills Start Date [...] Excedrin Extra Strength 250-250-65 MG Oral Tablet (Aspirin-Acetaminop hen-Caffeine) Take 2 Tablets by mouth every 8 hours as needed. 0 Active Metoprolol Succinate ER 25 MG Oral Tablet Extended Release 24 Hour (toPROL XL)Indications:PAC (premature atrial contraction),NICM (nonischemic cardiomyopathy) ([facility]) TAKE 1 TABLET BY MOUTH EVERY DAY 90 Tablet 3 02/17/2022 Active hydrOXYzine Pamoate 25 MG Oral Capsule Take 1 Capsule by mouth 3 times a day as needed for Anxiety. 0 Active Docusate Sodium 100 MG Oral Capsule (Colace) Take 1 Capsule by mouth in the morning and 1 Capsule before bedtime. 0 Active Insulin Pen Needle 31G X 5 MM USE TO INJECT FORTEO EVERY DAY 30 Each 11 04/09/2022 04/09/2023 Active hydrOXYzine Pamoate 50 MG Oral Capsule [...] 09/25/2022 Active Famotidine 40 MG Oral Tablet (Pepcid)Indications :Gastroesophageal reflux disease without esophagitis Take 1 Tablet [...] Active Triamcinolone Acetonide 0.1 % External Cream (Aristocort)Indicat ions:Rash and nonspecific skin eruption Apply topically to affected area 2 times a day. To affected area. 15 g 5 02/10/2023 Active Ondansetron HCl 4 MG Oral TabletIndications:C ellulitis of left lower extremity,Celluliti s of right lower extremity,Edema, unspecified type Take 1 Tablet by mouth every 8 hours as needed for Nausea. 30 Tablet 0 02/24/2023 Active Doxycycline Hyclate 100 MG Oral CapsuleIndications: Cellulitis of left lower extremity,Celluliti s of right lower extremity,Edema, unspecified type Take 1 Capsule by mouth in the morning and 1 Capsule before bedtime. Do all this for 10 days. Take for 7 days. 20 Capsule 0 02/24/2023 03/06/2023 Active Mupirocin 2 % External Ointment (Bactroban)Indicati ons:Cellulitis of left lower extremity,Celluliti s of right lower extremity,Edema, unspecified type Apply topically to affected area 3 times a day for 14 days. To affected area for up to 14 days. 30 g 2 02/24/2023 03/10/2023 Active documented as of this encounter (statuses as of 03/04/2023) Active Problems Problem Noted Date Diagnosed Date Iron deficiency anemia 02/05/2022 Hx of nonmelanoma skin cancer 01/30/2022 Overview: basal cell carcinoma (L central upper abdomen 01/25) Prediabetes 12/16/2021 Overview: Per Prediabetes protocol Chronic kidney disease, stage 3b 10/14/2021 Overview: [...] as of this encounter (statuses as of 03/04/2023) Resolved Problems Problem Noted Date Diagnosed Date Resolved Date Stage 3b chronic kidney disease 02/05/2022 02/20/2022 Stage 3a chronic kidney disease 02/13/2020 10/17/2021 [...] as of this encounter (statuses as of 03/04/2023) Immunizations Name Administration Dates Next Due COVID-19 [...] encounter Miscellaneous Notes * Telephone Encounter - Manjula Sweet OSA - 03/04/2023 10:26 AM EST Patient called back and is rescheduled and aware. * Telephone Encounter - Manjula Sweet OSA - 03/04/2023 9:04 AM EST Called patient and LM for them to Cb and reschedule their appointment today to next Thursday with Dr. Dolan. documented in this encounter Plan of Treatment Upcoming Encounters Date Type Department Care Team (Late st Contact Info) Description 03/09/2023 12:30 PM EST Office Visit [facility] [address] [facility] [phone] Camilla Chau DO [address] [facility] [place] [address] 03/11/2023 10:20 AM EST Office Visit Wound Care, [address] [place] [address] Janet Dolan DPM [address] [place] [address] 03/12/2023 1:20 PM EST Office Visit Dermatology, [place] [address] [place] [address] Keiko Almodovar PA-C [address] [place] [address] [place] [address] 04/30/2023 2:00 PM EST Laboratory Laboratory, [place] [address] [place] [phone] [place], Laboratory [address] [place] [address] 05/04/2023 10:30 AM EST Office [facility] [place] [address] Gerda [facility]ifuentes MD [facility] [place] [address] 05/07/2023 3:00 PM EST Office Visit Hematology/Oncology [facility] [address] [facility] [place] [address] Elizabeth Serrano CRNP [address] [place] [address] 05/12/2023 10:30 AM EST Office Visit Rheumatology [facility] [address] [facility] [place] [address] Marcelo Kim CRNP [address] [facility] [place] [address] Health Maintenance Due Date Last Done Comments [...] 12/05/2021 Influenza Vaccine (FLU shot) (#1) 2022 HbA1c 05/13/2023 05/13/2022, 080 11/2021, 09/23/2021, Additional history exists GFR 05/20/2023 11/17/2022, 09/05, 05/13/2022, Additional history exists Mammogram 08/05/2023 08/04/2022, 050 04/2022, 07/09/2021, Additional history exists Albumin/Creatinine Ratio 09/26/2023 023, 09/23/2021, 08/08/2020, Additional history exists CKD HGB USE SMARTSET 80278 09/26/202309/25, 09/25/2022, 05/13/2022, Additional history exists CKD PHOS USE SMARTSET 01153 09/26/2023 09/25/2022, 0 04/08/2018 DXA Scan 10/30/2023 10/29/2021, 10/29/2021 Lipid Panel 11/11/2026 11/11/2021, 11/04, 05/10/2020, Additional history exists Colonoscopy 04/18/2029 04/18/2019, 04/06, 12/16/2012, Additional history exists Colorectal Cancer Screening 04/18/2029 Pneumococcal Vaccine: Pediatrics (0 to 5 Years) and At-Risk Patients (6 to 64 Years) Completed 09/25/2022 LUNG CANCER SCREENING - USE SMARTSET 23514 Completed 09/30/2022 VITAMIN D LEVEL ONCE IN A LIFETIME-USE SMARTSET# 14453 Completed 11/17/2022, 05/13/2022, 04/02/2022 GARDASIL-HPV IMMUNIZATION SERIES Aged Out No longer eligible based on patient's age to complete this topic MENINGOCOCCAL (MENACTRA/MENVEO) Aged Out No longer eligible based on patient's age to complete this topic documented as of this encounter Medical Devices Implanted Type Area Citrus Peeler Device Identifier Shelf Expiration Date Model / Serial / Lot Cement Hv-R C01a - [id number] Implanted:Qty: 1 on 05/14/2022 by Chao Lund MD at OR [facility] N/A: Spine Thoracic [employer] : NEURO CARE 01/03/2025 C01A / / [id number] documented as of this encounter Additional Health [...] Advance Directives occurred with: Patient Care Teams Merchant Mariner Relationship Specialty Start Date End Date Camilla Chau DO [address] [place] [address] PCP - General Family Medicine 11/17/11 documented as of this encounter
--- OUTSIDE RECORDS SUMMARY | 2023-06-13 04:07 | External Medical Summary ---
Author Name Unknown Address Unknown Organization K01:[facility] [address] [facility] [address] [facility] [address] Laboratory Report Ordering Provider Test Date Status VERENICE PINO 03/09/2023 13:48:50 Final Observation Date Value Abnormality Reference (Units ) Status BUN 03/09/2023 13:48:50 30 Above high normal 6-20 (mg/dL) Final Creatinine 03/09/2023 13:48:50 1.2 Above high normal 0.5-1.0 (mg/dL) Final Glomerular filtration rate/1.73 sq M.predicted [Volume Rate/Area] in Serum, Plasma or Blood by Creatinine-based formula (CKD-EPI) 03/09/2023 13:48:50 50 Below low normal >=60 (mL/min) Final eGFR is calculated based on the CKD-EPI 2020 equation SODIUM 03/09/2023 13:48:50 141 135-146 (m mol/L) Final Potassium 03/09/2023 13:48:50 3.9 3.5-5.1 (m mol/L) Final Cl 03/09/2023 13:48:50 103 98-107 (mm ol/L) Final CO2 03/09/2023 13:48:50 28 22-32 (mmo l/L) Final Anion gap 03/09/2023 13:48:50 10 7-15 (mmol /L) Final Glucose 03/09/2023 13:48:50 85 70-120 (mg /dL) Final Calcium 03/09/2023 13:48:50 8.8 8.4-10.2 ( mg/dL) Final Performing Location [facility] [address] [facility] [address]
--- OUTSIDE RECORDS SUMMARY | 2023-06-13 04:07 | External Medical Summary | Summary of Care ---
Author Name Unknown Organization [facility] Address [address] [place] [address] Phone [phone] Care Team Providers Care Front Office Spec Name Role Phone Camilla Chau DO Primary Care Provider + [phone] Reason for Visit * Reason Onset Date Comments Advice 04/09/2023 Encounter Details Date Type Department Care Team (Late st Contact Info) Description 04/09/2023 Telephone [facility] [address] [place] [address] Camilla Chau DO [address] [place] [address] Advice Allergies Active Allergy Reactions Criticality Noted Date Comments Oxybutynin 08/31/2018 Terrible dry mouth and constipation Influenza Vaccines 12/27/2021 Pt stated she won't get it because it makes her "deathly ill" documented as of this encounter (statuses as of 04/10/2023) Medications Medication Sig Dispensed Refills Start Date [...] hours as needed for Anxiety (take for observer helper anxiety PRN). 0 02/06/2023 Active [...] as of this encounter (statuses as of 04/10/2023) Active Problems Problem Noted Date Diagnosed Date [...] as of this encounter (statuses as of 04/10/2023) Resolved Problems Problem Noted Date Diagnosed Date [...] as of this encounter (statuses as of 04/10/2023) Immunizations Name Administration Dates Next Due COVID-19 [...] Description 04/30/2023 2:00 PM EST Laboratory Laboratory, [place] [address] [place] [phone] Celia Robertson [address] [place] [address] 05/04/2023 10:30 AM EST Office Visit Orthopaedics [address] [place] [address] Gerda Cifuentes MD [facility] [place] [address] 05/07/2023 3:00 PM EST Office Visit Hematology/Oncology [facility] [place] [address] Elizabeth Serrano CRNP 400 [facility] [place] [address] 05/12/2023 10:30 AM EST Office Visit Rheumatology [facility] [address] [facility] [place] [address] Marcelo Kim CRNP [address] [facility] [place] [address] 07/13/2023 10:50 AM EDT Office Visit Family Practice, [place] [address] [facility] [place] [phone] Camilla Chau, DO [address] [place] [address] 10/02/2023 11:00 AM EDT Imaging Radiology [address] 132 [facility] [place] [address] 03/29/2024 3:00 PM EST Office Visit Dermatology, [place] [address] [place] [address] Keiko Almodovar PA-C [address] [place] [address] [place] [address] Health Maintenance Due Date Last Done Comments [...] Additional history exists CKD PHOS USE SMARTSET 23106 09/26/2023 09/25/2022, 0 04/08/2018 DXA Scan 10/30/2023 10/29/2021, 10/29/2021 CKD HGB USE SMARTSET 21304 03/09/202403/09, 09/25/2022, 09/25/2022, Additional history exists Diabetes Screening 03/09/2026 03/09/2023, 0 09/25/2022, 05/13/2022, Additional history exists Lipid Panel 11/11/2026 11/11/2021, 11/04, 05/10/2020, Additional history exists Colonoscopy 04/18/2029 04/18/2019, 04/06, 12/16/2012, Additional history exists Colorectal Cancer Screening 04/18/2029 Pneumococcal Vaccine: Pediatrics (0 to 5 Years) and At-Risk Patients (6 to 64 Years) Completed 09/25/2022 LUNG CANCER SCREENING - USE SMARTSET 41495 Completed 09/30/2022 VITAMIN D LEVEL ONCE IN A LIFETIME-USE SMARTSET# 28152 Completed 11/17/2022, 05/13/2022, 04/02/2022 GARDASIL-HPV IMMUNIZATION SERIES Aged Out No longer eligible based on patient's age to complete this topic MENINGOCOCCAL (MENACTRA/MENVEO) Aged Out No longer eligible based on patient's age to complete this topic documented as of this encounter Medical Devices Implanted Type Area Research Center Director Device Identifier Shelf Expiration Date Model / Serial / Lot Cement Hv-R [id number] - [id number] Implanted:Qty: 1 on 05/14/2022 by Chao Lund MD at OR [facility] N/A: Spine Thoracic [employer] : NEURO CARE 01/03/2025 C01A / / [id number] documented as of this encounter Additional Health [...] Advance Directives occurred with: Patient Care Teams Front Office Spec Relationship Specialty Start Date End Date Camilla Chau DO [address] [facility] [place] [address] PCP - General Family Medicine 11/17/11 documented as of this encounter
--- OUTSIDE RECORDS SUMMARY | 2023-06-13 04:07 | External Medical Summary ---
Author Name Unknown Address Unknown Organization K01:LABORATORY [facility] - [address] [place] [address] Laboratory Report Ordering Provider Test Date Status VERENICE PINO 03/09/2023 13:48:50 Final Observation Date Value Abnormality Reference (Units ) Status WBC, Total 03/09/2023 13:48:50 8.48 4.00-10.80 (K/uL) Final RBC 03/09/2023 13:48:50 3.23 3.85-5.15 (M/uL) Final Hemoglobin 03/09/2023 13:48:50 9.7 Below low normal 12.0-15.3 (g/dL) Final HCT 03/09/2023 13:48:50 31.5 Below low normal 36.0-45.2 (%) Final MCV 03/09/2023 13:48:50 97.5 81.5-97.5 (fL) Final MCH 03/09/2023 13:48:50 30.0 27.0-34.0 (pg) Final MCHC 03/09/2023 13:48:50 30.8 32.0-36.0 (g/dL) Final RDW 03/09/2023 13:48:50 13.9 11.5-15.5 (%) Final Platelets 03/09/2023 13:48:50 209 140-400 (K/uL) Final MPV 03/09/2023 13:48:50 11.1 6.6-11.1 (fL) Final Nucleated erythrocytes/100 leukocytes [Ratio] in Blood by Automated count 03/09/2023 13:48:50 0 <=0 (/100 WBCs) Final Performing Location LAB[facility]ORY [facility] - [address] [place] [place] [address]
--- OUTSIDE RECORDS SUMMARY | 2023-06-13 04:07 | External Medical Summary | Summary of Care ---
Author Name Unknown Organization [facility] Address [address] [place] [address] Phone [phone] Care Team Providers Care Woods Manager Name Role Phone Camilla Chau DO Primary Care Provider [phone] Reason for Visit * Reason Comments Outpatient Testing Encounter Details Date Type Department Care Team (Late st Contact Info) Description 03/09/2023 1:50 PM EST Laboratory Laboratory, [place] [address] [place] [address] [place] [address] [place] [address] Cellulitis and abscess of left leg; Chronic kidney disease, stage 3b (HCC) Allergies Active Allergy Reactions Criticality Noted Date Comments Oxybutynin 08/31/2018 Terrible dry mouth and constipation Influenza Vaccines 12/27/2021 Pt stated she won't get it because it makes her "deathly ill" documented as of this encounter (statuses as of 03/09/2023) Medications Medication Sig Dispensed Refills Start Date [...] (toPROL XL)Indications:PAC (premature atrial contraction),NICM (nonischemic cardiomyopathy) ([facility]) TAKE 1 TABLET BY MOUTH EVERY [...] DAY 30 Each 11 04/09/2022 04/09/2023 Active Additional Information Patient not taking.Reported on 03/09/2023 hydrOXYzine Pamoate 50 MG Oral Capsule (Vistaril) [...] for Nausea. 30 Tablet 0 02/24/2023 Active Mupirocin 2 % External Ointment (Bactroban)Indicat ions:Cellulitis of left lower extremity,Cellulit is of right lower extremity,Edema, unspecified type Apply topically to affected area 3 times a day for 14 days. To affected area for up to 14 days. 30 g 2 02/24/2023 03/10/2023 Active LORazepam 0.5 MG Oral Tablet (Ativan) Take 1 Tablet by mouth every 6 hours as needed for Anxiety (take for senior sql server database developer anxiety PRN). 0 02/06/2023 Active Doxycycline Hyclate 100 MG Oral CapsuleIndications :Cellulitis and abscess of left leg Take 1 Capsule by mouth in the morning and 1 Capsule before bedtime. Do all this for 10 days. Until gone.. 20 Capsule 0 03/09/2023 03/19/2023 Active Ondansetron HCl 4 MG Oral Tablet Take 1 Tablet by mouth every 6 hours as needed for Nausea. 30 Tablet 0 03/09/2023 Active Furosemide 20 MG Oral Tablet (Lasix)Indications :Lymphedema Take 1 Tablet by mouth in the morning. 30 Tablet 11 03/09/2023 Active Potassium Chloride ER 10 MEQ Oral Capsule Extended ReleaseIndications :Lymphedema Take 1 Capsule by mouth in the morning and 1 Capsule before bedtime. 60 Capsule 5 03/09/2023 Active documented as of this encounter (statuses as of 03/09/2023) Active Problems Problem Noted Date Diagnosed Date [...] as of this encounter (statuses as of 03/09/2023) Resolved Problems Problem Noted Date Diagnosed Date [...] as of this encounter (statuses as of 03/09/2023) Immunizations Name Administration Dates Next Due COVID-19 [...] Care Team (Late st Contact Info) Description 03/12/2023 1:20 PM EST Office Visit Dermatology, [place] [address] [address] [facility] [place] [address] Keiko Almodovar PA-C [address] [place] [address] [place] [address] 03/17/2023 11:45 AM EST Imaging Radiology [address], [address] [place] [address] 04/30/2023 2:00 PM EST Laboratory Laboratory, [place] [address] [place] [facility] [place] [phone] [facility] [address] [place] [address] 05/04/2023 10:30 AM EST Office Visit Orthopaedics [facility] [address] [facility] [place] [address] Gerda Cifuentes MD [address] [place] [address] 05/07/2023 3:00 PM EST Office Visit Hematology/Oncology [facility] 200 [facility], [place] [address] Elizabeth Serrano CRNP [address] [facility] [place] [address] 05/12/2023 10:30 AM EST Office Visit Rheumatology [facility] [address] [facility], [place] [address] Marcelo Kim CRNP [address] [place] [address] 07/13/2023 10:50 AM EDT Office Visit [facility] [address] [place] [phone] Camilla Chau DO [address] [place] [address] Pending Results Name Type Priority Associated Diagnoses Date /Time CBC Lab Routine Cellulitis and abscess of left leg 03/09/2023 1:48 PM EST BASIC METABOLIC PANEL Lab Routine Chronic kidney disease, stage 3b (HCC) 03/09/2023 1:48 PM EST Health Maintenance Due Date Last [...] (FLU shot) (#1) 2022 HbA1c 05/13/2023 05/13/2022, 08/0 11/2021, 09/23/2021, Additional history exists GFR 05/20/2023 11/17/2022, 09/05, 05/13/2022, Additional history exists Mammogram 08/05/2023 08/04/2022, 050 04/2022, 07/09/2021, Additional history exists Albumin/Creatinine Ratio 09/26/2023 023, 09/23/2021, 08/08/2020, Additional history exists CKD HGB USE SMARTSET 92815 09/26/202309/25, 09/25/2022, 05/13/2022, Additional history exists CKD PHOS USE SMARTSET 57069 09/26/2023 09/25/2022, 0 04/08/2018 DXA Scan 10/30/2023 10/29/2021, 10/29/2021 Lipid Panel 11/11/2026 11/11/2021, 11/04, 05/10/2020, Additional history exists Colonoscopy 04/18/2029 04/18/2019, 04/06, 12/16/2012, Additional history exists Colorectal Cancer Screening 04/18/2029 Pneumococcal Vaccine: Pediatrics (0 to 5 Years) and At-Risk Patients (6 to 64 Years) Completed 09/25/2022 LUNG CANCER SCREENING - USE SMARTSET 05523 Completed 09/30/2022 VITAMIN D LEVEL ONCE IN A LIFETIME-USE SMARTSET# 85238 Completed 11/17/2022, 05/13/2022, 04/02/2022 GARDASIL-HPV IMMUNIZATION SERIES Aged Out No longer eligible based on patient's age to complete this topic MENINGOCOCCAL (MENACTRA/MENVEO) Aged Out No longer eligible based on patient's age to complete this topic documented as of this encounter Medical Devices Implanted Type Area Fuller Brush Worker Device Identifier Shelf Expiration Date Model / Serial / Lot Cement Hv-R C01a - [id number] Implanted:Qty: 1 on 05/14/2022 by Chao Lund MD at OR [facility] N/A: Spine Thoracic [employer] : NEURO CARE 01/03/2025 C01A / / [id number] documented as of this encounter Visit Diagnoses Diagnosis Cellulitis and abscess of left leg Chronic kidney disease, stage 3b (HCC) documented in this encounter Additional Health Concerns [...] Advance Directives occurred with: Patient Care Teams Woods Manager Relationship Specialty Start Date End Date Camilla Chau DO [address] [facility] [place] [id number] PCP - General Family Medicine 11/17/11 documented as of this encounter
--- OUTSIDE RECORDS SUMMARY | 2023-06-13 04:07 | External Medical Summary | Summary of Care ---
Author Name Unknown Organization [facility] Address [address] [place] [address] Phone [phone] Care Team Providers Care Web Production Manager Name Role Phone Camilla Chau DO Primary Care Provider + [phone] Reason for Referral * Precert (Within 10 days (routine)) - Authorized Specialty Diagnoses / Procedures Referred By Contac t Referred To Contact Radiology Diagnoses Saddle anesthesia Closed fracture of sacrum, unspecified fracture morphology, sequela Procedures CT L SPINE WO CONTRAST Camilla Chau DO [address] [place] [address] Referral ID Status Reason Start Date Expiration Date V isits Requested Visits Authorized [id number] Authorized 03/09/2023 999 999 Reason for Visit * Reason Comments Follow Up Some changes since l ast visit Encounter Details Date Type Department Care Team (Late st Contact Info) Description 03/09/2023 12:30 PM EST Office Visit [facility] [address] [place] [phone] Camilla Chau DO [address], [place] [phone] Cellulitis and abscess of left leg*; Saddle anesthesia; Closed fracture of sacrum, unspecified fracture morphology, sequela; Chronic kidney disease, stage 3b (HCC); Lymphedema Allergies Active Allergy Reactions Criticality Noted Date [...] (nonischemic cardiomyopathy) ([facility]) TAKE 1 TABLET BY MOUTH EVERY [...] hours as needed for Anxiety (take for sql server architect anxiety PRN). 0 02/06/2023 Active Doxycycline Hyclate [...] diarrhea 03/13/2014 09/25/19 17 History of constipation 03/13/2014 0604/2016 Wound, open, ear 03/13/2014 09/24/2016 Seborrheic dermatitis [...] mRNA, LNP-s, No Pre serve, 2-Dose Series (UnBuyThat) 07/14/2020,06/23/2020 Pneumococcal Conjugate Vaccine, 20-valent (Prevn ar20) [...] Sign Reading Time Taken Comments Blood Pressure 122/64 03/09/2023 12:50 PM EST Pulse 80 03/09/2023 12:50 PM EST Temperature 36.7 C (98 F) 03/09/2023 12:50 PM EST Respiratory Rate 18 03/09/2023 12:50 PM EST Oxygen Saturation 99% 03/09/2023 12:50 PM EST Inhaled Oxygen Concentration - - Weight 69.4 kg (153 lb 1.6 oz) 03/09/2023 12:50 PM EST Height - - Body Mass Index 33.13 02/24/2023 3:22 PM EST documented in this encounter Progress Notes * Camilla Chau, DO - 03/09/2023 12:56 PM EST Subjective: Narcisa Thakur is a 58 year old female. Chief Complaint Patient presents with Follow Up Some changes since last visit HPI: 58 year old female with hx of osteoporosis, hx of opiate abuse, migraines, CRI, Hypothyroidismand on meds as listed. She was seen 02/10 for bilateral cellulitis, she has known lymphedema. She was given Keflex. She gotnauseated and stopped after 5 days, and then her infection was worse and was seen on 02/24 she had a Xray and was soft tissue swelling, and then had a culture completed and showed MRSA and was placedon doxy 100 mg and her last dose was this am. She was referred to see wound care, but her 1st appt was canceled and now has another one on Thursday. This is in [place], but she would like to be seen locally. She is not taking the lasix or using the compression socks as she suffered a sacral fracture and has pain with bending. Today she tells me that she gets a numb feeling in the private area, and at times is incontinent ofbowel she has been sitting a lot. Suffered a sacral fracture in January. Still ongoing pain. The wound on the L lower leg is better but still present. No fevers or chills. 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 Buprenorphine HCl-Naloxone HCl 8-2 MG Sublingual Film 1 Film in the morning and 1 Film before bedtime. Take one in the AM and one half film in PM. Topiramate 50 MG Oral Tablet Take 1 Tablet by mouth in the morning and 1 Tablet before bedtime. Excedrin Extra Strength 250-250-65 MG Oral Tablet (Wsmqtnz-Akzfiifeirgqa-Ulxtmtnz) Take 2 Tablets by mouth every 8 hours as needed. Metoprolol Succinate ER 25 MG Oral Tablet Extended Release 24 Hour (toPROL XL) TAKE 1 TABLET BY MOUTH EVERY DAY 90 Tablet 3 hydrOXYzine Pamoate 25 MG Oral Capsule Take 1 Capsule by mouth 3 times a day as needed for Anxiety. hydrOXYzine Pamoate 50 MG Oral Capsule (Vistaril) [...] as needed for Nausea. 30 Tablet 0 Mupirocin 2 % External Ointment (Bactroban) Apply topically to affected area 3 times a day for 14 days. To affected area for up to 14 days. 30 g 2 LORazepam 0.5 MG Oral Tablet (Ativan) Take 1 Tablet by mouth every 6 hours as needed for Anxiety (take for sql server architect anxiety PRN). Docusate Sodium 100 MG Oral Capsule (Colace) Take 1 Capsule by mouth in the morning and 1 Capsule before bedtime. Insulin Pen Needle 31G X 5 MM USE TO INJECT FORTEO EVERY DAY (Patient not taking: Reported on 03/09/2023) 30 Each 11 No current facility-administered medications for this visit. Review of patient's allergies indicates: Allergen Reactions Ditropan [Oxybutynin] Terrible dry mouth and constipation Influenza Vaccines Pt stated she won't get it because it makes her "deathly ill" Objective: BP 122/64 | Pulse 80 | Temp 36.7 C (98 F) (Infrared ) | Resp 18 | Wt 69.4 kg (153 lb 1.6 oz) | SpO2 99% | BMI 33.13 kg/m | BSA 1.67 m Physical Exam: General: alert, healthy, and no distress Heart: regular rate & rhythm, no murmur, and no gallops Lungs: chest symmetric with normal AP diameter, no chest deformities noted, no chest wall tenderness, lungs clear to auscultation Abdomen: abdomen soft, non-tender, normal bowel sounds, and no masses or organomegaly Extremities: bilateral lymphedema. L leg ulcerations, healed. No active drainage. Still some areas of open spots. ASSESSMENT/PLAN: Cellulitis and abscess of left leg (Primary) - CBC; Future; Expected date: 03/09/2023 - Doxycycline Hyclate 100 MG Oral Capsule; Take 1 Capsule by mouth in the morning and 1 Capsule before bedtime. Do all this for 10 days. Until gone.. Will extend meds for 5 more days, as she still has open areas. To use lasix daily. Wear compression socks. To see wound care at [facility] vs [place]. Saddle anesthesia - CT L SPINE WO CONTRAST; Future; Expected date: 03/09/2023 To check her spinal cord with CT scan. If symptoms worsen to report to the ER, we talked about going today, but her daughter's birthday istoday. To gt scan this week if possible. Closed fracture of sacrum, unspecified fracture morphology, sequela - CT L SPINE WO CONTRAST; Future; Expected date: 03/09/2023 Chronic kidney disease, stage 3b (HCC) - BASIC METABOLIC PANEL; Future; Expected date: 03/09/2023 Lymphedema - Furosemide 20 MG Oral Tablet (Lasix); Take 1 Tablet by mouth in the morning. - Potassium Chloride ER 10 MEQ Oral Capsule Extended Release; Take 1 Capsule by mouth in the morning and 1 Capsule before bedtime. Other orders - Ondansetron HCl 4 MG Oral Tablet; Take 1 Tablet by mouth every 6 hours as needed for Nausea. Follow-up: Return in about 4 months (around 07/09/2023). | Check-out note: CT scan of her back. Wound care pls cancel [place] and needs to see [facility]. Labs today. I spent a total of 40-54 minutes (exact time 40 mins) on the date of service in preparation, delivery, and documentation of the care provided to Narcisa Thakur excluding any time spent in the performance of separately billed services. Camilla Chau DO documented in this encounter Nursing Notes * Becca Queen LPN - 03/09/2023 12:44 PM EST Chief Complaint Patient presents with Follow Up Some changes since last visit documented in this encounter Plan of Treatment Upcoming Encounters Date Type Department Care Team (Late st Contact Info) Description 03/12/2023 1:20 PM EST Office Visit [facility] [place] [address] Keiko Almodovar PA-C [address] [place] [address] [place] [address] 03/17/2023 11:45 AM EST Imaging Radiology [facility] [facility] [place] [address] 04/30/2023 2:00 PM EST Laboratory Laboratory, [place] [address] [facility], [place] [address] [facility] Laboratory [address] [place] [facility] [place] [address] 05/04/2023 10:30 AM EST Office Visit Orthopaedics [facility] [place] [address] Gerda Cifuentes MD 132 [facility] [place] [address] 05/07/2023 3:00 PM EST Office Visit Hematology/Oncology [facility] 200 [facility] [address] Elizabeth [facility]errano CRNP [address] [facility] [place] [address] 05/12/2023 10:30 AM EST Office Visit Rheumatology [facility] [address] [facility] [place], [place] [address] Marcelo Kim CRNP [address] [facility], [place] [address] 07/13/2023 10:50 AM EDT Office Visit Family [facility], [place] [address] [facility] [phone] Camilla Chau DO [address] [place] [address] Pending Results Name Type Priority Associated Diagnoses Date /Time CBC Lab Routine Cellulitis and abscess of left leg 03/09/2023 1:48 PM EST BASIC METABOLIC PANEL Lab Routine Chronic kidney disease, stage 3b (HCC) 03/09/2023 1:48 PM EST Scheduled Orders Name Type Priority Associated Diagnoses Orde r Schedule CT L SPINE WO CONTRAST Medical Imaging Routine Saddle anesthesia Closed fracture of sacrum, unspecified fracture morphology, sequela Expected: 03/09/2023, Expires: 04/09/2024 CBC Lab Routine Cellulitis and abscess of left leg Expected: 03/09/2023 (Approximate), Expires: 03/08/2024 BASIC METABOLIC PANEL Lab Routine Chronic kidney disease, stage 3b (HCC) Expected: 03/09/2023 (Approximate), Expires: 03/08/2024 Health Maintenance Due Date Last Done Comments [...] 05/13/2022, Additional history exists Mammogram 08/05/2023 08/04/2022, 05/0 04/2022, 07/09/2021, Additional history exists Albumin/Creatinine Ratio 09/26/2023 023, 09/23/2021, 08/08/2020, Additional history exists CKD HGB USE SMARTSET 61127 09/26/202309/25, 09/25/2022, 05/13/2022, Additional history exists CKD PHOS USE SMARTSET 55648 09/26/2023 09/25/2022, 0 04/08/2018 DXA Scan 10/30/2023 10/29/2021, 10/29/2021 Lipid Panel 11/11/2026 11/11/2021, 11/04, 05/10/2020, Additional history exists Colonoscopy 04/18/2029 04/18/2019, 04/06, 12/16/2012, Additional history exists Colorectal Cancer Screening 04/18/2029 Pneumococcal Vaccine: Pediatrics (0 to 5 Years) and At-Risk Patients (6 to 64 Years) Completed 09/25/2022 LUNG CANCER SCREENING - USE SMARTSET 07299 Completed 09/30/2022 VITAMIN D LEVEL ONCE IN A LIFETIME-USE SMARTSET# 94495 Completed 11/17/2022, 05/13/2022, 04/02/2022 GARDASIL-HPV IMMUNIZATION SERIES Aged Out No longer eligible based on patient's age to complete this topic MENINGOCOCCAL (MENACTRA/MENVEO) Aged Out No longer eligible based on patient's age to complete this topic documented as of this encounter Medical Devices Implanted Type Area Ruby On Rails Engineer Device Identifier Shelf Expiration Date Model / Serial / Lot Cement Hv-R C01a - [id number] Implanted:Qty: 1 on 05/14/2022 by Chao Lund MD at OR [facility] N/A: Spine Thoracic [employer] : NEURO CARE 01/03/2025 C01A / / [id number] documented as of this encounter Visit Diagnoses Diagnosis Cellulitis and abscess of left leg- Primary Saddle anesthesia Disturbance of skin sensation Closed fracture of sacrum, unspecified fracture morphology, sequela Chronic kidney disease, stage 3b (HCC) Lymphedema Other lymphedema documented in this encounter Additional Health Concerns [...] Advance Directives occurred with: Patient Care Teams Web Production Manager Relationship Specialty Start Date End Date Camilla Chau DO [address] [place] [address] PCP - General Family Medicine 11/17/11 documented as of this encounter
--- OUTSIDE RECORDS SUMMARY | 2023-06-13 04:07 | External Medical Summary | Summary of Care ---
Author Name Unknown Organization [facility] Address [address] [place] [address] Phone [phone] Care Team Providers Care Wire Welder Name Role Phone Camilla Chau DO Primary Care Provider [phone] Reason for Visit * Reason Comments eRx-Medication Refill Encounter Details Date Type Department Care Team (Late st Contact Info) Description 04/01/2023 Refill Cardiology, [facility] [address] [place] [address] Zach Chau DO [address] [place] [address] PAC (premature atrial contraction); NICM (nonischemic cardiomyopathy) ([facility]) Allergies Active Allergy Reactions Criticality Noted Date Comments Oxybutynin 08/31/2018 Terrible dry mouth and constipation Influenza Vaccines 12/27/2021 Pt stated she won't get it because it makes her "deathly ill" documented as of this encounter (statuses as of 04/03/2023) Medications Medication Sig Dispensed Refills Start Date [...] FORTEO EVERY DAY 30 Each 11 04/09/2022 Active Additional Information Patient not taking.Reported on [...] DAY 90 Tablet 3 02/17/2022 3 Discontinued documented as of this encounter (statuses as of 04/03/2023) Active Problems Problem Noted Date Diagnosed Date [...] as of this encounter (statuses as of 04/03/2023) Resolved Problems Problem Noted Date Diagnosed Date [...] as of this encounter (statuses as of 04/03/2023) Immunizations Name Administration Dates Next Due COVID-19 [...] encounter Miscellaneous Notes * Telephone Encounter - Thelma Nix CMA [...] preferred pharmacy and medication before forwarding?yes Pharmacy: [id number] [address] [facility] Pending Prescriptions: Disp Refills [...] Description 04/30/2023 2:00 PM EST Laboratory Laboratory, [place] [address] [facility], [place] [phone] [facility] [address] [facility], [place] [address] 05/04/2023 10:30 AM EST Office Visit Orthopaedics [facility] [address] [place] [address] Gerda Cifuentes MD [address] [place] [address] 05/07/2023 3:00 PM EST Office Visit Hematology/Oncology [facility] [address] [facility] [place] [address] Elizabeth Serrano CRNP [address] [facility] [place] [address] 05/12/2023 10:30 AM EST Office Visit Rheumatology [address] [place] [address] Marcelo Kim CRNP [address] [place] [address], [place] [address] 07/13/2023 10:50 AM EDT Office Visit Family Practice, [place] [address] [facility], [place] [phone] Camilla Chau DO [address] [facility] [address] 03/29/2024 3:00 PM EST Office Visit Dermatology, [place] [address] [facility], [place] [address] Keiko Almodovar PA-C [address] [place] [address] [place] [address] Health Maintenance Due Date Last Done Comments [...] Additional history exists CKD PHOS USE SMARTSET 95442 09/26/2023 09/25/2022, 0 04/08/2018 DXA Scan 10/30/2023 10/29/2021, 10/29/2021 CKD HGB USE SMARTSET 23458 03/09/202403/09, 09/25/2022, 09/25/2022, Additional history exists Diabetes Screening 03/09/2026 03/09/2023, 0 09/25/2022, 05/13/2022, Additional history exists Lipid Panel 11/11/2026 11/11/2021, 11/04, 05/10/2020, Additional history exists Colonoscopy 04/18/2029 04/18/2019, 04/06, 12/16/2012, Additional history exists Colorectal Cancer Screening 04/18/2029 Pneumococcal Vaccine: Pediatrics (0 to 5 Years) and At-Risk Patients (6 to 64 Years) Completed 09/25/2022 LUNG CANCER SCREENING - USE SMARTSET 99562 Completed 09/30/2022 VITAMIN D LEVEL ONCE IN A LIFETIME-USE SMARTSET# [id number] Completed 11/17/2022, 05/13/2022, 04/02/2022 GARDASIL-HPV IMMUNIZATION SERIES Aged Out No longer eligible based on patient's age to complete this topic MENINGOCOCCAL (MENACTRA/MENVEO) Aged Out No longer eligible based on patient's age to complete this topic documented as of this encounter Medical Devices Implanted Type Area Flask Cleaner Device Identifier Shelf Expiration Date Model / Serial / Lot Cement Hv-R C01a - [id number] Implanted:Qty: 1 on 05/14/2022 by Chao Lund MD at OR [facility] N/A: Spine Thoracic [employer] : NEURO CARE 01/03/2025 C01A / / [id number] documented as of this encounter Visit Diagnoses [...] Advance Directives occurred with: Patient Care Teams Wire Welder Relationship Specialty Start Date End Date Camilla Chau DO [address] [place], [place] [phone] PCP - General Family Medicine 11/17/11 documented as of this encounter
--- OUTSIDE RECORDS SUMMARY | 2023-06-13 04:08 | External Medical Summary | Summary of Care ---
Author Name Unknown Organization [facility] Address [address] [place] [address] Phone [phone] Care Team Providers Care Cocoa Bean Roaster Helper Name Role Phone Camilla Chau DO Primary Care Provider + [phone] Reason for Referral * Evaluate & Treat - Unlimited Visits (Within 3 days (urgent)) - Authorized Specialty Diagnoses / Procedures Referred By Verito varner Referred To Contact Neuro/Ortho Surgery - Spine. / Neurological Surgery Diagnoses Closed fracture of sacrum with delayed healing, unspecified portion of sacrum, subsequent encounter Luis Ibarra PA-C [address] [place] [address] Referral ID Status Reason Start Date Expiration Date Visits Requested Visits Authorized [id number] Authorized Specialty Services Required 3 [phone] Question Answer Referral Priority Within 3 days (urgent) Where should this appointment be scheduled? [facility] spine region: Back - Thoracic/Lumbar Do you have any recent complete loss of bladder or bowel function? No - has some baseline stress incontinence. h/o sacral fracture with worsening pain * Evaluate & Treat - Unlimited Visits (Within 3 days (urgent)) - Authorized Specialty Diagnoses / Procedures Referred By Verito varner Referred To Contact Wound Care Diagnoses Cellulitis of left lower extremity Cellulitis of right lower extremity Edema, unspecified type Closed fracture of sacrum with delayed healing, unspecified portion of sacrum, subsequent encounter Luis Ibarra PA-C [address] [place] [address] Referral ID Status Reason Start Date Expiration Date Visits Requested Visits Authorized [id number] Authorized Specialty Services Required 3 [phone] Question Answer Referral Priority Within 3 days (urgent) Where should this appointment be scheduled? [facility] Comments Assess for: Hx of wound healing problem Reason for Visit * Reason Comments Pain Increased pain and d rainage from wound on left lower leg for past several days Encounter Details Date Type Department Care Team (Latest Contact Info) Description 02/24/2023 3:20 PM EST Convenient Care Visit [facility] [address] [place] [address] Luis Ibarra PA-C [address] [facility] [place] [address] Cellulitis of left lower extremity*; Cellulitis of right lower extremity; Edema, unspecified type; Closed fracture of sacrum with delayed healing, unspecified portion of sacrum, subsequent encounter Allergies Active Allergy Reactions Criticality Noted Date Comments Oxybutynin 08/31/2018 Terrible dry mouth and constipation Influenza Vaccines 12/27/2021 Pt stated she won't get it because it makes her "deathly ill" documented as of this encounter (statuses as of 02/24/2023) Medications Medication Sig Dispensed Refills Start Date [...] XL)Indications:PA C (premature atrial contraction),NICM (nonischemic cardiomyopathy) ([facility] [...] EVERY DAY 30 Each 11 04/09/2022 4 Active hydrOXYzine Pamoate 50 MG Oral Capsule [...] 02/24/2023 Active Doxycycline Hyclate 100 MG Oral CapsuleIndication s:Cellulitis of left lower extremity,Celluli tis of right lower extremity,Edema, unspecified type Take 1 Capsule by mouth in the morning and 1 Capsule before bedtime. Do all this for 10 days. Take for 7 days. 20 Capsule 0 02/24/2023 3 Active Mupirocin 2 % External Ointment (Bactroban)Indica tions:Cellulitis of left lower extremity,Celluli tis of right lower extremity,Edema, unspecified type Apply topically to affected area 3 times a day for 14 days. To affected area for up to 14 days. 30 g 2 02/24/2023 3 Active Mupirocin 2 % External Ointment (Bactroban) Apply to the inside of the nose twice daily for 2 weeks 15 g 1 08/29/2022 3 Discontinued Hospital, Clinic, or Other Facility Administered Medication Ordered Dose Route Frequency Start Date End Date Status cefTRIAXone (Rocephin) inj 1 gIndications:Cellulitis of left lower extremity,Cellulitis of right lower extremity,Edema, unspecified type 1 g IM ONCE 02/24/2023 02/24/2023 Ended documented as of this encounter (statuses as of 02/24/2023) Active Problems Problem Noted Date Diagnosed Date [...] as of this encounter (statuses as of 02/24/2023) Resolved Problems Problem Noted Date Diagnosed Date [...] as of this encounter (statuses as of 02/24/2023) Immunizations Name Administration Dates Next Due COVID-19 mRNA, LNP-s, No Pre serve, 2-Dose Series (Photorank) 07/14/2020,06/23/2020 Pneumococcal Conjugate Vaccine, 20-valent (Prevn ar20) [...] you didn't have money to get more. Sometimes true 04/2021 Sex and Gender Information Value Date Recorded Sex Assigned at Female 10/06/2018 12:37 PM EDT Gender Identity Female 10/06/2018 12:37 PM EDT Sexual Orientation Straight 10/06/2018 12 :37 PM EDT Job Start Date Occupation Industry Not on file Not on file Not on file documented as of this encounter Last Filed Vital Signs Vital Sign Reading Time Taken Comments Blood Pressure 134/70 02/24/2023 3:22 PM EST Pulse 100 02/24/2023 3:22 PM EST Temperature 36.3 C (97.3 F) 02/24/2023 3:22 PM ES T Respiratory Rate 18 02/24/2023 3:22 PM EST Oxygen Saturation 100% 02/24/2023 3:22 PM EST Inhaled Oxygen Concentration - - Weight 71.2 kg (157 lb) 02/24/2023 3:22 PM EST Height 144.8 cm (4' 9") 02/24/2023 3:22 PM EST Body Mass Index 33.97 02/24/2023 3:22 PM EST documented in this encounter Patient Instructions * Patient Instructions* Luis Ibarra PA-C - 02/24/2023 4:12 PM EST Doxycycline twice a day for 10 days. Do not stop early. Makes you sensitive to the sun. Do not take dairy, tums, rolaids, or multi vitamin two to three hours before or after dose. Can take zofran as needed for nausea. Sometimes taking food with the med can help with the GI upset. Tylenol/motrin as needed as you are allowed, for pain. Change dressing daily, if it gets wet, or dirty. Keep area clean with soap and water, and can apply mupirocin ointment Referral for orthopedics and wound care placed --> follow-up with them in the next few days. Follow-up with PCP in 3 days. Go to ER if acutely worsens. documented in this encounter Progress Notes * Luis Ibarra PA-C - 02/24/2023 3:58 PM EST Images from the original note were not included. Subjective Narcisa Thakur is a 58 year old female with a PMH of CKD3, hypothyroidism, iron deficiency anemia, tobacco use disorder, depression, BPD, suboxone therapy that presents for Pain (Increased pain and drainage from wound on left lower leg for past several days) She was seen here on 02/10 and treated for bilateral LE cellulitis with keflex. Her history was remarkable for having had a sacral fx on 01/13/23, and she was using K+ and lasix PRN. She is back today with increasing pain, drainage, enlarging wound from LLE. She notes that she only took 5 days of her keflex, as she was getting GI upset. She also reports that the pain in her sacral area is increasing, but she does not see ortho again for > two months. Denies urinary symptoms, but does have some baseline stress incontinence/leaking. Denies fever, but has been getting chills. Denies n/v/d, cp, palp, sob, wheezing, cough Objective BP 134/70 | Pulse 100 | Temp 36.3 C (97.3 F) (Tympanic) | Resp 18 | Ht 1.448 m (4' 9") | Wt 71.2 kg (157 lb) | SpO2 100% | BMI 33.97 kg/m | BSA 1.69 m Body mass index is 33.97 kg/m. BP Readings from Last 3 Encounters: 02/24/23 134/70 02/10/23 116/78 11/11/22 102/60 Wt Readings from Last 3 Encounters: 02/24/23 71.2 kg (157 lb) 02/10/23 68.1 kg (150 lb 3.2 oz) 11/11/22 68.5 kg (151 lb) Physical Exam Constitutional: General: She is not in acute distress. Appearance: Normal appearance. She is obese. She is not ill-appearing, toxic- appearing or diaphoretic. Comments: Walks with cane HENT: Head: Normocephalic and atraumatic. Right Ear: External ear normal. Left Ear: External ear normal. Nose: Nose normal. Eyes: Extraocular Movements: Extraocular movements intact. Conjunctiva/sclera: Conjunctivae normal. Pupils: Pupils are equal, round, and reactive to light. Cardiovascular: Rate and Rhythm: Regular rhythm. Tachycardia present. Heart sounds: No murmur heard. No friction rub. No gallop. Pulmonary: Breath sounds: No wheezing, rhonchi or rales. Musculoskeletal: General: Swelling and tenderness present. Cervical back: Normal range of motion and neck supple. Right lower leg: Edema present. Left lower leg: Edema present. Legs: Skin: General: Skin is warm. Capillary Refill: Capillary refill takes 2 to 3 seconds. Findings: Erythema, lesion and rash present. Neurological: General: No focal deficit present. Mental Status: She is alert and oriented to person, place, and time. Psychiatric: Mood and Affect: Mood normal. Thought Content: Thought content normal. Judgment: Judgment normal. Xray from 01/16/23 IMPRESSION IMPRESSION: 1. Postsurgical changes without hardware abnormality. 2. Best seen on the lateral view, there is a slight cortical step-off of the anterior sacrum which could reflect a small nondisplaced fracture Assessment and plan 1. Cellulitis of left lower extremity Worsening and with patient now noting increased pain, drainage, and growing in size, as well as patient being tachycardic with chills, will do CTX in office and switch to doxy. Will follow culture. Zofran PRN Unsure if patient will be able to take care of wound at home due to limited mobility. Wound care referral placed - cefTRIAXone (Rocephin) inj 1 g - Ondansetron HCl 4 MG Oral Tablet; Take 1 Tablet by mouth every 8 hours as needed for Nausea. Dispense: 30 Tablet; Refill: 0 - Doxycycline Hyclate 100 MG Oral Capsule; Take 1 Capsule by mouth in the morning and 1 Capsule before bedtime. Do all this for 10 days. Take for 7 days. Dispense: 20 Capsule; Refill: 0 - WOUND CARE REFERRAL OP - XR TIB/FIB 2 VIEWS - CULTURE, WOUND, DEEP, AEROBIC AND ANAEROBIC 2. Cellulitis of right lower extremity - cefTRIAXone (Rocephin) inj 1 g - Ondansetron HCl 4 MG Oral Tablet; Take 1 Tablet by mouth every 8 hours as needed for Nausea. Dispense: 30 Tablet; Refill: 0 - Doxycycline Hyclate 100 MG Oral Capsule; Take 1 Capsule by mouth in the morning and 1 Capsule before bedtime. Do all this for 10 days. Take for 7 days. Dispense: 20 Capsule; Refill: 0 - WOUND CARE REFERRAL OP 3. Edema, unspecified type - cefTRIAXone (Rocephin) inj 1 g - Ondansetron HCl 4 MG Oral Tablet; Take 1 Tablet by mouth every 8 hours as needed for Nausea. Dispense: 30 Tablet; Refill: 0 - Doxycycline Hyclate 100 MG Oral Capsule; Take 1 Capsule by mouth in the morning and 1 Capsule before bedtime. Do all this for 10 days. Take for 7 days. Dispense: 20 Capsule; Refill: 0 - WOUND CARE REFERRAL OP - XR TIB/FIB 2 VIEWS 4. Closed fracture of sacrum with delayed healing, unspecified portion of sacrum, subsequent encounter Patient reports increased pain, unable to get in before the next two months for follow-up with ortho. Will refer for quicker evaluation. - WOUND CARE REFERRAL OP - SPINE SURGERY REFERRAL OP - XR SACRUM COCCYX MINIMUM 2 VIEWS Follow up Total time today including reviewing chart before the visit, pertinent labs, imaging reports, face to face time, and documentation time was 45 minutes. The above was discussed and understanding was expressed. Luis Ibarra PA-C documented in this encounter Nursing Notes * Marleni Brennan LPN - 02/24/2023 3:26 PM EST Narcisa Thakur is a 58 year old female who presents to walk-in clinic today complaining of Chief Complaint Patient presents with Pain Increased pain and drainage from wound on left lower leg for past several days Pt stating she was seen for this previously and placed on Keflex but only took 5 days of the antibxcourse because it made her sick to her stomach Pt accompanied by: self documented in this encounter Miscellaneous Notes * Addendum Note - Luis Ibarra PA-C - 02/24/2023 5:11 PM EST Addended by: LUIS IBARRA on: 02/24/2023 05:11 PM Modules accepted: Orders documented in this encounter Plan of Treatment Upcoming Encounters Date Type Department Care Team (Late st Contact Info) Description 03/04/2023 12:50 PM EST Office Visit [facility] [address] [place] [phone] Camilla Chau DO [address] [place] [address] 04/30/2023 2:00 PM EST Laboratory Laboratory, [place] [address] [place] [address] [facility] Laboratory [address] [place] [address] 05/04/2023 10:30 AM EST Office Visit Orthopaedics [facility] [address] [place] [address] Gerda Cifuentes MD [address] [place] [address] 05/07/2023 3:00 PM EST Office Visit Hematology[facility]On[facility] [address] [facility] [address] Elizabeth Serrano CRNP [address] [place] [address] 05/12/2023 10:30 AM EST Office Visit Rheumatology [facility] [address] [facility] [place] [address] Marcelo Kim CRNP [address] [facility] [place] [address] 03/29/2024 2:20 PM EST Office Visit Dermatology[address], [place] [address] Keiko Almodovar PA-C [address] [place] [address] [place] [address] Pending Results Name Type Priority Associated Diagnoses Date /Time CULTURE, WOUND, DEEP, AEROBIC AND ANAEROBIC Lab STAT Cellulitis of left lower extremity 02/24/2023 4:40 PM EST Scheduled Referrals Name Type Priority Associated Diagnoses Orde r Schedule WOUND CARE REFERRAL OP Referral Within 3 days (urgent) Cellulitis of left lower extremity Cellulitis of right lower extremity Edema, unspecified type Closed fracture of sacrum with delayed healing, unspecified portion of sacrum, subsequent encounter Ordered: 02/24/2023 SPINE SURGERY REFERRAL OP Referral Within 3 days (urgent) Closed fracture of sacrum with delayed healing, unspecified portion of sacrum, subsequent encounter Ordered: 02/24/2023 Health Maintenance Due Date Last Done Comments [...] Additional history exists CKD HGB USE SMARTSET 75277 09/26/202309/25, 09/25/2022, 05/13/2022, Additional history exists CKD PHOS USE SMARTSET 51564 09/26/2023 09/25/2022, 0 04/08/2018 DXA Scan 10/30/2023 10/29/2021, 10/29/2021 Lipid Panel 11/11/2026 11/11/2021, 11/04, 05/10/2020, Additional history exists Colonoscopy 04/18/2029 04/18/2019, 04/06, 12/16/2012, Additional history exists Colorectal Cancer Screening 04/18/2029 Pneumococcal Vaccine: Pediatrics (0 to 5 Years) and At-Risk Patients (6 to 64 Years) Completed 09/25/2022 LUNG CANCER SCREENING - USE SMARTSET 12570 Completed 09/30/2022 VITAMIN D LEVEL ONCE IN A LIFETIME-USE SMARTSET# [id number] Completed 11/17/2022, 05/13/2022, 04/02/2022 GARDASIL-HPV IMMUNIZATION SERIES Aged Out No longer eligible based on patient's age to complete this topic MENINGOCOCCAL (MENACTRA/MENVEO) Aged Out No longer eligible based on patient's age to complete this topic documented as of this encounter Medical Devices Implanted Type Area Foreign Language Instructor Device Identifier Shelf Expiration Date Model / Serial / Lot Cement Hv-R C01a - [id number] Implanted:Qty: 1 on 05/14/2022 by Chao Lund MD at OR [facility] N/A: Spine Thoracic [employer] : NEURO CARE 01/03/2025 C01A / / [id number] documented as of this encounter Procedures Procedure Name Priority Date/Time Associated Diagnosis Comments XR TIB/FIB 2 VIEWS STAT 02/24/2023 4: 19 PM EST Cellulitis of left lower extremity Edema, unspecified type XR SACRUM COCCYX MINIMUM 2 VIEWS STAT 02/24/2023 4:19 PM EST Closed fracture of sacrum with delayed healing, unspecified portion of sacrum, subsequent encounter documented in this encounter Results * XR TIB/FIB 2 VIEWS (02/24/2023 4:19 PM EST) Anatomical Region Laterality Modality Lower Extremity, TibFib Computed Radiography 02/24/2023 4:56 PM EST Impressions 02/24/2023 4:53 PM EST IMPRESSION Ill-defined soft tissue swelling throughout the right lower leg. No discrete subcutaneous soft tissue emphysema appreciable on x-ray. Narrative 02/24/2023 4:53 PM EST EXAM XR TIB/FIB 2 VIEWS - 02/24/2023 4:19 pm HISTORY r/o gas COMPARISON None TECHNIQUE XR TIB/FIB 2 VIEWS LT FINDINGS No acute fracture or dislocation. Knee and ankle joints appear intact on non-dedicated imaging. Ill-defined soft tissue swelling throughout the right lower leg. No discrete subcutaneous soft tissue emphysema appreciable on x-ray. Procedure Note Helene Garcia MD - 02/24/2023 EXAM XR TIB/FIB 2 VIEWS - 02/24/2023 4:19 pm HISTORY r/o gas COMPARISON None TECHNIQUE XR TIB/FIB 2 VIEWS LT FINDINGS No acute fracture or dislocation. Knee and ankle joints appear intact onnon- dedicated imaging. Ill-defined soft tissue swelling throughout the right lower leg. Nodiscrete subcutaneous soft tissue emphysema appreciable on x-ray. IMPRESSION IMPRESSION Ill-defined soft tissue swelling throughout the right lower leg. Nodiscrete subcutaneous soft tissue emphysema appreciable on x-ray. Luis Ibarra PA-C RADIOLOGY ( [facility]) * XR SACRUM COCCYX MINIMUM 2 VIEWS (02/24/2023 4:19 PM EST) Anatomical Region Laterality Modality Vertebra, Spine, Pelvis Computed Radiography 02/24/2023 4:54 PM EST Narrative 02/24/2023 4:51 PM EST EXAM: XR SACRUM COCCYX MINIMUM 2 VIEWS HISTORY: h/o sacral fracture TECHNIQUE: XR SACRUM COCCYX MINIMUM 2 VIEWS COMPARISON: 2023 x-ray FINDINGS: Posterior instrumented fusion/decompression with disc spacer at L5-S1. Grade 1/grade 2 anterolisthesis at L5-S1 again noted. Again there is subtle step-off at the anterior sacrum, which could represent age-indeterminate fracture. No new acute displaced fracture. IMPRESSION: 1. Postoperative and chronic changes as above. 2. Again there is subtle step-off at the anterior sacrum, which could represent age-indeterminate fracture. Procedure Note Helene Garcia MD - 02/24/2023 EXAM: XR SACRUM COCCYX MINIMUM 2 VIEWS HISTORY: h/o sacral fracture TECHNIQUE: XR SACRUM COCCYX MINIMUM 2 VIEWS COMPARISON: 2023 x-ray FINDINGS: Posterior instrumented fusion/decompression with disc spacer at L5-S1.Grade 1/grade 2 anterolisthesis at L5-S1 again noted. Again there issubtle step-off at the anterior sacrum, which could representage-indeterminate fracture. No new acute displaced fracture. IMPRESSION: 1. Postoperative and chronic changes as above. 2. Again there is subtle step-off at the anterior sacrum, which couldrepresent age-indeterminate fracture. Luis Ibarra PA-C RADIOLOGY ( [facility]) documented in this encounter Visit Diagnoses Diagnosis Cellulitis of left lower extremity- Primary Cellulitis and abscess of leg, except foot Cellulitis of right lower extremity Cellulitis and abscess of leg, except foot Edema, unspecified type Closed fracture of sacrum with delayed healing, unspecified portion of sacrum, subsequent encounter documented in this encounter Administered Medications Inactive Administered Medications - up to 3 most recent administrations Medication Order MAR Action Action Date Dose Rate Site cefTRIAXone (Rocephin) inj 1 g 1 g, Intramuscular, ONCE, On 02/24/23 at 1630, For 1 dose Given 02/24/2023 3:51 PM EST 1 g Dorsogluteal Left documented in this encounter Advance Directives Latest Code Status on File Code Status Date Activated Date Inactivated Comments Full Code 05/14/2022 7:03 AM 05/14/2022 2:27 PM This or sal reflects the patients wishes and were consensually agreed upon. Question Answer Comments Discussion of Advance Directives occurred with: Patient Care Teams Cocoa Bean Roaster Helper Relationship Specialty Start Date End Date Camilla Chau DO [address] [facility] [place] [phone] PCP - General Family Medicine 11/17/11 documented as of this encounter
--- OUTSIDE RECORDS SUMMARY | 2023-06-13 04:08 | External Medical Summary | Summary of Care ---
Author Name Unknown Organization [facility] Address [address] [place] [address] Phone [phone] Care Team Providers Care Motel Operator Name Role Phone Camilla Chau DO Primary Care Provider [phone] Reason for Visit * Reason Onset Date Comments Other 02/25/2023 Please see notes Encounter Details Date Type Department Care Team ([facility] st Contact Info) Description 02/25/2023 Telephone Wound Care, [facility] [address] [place] [address] Services, Scheduling [address] [place] [address] Other (Please see notes) Allergies Active Allergy Reactions Criticality Noted Date Comments Oxybutynin 08/31/2018 Terrible dry mouth and constipation Influenza Vaccines 12/27/2021 Pt stated she won't get it because it makes her "deathly ill" documented as of this encounter (statuses as of 03/02/2023) Medications Medication Sig Dispensed Refills Start Date [...] atrial contraction),NICM (nonischemic cardiomyopathy) ([facility]) TAKE 1 TABLET BY MOUTH EVERY [...] as of this encounter (statuses as of 03/02/2023) Active Problems Problem Noted Date Diagnosed Date [...] as of this encounter (statuses as of 03/02/2023) Resolved Problems Problem Noted Date Diagnosed Date [...] as of this encounter (statuses as of 03/02/2023) Immunizations Name Administration Dates Next Due COVID-19 [...] encounter Miscellaneous Notes * Telephone Encounter - Carlene Butcher OSA - 03/02/2023 1:46 PM EST I spoke with the patient and the wound appointment 03/04/23 at 2:40 pm will work for her. She is aware the appointment is only for the bilateral lower extremity wounds. * Telephone Encounter - Manjula Sweet OSA - 03/02/2023 8:08 AM EST Called patient and LM for them to CB. * Telephone Encounter - Manjula Sweet OSA - 02/27/2023 8:17 AM EST Called patient and LM for them to CB. * Telephone Encounter - Manjula Sweet OSA - 02/25/2023 3:28 PM EST Called patient and LM for them to CB. * Telephone Encounter - Janet Dolan DPM - 02/25/2023 2:54 PM EST You can add on Thursday in wound. * Telephone Encounter - Manjula Sweet OSA - 02/25/2023 12:32 PM EST Please see message below and advise. * Telephone Encounter - Malina Benton OSA - 02/25/2023 11:38 AM EST Pt has an urgent 3 day referral for: Cellulitis of left lower extremity [L03.116] Cellulitis of right lower extremity [L03.115] Edema, unspecified type [R60.9] Closed fracture of sacrum with delayed healing, unspecified portion of sacrum. Closest to [facility] and first available isn't until March 16. Is there anything sooner? Thank you, Malina documented in this encounter Plan of Treatment Upcoming Encounters Date Type Department Care Team (Late st Contact Info) Description 03/04/2023 2:40 PM EST Office [address] Wound [address], [address] [place] [address] Janet Dolan DPM [address] [place] [address] 03/09/2023 12:30 PM EST Office Visit Family [facility], [place] [address] [address] [facility] [id number] Camilla Chau DO [address] [address] 04/30/2023 2:00 PM EST Laboratory Laboratory, [address] [id number] [facility] [address] [place] [address] 05/04/2023 10:30 AM EST Office Visit [facility]opaedics [facility] [place] [address] Gerda Cifuentes MD [address] [place] [address] 05/07/2023 3:00 PM EST Office Visit Hematology/Oncology [facility] [place] [address] [facility] [place] [address] Elizabeth Serrano CRNP [address] [facility] [place] [address] 05/12/2023 10:30 AM EST Office Visit Rheumatology [facility] [address] [facility] [place] [address] Marcelo Kim CRNP [address] [facility] [place] [address] 03/29/2024 2:20 PM EST Office Visit Dermatology, [place] [address] [place] [facility] [place] [address] Keiko Almodovar PA-C [address] [place] [address] [place] [address] Health Maintenance Due Date Last Done Comments [...] Additional history exists CKD HGB USE SMARTSET 03935 09/26/202309/25, 09/25/2022, 05/13/2022, Additional history exists CKD PHOS USE SMARTSET 93194 09/26/2023 09/25/2022, 0 04/08/2018 DXA Scan 10/30/2023 10/29/2021, 10/29/2021 Lipid Panel 11/11/2026 11/11/2021, 11/04, 05/10/2020, Additional history exists Colonoscopy 04/18/2029 04/18/2019, 04/06, 12/16/2012, Additional history exists Colorectal Cancer Screening 04/18/2029 Pneumococcal Vaccine: Pediatrics (0 to 5 Years) and At-Risk Patients (6 to 64 Years) Completed 09/25/2022 LUNG CANCER SCREENING - USE SMARTSET 67819 Completed 09/30/2022 VITAMIN D LEVEL ONCE IN A LIFETIME-USE SMARTSET# [id number] Completed 11/17/2022, 05/13/2022, 04/02/2022 GARDASIL-HPV IMMUNIZATION SERIES Aged Out No longer eligible based on patient's age to complete this topic MENINGOCOCCAL (MENACTRA/MENVEO) Aged Out No longer eligible based on patient's age to complete this topic documented as of this encounter Medical Devices Implanted Type Area Teacher Early Childhood Development Device Identifier Shelf Expiration Date Model / Serial / Lot Cement Hv-R C01a - [id number] Implanted:Qty: 1 on 05/14/2022 by Chao Lund MD at OR [facility] N/A: Spine Thoracic [employer] : NEURO CARE 01/03/2025 C01A / / [id number] documented as of this encounter Additional Health [...] Advance Directives occurred with: Patient Care Teams Motel Operator Relationship Specialty Start Date End Date Camilla Chau DO [address] [place] [address] PCP - General Family Medicine 11/17/11 documented as of this encounter
--- OUTSIDE RECORDS SUMMARY | 2023-06-13 04:08 | External Medical Summary | Summary of Care ---
Author Name Unknown Organization [facility] Address [address] [place] [address] Phone [phone] Care Team Providers Care Machinist General Name Role Phone Camilla Chau DO Primary Care Provider + [phone] Reason for Referral * Evaluate & Treat - Unlimited Visits (Within 10 days (routine)) - Authorized Specialty Diagnoses / Procedures Referred By Verito varner Referred To Contact Physical Therapy / Physical Medicine And Rehab Diagnoses DDD (degenerative disc disease), lumbar Failed back surgical syndrome Closed fracture of sacrum, unspecified portion of sacrum, initial encounter ([facility]) Gerda Cifuentes MD [address] [place] [address] Referral ID Status Reason Start Date Expiration Date Visits Requested Visits Authorized [id number] Authorized Specialty Services Required 02/09/[phone] Question Answer Referral Priority Within 10 days (routine) Where should this appointment be scheduled? [facility] Comments Nondisplaced sacral fracture after a fall from stand No neurological compromise evident on exam Please work on strength/balance Reason for Visit * Reason Comments NEW PATIENT Sacrum fx * Evaluate & Treat - Unlimited Visits (Within 30 days (routine)) - Authorized Specialty Diagnoses / Procedures Referred By Verito varner Referred To Contact Orthopaedic Surgery / Orthopedics Diagnoses Closed fracture of sacrum with delayed healing, unspecified portion of sacrum, subsequent encounter Camilla Chau DO [address] [place] [address] Referral ID Status Reason Start Date Expiration Date Visits Requested Visits Authorized [id number] Authorized Specialty Services Required 3 [phone] Encounter Details Date Type Department Care Team (Latest Contact Info) Description 02/09/2023 8:00 AM EST Office Visit Orthopaedics [facility] [address] [place] [address] Gerda Cifuentes MD [address] [place] [address] Closed fracture of sacrum, unspecified portion of sacrum, initial encounter ([facility])*; Sacral insufficiency fracture, initial encounter; DDD (degenerative disc disease), lumbar Allergies Active Allergy Reactions Criticality Noted Date Comments Oxybutynin 08/31/2018 Terrible dry mouth and constipation Influenza Vaccines 12/27/2021 Pt stated she won't get it because it makes her "deathly ill" documented as of this encounter (statuses as of 02/09/2023) Medications Medication Sig Dispensed Refills Start Date [...] DAILY IN THE MORNING 0 06/16/2022 Active Mupirocin 2 % External Ointment (Bactroban) Apply to the inside of the nose twice daily for 2 weeks 15 g 1 08/29/2022 Active Pantoprazole Sodium 40 MG Oral Tablet [...] THE MORNING 90 Tablet 1 11/28/2022 Active documented as of this encounter (statuses as of 02/09/2023) Active Problems Problem Noted Date Diagnosed Date [...] as of this encounter (statuses as of 02/09/2023) Resolved Problems Problem Noted Date Diagnosed Date [...] as of this encounter (statuses as of 02/09/2023) Immunizations Name Administration Dates Next Due COVID-19 [...] Progress Notes * Gerda Cifuentes MD - 02/09/2023 9:11 AM EST Narcisa Thakur is a 58 year old female who presents for consultation to [facility] Sports Medicine Lowback/right hip injury/pain. Consult requested by Camilla Chau DO. Narcisa Thakur is here unaccompanied History: Chief Complaint Patient presents with NEW PATIENT Sacrum fx Nursing Notes: Bianca Downing, MED ASSIST 02/09/23 0814 Sign at exiting of workspace Pt presents today for fracture to sacrum, DOI 01/13/23. Pt states she fell going backwards onto a statue. States the pain radiates down the right leg. Xray taken 01/16/23 Narcisa is a 58-year-old female who presents today for sacral fracture. She reports that 01/13/2023 she fell from standing in her home backwards onto a statue. She had pretty significant buttock pain and thought she might have broken her tailbone. She called her primary care physician who ordered an x-ray. X-ray returned with a nondisplaced sacral fracture and she was referred to Orthopedics. Her pain is managed currently with Suboxone. She has some pain that radiates down the right thigh. She denies any numbness or tingling. She denies any saddle anesthesia she denies any new issues with bowel or bladder continence, has always had issues with bladder incontinence but nothing has changed. Ambulates with a cane, but this has been ongoing for some time. Has a history of insufficiency fractures in the past. Sees Rheumatology. On [facility]. Review of systems: All others negative except those noted above in HPI. Review of patient's allergies indicates: Allergen Reactions Ditropan [Oxybutynin] Terrible dry mouth and constipation Influenza Vaccines Pt stated she won't get it because it makes her "deathly ill" Current Outpatient Medications Medication Sig Dispense Refill [...] Excedrin Extra Strength 250-250-65 MG Oral Tablet (Gyfrfxm-Uimydjhgxadtq-Aojeqhqx) Take 2 Tablets by mouth every 8 hours as needed. Metoprolol Succinate ER 25 MG Oral Tablet Extended Release 24 Hour (toPROL XL) TAKE 1 TABLET BY MOUTH EVERY DAY 90 Tablet 3 hydrOXYzine Pamoate 25 MG Oral Capsule Take 1 Capsule by mouth 3 times a day as needed for Anxiety. Docusate Sodium 100 MG Oral Capsule (Colace) Take 1 Capsule by mouth in the morning and 1 Capsule before bedtime. Insulin Pen Needle 31G X 5 MM USE TO INJECT FORTEO EVERY DAY 30 Each 11 hydrOXYzine Pamoate 50 MG Oral Capsule (Vistaril) 1 CAP DAILY AT NIGHT Venlafaxine HCl ER 75 MG Oral Capsule Extended Release 24 Hour (Effexor XR) TAKE 1 CAPSULE BY MOUTHDAILY IN THE MORNING Mupirocin 2 % External Ointment (Bactroban) Apply to the inside of the nose twice daily for 2 weeks15 g 1 Pantoprazole Sodium 40 MG Oral Tablet Delayed [...] No current facility-administered medications for this visit. Past Medical History: Diagnosis Date Anxiety and depression Bipolar I, most recent episode depressed, severe (HCC) Bipolar Affective Disorder Depressed-Severe Cardiac dysrhythmia, unspecified Arrhythmia, unspecified Cardiomyopathy (HCC) GERD (gastroesophageal reflux disease) History of opioid abuse (HCC) Last use 2007 HLD (hyperlipidemia) Obstructive sleep apnea Sleep apnea, obstructive Patient Active Problem List Diagnosis Code BIPOLAR [...] skin cancer Z85.828 Iron deficiency anemia D50.9 Past Surgical History: Procedure Laterality Date DELIVERY x 2 COLONOSCOPY, DIAGNOSTIC (RECTUM) 12/16/2012 COLONOSCOPY FLEXIBLE PROXIMAL DIAGNOSTIC performed by Raegan Treviño DO at ENDOSCOPY [facility] COLONOSCOPY, DIAGNOSTIC (RECTUM) 04/18/2019 poor prep, repeat / COLONOSCOPY FLEXIBLE PROXIMAL DIAGNOSTIC performed by Raegan Treviño DO at ENDOSCOPY [facility] CYSTOSCOPY 10/29/2010 CYSTOSCOPY 12/29/2012 CYSTOSCOPY 06/28/2018 done in office, Dr Velazco CYSTOSCOPY/TREAT MED BLADDER TUMOR 07/09/2018 CYSTOURETHROSCOPY WITH FULGURATION MEDIUM BLADDER TUMOR performed by Chrissie Velazco MD at OR [facility] EGD, FLEXIBLE, DIAGNOSTIC 04/18/2019 gastritis, hiatal hernia/ESOPHAGOGASTRODUODENOSCOPY (EGD), FLEXIBLE, TRANSORAL, DIAGNOSTIC performed by Raegan Treviño DO at ENDOSCOPY [facility] EGD, FLEXIBLE, DIAGNOSTIC 05/09/2021 reflux esophagitis, erosive gastropathy, repeat 2 mo / ESOPHAGOGASTRODUODENOSCOPY (EGD), FLEXIBLE, TRANSORAL, DIAGNOSTIC performed by Amadou Sol MD at ENDOSCOPY [facility] EGD, FLEXIBLE, DIAGNOSTIC 07/10/2021 mild-mod inflammation on bx / ESOPHAGOGASTRODUODENOSCOPY (EGD), FLEXIBLE, TRANSORAL, DIAGNOSTIC performed by Amadou Sol MD at ENDOSCOPY [facility] EGD, FLEXIBLE, DIAGNOSTIC 10/15/2021 normal / ESOPHAGOGASTRODUODENOSCOPY (EGD), FLEXIBLE, TRANSORAL, DIAGNOSTIC performed by Amadou Sol MD at ENDOSCOPY [facility] EGD, W/ENDOSCOPIC US 11/15/2012 UPPER GI ENDOSCOPY ENDOSCOPIC ULTRASOUND performed by Raegan Treviño DO at [facility]--repeat 1 year INFORMATION Jaw surgery INFORMATION Soft tissue removed from knee IR VERTEBRAL AUGMENTATION THORACIC N/A 05/14/2022 PERCUTANEOUS VERTEBRAL AUGMENTATION THORACIC KYPHOPLASTY performed by Chao Lund MD at OR [facility] LAPAROSCOPY; CHOLECYSTECTOMY Cholecystectomy, Laproscopic LARYNGOSCOPY FLEXIBLE DIAGNOSTIC N/A 2021 LARYNGOSCOPY FLEXIBLE DIAGNOSTIC performed by Carlitos Correa DDS, at OR [facility] MAMMOGRAM BREAST NEEDLE BIOPSY CORE LEFT Left 06/24/2019 Benign fibrofatty breast tissue with usual ductal hyperplasia, columnar cell change/hyperplasia, and REPAIR OF NASAL SEPTUM SACROILIAC JOINT INJECT W/GUIDANCE 11/21/2019 INJECTION SACROILIAC JOINT performed by Obdulio Peña DO at OR [facility] SACROILIAC JOINT INJECT W/GUIDANCE 01/09/2020 INJECTION SACROILIAC JOINT performed by Obdulio Peña DO at OR [facility] TOTAL ABD HYSTERECTOMY W/WO REMOVAL OF TUBE(S) 2003 GABRIELA (Total Abdominal Hysterectomy) still has ovaries. Social History Socioeconomic History Marital status: Spouse name: Not on file Number of children: Not on file Years of education: Not on file Highest education level: Not on file Occupational History Not on file Tobacco Use Smoking status: Every Day Packs/day: [...] on file Food Insecurity: Food Insecurity Present (12/05/2021) Hunger Vital Sign Worried About Running Out of Food in the Last Year: Sometimes true Ran Out of Food in the Last Year: Sometimes true Transportation Needs: Not on file Physical Activity: Not on file Stress: Not on file Social Connections: Not on file Intimate Partner Violence: Not on file Housing Stability: Not on file Family History Adopted: Yes Problem Relation Age of Onset No Past Hx None Pt is adopted. Multiple Sclerosis Father Lung Disorder Father Pneumonia, age 41 Family History; none relevant to today's HPI Objective: [facility] 06/23/2022 08:50 [facility] Date of Service 2022-06-26 Appt Label now [employer] [place] [facility] Mental 41.2382 [employer] Mental Full 39.9531 [employer] [employer] Physical 39.2364 [employer] [employer] Physical Full 37.2569 Physical Exam There were no vitals filed for this visit. Estimated body mass index is 32.68 kg/m as calculated from the following: Height as of 09/25/22: 1.448 m (4' 9"). Weight as of 11/11/22: 68.5 kg (151 lb). General: generally well-nourished and in no acute distress HEENT: normocephalic, atraumatic, sclera anicteric. Psych: mood and affect normal , cooperative Card: Peripheral pulses: normal in affected extremity (s) Resp: equal chest rise, non-tachypneic, non-labored breathing Skin: no rash, normal Neuro: Sensation: normal on affected extremity (s) MSK: Short steppage gait with a cane Hip/back Exam Inspection: No obvious deformity, no redness, swelling, warmth, bruising, abrasion. Palpation: Mid sacrum is tender to palpation ROM: normal and symmetric in actively flexion, extension, internal and external rotation in Bilateral Strength: Tested from a seated position Abduction: R - 5/5 L - 5/5 Internal Rotation: R - 5/5 L - 5/5 Quads: R - 5/5 L - 5/5 Hams: R - 5/5 L - 5/5 Adduction: R - 5/5 L - 5/5 Radiology (I have personally reviewed the following films): PROCEDURE INFORMATION: Exam: XR Lumbosacral Spine Exam date and time: 2023 3:16 PM Age: 58 years old Clinical indication: Sacrococcygeal disorders, not elsewhere classified; Additional info: Fall, and tailbone pain. TECHNIQUE: Imaging protocol: Radiologic exam of the lumbosacral spine. Views: 2 or 3 views. COMPARISON: MRI L SPINE WO CONTRAST 08/04/2022 11:26 AM FINDINGS: Bones/joints: There is exaggeration of the spinal curvature. Status post fusion at L5-S1. Slight anterolisthesis of L5 on S1. There is diffuse osseous demineralization. Cement material in T11 vertebral body. Best seen on the lateral view, there is a slight cortical step-off of the anterior sacrum which could reflect a small nondisplaced fracture. Soft tissues: Unremarkable. Intraperitoneal space: There are right upper quadrant surgical clips suggesting prior cholecystectomy. Gastrointestinal tract: There is moderate stool in the rectal vault. Other findings: Prevertebral and paravertebral soft tissues appear unremarkable. IMPRESSION IMPRESSION: 1. Postsurgical changes without hardware abnormality. 2. Best seen on the lateral view, there is a slight cortical step-off of the anterior sacrum which could reflect a small nondisplaced fracture Assessment and Plan: ICD-10-CM 1. Closed fracture of sacrum, unspecified portion of sacrum, initial encounter ([facility]) S32.10XA 2. Sacral insufficiency fracture, initial encounter M84.48XA 3. DDD (degenerative disc disease), lumbar M51.36 Narcisa is a 58 yo F with a history of osteoporosis who was seen today nondisplaced sacral fracture that occurred after a fall from standing on 01/13/2023. Patient has a history of insufficiency fractures from falls from standing in the past and is followed by Rheumatology on [facility]. Discussed with the patient that as this fracture is nondisplaced, it is not surgical. In addition, no sign of neurologic compromise on exam today. Recommend continued pain management as directed by her family doctor and physical therapy. PT referral placed. I will see patient back in about 12 weeks after course of p hysical therapy. Warning signs of neurologic compromise were discussed. The above assessment and plan were discussed at length. All questions were answered, and the patient expressed understanding. Gerda Cifuentes MD Primary Care Sports Medicine [facility]edics [facility] [place] [address] documented in this encounter Nursing Notes * Bianca Downing MED ASSIST - 02/09/2023 8:12 AM EST Pt presents today for fracture to sacrum, DOI 01/13/23. Pt states she fell going backwards onto a statue. States the pain radiates down the right leg. Xray taken 01/16/23 documented in this encounter Plan of Treatment Upcoming Encounters Date Type Department Care Team (Late st Contact Info) Description 02/25/2023 9:10 AM EST Office Visit [place] [address] [place] [address] Camilla Chau DO [address] [place] [address] 04/30/2023 2:00 PM EST Laboratory Laboratory, [place] [address] [place] [address] [facility] [address] [place] [address] 05/04/2023 10:30 AM EST Office Visit Orthopaedics [facility] [place] [address] Gerda Cifuentes MD [address] [place] [address] 05/07/2023 3:00 PM EST Office Visit Hematology/Oncology [facility] [address] [facility] [place] [address] Elizabeth Serrano CRNP [address] [place] [address] 05/12/2023 10:30 AM EST Office Visit Rheumatology [facility] [address] [employer] [place] [address] Marcelo Kim CRNP [address] [address] [employer] [place] [address] 03/29/2024 2:20 PM EST Office Visit [address] [place] [address] Keiko Almodovar PA-Radha [address] [place] [address] [place] [address] Scheduled Procedures Name Priority Associated Diagnoses Date/Ti me CRANIAL NERVE NEUROSTIM ELEC TRODE AND GENERATOR INSERTION Obstructive sleep apnea Scheduled Referrals Name Type Priority Associated Diagnoses Orde r Schedule PHYSICAL THERAPY REFERRAL OP Referral Within 10 days (routine) DDD (degenerative disc disease), lumbar Closed fracture of sacrum, unspecified portion of sacrum, initial encounter (HCC) Ordered: 02/09/2023 Health Maintenance Due Date Last Done Comments [...] 05/13/2022, Additional history exists Mammogram 08/05/2023 08/04/2022, 04/0 08/2021, 05/29/2020, Additional history exists Albumin/Creatinine Ratio 09/26/2023 023, 09/23/2021, 08/08/2020, Additional history exists CKD HGB USE SMARTSET 60711 09/26/202309/25, 09/25/2022, 05/13/2022, Additional history exists CKD PHOS USE SMARTSET 40897 09/26/2023 09/25/2022, 0 04/08/2018 DXA Scan 10/30/2023 10/29/2021 Lipid Panel 11/11/2026 11/11/2021, 11/04, 05/10/2020, Additional history exists Colonoscopy 04/18/2029 04/18/2019, 04/06, 12/16/2012, Additional history exists Colorectal Cancer Screening 04/18/2029 Pneumococcal Vaccine: Pediatrics (0 to 5 Years) and At-Risk Patients (6 to 64 Years) Completed 09/25/2022 LUNG CANCER SCREENING - USE SMARTSET 41899 Completed 09/30/2022 VITAMIN D LEVEL ONCE IN A LIFETIME-USE SMARTSET# 78338 Completed 11/17/2022, 05/13/2022, 04/02/2022 GARDASIL-HPV IMMUNIZATION SERIES Aged Out No longer eligible based on patient's age to complete this topic MENINGOCOCCAL (MENACTRA/MENVEO) Aged Out No longer eligible based on patient's age to complete this topic documented as of this encounter Medical Devices Implanted Type Area Mammography Technologist Device Identifier Shelf Expiration Date Model / Serial / Lot Cement Hv-R C01a - [id number] Implanted:Qty: 1 on 05/14/2022 by Chao Lund MD at OR [facility] N/A: Spine Thoracic [employer] : NEURO CARE 01/03/2025 C01A / / [id number] documented as of this encounter Visit Diagnoses Diagnosis Closed fracture of sacrum, unspecified portion of sacrum, initial encounter (HCC)- Primary Sacral insufficiency fracture, initial encounter DDD (degenerative disc disease), lumbar Degeneration of lumbar or lumbosacral intervertebral disc documented in this encounter Advance Directives Latest Code Status on File Code Status Date Activated Date Inactivated Comments Full Code 05/14/2022 7:03 AM 05/14/2022 2:27 PM This or sal reflects the patients wishes and were consensually agreed upon. Question Answer Comments Discussion of Advance Directives occurred with: Patient Care Teams Machinist General Relationship Specialty Start Date End Date Camilla Chau DO [address] [place] [facility] [place] [address] PCP - General Family Medicine 11/17/11 documented as of this encounter
--- OUTSIDE RECORDS SUMMARY | 2023-06-13 04:08 | External Medical Summary | Summary of Care ---
Author Name Unknown Organization [facility] Address [address] [place] [address] Phone [phone] Care Team Providers Care Area Plant Manager Name Role Phone Camilla Chau DO Primary Care Provider [phone] Reason for Visit * Reason Onset Date Comments Appointment 02/25/2023 Encounter Details Date Type Department Care Team (Late st Contact Info) Description 02/25/2023 Telephone [facility] [place] [address] [facility] [address] [place], [place] [id number] Services, Scheduling [address] [place] [address] Appointment Allergies Active Allergy Reactions Criticality Noted Date Comments Oxybutynin 08/31/2018 Terrible dry mouth and constipation Influenza Vaccines 12/27/2021 Pt stated she won't get it because it makes her "deathly ill" documented as of this encounter (statuses as of 02/27/2023) Medications Medication Sig Dispensed Refills Start Date [...] (premature atrial contraction),NICM (nonischemic cardiomyopathy) ([facility]) TAKE 1 TABLET BY MOUTH [...] as of this encounter (statuses as of 02/27/2023) Active Problems Problem Noted Date Diagnosed Date [...] as of this encounter (statuses as of 02/27/2023) Resolved Problems Problem Noted Date Diagnosed Date [...] as of this encounter (statuses as of 02/27/2023) Immunizations Name Administration Dates Next Due COVID-19 [...] Miscellaneous Notes * Telephone Encounter - Nina Pham LPN - 02/27/2023 3:51 PM EST Patient is aware and verbalizes understanding. * Telephone Encounter - Krystyna Martinez CCMA - 02/27/2023 2:39 PM EST Called patient. Left message on answering machine to call office. * Telephone Encounter - Camilla Chau DO - 02/27/2023 1:58 PM EST Noted, ortho reviewed films, and no intervention is needed from orthopedics. * Telephone Encounter - Rosario Shahid LPN - 02/25/2023 1:06 PM EST Imaging reviewed by provider. Fracture continues to be non-displaced when compared with previous imaging. No intervention needed at this time from spine surgery perspective. Pain management per PCP. Fx occurred 01/13/2023. Will forward to PCP. * Telephone Encounter - Shabbir Danielson OSA - 02/25/2023 12:42 PM EST Pt had sx with Dr. Lund, now has an urgent referral for Closed fracture of sacrum with delayed healing, unspecified portion of sacrum. Seen at [facility] yesterday & 02/09 she saw Ortho, notes & imaging in epic. Please advise how soon pt should be seen? documented in this encounter Plan of Treatment Upcoming Encounters Date Type Department Care Team (Late st Contact Info) Description 03/04/2023 2:40 PM EST Office Visit Wound Care, [address] [place] [address] aJnet Dolan DPM [address] [place] [address] 03/09/2023 12:30 PM EST Office Visit [place] [address] [place] [phone] Camilla Chau DO [address] [place] [address] 04/30/2023 2:00 PM EST Laboratory Laboratory, [place] [address] [place] [address] [facility] [address] [place] [address] 05/04/2023 10:30 AM EST Office Visit Orthopaedics [facility] [address] [place] [address] Gerda Cifuentes MD [address] [place] [address] 05/07/2023 3:00 PM EST Office Visit Hematology/Oncology [facility] [place] [address] [facility] [place], [place] [address] Elizabeth Serrano CRNP [address] [place] [address] 05/12/2023 10:30 AM EST Office Visit Rheumatology [facility] [place] [address] [facility] [place] [address] Marcelo Kim CRNP [address] [place] [address] 03/29/2024 2:20 PM EST Office Visit Dermatology[address], [place] [address] Keiko Almodovar PA-C [address] [place] [address] [place] [address] Health Maintenance Due Date Last Done Comments [...] (FLU shot) (#1) 2022 HbA1c 05/13/2023 05/13/2022, 11/2021, 09/23/2021, Additional history exists GFR 05/20/2023 11/17/2022, 09/05, 05/13/2022, Additional history exists Mammogram 08/05/2023 08/04/2022, 04/2022, 07/09/2021, Additional history exists Albumin/Creatinine Ratio 09/26/2023 023, 09/23/2021, 08/08/2020, Additional history exists CKD HGB USE SMARTSET 98899 09/26/202309/25, 09/25/2022, 05/13/2022, Additional history exists CKD PHOS USE SMARTSET 97130 09/26/2023 09/25/2022, 0 04/08/2018 DXA Scan 10/30/2023 10/29/2021, 10/29/2021 Lipid Panel 11/11/2026 11/11/2021, 11/04, 05/10/2020, Additional history exists Colonoscopy 04/18/2029 04/18/2019, 04/06, 12/16/2012, Additional history exists Colorectal Cancer Screening 04/18/2029 Pneumococcal Vaccine: Pediatrics (0 to 5 Years) and At-Risk Patients (6 to 64 Years) Completed 09/25/2022 LUNG CANCER SCREENING - USE SMARTSET 78272 Completed 09/30/2022 VITAMIN D LEVEL ONCE IN A LIFETIME-USE SMARTSET# 73764 Completed 11/17/2022, 05/13/2022, 04/02/2022 GARDASIL-HPV IMMUNIZATION SERIES Aged Out No longer eligible based on patient's age to complete this topic MENINGOCOCCAL (MENACTRA/MENVEO) Aged Out No longer eligible based on patient's age to complete this topic documented as of this encounter Medical Devices Implanted Type Area Hvac Sheet Metal Installer Helper Device Identifier Shelf Expiration Date Model / Serial / Lot Cement Hv-R C01a - [id number] Implanted:Qty: 1 on 05/14/2022 by Chao Lund MD at OR [facility] N/A: Spine Thoracic [employer] : NEURO CARE 01/03/2025 C01A / / [id number] documented as of this encounter Additional Health [...] Advance Directives occurred with: Patient Care Teams Area Plant Manager Relationship Specialty Start Date End Date Camilla Chau DO [address] [place] [address] PCP - General Family Medicine 11/17/11 documented as of this encounter
--- OUTSIDE RECORDS SUMMARY | 2023-06-13 04:08 | External Medical Summary ---
Author Name Unknown Address Unknown Organization K01:LABORATORY [facility] - [address] [place] [id number] Laboratory Report Ordering Provider Test Date Status MCKINLEY LAW 02/24/2023 16:40:27 Final No anaerobic growth. Observation Date Value Abnormality Reference (Units ) Status Bacteria identified in Specimen by Culture 02/24/2023 16:40:27 [id number]^STAPHY LOCOCCUS AUREUS MRSA Abnormal Final Moderate Staphylococcus elizabeth us MRSA, This patient may require isolation. Bacteria identified in Specimen by Culture 02/24/2023 16:40:27 [id number]^STAPHYLOCOCCUS AUREUS MRSA Abnormal Final Few - second type Staphyloco ccus aureus MRSA, This patient may require isolation. Gram Stain 02/24/2023 16:40:27 Occasional P olymorphonuclear leukocytes Abnormal Final Gram Stain 02/24/2023 16:40:27 Many Gram positive cocci Abno rmal Final Performing Location LABORATORY [facility] [place] - [address] [facility] [address] Ordering Provider Test Date Status MCKINLEY LAW 02/24/2023 16:40:27 Final Observation Date Value Abnormality Reference (Units ) Status Clindamycin 02/24/2023 16:40:27 Resistant Final Erythromycin susceptibility 02/24/2023 16:40:27 >=8 Resistant Final Oxacillinsusceptibility 02/24/2023 16:40:27 >=4 Resistant Final Oxacillin/Methicillin resist ant Staphylococci are considered clinically resistant to all Beta-lactam (Penicillin and Cephalosporin) antibiotics. Quinolone antibiotics should also not be used for Staphylococci that are Oxacillin resistant. Penicillin susceptibility 02/24/2023 16:40:27 >=0.5 Resi stant Final Tetracyclinesusceptibility 02/24/2023 16:40:27 2 Jacqueline ceptible Final TMP-SMZ susceptibility 02/24/2023 16:40:27 <=10 Suscept ible Final Vancomycinsusceptibility 02/24/2023 16:40:27 <=0.5 Susce ptible Final Performing Location LABORATORY [facility] - [address] [place] [address] Ordering Provider Test Date Status MCKINLEY LAW 02/24/2023 16:40:27 Final Observation Date Value Abnormality Reference (Units ) Status Clindamycin 02/24/2023 16:40:27 <=0.25 Susceptible Final Erythromycin susceptibility 02/24/2023 16:40:27 0.5 Susceptible Final Oxacillinsusceptibility 02/24/2023 16:40:27 Resistant Final Oxacillin/Methicillin resist ant Staphylococci are considered clinically resistant to all Beta-lactam (Penicillin and Cephalosporin) antibiotics. Quinolone antibiotics should also not be used for Staphylococci that are Oxacillin resistant. Penicillin susceptibility 02/24/2023 16:40:27 >=0.5 Resi stant Final Tetracyclinesusceptibility 02/24/2023 16:40:27 <=1 Jacqueline ceptible Final TMP-SMZ susceptibility 02/24/2023 16:40:27 <=10 Suscept ible Final Vancomycinsusceptibility 02/24/2023 16:40:27 2 Susce ptible Final Test: Culture, Wound, Deep, Aerobic and Anaerobic
Specimen Source: Leg, Left
Specimen Type: Drainage
Specimen Date: 02/24/2023 4:40 PM
Result Date: 03/02/2023 2:28 PM
Result Status: Final result
Abnormal: Yes
Resulting Lab: LABORATORY [facility]
[address]
[place] [address]

CULTURE

Moderate Staphylococcus aureus MRSA, This patient may require isolation.
(Abnormal)

Few - second type Staphylococcus aureus MRSA, This patient may require
isolation. (Abnormal)

No anaerobic growth.

STAIN

Occasional Polymorphonuclear leukocytes

Many Gram positive cocci

SUSCEPTIBILITY

Staphylococcus aureus Staphylococcus aureus
MRSA, This patient MRSA, This patient
may require may require
isolation. (1) isolation. (2)
METHOD MICROBROTH DILUTIONS MICROBROTH DILUTIONS

CLINDAMYCIN -- Resistant <=0.25 Susceptible
ERYTHROMYCIN >=8 Resistant 0.5 Susceptible
OXACILLIN >=4 Resistant [1] -- Resistant [2]
PENICILLIN G >=0.5 Resistant >=0.5 Resistant
TETRACYCLINE 2 Susceptible <=1 Susceptible
TRIMETH/SULFAMETHOXAZOLE <=10 Susceptible <=10 Susceptible
VANCOMYCIN <=0.5 Susceptible 2 Susceptible

[1] Oxacillin/Methicillin resistant Staphylococci are considered clinically
resistant to all Beta-lactam (Penicillin and Cephalosporin) antibiotics.
Quinolone antibiotics should also not be used for Staphylococci that are
Oxacillin resistant.

[2] Oxacillin/Methicillin resistant Staphylococci are considered clinically
resistant to all Beta-lactam (Penicillin and Cephalosporin) antibiotics.
Quinolone antibiotics should also not be used for Staphylococci that are
Oxacillin resistant.

null Performing Location LABORATORY [facility] [place] - [address] [place] [id number]
--- OUTSIDE RECORDS SUMMARY | 2023-06-13 04:08 | External Medical Summary | Summary of Care ---
Author Name Unknown Organization [facility] Address [address] [place] [address] Phone [phone] Care Team Providers Care Reduction Plant Supervisor Name Role Phone Camilla Chau DO Primary Care Provider [phone] Reason for Referral * Evaluate & Treat - Unlimited Visits (Within 3 days (urgent)) - Authorized Specialty Diagnoses / Procedures Referred By Verito varner Referred To Contact Neuro/Ortho Surgery - Spine. / Neurological Surgery Diagnoses Closed fracture of sacrum with delayed healing, unspecified portion of sacrum, subsequent encounter Luis Ibarra PA-C [address] [place] [address] Referral ID Status Reason Start Date Expiration Date Visits Requested Visits Authorized [id number] Authorized Specialty Services Required 3 [phone] [...] sacrum, subsequent encounter Luis Ibarra PA-C [address] [place] [id number] Referral ID Status Reason Start Date Expiration Date Visits Requested Visits Authorized [id number] Authorized Specialty Services Required 3 999 999 [...] 02/24/2023 3:20 PM EST [facility] [address] [place] [address] Luis Ibarra PA-C [address] [facility] [place] [address] Cellulitis of left lower extremity*; Cellulitis of [...] XL)Indications:PAC (premature atrial contraction),NICM (nonischemic cardiomyopathy) ([facility]) TAKE 1 TABLET BY MOUTH EVERY DAY [...] days. 20 Capsule 0 02/24/2023 03/06/2023 Active Hospital, Clinic, or Other Facility Administered Medication [...] and switch to doxy. Will follow culture. Malathi PRN Unsure if patient will be able [...] accompanied by: self documented in this encounter Plan of Treatment Upcoming Encounters Date Type Department Care Team (Late st Contact Info) Description 03/04/2023 12:50 PM EST Office Visit Family Practice, [place] [address] [facility], [place] [phone] Camilla Chau DO [address] [facility], [place] [phone] 04/30/2023 2:00 PM EST Laboratory Laboratory, [place] [address] [facility], [place] [address] [facility] [address] [facility], [place] [id number] 05/04/2023 10:30 AM EST Office Visit [facility]opaedics [facility] [address] [facility] [place] [address] Gerda Cifuentes MD [address] [place] [address] 05/07/2023 3:00 PM EST Office Visit Hematology/Oncology [facility] [address] [facility] [place] [address] Elizabeth Serrano CRNP [address] [facility] [place] [address] 05/12/2023 10:30 AM EST Office Visit Rheumatology [place] [address] [facility] [place] [address] Marcelo Kim CRNP [address] [facility] [place] [address] 03/29/2024 2:20 PM EST Office Visit Dermatology, [place] [address] [facility], [place] [address] Keiko Almodovar PA-C [address] [place] [address] [place] [address] Pending Results Name Type Priority Associated Diagnoses [...] (FLU shot) (#1) 2022 HbA1c 05/13/2023 05/13/2022, 0811/2021, 09/23/2021, Additional history exists GFR 05/20/2023 11/17/2022, 09/05, 05/13/2022, Additional history exists Mammogram 08/05/2023 08/04/2022, 04/2022, 07/09/2021, Additional history exists Albumin/Creatinine Ratio 09/26/2023 023, 09/23/2021, 08/08/2020, Additional history exists CKD HGB USE SMARTSET 31853 09/26/202309/25, 09/25/2022, 05/13/2022, Additional history exists CKD PHOS USE SMARTSET 86702 09/26/2023 09/25/2022, 0 04/08/2018 DXA Scan 10/30/2023 10/29/2021, 10/29/2021 Lipid Panel 11/11/2026 11/11/2021, 11/04, 05/10/2020, Additional history exists Colonoscopy 04/18/2029 04/18/2019, 04/06, 12/16/2012, Additional history exists Colorectal Cancer Screening 04/18/2029 Pneumococcal Vaccine: Pediatrics (0 to 5 Years) and At-Risk Patients (6 to 64 Years) Completed 09/25/2022 LUNG CANCER SCREENING - USE SMARTSET 03970 Completed 09/30/2022 VITAMIN D LEVEL ONCE IN A LIFETIME-USE SMARTSET# [id number] Completed 11/17/2022, 05/13/2022, 04/02/2022 GARDASIL-HPV IMMUNIZATION SERIES Aged Out No longer eligible based on patient's age to complete this topic MENINGOCOCCAL (MENACTRA/MENVEO) Aged Out No longer eligible based on patient's age to complete this topic documented as of this encounter Medical Devices Implanted Type Area Kiln Placer Device Identifier Shelf Expiration Date Model / Serial / Lot Cement Hv-R C01a - [id number] Implanted:Qty: 1 on 05/14/2022 by Chao Lund MD at OR [facility] N/A: Spine Thoracic [employer] : NEURO CARE 01/03/2025 C01A / / [id number] documented as of this encounter Procedures Procedure [...] on x-ray. Luis Ibarra PA-C RADIOLOGY ( [facility]) * XR SACRUM COCCYX MINIMUM 2 [...] age-indeterminate fracture. Luis Ibarra PA-C RADIOLOGY ( [facility]) documented in this encounter Visit Diagnoses [...] Advance Directives occurred with: Patient Care Teams Reduction Plant Supervisor Relationship Specialty Start Date End Date Camilla hCau DO [address] [place] [address] PCP - General Family Medicine 11/17/11 documented as of this encounter
--- OUTSIDE RECORDS SUMMARY | 2023-06-13 04:08 | External Medical Summary | Summary of Care ---
Author Name Unknown Organization [facility] Address [address] [place] [address] Phone [phone] Care Team Providers Care Molder Wax Ball Name Role Phone Camilla Chau DO Primary Care Provider [phone] Reason for Visit * Reason Comments Rash Encounter Details Date Type Department Care Team (Latest Contact Info) Description 02/10/2023 12:40 PM EST Convenient Care Visit [facility] [address] [place] [address] Sera Harkins PA-C [address] [place] [address] Dependent edema*; Cellulitis of left lower extremity; Cellulitis of right lower extremity; Rash and nonspecific skin eruption Allergies Active Allergy Reactions Criticality Noted Date Comments Oxybutynin 08/31/2018 Terrible dry mouth and constipation Influenza Vaccines 12/27/2021 Pt stated she won't get it because it makes her "deathly ill" documented as of this encounter (statuses as of 02/10/2023) Medications Medication Sig Dispensed Refills Start Date [...] (toPROL XL)Indications:PAC (premature atrial contraction),NICM (nonischemic cardiomyopathy) ([facility]) TAKE 1 TABLET BY MOUTH EVERY [...] affected area. 15 g 5 02/10/2023 Active Cephalexin 500 MG Oral Capsule (Keflex)Indications :Cellulitis of left lower extremity,Celluliti s of right lower extremity Take 1 Capsule by mouth in the morning and 1 Capsule at noon and 1 Capsule before bedtime. Do all this for 10 days. 30 Capsule 0 02/10/2023 02/20/2023 Active documented as of this encounter (statuses as of 02/10/2023) Active Problems Problem Noted Date Diagnosed Date [...] as of this encounter (statuses as of 02/10/2023) Resolved Problems Problem Noted Date Diagnosed Date [...] as of this encounter (statuses as of 02/10/2023) Immunizations Name Administration Dates Next Due COVID-19 mRNA, LNP-s, No Pre serve, 2-Dose Series (Pfizer) 07/14/2020,06/23/2020 Pneumococcal Conjugate Vaccine, 20-valent (Prevn ar20) 09/25/2022 TDAP (age 11 and older)(Adacel) 04/19/2007 documented as of this encounter Social History Tobacco Use Types Packs/Day Years Used Date Smoking Tobacco: Every Day Cigarettes 1 41 Passive Smoke Exposure: Never Smokeless Tobacco: Never Tobacco Cessation:Ready to Q uit: No; Counseling Given: No Alcohol Use Standard Drinks/Week Comments No 0 [...] Sign Reading Time Taken Comments Blood Pressure 116/78 02/10/2023 1:06 PM EST Pulse 78 02/10/2023 1:06 PM EST Temperature 36.3 C (97.4 F) 02/10/2023 1:06 PM ES T Respiratory Rate - - Oxygen Saturation 100% 02/10/2023 1:06 PM EST Inhaled Oxygen Concentration - - Weight 68.1 kg (150 lb 3.2 oz) 02/10/2023 1:06 P M EST Height - - Body Mass Index 32.5 09/25/2022 10:36 AM EDT documented in this encounter Patient Instructions * Patient Instructions* Sera Harkins PA-C - 02/10/2023 1:28 PM EST Thin layer of the steroid cream Ceravie cream over that Cephalexin for the infection Treat the edema as you have been instructed documented in this encounter Progress Notes * Sera Harkins PA-C - 02/10/2023 1:05 PM EST Subjective: Here today as she has swelling in her lower legs, ongoing issue, has lasix and potassium at home and with a lot of refills, But this time wondering if waited too Red and hurting now and thinks might now have cellulitis, which she has had in the past Sx are swelling in lower legs. Suppose to wear compression stocking but pt had sacral fracture and is not currently able to put them on as she does not have the strength in her back and torso to pullthem on. Having more edema due to this and in turn she feels this is the reason for the edema no sick contacts at home. Sig med hx/risk factors: Fractured sacrum occurred 01/13/23. Pt has recurring swelling in lower legs. Has rx's for lasix 20 mg to be used if needed once for 3 d, and to take with potassium. Prescribed on 10/22/22. Pt has not yet started this medication, plans to in next day or so. no flu shot this year. Review of Systems Constitutional: Positive for activity change and fatigue. Negative for appetite change and fever. Respiratory: Negative. Negative for chest tightness and shortness of breath. Cardiovascular: Negative. Gastrointestinal: Negative. Genitourinary: Positive for frequency (a little more). Pt is incontinent Musculoskeletal: Positive for back pain (from the sacral fracture). Skin: Positive for color change (redder in lower extremitities bilaterally) and rash (skin tight and sort of breaking open, weeping some clear yellowish fluid). Neurological: Positive for numbness (some in medial thighs she thinks from fracture. Saw ortho yesterday and pt reports that felt numbness was from back injury.). Hematological: Negative. PMH: Patient Active Problem List Diagnosis Code BIPOLAR [...] Current Outpatient Medications Medication Sig Dispense Refill Acetaminophen 500 MG Oral Tablet (Tylenol Extra Strength) Take 1 Tablet by mouth every 6 hours as needed for Pain, Moderate. Usually one in the morning and 2 before bed Triamcinolone Acetonide 0.1 % External Cream (Aristocort) Apply topically to affected area 2 times a day. To affected area. 15 g 5 Cephalexin 500 MG Oral Capsule (Keflex) Take 1 Capsule by mouth in the morning and 1 Capsule at noon and 1 Capsule before bedtime. Do all this for 10 days. 30 Capsule 0 traZODone (DESYREL) 100 MG Tablet 2 Tablets at bedtime. Buprenorphine HCl-Naloxone HCl 8-2 MG Sublingual Film 1 Film in the morning and 1 Film before bedtime. Take one in the AM and one half film in PM. Topiramate 50 MG Oral Tablet Take 1 Tablet by mouth in the morning and 1 Tablet before bedtime. Excedrin Extra Strength 250-250-65 MG Oral Tablet (Srtvrkk-Qvorsmvoaxnkx-Dkylznbl) Take 2 Tablets by mouth every 8 [...] (gastroesophageal reflux disease) History of opioid abuse ([facility]) Last use 2007 HLD (hyperlipidemia) Obstructive sleep apnea Sleep apnea, obstructive Past Surgical History: Procedure Laterality Date DELIVERY x 2 COLONOSCOPY, DIAGNOSTIC (RECTUM) 12/16/2012 COLONOSCOPY FLEXIBLE PROXIMAL DIAGNOSTIC performed by Raegan Treviño DO at ENDOSCOPY [facility] COLONOSCOPY, DIAGNOSTIC (RECTUM) 04/18/2019 poor prep, repeat / COLONOSCOPY FLEXIBLE PROXIMAL DIAGNOSTIC performed by Raegan Treviño DO at [facility] CYSTOSCOPY 10/29/2010 CYSTOSCOPY 12/29/2012 CYSTOSCOPY 06/28/2018 done in office, Dr Velazco CYSTOSCOPY/TREAT MED BLADDER TUMOR 07/09/2018 CYSTOURETHROSCOPY WITH FULGURATION MEDIUM BLADDER TUMOR performed by Chrissie Velazco MD at [facility] EGD, FLEXIBLE, DIAGNOSTIC 04/18/2019 gastritis, hiatal hernia/ESOPHAGOGASTRODUODENOSCOPY (EGD), FLEXIBLE, TRANSORAL, DIAGNOSTIC performed by Raegan Treviño DO at [facility] EGD, FLEXIBLE, DIAGNOSTIC 05/09/2021 reflux esophagitis, erosive gastropathy, repeat 2 mo / ESOPHAGOGASTRODUODENOSCOPY (EGD), FLEXIBLE, TRANSORAL, DIAGNOSTIC performed by Amadou Sol MD at ENDOSCOPY [facility] EGD, FLEXIBLE, DIAGNOSTIC 07/10/2021 mild-mod inflammation on bx / ESOPHAGOGASTRODUODENOSCOPY (EGD), FLEXIBLE, TRANSORAL, DIAGNOSTIC performed by Amadou Sol MD at [facility] EGD, FLEXIBLE, DIAGNOSTIC 10/15/2021 normal / ESOPHAGOGASTRODUODENOSCOPY (EGD), FLEXIBLE, TRANSORAL, DIAGNOSTIC performed by Amadou Sol MD at [facility] EGD, W/ENDOSCOPIC US 11/15/2012 UPPER GI ENDOSCOPY ENDOSCOPIC ULTRASOUND performed by Raegan Treviño DO at [facility]--repeat 1 year INFORMATION Jaw surgery INFORMATION Soft tissue removed from knee IR VERTEBRAL AUGMENTATION THORACIC N/A 05/14/2022 PERCUTANEOUS VERTEBRAL AUGMENTATION THORACIC KYPHOPLASTY performed by Chao Lund MD at OR [facility] LAPAROSCOPY; CHOLECYSTECTOMY Cholecystectomy, Laproscopic LARYNGOSCOPY FLEXIBLE DIAGNOSTIC N/A 2021 LARYNGOSCOPY FLEXIBLE DIAGNOSTIC performed by Carlitos Correa DDS, at [facility] MAMMOGRAM BREAST NEEDLE BIOPSY CORE LEFT Left 06/24/2019 Benign fibrofatty breast tissue with usual ductal hyperplasia, columnar cell change/hyperplasia, and REPAIR OF NASAL SEPTUM SACROILIAC JOINT INJECT W/GUIDANCE 11/21/2019 INJECTION SACROILIAC JOINT performed by Obdulio Peña DO at OR [facility] SACROILIAC JOINT INJECT W/GUIDANCE 01/09/2020 INJECTION SACROILIAC JOINT performed by Obdulio Peña DO at OR [facility] TOTAL ABD HYSTERECTOMY W/WO REMOVAL OF TUBE(S) 2003 GABRIELA (Total Abdominal Hysterectomy) still has ovaries. Review of patient's allergies indicates: Allergen Reactions Ditropan [Oxybutynin] Terrible dry mouth and constipation Influenza Vaccines Pt stated she won't get it because it makes her "deathly ill" Objective: BP 116/78 | Pulse 78 | Temp 36.3 C (97.4 F) | Wt 68.1 kg (150 lb 3.2 oz) | SpO2 100% | BMI 32.50 kg/m | BSA 1.66 m Physical Exam Constitutional: Appearance: She is not ill-appearing. Comments: Pt presents walking slowly with a cane, bent over due to pain in lower back assoc w sacral fracture. Walks slowly. Pt reports this is not of concern today Cardiovascular: Rate and Rhythm: Normal rate and regular rhythm. Pulses: Normal pulses. Heart sounds: Normal heart sounds. Comments: DP's 2+ bilaterally Pulmonary: Effort: Pulmonary effort is normal. Breath sounds: Normal breath sounds. Musculoskeletal: General: Tenderness (some bilaterally lower legs) present. Right lower leg: Edema present. Left lower leg: Edema present. Skin: Capillary Refill: Capillary refill takes less than 2 seconds. Findings: Erythema, lesion and rash present. Comments: Significant edema of the lower legs bilaterally. There is some dermatitis lower legs bilaterally with erythema, L>R. TTP mainly over the region lower of erythema which also has scabs andlooks excoriated Neurological: Mental Status: She is alert and oriented to person, place, and time. Psychiatric: Mood and Affect: Mood normal. Behavior: Behavior normal. ASSESSMENT/PLAN: Dependent edema (Primary) Cellulitis of left lower extremity - Cephalexin 500 MG Oral Capsule (Keflex); Take 1 Capsule by mouth in the morning and 1 Capsule at noon and 1 Capsule before bedtime. Do all this for 10 days. Cellulitis of right lower extremity - Cephalexin 500 MG Oral Capsule (Keflex); Take 1 Capsule by mouth in the morning and 1 Capsule at noon and 1 Capsule before bedtime. Do all this for 10 days. Rash and nonspecific skin eruption - Triamcinolone Acetonide 0.1 % External Cream (Aristocort); Apply topically to affected area 2 times a day. To affected area. Discussed triamcinolone: very thin layer for itching only, otherwise use CeraVie, Aquaphor or Eucerin: something thick Antibiotic as prescribed Will take lasix and potassium as prescribed Pt as upcoming PCP Over 30 minutes spent with patient exam, counseling, review of previous medical records and with documenting. Return instruction reviewed with pt in detail. Reasons to report to the ED were also reviewed. Voiced understanding Advised to follow up if no improvement in 3-5days. Sera Harkins PA-C documented in this encounter Plan of Treatment Upcoming Encounters Date Type Department Care Team (Late st Contact Info) Description 02/25/2023 9:10 AM EST Office Visit [place] [address] [place] [phone] Camilla Chau DO [address] [place] [address] 04/30/2023 2:00 PM EST Laboratory Laboratory, [place] [address] [place] [phone] [facility] Laboratory [address] [place] [address] 05/04/2023 10:30 AM EST Office Visit Orthopaedics [facility] [address] [place] [place] [address] Gerda Cifuentes MD [address] [place] [address] 05/07/2023 3:00 PM EST Office Visit Hematology/Oncology [facility] [address] [place] [address] Elizabeth Serrano CRNP [address] [place] [address] 05/12/2023 10:30 AM EST Office Visit Rheumatology [facility] [address] [facility] [place] [address] Marcelo Kim CRNP [address] [facility] [place] [address] 03/29/2024 2:20 PM EST Office Visit Dermatology[address] [place] [address] Keiko Almodovar PA-C [address] [place] [address] [place] [address] Scheduled Procedures Name Priority Associated Diagnoses Date/Ti me CRANIAL NERVE NEUROSTIM ELEC TRODE AND GENERATOR INSERTION Obstructive sleep apnea Health Maintenance Due Date Last Done Comments [...] 05/13/2022, Additional history exists Mammogram 08/05/2023 08/04/2022, 040 08/2021, 05/29/2020, Additional history exists Albumin/Creatinine Ratio 09/26/2023 023, 09/23/2021, 08/08/2020, Additional history exists CKD HGB USE SMARTSET 05267 09/26/202309/25, 09/25/2022, 05/13/2022, Additional history exists CKD PHOS USE SMARTSET 05449 09/26/2023 09/25/2022, 0 04/08/2018 DXA Scan 10/30/2023 10/29/2021 Lipid Panel 11/11/2026 11/11/2021, 11/04, 05/10/2020, Additional history exists Colonoscopy 04/18/2029 04/18/2019, 04/06, 12/16/2012, Additional history exists Colorectal Cancer Screening 04/18/2029 Pneumococcal Vaccine: Pediatrics (0 to 5 Years) and At-Risk Patients (6 to 64 Years) Completed 09/25/2022 LUNG CANCER SCREENING - USE SMARTSET 01003 Completed 09/30/2022 VITAMIN D LEVEL ONCE IN A LIFETIME-USE SMARTSET# 16320 Completed 11/17/2022, 05/13/2022, 04/02/2022 GARDASIL-HPV IMMUNIZATION SERIES Aged Out No longer eligible based on patient's age to complete this topic MENINGOCOCCAL (MENACTRA/MENVEO) Aged Out No longer eligible based on patient's age to complete this topic documented as of this encounter Medical Devices Implanted Type Area Childhood Teacher Device Identifier Shelf Expiration Date Model / Serial / Lot Cement Hv-R C01a - [id number] Implanted:Qty: 1 on 05/14/2022 by Chao Lund MD at OR [facility] N/A: Spine Thoracic [employer] : NEURO CARE 01/03/2025 C01A / / [id number] documented as of this encounter Visit Diagnoses Diagnosis Dependent edema- Primary Edema Cellulitis of left lower extremity Cellulitis and abscess of leg, except foot Cellulitis of right lower extremity Cellulitis and abscess of leg, except foot Rash and nonspecific skin eruption Rash and other nonspecific skin eruption documented in this encounter Advance Directives Latest Code Status on File Code Status Date Activated Date Inactivated Comments Full Code 05/14/2022 7:03 AM 05/14/2022 2:27 PM This or sal reflects the patients wishes and were consensually agreed upon. Question Answer Comments Discussion of Advance Directives occurred with: Patient Care Teams Molder Wax Ball Relationship Specialty Start Date End Date Camilla Chau DO [address] [place] [address] PCP - General Family Medicine 11/17/11 documented as of this encounter
--- OUTSIDE RECORDS SUMMARY | 2023-06-13 04:08 | External Medical Summary | Summary of Care ---
Author Name Unknown Organization [facility] Address [address] [place] [address] Phone [phone] Care Team Providers Care Jewelry Estimator Name Role Phone Camilla Chau DO Primary Care Provider [phone] Reason for Visit * Reason Onset Date Comments Appointment 02/25/2023 Encounter Details Date Type Department Care Team (Late st Contact Info) Description 02/25/2023 Telephone [facility] [address] [facility] [address] [place], [place] [phone] Services, Scheduling [address] [place] [address] Appointment Allergies Active Allergy Reactions Criticality Noted [...] (premature atrial contraction),NICM (nonischemic cardiomyopathy) ([facility]) TAKE 1 TABLET BY MOUTH [...] she saw Ortho, notes & imaging in [facility]. Please advise how soon pt should be seen? documented in this encounter Plan of Treatment Upcoming Encounters Date Type Department Care Team (Late st Contact Info) Description 03/04/2023 12:50 PM EST Office Visit Family Psychiatric, [place] [address] [facility], [place] [address] Camilla Chau DO [address] [place] [address] 03/04/2023 2:40 PM EST Office Visit Wound Care, [facility] [address] [facility] [place] [address] Janet Dolan DPM [address] [facility] [place] [address] 04/30/2023 2:00 PM EST Laboratory Laboratory, [place] [address] [place] [address] [facility] [address] [place] [facility] [place] [address] 05/04/2023 10:30 AM EST Office Visit Orthopaedics [facility] [address] [address] Gerda Cifuentes MD [address] [place] [address] 05/07/2023 3:00 PM EST Office Visit Hematology/Oncology [facility] [address] [facility] [place], [place] [address] Elizabeth Serrano CRNP [address] [facility] [address] 05/12/2023 10:30 AM EST Office Visit Rheumatology [address] [place], [place] [address] Marcelo Kim CRNP [address] [place] [address] [place], [place] [address] 03/29/2024 2:20 PM EST Office Visit Dermatology, [place] [address] [place] [address] Keiko Almodovar PA-C [address] [place] [address] [place] [address] Health Maintenance Due Date Last Done Comments [...] Additional history exists CKD HGB USE SMARTSET 73712 09/26/202309/25, 09/25/2022, 05/13/2022, Additional history exists CKD PHOS USE SMARTSET 01521 09/26/2023 09/25/2022, 0 04/08/2018 DXA Scan 10/30/2023 10/29/2021, 10/29/2021 Lipid Panel 11/11/2026 11/11/2021, 11/04, 05/10/2020, Additional history exists Colonoscopy 04/18/2029 04/18/2019, 04/06, 12/16/2012, Additional history exists Colorectal Cancer Screening 04/18/2029 Pneumococcal Vaccine: Pediatrics (0 to 5 Years) and At-Risk Patients (6 to 64 Years) Completed 09/25/2022 LUNG CANCER SCREENING - USE SMARTSET 20170 Completed 09/30/2022 VITAMIN D LEVEL ONCE IN A LIFETIME-USE SMARTSET# 44319 Completed 11/17/2022, 05/13/2022, 04/02/2022 GARDASIL-HPV IMMUNIZATION SERIES Aged Out No longer eligible based on patient's age to complete this topic MENINGOCOCCAL (MENACTRA/MENVEO) Aged Out No longer eligible based on patient's age to complete this topic documented as of this encounter Medical Devices Implanted Type Area Oil Well Service Operator Device Identifier Shelf Expiration Date Model / Serial / Lot Cement Hv-R C01a - [id number] Implanted:Qty: 1 on 05/14/2022 by Chao Lund MD at OR [facility] N/A: Spine Thoracic [employer] : NEURO CARE 01/03/2025 C01A / / [id number] documented as of this encounter Additional Health [...] Advance Directives occurred with: Patient Care Teams Jewelry Estimator Relationship Specialty Start Date End Date Camilla Chau DO [address], [place] [phone] PCP - General Family Medicine 11/17/11 documented as of this encounter
--- OUTSIDE RECORDS SUMMARY | 2023-06-13 04:08 | External Medical Summary | Summary of Care ---
Author Name Unknown Organization [facility] Address [address] [place] [address] Phone [phone] Care Team Providers Care Scada Technician Name Role Phone Camilla Chau DO Primary Care Provider [phone] Reason for Visit * Reason Onset Date Comments Appointment 02/25/2023 Encounter Details Date Type Department Care Team (Late st Contact Info) Description 02/25/2023 Telephone [facility] [address] [facility] [address] [place], [place] [phone] Services, Scheduling [address] [place] [address] Appointment Allergies Active Allergy Reactions Criticality Noted [...] XL)Indications:PAC (premature atrial contraction),NICM (nonischemic cardiomyopathy) ([facility]) TAKE 1 TABLET BY MOUTH EVERY DAY [...] encounter Miscellaneous Notes * Telephone Encounter - Krystyna Martinez CCMA [...] Description 03/04/2023 12:50 PM EST Office Visit [facility] [place] [address] [place] [address] Camilla Chau DO [address] [place] [address] 03/04/2023 2:40 PM EST Office Visit Wound Care, [facility] [address] [facility] [place] [address] Janet Dolan DPM [address] [facility] [place] [address] 04/30/2023 2:00 PM EST Laboratory Laboratory, [place] [address] [place] [address] [place], Laboratory [address] [place] [address] 05/04/2023 10:30 AM EST Office Visit Orthopaedics [facility] [address] [address] Gerda Cifuentes MD [address] [place] [address] 05/07/2023 3:00 PM EST Office Visit Hematology/Oncology [facility] 200 [place] [address] Elizabeth Serrano CRNP [address] [place] [address] 05/12/2023 10:30 AM EST Office Visit Rheumatology [facility] [address] [facility] [place], [place] [address] Marcelo Kim CRNP [address] [employer] [place], [place] [address] 03/29/2024 2:20 PM EST Office Visit Dermatology[address], [place] [address] Keiko Almodovar PA-C [address] [place] [address] [place] [address] Health Maintenance Due Date Last Done Comments [...] 05/13/2022, Additional history exists Mammogram 08/05/2023 08/04/2022, 0504/2022, 07/09/2021, Additional history exists Albumin/Creatinine Ratio 09/26/2023 023, 09/23/2021, 08/08/2020, Additional history exists CKD HGB USE SMARTSET 99411 09/26/202309/25, 09/25/2022, 05/13/2022, Additional history exists CKD PHOS USE SMARTSET 69427 09/26/2023 09/25/2022, 0 04/08/2018 DXA Scan 10/30/2023 10/29/2021, 10/29/2021 Lipid Panel 11/11/2026 11/11/2021, 11/04, 05/10/2020, Additional history exists Colonoscopy 04/18/2029 04/18/2019, 04/06, 12/16/2012, Additional history exists Colorectal Cancer Screening 04/18/2029 Pneumococcal Vaccine: Pediatrics (0 to 5 Years) and At-Risk Patients (6 to 64 Years) Completed 09/25/2022 LUNG CANCER SCREENING - USE SMARTSET 52387 Completed 09/30/2022 VITAMIN D LEVEL ONCE IN A LIFETIME-USE SMARTSET# 90529 Completed 11/17/2022, 05/13/2022, 04/02/2022 GARDASIL-HPV IMMUNIZATION SERIES Aged Out No longer eligible based on patient's age to complete this topic MENINGOCOCCAL (MENACTRA/MENVEO) Aged Out No longer eligible based on patient's age to complete this topic documented as of this encounter Medical Devices Implanted Type Area Silk Spreader Device Identifier Shelf Expiration Date Model / Serial / Lot Cement Hv-R C01a - [id number] Implanted:Qty: 1 on 05/14/2022 by Chao Lund MD at OR [facility] N/A: Spine Thoracic [employer] : NEURO CARE 01/03/2025 C01A / / [id number] documented as of this encounter Additional Health [...] Advance Directives occurred with: Patient Care Teams Scada Technician Relationship Specialty Start Date End Date Camilla Chau DO [address] [place] [facility] [place] [place] [address] PCP - General Family Medicine 11/17/11 documented as of this encounter
--- OUTSIDE RECORDS SUMMARY | 2023-06-13 04:08 | External Medical Summary | Summary of Care ---
Author Name Unknown Organization [facility] Address [address] [place] [address] Phone [phone] Care Team Providers Care Vulcanizer Name Role Phone Camilla Chau DO Primary Care Provider [phone] Reason for Visit * Reason Onset Date Comments Appointment 03/04/2023 Encounter Details Date Type Department Care Team (Late st Contact Info) Description 03/04/2023 Telephone Wound Care, [address] [place] [address] Janet Dolan, [place] [address] [facility] [place] [address] Appointment Allergies Active Allergy Reactions Criticality Noted [...] 2:40 PM EST Office Visit Wound Care, [address] [place] [address] Janet Dolan DPM [address] [facility] [address] 03/09/2023 12:30 PM EST Office Visit [address] [phone] Camilla Chau DO [address] [place] [address] 03/12/2023 1:20 PM EST Office Visit Dermatology, [place] [address] [place] [facility] [address] Keiko Almodovar PA-C [address] [place] [address] [place] [address] 04/30/2023 2:00 PM EST Laboratory Laboratory, [place] [address] [place] [phone] [facility] [address] [place] [address] 05/04/2023 10:30 AM EST Office Visit Orthopaedics [facility] 132 [facility] [place] [address] Gerad Cifuentes MD 132 [facility] [place] [address] 05/07/2023 3:00 PM EST Office Visit Hematology/Oncology [facility] 200 [facility] [place] [address] Elizabeth Serrano CRNP 400 [facility] [place] [id number] 05/12/2023 10:30 AM EST Office Visit Rheumatology [address] [place], [place] [address] Marcelo Kim CRNP [address] [place] [address] [place] [address] Health Maintenance Due Date Last Done Comments [...] Additional history exists CKD HGB USE SMARTSET 84516 09/26/202309/25, 09/25/2022, 05/13/2022, Additional history exists CKD PHOS USE SMARTSET 40211 09/26/2023 09/25/2022, 0 04/08/2018 DXA Scan 10/30/2023 10/29/2021, 10/29/2021 Lipid Panel 11/11/2026 11/11/2021, 11/04, 05/10/2020, Additional history exists Colonoscopy 04/18/2029 04/18/2019, 04/06, 12/16/2012, Additional history exists Colorectal Cancer Screening 04/18/2029 Pneumococcal Vaccine: Pediatrics (0 to 5 Years) and At-Risk Patients (6 to 64 Years) Completed 09/25/2022 LUNG CANCER SCREENING - USE SMARTSET 55951 Completed 09/30/2022 VITAMIN D LEVEL ONCE IN A LIFETIME-USE SMARTSET# 53157 Completed 11/17/2022, 05/13/2022, 04/02/2022 GARDASIL-HPV IMMUNIZATION SERIES Aged Out No longer eligible based on patient's age to complete this topic MENINGOCOCCAL (MENACTRA/MENVEO) Aged Out No longer eligible based on patient's age to complete this topic documented as of this encounter Medical Devices Implanted Type Area Flask Cleaner Device Identifier Shelf Expiration Date Model / Serial / Lot Cement Hv-R C01a - [id number] Implanted:Qty: 1 on 05/14/2022 by Chao Lund MD at OR [facility] N/A: Spine Thoracic [employer] : NEURO CARE 01/03/2025 C01A / / [id number] documented as of this encounter Additional Health [...] Advance Directives occurred with: Patient Care Teams Vulcanizer Relationship Specialty Start Date End Date Camilla Chau DO [address] [place] [address] PCP - General Family Medicine 11/17/11 documented as of this encounter
--- OUTSIDE RECORDS SUMMARY | 2023-06-13 04:08 | External Medical Summary | Summary of Care ---
Author Name Unknown Organization [facility] Address [address] [place] [address] Phone [phone] Care Team Providers Care Induction Coordination Power Engineer Name Role Phone Camilla Chau DO Primary Care Provider [phone] Reason for Visit * Reason Onset Date Comments Appointment 02/25/2023 Encounter Details Date Type Department Care Team (Late st Contact Info) Description 02/25/2023 Telephone Orthopaedics [facility], [facility] [place] [address] [facility] [address] [place], [place] [phone] Services, Scheduling [address] [place] [address] Appointment Allergies Active Allergy Reactions Criticality Noted Date Comments Oxybutynin 08/31/2018 Terrible dry mouth and constipation Influenza Vaccines 12/27/2021 Pt stated she won't get it because it makes her "deathly ill" documented as of this encounter (statuses as of 02/25/2023) Medications Medication Sig Dispensed Refills Start Date [...] as of this encounter (statuses as of 02/25/2023) Active Problems Problem Noted Date Diagnosed Date [...] as of this encounter (statuses as of 02/25/2023) Resolved Problems Problem Noted Date Diagnosed Date [...] as of this encounter (statuses as of 02/25/2023) Immunizations Name Administration Dates Next Due COVID-19 [...] encounter Miscellaneous Notes * Telephone Encounter - Rosario Shahid LPN [...] she saw Ortho, notes & imaging in [facility]. Please advise how soon pt should be seen? documented in this encounter Plan of Treatment Upcoming Encounters Date Type Department Care Team (Late st Contact Info) Description 03/04/2023 12:50 PM EST Office Visit [facility] [address] [facility] [phone] Camilla Chau, [address] [facility] [phone] 04/30/2023 2:00 PM EST Laboratory Laboratory, [place] [address] [place] [address] [facility] [address] [place] [address] 05/04/2023 10:30 AM EST Office Visit [facility]opaedics [facility] [place] [address] Gerda [facility]ifuentes MD [facility] [address] 05/07/2023 3:00 PM EST Office Visit Hematology/Oncology [facility] 200 [facility], [place] [address] Elizabeth Serrano CRNP 400 [facility] [place] [address] 05/12/2023 10:30 AM EST Office Visit Rheumatology [facility] [address] [facility] [place], [place] [address] Marcelo Kim CRNP [address] [facility] [place], [place] [address] 03/29/2024 2:20 PM EST Office Visit Dermatology, [place] [address] [place] [address] Keiko Almodovar PA-C [address] [place] [address] [place] [address] Health Maintenance Due Date Last Done Comments [...] Additional history exists CKD HGB USE SMARTSET 11777 09/26/202309/25, 09/25/2022, 05/13/2022, Additional history exists CKD PHOS USE SMARTSET 69042 09/26/2023 09/25/2022, 0 04/08/2018 DXA Scan 10/30/2023 10/29/2021, 10/29/2021 Lipid Panel 11/11/2026 11/11/2021, 11/04, 05/10/2020, Additional history exists Colonoscopy 04/18/2029 04/18/2019, 04/06, 12/16/2012, Additional history exists Colorectal Cancer Screening 04/18/2029 Pneumococcal Vaccine: Pediatrics (0 to 5 Years) and At-Risk Patients (6 to 64 Years) Completed 09/25/2022 LUNG CANCER SCREENING - USE SMARTSET 32039 Completed 09/30/2022 VITAMIN D LEVEL ONCE IN A LIFETIME-USE SMARTSET# 65520 Completed 11/17/2022, 05/13/2022, 04/02/2022 GARDASIL-HPV IMMUNIZATION SERIES Aged Out No longer eligible based on patient's age to complete this topic MENINGOCOCCAL (MENACTRA/MENVEO) Aged Out No longer eligible based on patient's age to complete this topic documented as of this encounter Medical Devices Implanted Type Area Apartment Locator Device Identifier Shelf Expiration Date Model / Serial / Lot Cement Hv-R C01a - [id number] Implanted:Qty: 1 on 05/14/2022 by Chao Lund MD at OR [facility] N/A: Spine Thoracic [employer] : NEURO CARE 01/03/2025 C01A / / [id number] documented as of this encounter Advance Directives Latest Code Status on File Code Status Date Activated Date Inactivated Comments Full Code 05/14/2022 7:03 AM 05/14/2022 2:27 PM This or sal reflects the patients wishes and were consensually agreed upon. Question Answer Comments Discussion of Advance Directives occurred with: Patient Care Teams Induction Coordination Power Engineer Relationship Specialty Start Date End Date Camilla Chau DO [address] [place] [address] PCP - General Family Medicine 11/17/11 documented as of this encounter
--- OUTSIDE RECORDS SUMMARY | 2023-06-13 04:08 | External Medical Summary | Summary of Care ---
Author Name Unknown Organization [facility] Address [address] [place] [address] Phone [phone] Care Team Providers Care Commissioner Of Conciliation Name Role Phone Camilla Chau DO Primary Care Provider [phone] Reason for Visit * Reason Onset Date Comments Letter Requests 02/09/2023 Encounter Details Date Type Department Care Team (Late st Contact Info) Description 02/09/2023 Telephone Orthopaedics [facility] [address] [place] [address] Gerda Cifuentes MD [address] [place] [address] Letter Requests Allergies Active Allergy Reactions Criticality Noted Date [...] encounter Miscellaneous Notes * Telephone Encounter - Erlinda Velez - 02/09/2023 8:41 AM EST Successfully faxed dr dumont to Sneha Huerta successfully to [phone]. Per patients request. documented in this encounter Plan of Treatment Upcoming Encounters Date Type Department Care Team (Late st Contact Info) Description 02/25/2023 9:10 AM EST Office Visit Family [facility] [place] [address] [facility], [place] [phone] Camilla Chau DO [address] [facility], [place] [id number] 04/30/2023 2:00 PM EST Laboratory Laboratory, [place] [address] [facility], [place] [address] [facility] [address] [facility], [place] [phone] 05/04/2023 10:30 AM EST Office Visit Orthopaedics [facility] 132 [facility] [place] [address] Gerda Cifuentes MD 132 [facility] [place] [address] 05/07/2023 3:00 PM EST Office Visit Hematology/Oncology [facility] 200 [facility] [address] Elizabeth Serrano CRNP [address] [place], [place] [address] [address] 05/12/2023 10:30 AM EST Office Visit Rheumatology [address] [place], [place] [address] Marcelo Kim CRNP 3[address] [facility] [place] [address] 03/29/2024 2:20 PM EST Office Visit Dermatology, [place] [address] [facility] [place] [address] Keiko Almodovar PA-C [address] [place] [address] [place] [address] Scheduled Procedures Name Priority Associated Diagnoses Date/Ti [...] Additional history exists CKD HGB USE SMARTSET 88180 09/26/202309/25, 09/25/2022, 05/13/2022, Additional history exists CKD PHOS USE SMARTSET 20786 09/26/2023 09/25/2022, 0 04/08/2018 DXA Scan 10/30/2023 10/29/2021 Lipid Panel 11/11/2026 11/11/2021, 11/04, 05/10/2020, Additional history exists Colonoscopy 04/18/2029 04/18/2019, 04/06, 12/16/2012, Additional history exists Colorectal Cancer Screening 04/18/2029 Pneumococcal Vaccine: Pediatrics (0 to 5 Years) and At-Risk Patients (6 to 64 Years) Completed 09/25/2022 LUNG CANCER SCREENING - USE SMARTSET 48199 Completed 09/30/2022 VITAMIN D LEVEL ONCE IN A LIFETIME-USE SMARTSET# 90055 Completed 11/17/2022, 05/13/2022, 04/02/2022 GARDASIL-HPV IMMUNIZATION SERIES Aged Out No longer eligible based on patient's age to complete this topic MENINGOCOCCAL (MENACTRA/MENVEO) Aged Out No longer eligible based on patient's age to complete this topic documented as of this encounter Medical Devices Implanted Type Area Cloth Mender Device Identifier Shelf Expiration Date Model / Serial / Lot Cement Hv-R C01a - [id number] Implanted:Qty: 1 on 05/14/2022 by Chao Lund MD at OR [facility] N/A: Spine Thoracic [employer] : NEURO CARE 01/03/2025 C01A / / [id number] documented as of this encounter Advance Directives Latest Code Status on File Code Status Date Activated Date Inactivated Comments Full Code 05/14/2022 7:03 AM 05/14/2022 2:27 PM This or sal reflects the patients wishes and were consensually agreed upon. Question Answer Comments Discussion of Advance Directives occurred with: Patient Care Teams Commissioner Of Conciliation Relationship Specialty Start Date End Date aCmilla Chau DO [address] [place] [address] PCP - General Family Medicine 11/17/11 documented as of this encounter
--- OUTSIDE RECORDS SUMMARY | 2023-06-13 04:09 | External Medical Summary | Summary of Care ---
Author Name Unknown Organization [facility] Address [address] [place] [address] Phone [phone] Care Team Providers Care Fire Equipment Operator Name Role Phone Camilla Chau DO Primary Care Provider [phone] Reason for Visit * Reason Onset Date Comments Letter Requests 01/29/2023 Encounter Details Date Type Department Care Team ([facility] st Contact Info) Description 01/29/2023 Telephone [facility] [address] [place] [address] Camilla Chau DO [address] [place] [address] Letter Requests Allergies Active Allergy Reactions Criticality Noted Date Comments Oxybutynin 08/31/2018 Terrible dry mouth and constipation Influenza Vaccines 12/27/2021 Pt stated she won't get it because it makes her "deathly ill" documented as of this encounter (statuses as of 02/05/2023) Medications Medication Sig Dispensed Refills Start Date [...] as of this encounter (statuses as of 02/05/2023) Active Problems Problem Noted Date Diagnosed Date [...] as of this encounter (statuses as of 02/05/2023) Resolved Problems Problem Noted Date Diagnosed Date [...] as of this encounter (statuses as of 02/05/2023) Immunizations Name Administration Dates Next Due COVID-19 [...] Telephone Encounter - Payton Villarreal LPN - 02/05/2023 12:04 PM EDT Faxed. Pt aware * Telephone Encounter - Keiko Power OSA - 02/05/2023 10:48 AM EDT Printed and placed on Providers desk for signature. 02/05/2023 * Telephone Encounter - Payton Villarreal LPN - 02/05/2023 10:26 AM EDT Other note was for work. 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 Can you print on letter head to be given to provider for signature? please * Telephone Encounter - Camilla Chau DO - 02/05/2023 10:10 AM EDT Fine for letter, I did give a letter/note before though regarding this same issue * Telephone Encounter - Payton Villarreal LPN - 02/05/2023 8:47 AM EDT Okay for letter? * Telephone Encounter - Yodit Feldman OSA - 02/05/2023 8:24 AM EDT Patient calling in to check on the status of previous message. Patient Called after 48 hour timeframe and escalation e-mail was sent to clinic leadership. 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 Does the letter need to provide any specific information: Yes - Letter needs to state that patient will be out of work due to an injury. Would you like letter faxed or picked up?: faxed Fax number: [phone] Number to be called when ready to be picked up: n/a Date needed: initial injury was 01/13/23 or 01/14/23 - Xray was completed 01/16/23 documented in this encounter Plan of Treatment Upcoming Encounters Date Type Department Care Team (Late st Contact Info) Description 02/09/2023 8:00 AM EST Office Visit Orthopaedics [facility] [address] [place] [address] Gerda Cifuentes MD 132 [place] [address] 02/25/2023 9:10 AM EST Office Visit [place] [address] [address] [facility], [place] [phone] Camilla Chau, [address] [facility] [place] [address] 04/30/2023 2:00 PM EST Laboratory Laboratory, [place] [address] [facility] [place] [phone] [facility] [address] [facility] [place] [address] 05/07/2023 3:00 PM EST Office Visit Hematology/Oncology [facility] [place] 200 [facility] [place] [address] Elizabeth Serrano CRNP [address] [place] [address] 05/12/2023 10:30 AM EST Office Visit Rheumatology [place] [address] [facility] [place] [address] Marcelo Kim CRNP [address] [place] [address] 03/29/2024 2:20 PM EST Office Visit Dermatology, [place] [address] [place] [address] Keiko Almodovar PA-C [address] [place] [address] [place] [address] Scheduled Procedures Name Priority Associated Diagnoses Date/Ti [...] Additional history exists CKD HGB USE SMARTSET 26491 09/26/202309/25, 09/25/2022, 05/13/2022, Additional history exists CKD PHOS USE SMARTSET 77197 09/26/2023 09/25/2022, 0 04/08/2018 DXA Scan 10/30/2023 10/29/2021 Lipid Panel 11/11/2026 11/11/2021, 11/04, 05/10/2020, Additional history exists Colonoscopy 04/18/2029 04/18/2019, 04/06, 12/16/2012, Additional history exists Colorectal Cancer Screening 04/18/2029 Pneumococcal Vaccine: Pediatrics (0 to 5 Years) and At-Risk Patients (6 to 64 Years) Completed 09/25/2022 LUNG CANCER SCREENING - USE SMARTSET 64886 Completed 09/30/2022 VITAMIN D LEVEL ONCE IN A LIFETIME-USE SMARTSET# 07297 Completed 11/17/2022, 05/13/2022, 04/02/2022 GARDASIL-HPV IMMUNIZATION SERIES Aged Out No longer eligible based on patient's age to complete this topic MENINGOCOCCAL (MENACTRA/MENVEO) Aged Out No longer eligible based on patient's age to complete this topic documented as of this encounter Medical Devices Implanted Type Area Plate Mounter Device Identifier Shelf Expiration Date Model / Serial / Lot Cement Hv-R C01a - [id number] Implanted:Qty: 1 on 05/14/2022 by Chao Lund MD at OR [facility] N/A: Spine Thoracic [employer] : NEURO CARE 01/03/2025 C01A / / [id number] documented as of this encounter Advance Directives Latest Code Status on File Code Status Date Activated Date Inactivated Comments Full Code 05/14/2022 7:03 AM 05/14/2022 2:27 PM This or sal reflects the patients wishes and were consensually agreed upon. Question Answer Comments Discussion of Advance Directives occurred with: Patient Care Teams Fire Equipment Operator Relationship Specialty Start Date End Date Camilla Chau DO [address] [place] [address] PCP - General Family Medicine 11/17/11 documented as of this encounter
--- OUTSIDE RECORDS SUMMARY | 2023-06-13 04:09 | External Medical Summary | Summary of Care ---
Author Name Unknown Organization [facility] Address [address] [place] [address] Phone [phone] Care Team Providers Care Capsule Maker Name Role Phone Alvarez Caldera DO Primary Care Provider + [phone] Reason for Referral * Evaluate & Treat - Unlimited Visits (Within 30 days (routine)) - Authorized Specialty Diagnoses / Procedures Referred By Verito varner Referred To Contact Orthopaedic Surgery / Orthopedics Diagnoses Closed fracture of sacrum with delayed healing, unspecified portion of sacrum, subsequent encounter Alvarez Caldera DO [address] [place] [address] Referral ID Status Reason Start Date Expiration Date Visits Requested Visits Authorized [id number] Authorized Specialty Services Required 3 999 999 Question Answer Referral Priority Within 30 days (routine) Where should this appointment be scheduled? External What body part is the patient being seen for? Hip - sacral What condition is the patient being seen for? Sprain/Strain/Tear/Other Reason for Visit * Reason Onset Date Comments Advice 01/19/2023 Encounter Details Date Type Department Care Team (Late st Contact Info) Description 01/19/2023 Telephone [facility] [address] [place] [address] Alvarez Caldera DO [address] [place] [address] Advice Allergies Active Allergy Reactions Criticality Noted Date Comments Oxybutynin 08/31/2018 Terrible dry mouth and constipation Influenza Vaccines 12/27/2021 Pt stated she won't get it because it makes her "deathly ill" documented as of this encounter (statuses as of 02/02/2023) Medications Medication Sig Dispensed Refills Start Date [...] as of this encounter (statuses as of 02/02/2023) Active Problems Problem Noted Date Diagnosed Date [...] as of this encounter (statuses as of 02/02/2023) Resolved Problems Problem Noted Date Diagnosed Date [...] as of this encounter (statuses as of 02/02/2023) Immunizations Name Administration Dates Next Due COVID-19 [...] Miscellaneous Notes * Addendum Note - Alvarez Caldera DO - 02/02/2023 2:20 PM EDTAddended by: ALVAREZ CALDERA on: 02/02/2023 02:20 PM Modules accepted: Orders * Addendum Note - Domi Scanlon LPN - 01/29/2023 10:07 AM EDTAddended by: DOMI SCANLON on: 01/29/2023 10:07 AM Modules accepted: Orders * Telephone Encounter - Adi Shen OSA - 01/29/2023 9:45 AM EDT Patient calling in stating that she is still having pain. She was given message below. She stated that she would like the referral to Ortho. Caller stated that she has been seen at [facility] and [facility] and she is willing to be seen at either location. Please advise. * Telephone Encounter - Sruthi Camp MED ASSIST - 01/21/2023 2:27 PM EDT Tried to call pt. No answer. Left message to call back. Please advise pt of previous message. * Telephone Encounter - Alvarez Caldera DO - 01/21/2023 1:47 PM EDT I would suggest she get an orthopedic follow-up appt, if pt willing, I can place referral * Telephone Encounter - Janet Rock LPN - 01/19/2023 2:01 PM EDT Patient returned call. Informed of message. Verbalized understanding. She is having a hard time walking. She taking 3 extra Excedrin at a time pain is still 7/10, Without the Excedrin she states pain is above 10. Please advise. * Telephone Encounter - Adi Shen OSA - 01/19/2023 1:59 PM EDT Reason for patient's call: returning call Caller was transferred to [place] at the nurse line. * Telephone Encounter - Janet Rock LPN - 01/19/2023 1:48 PM EDT Called pt. No answer. Mailbox is unable to leave message. Sent Myg * Telephone Encounter - Alvarez Caldera DO - 01/19/2023 12:12 PM EDT Small sacral fracture on her xray. How is her pain? documented in this encounter Plan of Treatment Upcoming Encounters Date Type Department Care Team (Late st Contact Info) Description 02/25/2023 9:10 AM EST Office Visit [place] [address] [facility], [place] [phone] Alvarez Caldera DO [address] [place] [address] 04/30/2023 2:00 PM EST Laboratory Laboratory, [place] [address] [place] [phone] [place] [address] [place] [facility] [place] [address] 05/07/2023 3:00 PM EST Office Visit Hematology/Oncology [facility] [place] [address] [facility] [place] [address] Elizabeth Serrano CRNP [address] [facility] [place] [address] 05/12/2023 10:30 AM EST Office Visit Rheumatology [facility] [address] [facility] [place] [address] Marcelo Kim CRNP [address] [facility] [place] [address] 03/29/2024 2:20 PM EST Office Visit Dermatology, [place] [address] [facility], [place] [address] Keiko Almodovar PA-C [address] [place] [address] [place] [address] Scheduled Procedures Name Priority Associated Diagnoses Date/Ti me CRANIAL NERVE NEUROSTIM ELEC TRODE AND GENERATOR INSERTION Obstructive sleep apnea Scheduled Referrals Name Type Priority Associated Diagnoses Orde r Schedule ORTHOPAEDICS REFERRAL OP Referral Within 30 days (routine) Closed fracture of sacrum with delayed healing, unspecified portion of sacrum, subsequent encounter Ordered: 02/02/2023 Health Maintenance Due Date Last Done Comments [...] Additional history exists CKD HGB USE SMARTSET 35410 09/26/202309/25, 09/25/2022, 05/13/2022, Additional history exists CKD PHOS USE SMARTSET 95570 09/26/2023 09/25/2022, 0 04/08/2018 DXA Scan 10/30/2023 10/29/2021 Lipid Panel 11/11/2026 11/11/2021, 11/04, 05/10/2020, Additional history exists Colonoscopy 04/18/2029 04/18/2019, 04/06, 12/16/2012, Additional history exists Colorectal Cancer Screening 04/18/2029 Pneumococcal Vaccine: Pediatrics (0 to 5 Years) and At-Risk Patients (6 to 64 Years) Completed 09/25/2022 LUNG CANCER SCREENING - USE SMARTSET 34434 Completed 09/30/2022 VITAMIN D LEVEL ONCE IN A LIFETIME-USE SMARTSET# 98855 Completed 11/17/2022, 05/13/2022, 04/02/2022 GARDASIL-HPV IMMUNIZATION SERIES Aged Out No longer eligible based on patient's age to complete this topic MENINGOCOCCAL (MENACTRA/MENVEO) Aged Out No longer eligible based on patient's age to complete this topic documented as of this encounter Medical Devices Implanted Type Area Metal Punch Press Operator Device Identifier Shelf Expiration Date Model / Serial / Lot Cement Hv-R C01a - [id number] Implanted:Qty: 1 on 05/14/2022 by Chao Lund MD at OR [facility] N/A: Spine Thoracic [employer] : NEURO CARE 01/03/2025 C01A / / [id number] documented as of this encounter Visit Diagnoses Diagnosis Closed fracture of sacrum with delayed healing, unspecified portion of sacrum, subsequent encounter- Primary documented in this encounter Advance Directives Latest Code Status on File Code Status Date Activated Date Inactivated Comments Full Code 05/14/2022 7:03 AM 05/14/2022 2:27 PM This or sal reflects the patients wishes and were consensually agreed upon. Question Answer Comments Discussion of Advance Directives occurred with: Patient Care Teams Capsule Maker Relationship Specialty Start Date End Date Alvarez Caldera DO [address] [place] [address] PCP - General Family Medicine 11/17/11 documented as of this encounter
--- OUTSIDE RECORDS SUMMARY | 2023-06-13 04:09 | External Medical Summary | Summary of Care ---
Author Name Unknown Organization [facility] Address [address] [place] [address] Phone [phone] Care Team Providers Care Edge Plugger Name Role Phone Camilla Chau DO Primary Care Provider [phone] Reason for Visit * Reason Onset Date Comments Letter Requests 01/30/2023 Encounter Details Date Type Department Care Team ([facility] st Contact Info) Description 01/30/2023 Telephone [facility] [address] [place] [address] Camilla Chau DO [address] [place] [address] Letter Requests Allergies Active Allergy [...] encounter Miscellaneous Notes * Telephone Encounter - Becca Queen LPN - 02/02/2023 5:12 PM EDT Spoke with with pt and let her know the doctor wrote the note and was faxed to the number provided below. Pt will check with employer to make sure they received it. * Telephone Encounter - Camilla Chau DO - 02/02/2023 2:23 PM EDT Work note given. * Telephone Encounter - Becca Queen LPN - 01/30/2023 12:43 PM EDT Called number listed and got messages are full please call back * Telephone Encounter - Enrique Dawson MD - 01/30/2023 11:50 AM EDT If she has been evaluated by someone (ED, ortho, urgent care) that has documentation of tailbone fracture, should request letter from them. Otherwise, nursing should try to get details where she was seen/diagnosed so that it can be reviewed by provider. May need OV or wait for PCP * Telephone Encounter - Krystyna Martinez CCMA - 01/30/2023 10:49 AM EDT Please advise as below. Thank you. * Telephone Encounter - Ridge Garcia OSA - 01/30/2023 9:51 AM EDT Type of letter requested: Letter to employer. Does the letter need to provide any specific information: Patient would like a letter to her employer stating that due to her fracture near the tail bone that she hasn't been able to work since 01/25/2023. [facility]. Attn: Sneha Huerta. Would you like letter faxed or picked up?: Faxed. Fax number: [phone]. Number to be called when faxed: [phone] Date needed: As soon as possible. documented in this encounter Plan of Treatment Upcoming Encounters Date Type Department Care Team (Late st Contact Info) Description 02/09/2023 8:00 AM EST Office Visit Orthopaedics [facility] [address] [facility] [place] [address] Gerda Cifuentes MD [address] [place] [address] 02/25/2023 9:10 AM EST Office Visit [place] [address] [place] [address] Camilla Chau, [address] [place] [address] 04/30/2023 2:00 PM EST Laboratory Laboratory, [place] [address] [place] [address] [facility] [address] [place] [address] 05/07/2023 3:00 PM EST Office Visit Hematology/Oncology [facility] [address] [facility] [place] [address] Elizabeth Serrano CRNP [address] [place] [address] 05/12/2023 10:30 AM EST Office Visit Rheumatology [place] [address] [facility] [place] [address] Marcelo Kim CRNP [address] [facility] [place] [address] 03/29/2024 2:20 PM EST Office Visit Dermatology, [place] [phone] [facility] [place] [phone] Keiko Almodovar PA-C [address] [place] [address] [place] [address] Scheduled Procedures Name Priority Associated Diagnoses Date/Ti [...] Additional history exists CKD HGB USE SMARTSET 48005 09/26/202309/25, 09/25/2022, 05/13/2022, Additional history exists CKD PHOS USE SMARTSET 32533 09/26/2023 09/25/2022, 0 04/08/2018 DXA Scan 10/30/2023 10/29/2021 Lipid Panel 11/11/2026 11/11/2021, 11/04, 05/10/2020, Additional history exists Colonoscopy 04/18/2029 04/18/2019, 04/06, 12/16/2012, Additional history exists Colorectal Cancer Screening 04/18/2029 Pneumococcal Vaccine: Pediatrics (0 to 5 Years) and At-Risk Patients (6 to 64 Years) Completed 09/25/2022 LUNG CANCER SCREENING - USE SMARTSET 84092 Completed 09/30/2022 VITAMIN D LEVEL ONCE IN A LIFETIME-USE SMARTSET# 92456 Completed 11/17/2022, 05/13/2022, 04/02/2022 GARDASIL-HPV IMMUNIZATION SERIES Aged Out No longer eligible based on patient's age to complete this topic MENINGOCOCCAL (MENACTRA/MENVEO) Aged Out No longer eligible based on patient's age to complete this topic documented as of this encounter Medical Devices Implanted Type Area Steward/Stewardess Banquet Device Identifier Shelf Expiration Date Model / Serial / Lot Cement Hv-R C01a - [id number] Implanted:Qty: 1 on 05/14/2022 by Chao Lund MD at OR [facility] N/A: Spine Thoracic [employer] : NEURO CARE 01/03/2025 C01A / / [id number] documented as of this encounter Visit Diagnoses [...] Advance Directives occurred with: Patient Care Teams Edge Plugger Relationship Specialty Start Date End Date Camilla Chau DO [address] [place] [facility] [place] [address] PCP - General Family Medicine 11/17/11 documented as of this encounter
--- OUTSIDE RECORDS SUMMARY | 2023-06-13 04:09 | External Medical Summary | Summary of Care ---
Author Name Unknown Organization [facility] Address [address] [place] [address] Phone [phone] Care Team Providers Care Senior Data Mining Analyst Name Role Phone Camilla Chau DO Primary Care Provider Reason for Visit * Reason Onset Date Comments Advice 01/19/2023 Encounter Details Date Type Department Care Team ([facility] st Contact Info) Description 01/19/[address] [facility] [address] [place] [address] Camilla Chau DO [address] [place] [address] Advice Allergies Active Allergy Reactions Criticality Noted Date Comments Oxybutynin 08/31/2018 Terrible dry mouth and constipation Influenza Vaccines 12/27/2021 Pt stated she won't get it because it makes her "deathly ill" documented as of this encounter (statuses as of 01/29/2023) Medications Medication Sig Dispensed Refills Start Date [...] as of this encounter (statuses as of 01/29/2023) Active Problems Problem Noted Date Diagnosed Date [...] as of this encounter (statuses as of 01/29/2023) Resolved Problems Problem Noted Date Diagnosed Date [...] as of this encounter (statuses as of 01/29/2023) Immunizations Name Administration Dates Next Due COVID-19 [...] encounter Miscellaneous Notes * Addendum Note - Domi Scanlon LPN - 01/29/2023 10:07 AM EDTAddended by: DOMI SCANLON on: 01/29/2023 10:07 AM Modules accepted: Orders * Telephone Encounter - KATHIE Vazquez - 01/29/2023 9:45 AM EDT Patient calling in stating that she is still having pain. She was given message below. She stated that she would like the referral to Ortho. Caller stated that she has been seen at [facility] and [facility] and she is willing to be seen at either location. Please advise. * Telephone Encounter - Sruthi Camp MED ASSIST - 01/21/2023 2:27 PM EDT Tried to call pt. No answer. Left message to call back. Please advise pt of previous message. * Telephone Encounter - Camilla Chau DO - 01/21/2023 1:47 PM EDT I [...] 10. Please advise. * Telephone Encounter - KATHIE Vazquez - 01/19/2023 1:59 PM EDT Reason for patient's call: returning call Caller was transferred to [place] at the nurse line. * Telephone Encounter - Janet Rock LPN - 01/19/2023 1:48 PM EDT Called pt. No answer. Mailbox is unable to leave message. Sent Myg * Telephone Encounter - Camilla Chau DO - 01/19/2023 12:12 PM EDT Small sacral fracture on her xray. How is her pain? documented in this encounter Plan of Treatment Upcoming Encounters Date Type Department Care Team (Late st Contact Info) Description 02/03/2023 3:00 PM EDT Office Visit Dermatology, [place] [address] [address] [facility], [place] [address] Keiko Almodovar PA-C [address] [place] [address] [place] [address] 02/25/2023 9:10 AM EST Office Visit Family [facility] [place] [address] [facility] [phone] Camilla [facility] [address] [facility] [address] 04/30/2023 2:00 PM EST Laboratory Laboratory, [place] [address] [facility] [phone] [facility] [address] [facility], [place] [address] 05/07/2023 3:00 PM EST Office Visit Hematology/Oncology [facility] [place] [address] [facility] [address] Elizabeth Serrano CRNP [address] [place] [address] [place] [address] 05/12/2023 10:30 AM EST Office Visit Rheumatology [facility] [address] [facility] [place] [address] Marcelo Kim CRNP [facility] [place] [facility] [place] [address] Scheduled Procedures Name Priority Associated Diagnoses Date/Ti [...] (FLU shot) (#1) 2022 HbA1c 05/13/2023 05/13/2022, 08/11/2021, 09/23/2021, Additional history exists GFR 05/20/2023 11/17/2022, 09/05, 05/13/2022, Additional history exists Mammogram 08/05/2023 08/04/2022, 04/0 08/2021, 05/29/2020, Additional history exists Albumin/Creatinine Ratio 09/26/2023 023, 09/23/2021, 08/08/2020, Additional history exists CKD HGB USE SMARTSET 74766 09/26/202309/25, 09/25/2022, 05/13/2022, Additional history exists CKD PHOS USE SMARTSET 30783 09/26/2023 09/25/2022, 0 04/08/2018 DXA Scan 10/30/2023 10/29/2021 Lipid Panel 11/11/2026 11/11/2021, 11/04, 05/10/2020, Additional history exists Colonoscopy 04/18/2029 04/18/2019, 04/06, 12/16/2012, Additional history exists Colorectal Cancer Screening 04/18/2029 Pneumococcal Vaccine: Pediatrics (0 to 5 Years) and At-Risk Patients (6 to 64 Years) Completed 09/25/2022 LUNG CANCER SCREENING - USE SMARTSET 07850 Completed 09/30/2022 VITAMIN D LEVEL ONCE IN A LIFETIME-USE SMARTSET# 68792 Completed 11/17/2022, 05/13/2022, 04/02/2022 GARDASIL-HPV IMMUNIZATION SERIES Aged Out No longer eligible based on patient's age to complete this topic MENINGOCOCCAL (MENACTRA/MENVEO) Aged Out No longer eligible based on patient's age to complete this topic documented as of this encounter Medical Devices Implanted Type Area Dental Tech Device Identifier Shelf Expiration Date Model / Serial / Lot Cement Hv-R C01a - [id number] Implanted:Qty: 1 on 05/14/2022 by Chao Lund MD at OR [facility] N/A: Spine Thoracic [employer] : NEURO CARE 01/03/2025 C01A / / [id number] documented as of this encounter Advance Directives Latest Code Status on File Code Status Date Activated Date Inactivated Comments Full Code 05/14/2022 7:03 AM 05/14/2022 2:27 PM This or sal reflects the patients wishes and were consensually agreed upon. Question Answer Comments Discussion of Advance Directives occurred with: Patient Care Teams Senior Data Mining Analyst Relationship Specialty Start Date End Date Camilla Chau DO [address] [facility] [place] [address] PCP - General Family Medicine 11/17/11 documented as of this encounter
--- OUTSIDE RECORDS SUMMARY | 2023-06-13 04:09 | External Medical Summary | Summary of Care ---
Author Name Unknown Organization [facility] Address [address] [place] [address] Phone [phone] Care Team Providers Care Financial Management Analyst Name Role Phone Camilla Chau DO Primary Care Provider [phone] Reason for Visit * Reason Onset Date Comments Letter Requests 01/30/2023 Encounter Details Date Type Department Care Team ([facility] st Contact Info) Description 01/30/2023 Telephone [facility] [address] [place] [address] Camilla Chau DO [address] [place] [address] Letter Requests Allergies Active Allergy [...] faxed or picked up?: Faxed. Fax number: [phone]. Number to be called when faxed: [phone] Date needed: As soon as possible. documented in this encounter Plan of Treatment Upcoming Encounters Date Type Department Care Team (Late st Contact Info) Description 02/25/2023 9:10 AM EST Office Visit [facility] [place] [address] [facility], [place] [phone] Camilla Chau DO [address] [place] [address] 04/30/2023 2:00 PM EST Laboratory Laboratory, [place] [address] [place] [facility] [place] [phone] [facility] [address] [place] [facility] [place] [address] 05/07/2023 3:00 PM EST Office Visit Hematology/Oncology [facility] 200 [facility] [place] [address] Elizabeth Serrano CRNP 400 [facility] [place] [address] 05/12/2023 10:30 AM EST Office Visit Rheumatology [address] [place], [place] [address] Marcelo Kim CRNP [address] [facility] [place], [place] [address] 03/29/2024 2:20 PM EST Office Visit Dermatology, [place] [address] [facility], [place] [address] Keiko Almodovar PA-C [address] [place] [address] [place] [address] Scheduled Procedures Name Priority Associated Diagnoses Date/Ti [...] Additional history exists CKD HGB USE SMARTSET 38054 09/26/202309/25, 09/25/2022, 05/13/2022, Additional history exists CKD PHOS USE SMARTSET 09602 09/26/2023 09/25/2022, 0 04/08/2018 DXA Scan 10/30/2023 10/29/2021 Lipid Panel 11/11/2026 11/11/2021, 11/04, 05/10/2020, Additional history exists Colonoscopy 04/18/2029 04/18/2019, 04/06, 12/16/2012, Additional history exists Colorectal Cancer Screening 04/18/2029 Pneumococcal Vaccine: Pediatrics (0 to 5 Years) and At-Risk Patients (6 to 64 Years) Completed 09/25/2022 LUNG CANCER SCREENING - USE SMARTSET 96647 Completed 09/30/2022 VITAMIN D LEVEL ONCE IN A LIFETIME-USE SMARTSET# 04990 Completed 11/17/2022, 05/13/2022, 04/02/2022 GARDASIL-HPV IMMUNIZATION SERIES Aged Out No longer eligible based on patient's age to complete this topic MENINGOCOCCAL (MENACTRA/MENVEO) Aged Out No longer eligible based on patient's age to complete this topic documented as of this encounter Medical Devices Implanted Type Area Floor Inspector Device Identifier Shelf Expiration Date Model / Serial / Lot Cement Hv-R C01a - [id number] Implanted:Qty: 1 on 05/14/2022 by Chao Lund MD at OR [facility] N/A: Spine Thoracic [employer] : NEURO CARE 01/03/2025 C01A / / [id number] documented as of this encounter Visit Diagnoses [...] Advance Directives occurred with: Patient Care Teams Financial Management Analyst Relationship Specialty Start Date End Date Camilla Chau DO [address] [place] [address] PCP - General Family Medicine 11/17/11 documented as of this encounter
--- OUTSIDE RECORDS SUMMARY | 2023-06-13 04:09 | External Medical Summary | Summary of Care ---
Author Name Unknown Organization [facility] Address [address] [place] [address] Phone [phone] Care Team Providers Care Retail Financial Analyst Name Role Phone Camilla Chau DO Primary Care Provider [phone] Reason for Visit * Reason Onset Date Comments Letter Requests 01/30/2023 Encounter Details Date Type Department Care Team ([facility] st Contact Info) Description 01/30/2023 Telephone [facility] [address] [place] [address] Camilla Chau DO [address] [place] [address] Letter Requests Allergies Active Allergy [...] Encounter - Becca Queen LPN - 02/02/2023 5:08 PM EDT Work note given. * Telephone Encounter - Camilla Chau DO [...] hasn't been able to work since 01/25/2023. [facility]. Attn: Sneha Huerta. Would you like letter faxed or picked up?: Faxed. Fax number: [phone]. Number to be called when faxed: [phone] Date needed: As soon as possible. documented in this encounter Plan of Treatment Upcoming Encounters Date Type Department Care Team (Late st Contact Info) Description 02/09/2023 8:00 AM EST Office Visit Orthopaedics [facility] [address] [place] [address] Gerda Cifuentes MD [address] [place] [address] 02/25/2023 9:10 AM EST Office Visit [facility] [place] [address] [facility] [address] Camilla Chau DO [address] [facility] [place] [address] 04/30/2023 2:00 PM EST Laboratory Laboratory, [place] [address] [facility], [place] [phone] [facility] Laboratory [address] [place], [place] [address] 05/07/2023 3:00 PM EST Office Visit Hematology/Oncology [facility] [address] [facility] [place], [place] [address] Elizabeth Serrano CRNP [address] [place] [address] 05/12/2023 10:30 AM EST Office Visit Rheumatology [place] [address] [facility] [place] [address] Marcelo Kim CRNP [address] [facility] [place] [address] 03/29/2024 2:20 PM EST Office Visit Dermatology, [place] [address] [facility] [place] [address] Keiko Almodovar PA-C [address] [place] [address] [place] [address] Scheduled Procedures Name Priority Associated Diagnoses Date/Ti [...] Additional history exists CKD HGB USE SMARTSET 84329 09/26/202309/25, 09/25/2022, 05/13/2022, Additional history exists CKD PHOS USE SMARTSET 94215 09/26/2023 09/25/2022, 0 04/08/2018 DXA Scan 10/30/2023 10/29/2021 Lipid Panel 11/11/2026 11/11/2021, 11/04, 05/10/2020, Additional history exists Colonoscopy 04/18/2029 04/18/2019, 04/06, 12/16/2012, Additional history exists Colorectal Cancer Screening 04/18/2029 Pneumococcal Vaccine: Pediatrics (0 to 5 Years) and At-Risk Patients (6 to 64 Years) Completed 09/25/2022 LUNG CANCER SCREENING - USE SMARTSET 44848 Completed 09/30/2022 VITAMIN D LEVEL ONCE IN A LIFETIME-USE SMARTSET# 65034 Completed 11/17/2022, 05/13/2022, 04/02/2022 GARDASIL-HPV IMMUNIZATION SERIES Aged Out No longer eligible based on patient's age to complete this topic MENINGOCOCCAL (MENACTRA/MENVEO) Aged Out No longer eligible based on patient's age to complete this topic documented as of this encounter Medical Devices Implanted Type Area Dba Developer Device Identifier Shelf Expiration Date Model / Serial / Lot Cement Hv-R C01a - [id number] Implanted:Qty: 1 on 05/14/2022 by Chao Lund MD at OR [facility] N/A: Spine Thoracic [employer] : NEURO CARE 01/03/2025 C01A / / [id number] documented as of this encounter Visit Diagnoses [...] Advance Directives occurred with: Patient Care Teams Retail Financial Analyst Relationship Specialty Start Date End Date Camilla Chau DO [address] [place] [address] PCP - General Family Medicine 11/17/11 documented as of this encounter
--- OUTSIDE RECORDS SUMMARY | 2023-06-13 04:09 | External Medical Summary | Summary of Care ---
Author Name Unknown Organization [facility] Address [address] [place] [address] Phone [phone] Care Team Providers Care Flue Blower Name Role Phone Camilla Chau DO Primary Care Provider [phone] Reason for Visit * Reason Onset Date Comments Letter Requests 01/30/2023 Encounter Details Date Type Department Care Team ([facility] st Contact Info) Description 01/30/2023 Telephone [facility] [address] [place] [address] Camilla Chau DO [address] [place] [address] Letter Requests Allergies Active Allergy [...] Encounter - Keiko Power OSA - 02/05/2023 8:53 AM EDT Faxed and LMOM at number below letting them know it was faxed to number given. 02/05/2023 * Telephone Encounter - Yodit Feldman OSA - 02/05/2023 8:23 AM EDT Please re-fax, employer did not receive the letter. * Telephone Encounter - Becca Queen LPN [...] hasn't been able to work since 01/25/2023. [facility]. Attn: Sneha Huerta. Would you like letter faxed or picked up?: Faxed. Fax number: [phone]. Number to be called when faxed: [phone] Date needed: As soon as possible. documented in this encounter Plan of Treatment Upcoming Encounters Date Type Department Care Team (Late st Contact Info) Description 02/09/2023 8:00 AM EST Office Visit Orthopaedics [facility] [address] [place] [address] Gerda Cifuentes MD [address] [place] [address] 02/25/2023 9:10 AM EST Office Visit [facility] [address] [facility] [phone] Camilla Chau DO [address] [facility] [address] 04/30/2023 2:00 PM EST Laboratory Laboratory, [place] [address] [facility] [phone] [facility] Laboratory [address] [facility] [address] 05/07/2023 3:00 PM EST Office Visit Hematology/Oncology [facility] [address] [facility], [place] [address] Elizabeth Serrano CRNP [address] [place] [address] 05/12/2023 10:30 AM EST Office Visit Rheumatology [facility] [address] [address] Marcelo Kim CRNP [address] [facility] [facility] [address] 03/29/2024 2:20 PM EST Office Visit Dermatology[address] [place] [address] Keiko Almodovar PA-C [address] [place] [address] [place] [address] Scheduled Procedures Name Priority Associated Diagnoses Date/Ti [...] Additional history exists CKD HGB USE SMARTSET 57689 09/26/202309/25, 09/25/2022, 05/13/2022, Additional history exists CKD PHOS USE SMARTSET 94102 09/26/2023 09/25/2022, 0 04/08/2018 DXA Scan 10/30/2023 10/29/2021 Lipid Panel 11/11/2026 11/11/2021, 11/04, 05/10/2020, Additional history exists Colonoscopy 04/18/2029 04/18/2019, 04/06, 12/16/2012, Additional history exists Colorectal Cancer Screening 04/18/2029 Pneumococcal Vaccine: Pediatrics (0 to 5 Years) and At-Risk Patients (6 to 64 Years) Completed 09/25/2022 LUNG CANCER SCREENING - USE SMARTSET 12610 Completed 09/30/2022 VITAMIN D LEVEL ONCE IN A LIFETIME-USE SMARTSET# 23124 Completed 11/17/2022, 05/13/2022, 04/02/2022 GARDASIL-HPV IMMUNIZATION SERIES Aged Out No longer eligible based on patient's age to complete this topic MENINGOCOCCAL (MENACTRA/MENVEO) Aged Out No longer eligible based on patient's age to complete this topic documented as of this encounter Medical Devices Implanted Type Area Coldfusion Device Identifier Shelf Expiration Date Model / Serial / Lot Cement Hv-R C01a - [id number] Implanted:Qty: 1 on 05/14/2022 by Chao Lund MD at OR [facility] N/A: Spine Thoracic [employer] : NEURO CARE 01/03/2025 C01A / / [id number] documented as of this encounter Visit Diagnoses [...] Advance Directives occurred with: Patient Care Teams Flue Blower Relationship Specialty Start Date End Date Camilla Chau DO [address] [place] [address] PCP - General Family Medicine 11/17/11 documented as of this encounter
--- OUTSIDE RECORDS SUMMARY | 2023-06-13 04:09 | External Medical Summary | Summary of Care ---
Author Name Unknown Organization [facility] Address [address] [place] [address] Phone [phone] Care Team Providers Care Civil Design Specialist Name Role Phone Alvarez Caldera DO Primary Care Provider + [phone] Reason for Referral * Evaluate & Treat - Unlimited Visits (Within 30 days (routine)) - Authorized Specialty Diagnoses / Procedures Referred By Verito varner Referred To Contact Orthopaedic Surgery / Orthopedics Diagnoses Closed fracture of sacrum with delayed healing, unspecified portion of sacrum, subsequent encounter Alvarez Caldera DO [address] [place] [address] Referral ID Status Reason Start Date Expiration Date Visits Requested Visits Authorized [id number] Authorized Specialty Services Required 3 999 999 [...] (Late st Contact Info) Description 01/19/2023 Telephone [facility] [address] [place] [address] Alvarez Caldera DO [address] [place] [address] Advice Allergies Active Allergy Reactions [...] encounter Miscellaneous Notes * Telephone Encounter - Domi Scanlon LPN - 02/02/2023 2:57 PM EDT Please assist in scheduling. * Addendum Note - Alvarez Caldera DO [...] stated that she has been seen at [facility] and [facility] and she is willing to [...] call: returning call Caller was transferred to [place] at the nurse line. * Telephone Encounter [...] Description 02/25/2023 9:10 AM EST Office Visit [facility] [place] [address] [facility], [place] [phone] Alvarez Caldera DO [address] [facility] [place] [id number] 04/30/2023 2:00 PM EST Laboratory Laboratory, [place] [address] [facility], [place] [address] [facility] Laboratory [address] [facility], [place] [address] 05/07/2023 3:00 PM EST Office Visit Hematology/Oncology [facility] [address] [facility] [place] [address] Elizabeth Serrano CRNP [address] [facility] [place] [address] 05/12/2023 10:30 AM EST Office Visit Rheumatology [place] [address] [facility] [place] [address] Marcelo Kim CRNP [address] [facility] [place] [address] 03/29/2024 2:20 PM EST Office Visit Dermatology, [place] [address] [facility], [place] [address] Keiko Almodovar PA-C [address] [place] [address] [place] [address] Scheduled Procedures Name Priority Associated Diagnoses Date/Ti [...] Additional history exists CKD HGB USE SMARTSET 27975 09/26/202309/25, 09/25/2022, 05/13/2022, Additional history exists CKD PHOS USE SMARTSET 76399 09/26/2023 09/25/2022, 0 04/08/2018 DXA Scan 10/30/2023 10/29/2021 Lipid Panel 11/11/2026 11/11/2021, 11/04, 05/10/2020, Additional history exists Colonoscopy 04/18/2029 04/18/2019, 04/06, 12/16/2012, Additional history exists Colorectal Cancer Screening 04/18/2029 Pneumococcal Vaccine: Pediatrics (0 to 5 Years) and At-Risk Patients (6 to 64 Years) Completed 09/25/2022 LUNG CANCER SCREENING - USE SMARTSET 81210 Completed 09/30/2022 VITAMIN D LEVEL ONCE IN A LIFETIME-USE SMARTSET# 34420 Completed 11/17/2022, 05/13/2022, 04/02/2022 GARDASIL-HPV IMMUNIZATION SERIES Aged Out No longer eligible based on patient's age to complete this topic MENINGOCOCCAL (MENACTRA/MENVEO) Aged Out No longer eligible based on patient's age to complete this topic documented as of this encounter Medical Devices Implanted Type Area Electromechanical Technician Device Identifier Shelf Expiration Date Model / Serial / Lot Cement Hv-R C01a - [id number] Implanted:Qty: 1 on 05/14/2022 by Chao Lund MD at OR [facility] N/A: Spine Thoracic [employer] : NEURO CARE 01/03/2025 C01A / / [id number] documented as of this encounter Visit Diagnoses [...] Advance Directives occurred with: Patient Care Teams Civil Design Specialist Relationship Specialty Start Date End Date Alvarez Caldera DO [address] [place] [address] PCP - General Family Medicine 11/17/11 documented as of this encounter
--- OUTSIDE RECORDS SUMMARY | 2023-06-13 04:09 | External Medical Summary | Summary of Care ---
Author Name Unknown Organization [facility] Address [address] [place] [address] Phone [phone] Care Team Providers Care Hand Or Machine Paster Name Role Phone Camilla Chau DO Primary Care Provider [phone] Reason for Visit * Reason Onset Date Comments Letter Requests 01/30/2023 Encounter Details Date Type Department Care Team ([facility] st Contact Info) Description 01/30/2023 Telephone [facility] [address] [place] [address] Camilla Chau DO [address] [place] [address] Letter Requests Allergies Active Allergy [...] hasn't been able to work since 01/25/2023. [facility]. Attn: Sneha Huerta. Would you like letter faxed or picked up?: Faxed. Fax number: [phone]. Number to be called when faxed: [phone] Date needed: As soon as possible. documented in this encounter Plan of Treatment Upcoming Encounters Date Type Department Care Team (Late st Contact Info) Description 02/09/2023 8:00 AM EST Office Visit Orthopaedics [facility] [address] [place] [address] Gerda Cifuentes MD [address] [place] [address] 02/25/2023 9:10 AM EST Office Visit Family [facility] [place] [address] [place] [facility] [address] Camilla Chau DO [address] [place], [place] [address] 04/30/2023 2:00 PM EST Laboratory Laboratory, [place] [address] [place] [address] [facility] Laboratory [address] [place], [place] [address] 05/07/2023 3:00 PM EST Office Visit Hematology/Oncology [facility] 200 [facility] [place], [place] [address] Elizabeth Serrano CRNP [address] [facility] [place] [address] 05/12/2023 10:30 AM EST Office Visit Rheumatology [address] [place], [place] [address] Marcelo Kim CRNP [address] [place] [address] [place], [place] [address] 03/29/2024 2:20 PM EST Office Visit Dermatology, [place] [address] [place] [address] Keiko Almodovar PA-C [address] [place] [address] [place] [address] Scheduled Procedures Name Priority Associated Diagnoses Date/Ti [...] Additional history exists CKD HGB USE SMARTSET 15511 09/26/202309/25, 09/25/2022, 05/13/2022, Additional history exists CKD PHOS USE SMARTSET 70889 09/26/2023 09/25/2022, 0 04/08/2018 DXA Scan 10/30/2023 10/29/2021 Lipid Panel 11/11/2026 11/11/2021, 11/04, 05/10/2020, Additional history exists Colonoscopy 04/18/2029 04/18/2019, 04/06, 12/16/2012, Additional history exists Colorectal Cancer Screening 04/18/2029 Pneumococcal Vaccine: Pediatrics (0 to 5 Years) and At-Risk Patients (6 to 64 Years) Completed 09/25/2022 LUNG CANCER SCREENING - USE SMARTSET 69420 Completed 09/30/2022 VITAMIN D LEVEL ONCE IN A LIFETIME-USE SMARTSET# 35590 Completed 11/17/2022, 05/13/2022, 04/02/2022 GARDASIL-HPV IMMUNIZATION SERIES Aged Out No longer eligible based on patient's age to complete this topic MENINGOCOCCAL (MENACTRA/MENVEO) Aged Out No longer eligible based on patient's age to complete this topic documented as of this encounter Medical Devices Implanted Type Area Flight Operations Dispatch Clerk Device Identifier Shelf Expiration Date Model / Serial / Lot Cement Hv-R C01a - [id number] Implanted:Qty: 1 on 05/14/2022 by Chao Lund MD at OR [facility] N/A: Spine Thoracic [employer] : NEURO CARE 01/03/2025 C01A / / [id number] documented as of this encounter Visit Diagnoses [...] Directives occurred with: Patient Care Teams Hand Or Machine Paster Relationship Specialty Start Date End Date Camilla Chau DO [address] [place] [facility] [place] [address] PCP - General Family Medicine 11/17/11 documented as of this encounter
--- OUTSIDE RECORDS SUMMARY | 2023-06-13 04:09 | External Medical Summary | Continuity of Care Document ---
Author Name Unknown Organization [facility] [address] [facility] Address [address] [place], [place] [address] Care Team Providers Care Lead Java Software Engineer Name Role Phone Jacey Olivarez Primary Care Physician [phone] [id number] Date(s): 02/06/23 - 02/06/[address] [place] [phone] Encounter Diagnosis Central sleep apnea(Discharge Diagnosis) - 02/06/23 PVC's (premature ventricular contractions)(Discharge Diagnosis) - 02/06/23 Discharge Disposition: Home or Self Care Attending Physician: DO Olivarez Katelyn G Allergies, Adverse Reactions, Alerts No Known Allergies [...] kidney disease) Confirmed Active Osteoporosis Confirmed Active Diagnosis Diagnosis Type Effective Dates Health Status Clinical Service Informant Central sleep apnea Discharge Diagnosis 02/06/23 PVC's (premature ventricular contractions) Discharge Diagnosis 02/06/23 Social History Social History Type Response Smoking Status [facility] Sex Female Radiology * Contributor_system, MUSE01: VERIFY, PERFORM Event Display: EKG Authored Date: Please click on link to see image. Patient Care team information Care Team Personnel Name: DO Olivarez Katelyn G Position: Referring Member Role: Primary Care Provider Address: Address: [facility] Pulmonary [facility] [address] [place] [address] [place] [address] [place]
--- OUTSIDE RECORDS SUMMARY | 2023-06-13 04:09 | External Medical Summary | Summary of Care ---
Author Name Unknown Organization [facility] Address [address] [place] [address] Phone [phone] Care Team Providers Care Wildlife Removal Specialist Name Role Phone Alvarez Chau DO Primary Care Provider + [phone] Reason for Referral * Evaluate & Treat - Unlimited Visits (Within 30 days (routine)) - Authorized Specialty Diagnoses / Procedures Referred By Verito varner Referred To Contact Orthopaedic Surgery / Orthopedics Diagnoses Closed fracture of sacrum with delayed healing, unspecified portion of sacrum, subsequent encounter Alvarez Chau DO [address] [place] [address] Referral ID Status Reason Start Date Expiration Date Visits Requested Visits Authorized [id number] Authorized Specialty Services Required 3 999 999 [...] (Late st Contact Info) Description 01/19/2023 Telephone [facility] [address] [place] [address] Alvarez Chau DO [address] [place] [address] Advice Allergies Active Allergy Reactions [...] (toPROL XL)Indications:PAC (premature atrial contraction),NICM (nonischemic cardiomyopathy) ([facility]) TAKE 1 TABLET BY MOUTH [...] Telephone Encounter - Keiko Power OSA - 02/02/2023 3:06 PM EDT Scheduled. 02/02/2023 * Telephone Encounter - Domi Scanlon LPN - 02/02/2023 2:57 PM EDT Please assist in scheduling. * Addendum Note - Alvarez Chau DO - 02/02/2023 2:20 PM EDTAddended by: ALVAREZ CHAU on: 02/02/2023 02:20 PM Modules accepted: Orders [...] stated that she has been seen at [facility] and [facility] and she is willing to be seen at either location. Please advise. * Telephone Encounter - Sruthi Camp, MED ASSIST - 01/21/2023 2:27 PM EDT Tried to call pt. No answer. Left message to call back. Please advise pt of previous message. * Telephone Encounter - Alvarez Chau DO - 01/21/2023 1:47 PM EDT [...] call: returning call Caller was transferred to [place] at the nurse line. * Telephone Encounter - Janet Rock LPN - 01/19/2023 1:48 PM EDT Called pt. No answer. Mailbox is unable to leave message. Sent Myg * Telephone Encounter - Alvarez Chau DO - 01/19/2023 12:12 PM EDT Small sacral fracture on her xray. How is her pain? documented in this encounter Plan of Treatment Upcoming Encounters Date Type Department Care Team (Late st Contact Info) Description 02/09/2023 8:00 AM EST Office Visit Orthopaedics [facility] [address] [place] [address] Gerda Cifuentes MD [address] [place] [address] 02/25/2023 9:10 AM EST Office Visit [place] [address] [facility] [phone] Alvarez Chau DO [address] [place] [address] 04/30/2023 2:00 PM EST Laboratory Laboratory, [place] [address] [facility] [place] [address] [facility] [address] [place] [address] 05/07/2023 3:00 PM EST Office Visit Hematology/Oncology [facility] [place] [address] [facility] [place] [address] Elizabeth Serrano CRNP [address] [place] [address] 05/12/2023 10:30 AM EST Office Visit Rheumatology [place] [address] [facility] [place] [address] Marcelo Kim CRNP [address] [facility] [place] [address] 03/29/2024 2:20 PM EST Office Visit Dermatology, [place] [address] [facility] [address] Keiko Almodovar, KEY [address] [place] [address] [place] [address] Scheduled Procedures Name Priority Associated Diagnoses Date/Ti [...] Additional history exists CKD HGB USE SMARTSET 07898 09/26/202309/25, 09/25/2022, 05/13/2022, Additional history exists CKD PHOS USE SMARTSET 92573 09/26/2023 09/25/2022, 0 04/08/2018 DXA Scan 10/30/2023 10/29/2021 Lipid Panel 11/11/2026 11/11/2021, 11/04, 05/10/2020, Additional history exists Colonoscopy 04/18/2029 04/18/2019, 04/06, 12/16/2012, Additional history exists Colorectal Cancer Screening 04/18/2029 Pneumococcal Vaccine: Pediatrics (0 to 5 Years) and At-Risk Patients (6 to 64 Years) Completed 09/25/2022 LUNG CANCER SCREENING - USE SMARTSET 20245 Completed 09/30/2022 VITAMIN D LEVEL ONCE IN A LIFETIME-USE SMARTSET# 59748 Completed 11/17/2022, 05/13/2022, 04/02/2022 GARDASIL-HPV IMMUNIZATION SERIES Aged Out No longer eligible based on patient's age to complete this topic MENINGOCOCCAL (MENACTRA/MENVEO) Aged Out No longer eligible based on patient's age to complete this topic documented as of this encounter Medical Devices Implanted Type Area Early Childhood Lead Teacher Device Identifier Shelf Expiration Date Model / Serial / Lot Cement Hv-R C01a - [id number] Implanted:Qty: 1 on 05/14/2022 by Chao Lund MD at OR [facility] N/A: Spine Thoracic [employer] : NEURO CARE 01/03/2025 C01A / / [id number] documented as of this encounter Visit Diagnoses [...] Advance Directives occurred with: Patient Care Teams Wildlife Removal Specialist Relationship Specialty Start Date End Date Alvarez Chau DO [address] [place] [address] PCP - General Family Medicine 11/17/11 documented as of this encounter
--- OUTSIDE RECORDS SUMMARY | 2023-06-13 04:09 | External Medical Summary | Summary of Care ---
Author Name Unknown Organization [facility] Address [address] [place] [address] Phone [phone] Care Team Providers Care Sand Filler Name Role Phone Camilla Chau DO Primary Care Provider [phone] Reason for Visit * Reason Onset Date Comments Letter Requests 01/30/2023 Encounter Details Date Type Department Care Team ([facility] st Contact Info) Description 01/30/[address] [facility] [address] [place] [address] Camilla Chau DO [address] [place] [address] Letter Requests Allergies Active Allergy [...] encounter Miscellaneous Notes * Telephone Encounter - Yodit Feldman OSA [...] hasn't been able to work since 01/25/2023. [facility]. Attn: Sneha Huerta. Would you like letter faxed or picked up?: Faxed. Fax number: [phone]. Number to be called when faxed: [phone] Date needed: As soon as possible. documented in this encounter Plan of Treatment Upcoming Encounters Date Type Department Care Team (Late st Contact Info) Description 02/09/2023 8:00 AM EST Office Visit Orthopaedics [facility] [address] [facility] [place] [address] Gerda Cifuentes MD [address] [facility] [place] [address] 02/25/2023 9:10 AM EST Office Visit [facility] [address] [facility] [id number] Camilla Chau [facility] [address] [facility] [address] 04/30/2023 2:00 PM EST Laboratory Laboratory, [place] [address] [facility] [id number] [facility] [address] [place] [address] 05/07/2023 3:00 PM EST Office Visit Hematology/Oncology [facility] [place] [address] [facility] [address] Elizabeth Serrano CRNP [address] [place] [address] 05/12/2023 10:30 AM EST Office Visit Rheumatology [facility] [address] [place], [place] [address] Marcelo Kim CRNP [address] [facility] [place] [address] 03/29/2024 2:20 PM EST Office [address] [address] Keiko Almodovar PA-C [address] [place] [address] [place] [address] Scheduled Procedures Name Priority Associated Diagnoses Date/Ti [...] Additional history exists CKD HGB USE SMARTSET 46170 09/26/202309/25, 09/25/2022, 05/13/2022, Additional history exists CKD PHOS USE SMARTSET 96751 09/26/2023 09/25/2022, 0 04/08/2018 DXA Scan 10/30/2023 10/29/2021 Lipid Panel 11/11/2026 11/11/2021, 11/04, 05/10/2020, Additional history exists Colonoscopy 04/18/2029 04/18/2019, 04/06, 12/16/2012, Additional history exists Colorectal Cancer Screening 04/18/2029 Pneumococcal Vaccine: Pediatrics (0 to 5 Years) and At-Risk Patients (6 to 64 Years) Completed 09/25/2022 LUNG CANCER SCREENING - USE SMARTSET 17955 Completed 09/30/2022 VITAMIN D LEVEL ONCE IN A LIFETIME-USE SMARTSET# 00176 Completed 11/17/2022, 05/13/2022, 04/02/2022 GARDASIL-HPV IMMUNIZATION SERIES Aged Out No longer eligible based on patient's age to complete this topic MENINGOCOCCAL (MENACTRA/MENVEO) Aged Out No longer eligible based on patient's age to complete this topic documented as of this encounter Medical Devices Implanted Type Area Shared Services And Outsourcing Manager Device Identifier Shelf Expiration Date Model / Serial / Lot Cement Hv-R C01a - [id number] Implanted:Qty: 1 on 05/14/2022 by Chao Lund MD at OR [facility] N/A: Spine Thoracic [employer] : NEURO CARE 01/03/2025 C01A / / [id number] documented as of this encounter Visit Diagnoses [...] Advance Directives occurred with: Patient Care Teams Sand Filler Relationship Specialty Start Date End Date Camilla Chau DO [address] [place] [address] PCP - General Family Medicine 11/17/11 documented as of this encounter
--- OUTSIDE RECORDS SUMMARY | 2023-06-13 04:10 | External Medical Summary | Summary of Care ---
Author Name Unknown Organization [facility] Address [address] [place] [address] Phone [phone] Care Team Providers Care Reel System Operator Name Role Phone Camilla Chau DO Primary Care Provider Reason for Visit * Reason Onset Date Comments Advice 01/19/2023 Encounter Details Date Type Department Care Team ([facility] st Contact Info) Description 01/19/2023 Telephone [facility] [address] [place] [address] Camilla Chau DO [address] [place] [address] Advice Allergies Active Allergy Reactions [...] encounter Miscellaneous Notes * Telephone Encounter - KATHIE Vazquez - 01/29/2023 9:45 AM EDT Patient calling in stating that she is still having pain. She was given message below. She stated that she would like the referral to Ortho. Caller stated that she has been [facility] and she is willing to be seen at either location. Please advise. * Telephone Encounter - SULMA Us - 01/21/2023 2:27 PM EDT Tried to [...] call: returning call Caller was transferred to [place] at the nurse line. * Telephone Encounter [...] 02/03/2023 3:00 PM EDT Office Visit Dermatology, [place] [address] [facility], [place] [address] Keiko Almodovar PA-C [address] [place] [address] [place] [address] 02/25/2023 9:10 AM EST Office Visit [place] [address] [address] [facility], [place] [phone] Camilla Chau DO [address] [place] [address] 04/30/2023 2:00 PM EST Laboratory Laboratory, [place] [address] [place] [address] [facility] [address] [place] [address] 05/07/2023 3:00 PM EST Office Visit Hematology/Oncology [facility] [place] [address] [facility] [place] [address] Elizabeth Serrano CRNP [address] [place] [address] 05/12/2023 10:30 AM EST Office Visit Rheumatology [facility] [place] [address] [facility] [place] [address] Marcelo Kim CRNP [address] [facility] [place] [address] Scheduled Procedures Name Priority Associated Diagnoses Date/Ti [...] Additional history exists CKD HGB USE SMARTSET 61183 09/26/202309/25, 09/25/2022, 05/13/2022, Additional history exists CKD PHOS USE SMARTSET 72684 09/26/2023 09/25/2022, 0 04/08/2018 DXA Scan 10/30/2023 10/29/2021 Lipid Panel 11/11/2026 11/11/2021, 11/04, 05/10/2020, Additional history exists Colonoscopy 04/18/2029 04/18/2019, 04/06, 12/16/2012, Additional history exists Colorectal Cancer Screening 04/18/2029 Pneumococcal Vaccine: Pediatrics (0 to 5 Years) and At-Risk Patients (6 to 64 Years) Completed 09/25/2022 LUNG CANCER SCREENING - USE SMARTSET 38040 Completed 09/30/2022 VITAMIN D LEVEL ONCE IN A LIFETIME-USE SMARTSET# 46989 Completed 11/17/2022, 05/13/2022, 04/02/2022 GARDASIL-HPV IMMUNIZATION SERIES Aged Out No longer eligible based on patient's age to complete this topic MENINGOCOCCAL (MENACTRA/MENVEO) Aged Out No longer eligible based on patient's age to complete this topic documented as of this encounter Medical Devices Implanted Type Area Honeycomb Decapper Device Identifier Shelf Expiration Date Model / Serial / Lot Cement Hv-R C01a - [id number] Implanted:Qty: 1 on 05/14/2022 by Chao Lund MD at OR [facility] N/A: Spine Thoracic [employer] : NEURO CARE 01/03/2025 C01A / / [id number] documented as of this encounter Advance Directives Latest Code Status on File Code Status Date Activated Date Inactivated Comments Full Code 05/14/2022 7:03 AM 05/14/2022 2:27 PM This or sal reflects the patients wishes and were consensually agreed upon. Question Answer Comments Discussion of Advance Directives occurred with: Patient Care Teams Reel System Operator Relationship Specialty Start Date End Date Camilla Chau DO [address] [facility] [place] [address] PCP - General Family Medicine 11/17/11 documented as of this encounter
--- OUTSIDE RECORDS SUMMARY | 2023-06-13 04:10 | External Medical Summary | Summary of Care ---
Author Name Unknown Organization [facility] Address [address] [place] [address] Phone [phone] Care Team Providers Care Tube Coverer Name Role Phone Camilla Chau DO Primary Care Provider [phone] Reason for Visit * Reason Onset Date Comments Advice 01/19/2023 Encounter Details Date Type Department Care Team Description 01/19/2023 Telephone [facility] [address] [place] [address] Camilla Chau DO [address] [place] [address] Advice Allergies Active Allergy Reactions Severity Noted Date Comments Oxybutynin 08/31/2018 Terrible dry mouth and constipation Influenza Vaccines 12/27/2021 Pt stated she won't get it because it makes her "deathly ill" documented as of this encounter (statuses as of 01/21/2023) Medications Medication Sig Dispensed Refills Start Date [...] as of this encounter (statuses as of 01/21/2023) Active Problems Problem Noted Date Iron deficiency anemia 02/05/2022 Hx of nonmelanoma skin cancer 01/30/2022 Overview: basal cell carcinoma (L central upper abdomen 01/25) Prediabetes 12/16/2021 Overview: Per Prediabetes protocol Chronic kidney disease, stage 3b 022 Overview: Per CKD protocol Food insecurity 09/16/2021 Overview: Per [facility] Protocol Encounter for monitoring Suboxone mainte nance therapy 01/13/2021 Panic disorder without agoraphobia 01/13 Osteoporosis 01/13/2021 Manic depressive disorder 01/13/2021 Sebopsoriasis 04/28/2019 Tobacco use disorder 03/13/2014 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 BIPOLAR AFFEC, MIXED-MOD 07/12/2004 documented as of this encounter (statuses as of 01/21/2023) Resolved Problems Problem Noted Date Resolved Date Stage 3b chronic kidney disease 02/05/2022 02/20/2022 Stage 3a chronic kidney disease 02/13/2020 10/17/2021 Overview: Per CKD protocol Prediabetes 07/18/2019 06/19/2021 Overview: Per Prediabetes protocol Kidney disease, chronic, stage III (GFR 30-59 ml /min) 02/15/2018 02/16/2020 Overview: Per CKD protocol #1 Abdominal pain, generalized 03/13/201409/05 History of diarrhea 03/13/2014 09/24/2016 History of constipation 03/13/2014 09/25/19 17 Wound, open, ear 03/13/2014 09/24/2016 Seborrheic dermatitis 08/15/2013 09/24/2016 Overview: ICD-10 update of inactive term Cardiomyopathy 08/15/2013 03/13/2014 Kidney disease, chronic, stage III (GFR 30-59 ml /min) 05/30/2013 11/10/2014 Overview: Per CKD protocol #1 Obesity, BMI 33.63 01/14/11 01/14/201109/05 Tobacco use disorder 12/10/2010 03/13/2014 Chronic rhinitis 12/10/2010 09/24/2016 ACUTE EXUDATIVE PHARYNGITIS 12/10/201009/05 Dysfunction of eustachian tube 12/10/2010 0 09/24/2016 Fever 12/10/2010 09/24/2016 Malaise and fatigue 12/10/2010 09/24/2016 Myalgia and myositis 12/10/2010 09/24/2016 Chest pain 12/28/2007 09/24/2016 documented as of this encounter (statuses as of 01/21/2023) Immunizations Name Administration Dates Next Due COVID-19 [...] drink = 0.6 oz pur e alcohol) Food Insecurity Answer Date Recorded Within the past 12 months, y ou worried that your food would run out before you got money to buy more. Sometimes true 2021 Within the past 12 months, t he food you bought just didn't last and you didn't have money to get more. Sometimes true 04/2021 Sex Assigned at Date Recorded Female 10/06/2018 12:37 PM EDT Job Start Date Occupation Industry Not on file Not on file Not on file documented as of this encounter Miscellaneous Notes * Telephone Encounter - SULMA Us - [...] call: returning call Caller was transferred to [place] at the nurse line. * Telephone Encounter - Janet Rock LPN - 01/19/2023 1:48 PM EDT Called pt. No answer. Mailbox is unable to leave message. Sent Myg * Telephone Encounter - Camilla Chau DO - 01/19/2023 12:12 PM EDT Small sacral fracture on her xray. How is her pain? documented in this encounter Plan of Treatment Upcoming Encounters Date Type Specialty Care Team Description 02/03/2023 Office Visit Dermatology Keiko Almodovar PA-C [address] [place] [address] [place] [address] 02/25/2023 Office Visit Family Medicine Camilla Chau DO [address] [place], [place] [address] [address] 04/30/2023 Laboratory Laboratory [place], [facility] [address] [place] [address] 05/07/2023 Office Visit Hematology Oncology Elizabeth Serrano CRNP [address] [place] [id number] 05/12/2023 Office Visit Rheumatology Marcelo Kim CRNP [address] [facility], [place] [address] Scheduled Procedures Name Priority Associated Diagnoses Date/Ti [...] 05/13/2022, Additional history exists Mammogram 08/05/2023 08/04/2022, 0408/2021, 05/29/2020, Additional history exists Albumin/Creatinine Ratio 09/26/2023 023, 09/23/2021, 08/08/2020, Additional history exists CKD HGB USE SMARTSET 60751 09/26/202309/25, 09/25/2022, 05/13/2022, Additional history exists CKD PHOS USE SMARTSET 51596 09/26/2023 09/25/2022, 0 04/08/2018 DXA Scan 10/30/2023 10/29/2021 Lipid Panel 11/11/2026 11/11/2021, 11/04, 05/10/2020, Additional history exists Colonoscopy 04/18/2029 04/18/2019, 04/06, 12/16/2012, Additional history exists Colorectal Cancer Screening 04/18/2029 Pneumococcal Vaccine: Pediatrics (0 to 5 Years) and At-Risk Patients (6 to 64 Years) Completed 09/25/2022 LUNG CANCER SCREENING - USE SMARTSET 12154 Completed 09/30/2022 VITAMIN D LEVEL ONCE IN A LIFETIME-USE SMARTSET# 18356 Completed 11/17/2022, 05/13/2022, 04/02/2022 GARDASIL-HPV IMMUNIZATION SERIES Aged Out No longer eligible based on patient's age to complete this topic MENINGOCOCCAL (MENACTRA/MENVEO) Aged Out No longer eligible based on patient's age to complete this topic documented as of this encounter Medical Devices Implanted Type Area Merchandise Shopper Device Identifier Shelf Expiration Date Model / Serial / Lot Cement Hv-R C01a - [id number] Implanted:Qty: 1 on 05/14/2022 by Chao Lund MD at OR [facility] N/A: Spine Thoracic [employer] : NEURO CARE 01/03/2025 C01A / / [id number] documented as of this encounter Advance Directives Latest Code Status on File Code Status Date Activated Date Inactivated Comments Full Code 05/14/2022 7:03 AM 05/14/2022 2:27 PM This or sal reflects the patients wishes and were consensually agreed upon. Question Answer Comments Discussion of Advance Directives occurred with: Patient Care Teams Tube Coverer Relationship Specialty Start Date End Date Camilla Chau, DO [address] [facility] [address] PCP - General Family Medicine 11/17/11 documented as of this encounter
--- OUTSIDE RECORDS SUMMARY | 2023-06-13 04:10 | External Medical Summary | Summary of Care ---
Author Name Unknown Organization [facility] Address [address] [place] [address] Phone [phone] Care Team Providers Care Nut Threader Name Role Phone Camilla Chau DO Primary Care Provider [phone] Reason for Visit * Reason Onset Date Comments Order Request 01/15/2023 Encounter Details Date Type Department Care Team Description 01/15/2023 Telephone [facility] [address] [place] [address] Camilla Chau DO [address] [place] [address] Order Request Allergies Active Allergy Reactions Severity Noted Date Comments Oxybutynin 08/31/2018 Terrible dry mouth and constipation Influenza Vaccines 12/27/2021 Pt stated she won't get it because it makes her "deathly ill" documented as of this encounter (statuses as of 2023) Medications Medication Sig Dispensed Refills Start Date [...] as of this encounter (statuses as of 2023) Active Problems Problem Noted Date Iron deficiency [...] as of this encounter (statuses as of 2023) Resolved Problems Problem Noted Date Resolved Date [...] as of this encounter (statuses as of 2023) Immunizations Name Administration Dates Next Due COVID-19 [...] * Telephone Encounter - SULMA Us - 2023 12:03 PM EDT Pt called and notified that order was placed. Verbalized understanding. * Telephone Encounter - Camilla Chau DO - 2023 10:47 AM EDT Xray ordered * Telephone Encounter - KATHIE Mattson - 01/15/2023 3:55 PM EDT An order was requested for this patient. Name of Requesting Provider: Order Requested: xray t-spine Diagnosis/Reason for Request: pain in tail bone after fall What location AND department does the patient wish to have their order completed at? Fax Number, if applicable: Call Back Number: [phone] If the caller is not a current patient, please advise the patient to call their current PCP to havethe order's prior to being seen in our office. The patient was informed that our providers would not order anything (medication, labs, etc.) prior to being seen. documented in this encounter Plan of Treatment Upcoming Encounters Date Type Specialty Care Team Description 02/03/2023 Office Visit Dermatology Keiko Almodovar PA-C [address] [place] [address] [place] [address] 02/25/2023 Office Visit Family Medicine Camilla Chau DO [address] [place] [address] 04/30/2023 Laboratory Laboratory [address] [address] 05/07/2023 Office Visit Hematology Oncology Elizabeth Serrano CRNP [address] [place] [id number] 05/12/2023 Office Visit Rheumatology Marcelo Kim CRNP [address] [facility] [place] [address] Scheduled Orders Name Type Priority Associated Diagnoses Orde r Schedule XR L SPINE AP AND LATERAL Medical Imaging Routine Tail bone pain Ordered: 2023 Scheduled Procedures Name Priority Associated Diagnoses Date/Ti [...] Additional history exists CKD HGB USE SMARTSET 63542 09/26/202309/25, 09/25/2022, 05/13/2022, Additional history exists CKD PHOS USE SMARTSET 01802 09/26/2023 09/25/2022, 0 04/08/2018 DXA Scan 10/30/2023 10/29/2021 Lipid Panel 11/11/2026 11/11/2021, 11/04, 05/10/2020, Additional history exists Colonoscopy 04/18/2029 04/18/2019, 04/06, 12/16/2012, Additional history exists Colorectal Cancer Screening 04/18/2029 Pneumococcal Vaccine: Pediatrics (0 to 5 Years) and At-Risk Patients (6 to 64 Years) Completed 09/25/2022 LUNG CANCER SCREENING - USE SMARTSET 38663 Completed 09/30/2022 VITAMIN D LEVEL ONCE IN A LIFETIME-USE SMARTSET# 47559 Completed 11/17/2022, 05/13/2022, 04/02/2022 GARDASIL-HPV IMMUNIZATION SERIES Aged Out No longer eligible based on patient's age to complete this topic MENINGOCOCCAL (MENACTRA/MENVEO) Aged Out No longer eligible based on patient's age to complete this topic documented as of this encounter Medical Devices Implanted Type Area Metal Bonding Assembler Device Identifier Shelf Expiration Date Model / Serial / Lot Cement Hv-R C01a - [id number] Implanted:Qty: 1 on 05/14/2022 by Chao Lund MD at OR [facility] N/A: Spine Thoracic [employer] : NEURO CARE 01/03/2025 C01A / / [id number] documented as of this encounter Visit Diagnoses Diagnosis Tail bone pain- Primary Other disorder of coccyx documented in this encounter Advance Directives Latest Code Status on File Code Status Date Activated Date Inactivated Comments Full Code 05/14/2022 7:03 AM 05/14/2022 2:27 PM This or sal reflects the patients wishes and were consensually agreed upon. Question Answer Comments Discussion of Advance Directives occurred with: Patient Care Teams Nut Threader Relationship Specialty Start Date End Date Camilla Chau, DO [address] [place] [address] PCP - General Family Medicine 11/17/11 documented as of this encounter
[2023-06-13 06:31] LABS: Hematocrit (blood only) 28.1 % (37.0-47.0); Hemoglobin 9.2 g/dl (12.0-16.0); Mean Corpuscular Hemoglobin 29.2 pg (25.0-34.0); Mean Corpuscular Hgb Conc 32.7 g/dL (32.0-36.0); Mean Corpuscular Volume 89.2 fL (80.0-100.0); Mean Platelet Volume 9.4 fL (9.4-12.4); Platelet Count 211 K/uL (130-400); RDW Coefficient of Variation 12.9 % (11.5-14.5); RDW Standard Deviation 42.1 fL (36.4-46.3); Red Blood Count 3.15 M/uL (4.20-5.40); White Blood Count 6.82 K/ul (4.8-10.8)
[2023-06-13 06:32] LABS: BUN Creatinine Ratio 8.7 (10-20); Est GFR (African American) 79.6 ml/min; Est GFR (Non-African American) 68.6 ml/min; Potassium 3.4 mmol/L (3.5-5.1)
[2023-06-13] MEDS: LORazepam 0.5 MG TAB PO PRN (09:15)
[2023-06-13] MEDS: ACETAMINOPHEN 325 MG TAB PO PRN (09:15)
[2023-06-13] MEDS: VENLAFAXINE HCL XR 75 MG CAPXR PO SCH (09:16)
[2023-06-13] MEDS: VENLAFAXINE HCL 50 MG TAB PO SCH (09:16)
[2023-06-13] MEDS: ATORVASTATIN 20 MG TAB PO SCH (09:17)
[2023-06-13] MEDS: METOPROLOL SUCC 25MG EXT REL TAB PO SCH (09:17)
[2023-06-13] MEDS: CHOLECALCIFEROL 25 MCG (1000 UNITS) TAB PO SCH (09:17)
--- NOTE | 2023-06-13 09:18 | XRay Report ---
XR lumbar spine 2-3V CLINICAL HISTORY: standing films if possible TECHNIQUE: 3 views of the lumbar spine were obtained. Comparison: Comparison is made to CT abdomen pelvis 06/12/2023 FINDINGS: There is no evidence of an acute fracture. Redemonstration of compression deformity of L1 and merry alessia deformity with cement arthroplasty of T11. Posterior fixation hardware spans L5-S1. The alignmen t is normal. No soft tissue abnormality is seen. IMPRESSION: Old compression deformities without evidence of acute fracture. ACT 112: Negative or not required by law. Electronically signed by: oJsh Cervantes M.D. 06/13/2023 9:16 AM
--- NOTE | 2023-06-13 09:34 | Gastrointestinal Consultation ---
Date of Consultation June 13, 2023 Assessment & Plan (1) Constipation: Pleasant woman with what sounds like OIC with resultant stercoral colitis. The management here is to get her bowels moving. I think I will try her on relistor to garrido her OIC and then we will see what happens. Since there is no signs of obstruction or perforation it should be safe. History of Present Illness Reason for Consultation: abdominal pain, constipation, stercoral colitis Attending Physician: Toby Allen MD History of Present Illness 58 year old female who says she has been battling constipation for about three weeks. None of the regimens she has tried have helped. As the days went on she developed pain across her upper abdomen and then she says she developed some fevers. She has been able to pass small amounts of stool but nothing of significance. She has not seen blood. She has had several attempts at colonoscopy by [facility] but she has not been able to be prepped. She has had several EGD's by Dr. Sol. She did see Jethro Serrano for this in the past and was placed on linzess but did not have a pleasant experience with it. She does take suboxone for substance abuse disorder. Allergies Allergy/AdvReac Type Severity Reaction Status Date / Time oxybutynin [From Ditropan] AdvReac Severe DRY MOUTH Verified 05/08/23 10:12 Home Medications Medication Instructions Recorded Confirmed Type [id number]-ctucdxlnrbhrr-kdaznjdr 250 2 tab PO Q6H PRN Pain 03/18/23 06/12/23 History mg-250 mg-65 mg tablet (Excedrin Extra Strength) atorvastatin 20 mg tablet 20 mg PO QAM 03/18/23 06/12/23 History famotidine 40 mg tablet 40 mg PO HS PRN Heartburn 03/18/23 06/12/23 History furosemide 20 mg tablet (Lasix) 20 mg PO DAILY PRN fluid 03/18/23 06/12/23 History accumulation hydroxyzine pamoate 50 mg capsule 50 mg PO HS Sleep 03/18/23 06/12/23 History metoprolol succinate 25 mg 12.5 mg PO QAM 03/18/23 06/12/23 History tablet,extended release 24 hr ondansetron HCl 4 mg tablet 4 mg PO Q8H PRN Nausea 03/18/23 06/12/23 History potassium chloride 10 mEq 10 meq PO DAILY PRN if taking Lasix 03/18/23 06/12/23 History tablet,extended release(part/cryst) trazodone 100 mg tablet 100 mg PO HS 03/18/23 06/12/23 History buprenorphine 8 mg-naloxone 2 mg 1 film sublingual BID 06/12/23 06/12/23 History sublingual film cholecalciferol (vitamin D3) 50 50 mcg PO DAILY 06/12/23 06/12/23 History mcg (2,000 unit) tablet lorazepam 0.5 mg tablet 0.5 mg PO DAILY PRN severe anxiety 06/12/23 06/12/23 History pantoprazole 40 mg tablet,delayed 40 mg PO AMHS 06/12/23 06/12/23 History release teriparatide 20 mcg/dose (600 20 mcg subcut QAM 06/12/23 06/12/23 History mcg/2.4 mL) subcutaneous pen injector (Forteo) venlafaxine 25 mg tablet 25 mg PO QAM 06/12/23 06/12/23 History venlafaxine 75 mg capsule,extended 75 mg PO QAM 06/12/23 06/12/23 History release 24 hr Patient History Medical History Renal colic on right side Surgical History History of cystoscopy History of cholecystectomy History of hysterectomy Social History Smoking Status: Current every day smoker Tobacco Type: Cigarettes Cigarettes Per Day: 15; Second Hand Exposure: No; Do You Dip or Chew Tobacco: No; Tobacco Cessation Education Requested by Patient: No Hx Alcohol Use: No Hx Substance Use: No Preferred Language: Albanian Communication Ability: Effective Log Haul Operator Required: No Beliefs That Will Affect Care: None Current Living Situation: Alone Other Information That Helps Us Care for You: No Feels Safe at Home: Yes Safety Concerns: Feels Safe At This Time Assistive Devices: Cane, Glasses and Hospital Bed Review of Systems Review of Systems: All systems reviewed & are unremarkable except as noted in HPI & below Physical Exam Constitutional: WD/WN, vitals as above Neck: trachea midline, no thyromegaly Respiratory: normal respiratory effort, lungs clear to auscultation Cardiovascular: RRR, no murmur, no edema Gastrointestinal (Abdomen): Inspection/Auscultation: abdomen normal to inspection Percussion/Palpation: + abdomen tender (upper abdomen) and abdomen soft; no guarding Musculoskeletal: Extremities: extremities normal to inspection Results & Data Vital Signs (Past 12 Hours) Vital Signs Temp Pulse Pulse Resp BP BP Pulse Ox 06/13/23 07:34 36.7 C 77 16 129/75 93 06/12/23 22:10 06/12/23 22:10 06/12/23 22:10 37.1 C 67 18 146/84 H 92 06/12/23 21:30 76 19 130/82 95 O2 Del Method 06/13/23 07:34 Room Air 06/12/23 22:10 Room Air 06/12/23 22:10 Room Air 06/12/23 22:10 Room Air 06/12/23 21:30 Room Air Laboratory Results 06/13/23 06/12/23 06/12/23 Range/Units 05:34 16:00 14:55 WBC 6.82 8.27 (4.8-10.8) K/ul RBC 3.15 L 3.54 L (4.20-5.40) M/uL Hgb 9.2 L 10.2 L (12.0-16.0) g/dl Hct 28.1 L 31.7 L (37.0-47.0) % MCV 89.2 89.5 (80.0-100.0) fL MCH 29.2 28.8 (25.0-34.0) pg MCHC 32.7 32.2 (32.0-36.0) g/dL RDW Std Deviation 42.1 42.1 (36.4-46.3) fL RDW Coeff of Meghan 12.9 12.7 (11.5-14.5) % Plt Count 211 241 (130-400) K/uL MPV 9.4 9.2 L (9.4-12.4) fL Immature Gran % (Auto) 0.4 % Neut % (Auto) 72.7 % Lymph % (Auto) 17.5 % [place] % (Auto) 6.5 % Eos % (Auto) 2.2 % Baso % (Auto) 0.7 % Neut # (Auto) 6.01 (1.40-6.50) K/uL Lymph # (Auto) 1.45 (1.20-3.40) K/uL [place] # (Auto) 0.54 (0.11-0.59) K/uL Eos # (Auto) 0.18 (0.00-0.50) K/uL Baso # (Auto) 0.06 (0.00-0.20) K/uL Immature Gran # (Auto) 0.03 (0.01-0.20) K/uL Sodium 142 140 (136-145) mmol/L Potassium 3.4 L 2.9 L (3.5-5.1) mmol/L Chloride 112 H 105 (98-107) mmol/L Carbon Dioxide 27 28 (21-32) mmol/L Anion Gap 3 7 (3-11) BUN 8 12 (6-23) mg/dl Creatinine 0.92 0.95 (0.6-1.2) mg/dl Est Cr Clr Drug Dosing 51.0 49.2 ml/min Est GFR ( Amer) 79.6 76.5 ml/min Est GFR (Non-Af Amer) 68.6 66.0 ml/min BUN/Creatinine Ratio 8.7 L 12.6 (10-20) Glucose 80 90 (70-99(Fasting)) mg/dl Calcium 8.0 L 9.1 (8.6-10.3) mg/dl Total Bilirubin 0.3 (0.2-1.0) mg/dl AST 12 L (13-39) U/L ALT 5 L (7-52) U/L Alkaline Phosphatase 106 H (34-104) U/L Total Protein 6.8 (6.0-8.3) gm/dl Albumin 3.9 (3.4-5.0) gm/dl Globulin 2.9 (2.5-4.0) gm/dl Albumin/Globulin Ratio 1.3 (0.9-2) Lipase 18 (11-82) U/L Urine Color Yellow Urine Appearance Clear (Clear) Urine pH 6.0 (4.5-7.5) Ur Specific [place] 1.018 (1.000-1.030) Urine Protein Trace H (Negative) Urine Glucose (UA) Negative (Negative) Urine Ketones Negative (Negative) Urine Blood 3+ H (Negative) Urine Nitrite Negative (Negative) Urine Bilirubin Negative (Negative) Urine Urobilinogen Negative (Negative) Ur Leukocyte Esterase Negative (Negative) Urine WBC (Auto) 1-5 (0-5) /hpf Urine RBC (Auto) >30 H (0-4) /hpf U Hyaline Cast (Auto) 0 (0-5) /lpf U Epithel Cells (Auto) 0-5 (0-5) /lpf Urine Bacteria (Auto) Negative (Negative) Diagnostic Findings Abdomen/Pelvis CT 06/12/23 14:30 CT SCAN OF THE ABDOMEN AND PELVIS WITH IV CONTRAST CLINICAL HISTORY: Left lower quadrant abdominal pain. COMPARISON STUDY: Abdominal CT dated 12/30/2013. TECHNIQUE: Following the IV administration of 91 cc of Optiray 320, CT scan of the abdomen and pelvis is performed from the lung bases to the proximal femora. Images are reviewed in the axial, sagittal, and coronal planes. IV contrast was administered without complication. A dose lowering technique was utilized adhering to the principles of ALARA. CT DOSE: 848.51 mGy.cm FINDINGS: Lung bases: The heart is normal in size and without pericardial effusion. There is bibasilar scarring/atelectasis. There is trace left pleural effusion. No airspace consolidation is seen typical for pneumonia. A 10 mm pleural-based nodule in the right middle lobe is seen on image #10 and a pleural-based nodule in the left lower lobe is seen on image #19. These are unchanged from 2014 and of doubtful significance. Liver: The contrast-enhanced liver is normal in size, contour, and attenuation. There is mild to moderate intrahepatic biliary ductal dilatation. The hepatic veins and portal veins are patent. Gallbladder: Surgically absent noting clips in the gallbladder fossa. Spleen: Normal in size and attenuation. Pancreas: Unremarkable. Adrenal glands: Unremarkable. Kidneys: The contrast enhanced kidneys are normal in size and without hydronephrosis. The kidneys enhance symmetrically. A 2.1 cm indeterminate low- attenuation lesion in the lower pole of left kidney is been present dating back to 2013 and likely represents a complex cyst. Additional subcentimeter cortical hypodensities also likely represent cysts but are too small for definitive characterization. Abdominal vasculature: The abdominal aorta is normal in course and caliber noting moderate atherosclerotic calcification. Bowel: There is no bowel obstruction. Moderate to severe fecal retention is noted in the right colon extending to the descending colon. There is wall thickening and pericolonic inflammation and fluid involving the left colon at and below the splenic flexure. This is consistent with a nonspecific colitis, likely STIR coronal. The appendix is not visualized. Peritoneum: There is no intraperitoneal free air or abdominal ascites. There is a fat-containing umbilical hernia. There is also a fat and fluid containing supraumbilical hernia. Lymphadenopathy: None. Pelvic viscera: The bladder is normal as visualized. The uterus is surgically absent. No adnexal lesion is seen. Skeletal structures: The skeletal structures are osteopenic. There is a [id number]-[id number] acute to subacute appearing superior end plate compression fracture of L1. Fragment retropulsed at this level by up to 6 mm. Paravertebral edema is noted. There is a chronic compression deformity of T11 with evidence of prior vertebroplasty. There is spondylotic change throughout the lumbar spine with surgical change at the lumbosacral junction. No lytic or blastic lesions are seen. There are subacute/healing left-sided rib fractures. There are bilateral sacral insufficiency fractures. IMPRESSION: 1. There is moderate to severe fecal retention in the right colon. 2. There is wall thickening involving the left colon at and below the splenic flexure with surrounding infiltration and fluid. The appearance is consistent with a nonspecific colitis, possibly stercoral. Clinical correlation will be req uired. 3. No bowel obstruction is seen. 4. There is an acute subacute appearing superior endplate compression fracture of L1 with surrounding paravertebral edema. Correlate clinically. 5. There are subacute/healing left-sided rib fractures. 6. Bilateral sacral insufficiency fractures. 7. There is a 2.1 cm indeterminate lesion in the lower pole of left kidney. This has been present dating back to 2013 and likely represents a complex cyst. Nonemergent renal ultrasound is recommended in follow-up. 8. Trace left pleural effusion. 9. Additional findings as above. ACT 112: Negative or not required by law. Electronically signed by: Robbin Lee M.D. 06/12/2023 4:16 PM Lumbar Spine X-Ray 06/13/23 07:25 XR lumbar spine 2-3V CLINICAL HISTORY: standing films if possible TECHNIQUE: 3 views of the lumbar spine were obtained. Comparison: Comparison is made to CT abdomen pelvis 06/12/2023 FINDINGS: There is no evidence of an acute fracture. Redemonstration of compression deformity of L1 and compression deformity with cement arthroplasty of T11. Posterior fixation hardware spans L5-S1. The alignment is normal. No soft tissue abnormality is seen. IMPRESSION: Old compression deformities without evidence of acute fracture. ACT 112: Negative or not required by law. Electronically signed by: Josh Cevrantes M.D. 06/13/2023 9:16 AM (1) Constipation Constipation type: slow transit constipation Qualified Code(s): K59.01 - Slow transit constipation
--- NOTE | 2023-06-13 10:31 | Surgery Progress Note ---
Date of Service June 13, 2023 Assessment & Plan (1) Stercoral colitis: (2) Constipation: Plan: Narcisa is feeling about the same as yesterday. She has not moved her bowels. GI, Dr. Sarabia, evaluated patient this AM and will be starting Relistor. No plan for surgical intervention- would only plan for surgery if colon is perforated. Hopefully will improve with bowel regimen per GI. Patient see and examined with Dr. Murguia. General Surgery will sign off at this time. Admission and Anticipated Discharge Date Admission Date: June 12, 2023 Supervising Physician Co-Signing Physician Notes I personally saw and evaluated the patient with Josee Esquivel PA-C and agree with the assessment and plan Her abdominal exam remains benign, labs and vitals stable Agree with GI input, she needs a bowel regimen ABX for her stercoral colitis Surgery will sign off at this time, please call with any questions or concerns Subjective Narcisa is sitting at bedside. Reports that she feels the same as yesterday. She denies moving her bowels. She reports that GI was in to see her this morning and will be starting relistor. Review of Systems Constitutional: no fever and no chills Respiratory: no cough and no dyspnea Cardiovascular: no chest pain and no dyspnea on exertion Gastrointestinal: + abdominal pain (same as yesterday ), + nausea and + constipation; no vomiting, no diarrhea/loose stools, no blood in stools and no melena Physical Exam Constitutional: WD/WN, vitals as above Eyes: PERRL, conjunctivae normal, anicteric sclerae Neck: trachea midline, no thyromegaly Respiratory: normal respiratory effort, lungs clear to auscultation Cardiovascular: RRR, no murmur, no edema Gastrointestinal (Abdomen): Inspection/Auscultation: abdomen normal to inspection; abdomen not distended Percussion/Palpation: + abdomen tender (mild generalized) and abdomen soft; no guarding Skin: no rashes, warm and dry Psychiatric: A+Ox3, euthymic affect Results & Data Vital Signs (Past 12 Hours) Vital Signs Temp Pulse Resp BP Pulse Ox O2 Del Method 06/13/23 07:34 36.7 C 77 16 129/75 93 Room Air PG Care Time/CCT Total # of Minutes Spent Total Time Spent with Patient: Total time spent is greater than 50% in coordination of care (as documented) at patient's floor/unit and/or counseling patient: Coding Level of Care Code 38565 SUB INP/OBS CARE Diagnoses Stercoral colitis K52.89 Constipation K59.01 Constipation type: slow transit constipation (2) Constipation Constipation type: slow transit constipation Qualified Code(s): K59.01 - Slow transit constipation
[2023-06-13] MEDS: METHYLNALTREXONE BROMIDE 12 MG/0.6 ML VIAL SQ SCH (12:02)
[2023-06-13] MEDS: POTASSIUM CHLORIDE 20 MEQ/15 ML UDC PO STA (13:18)
--- NOTE | 2023-06-13 15:33 | Hospitalist Progress Note ---
Date of Service June 13, 2023 Assessment & Plan (1) Abdominal pain: (2) Constipation: (3) Stercoral colitis: Plan: - Admit to med surg - Gen surg has seen the patient and are recommending that GI be consulted for follow up - Started on tap water enema and do Q6H starting now, will continue dulcolax and miralax daily, pt has trialed lactulose at home without effect - Cont IV zosyn - Follow blood cultures, negative lactic, afebrile here, WBC is stable at 8.27 and other labs appear WNL - Replace potassium as it is 2.9 on admission with 40 meq PO, 20 meq IV, trend am labs 06/12 Constipation secondary to Suboxone GI consulted-Relistor ordered Continue with tapwater enemas Monitor closely (4) Osteoporosis: Plan: - Hx of such, continue vit D supplementation 2000 U - PT/OT consults (5) Tobacco use: Plan: - Ordered nicotine patch 14 mcg daily - encouraged cessation at bedside (6) Compression fracture of L1 vertebra: Plan: - Noted on CT as acute L1 fracutre, consult ortho spine for possible recommendation with brace - PT/OT consults - Pain control with Suboxone which is likely contributing to constipation as above (7) Opioid dependence on agonist therapy: Plan: - As above, may continue suboxone therapy for now (8) Venous stasis ulcers: Plan: - Hx of such, non currently - Pressure offloading measures and repositioning with hx of lymphedema DVT ppx: teds, scds FEN/GI: Clear liquids Lines: 2 PIV CODE: FULL Dispo: From home, likely to remain in the hospital x 1-2 days Admission and Anticipated Discharge Date Admission Date: June 12, 2023 Subjective Follow-up for severe constipation, etc. Sitting up in bed, comfortable, not in distress Still without BMs Still having some mild left-sided abdominal discomfort No nausea Requesting to have some diet today no chest pain, dyspnea, palpitations, dizziness No other new symptoms Review of Systems Review of Systems: all noted and negative except for above Physical Exam Physical Exam: General- oriented x 3, not in distress, speaks in sentences with no effort or accessory muscle use Eyes- anicteric Neck- no JVD Lungs- clear breath sounds bilaterally, no crackles or Heart- normal rate, regular rhythm; no murmurs Abdomen- normal bowel sounds, nondistended, soft, mild left quadrant tenderness Extremities- no pretibial edema, no calf tenderness Neuro- alert, oriented x 3; no gross focal neurologic deficits Skin- warm & dry Results & Data Results & Data Vital Signs (Past 12 Hours) Vital Signs Temp Pulse Resp BP Pulse Ox O2 Del Method 06/13/23 15:19 36.7 C 66 16 146/80 H 94 Room Air 06/13/23 07:34 36.7 C 77 16 129/75 93 Room Air all noted and reviewed including below (8) Venous stasis ulcers Venous stasis ulcer site: calf Varicose vein presence: unspecified whether present Laterality: unspecified laterality Non-pressure ulcer stage: limited to breakdown of skin Qualified Code(s): I83.002 - Varicose veins of unspecified lower extremity with ulcer of calf; L97.201 - Non-pressure chronic ulcer of unspecified calf limited to breakdown of skin
--- NOTE | 2023-06-13 20:14 | Magnetic Resonance Report ---
MR lumbar spine wo con CLINICAL HISTORY: compression fractures TECHNIQUE: Multiplanar sequences through the lumbar spine were obtained, without intravenous contrast . Comparison: Comparison is made to lumbar spine radiographs 06/13/2023 FINDINGS: There is compression deformity of T11 and L1 which is chronic. Posterior fixation hardware spans L5-S 1. T12-L1: Mild right neural foraminal stenosis. L1-L2: No significant abnormality. L2-L3: No significant abnormality. L3-L4: No significant abnormality. L4-L5: No significant abnormality. L5-S1: No significant abnormality. The spinal ligaments are intact, without evidence of disruption or abnormal signal intensity. The spi nal cord is normal in signal intensity and there is no evidence of cord contusion. There is no eviden ce of an extradural, intradural, extramedullary or intramedullary lesion. Bilateral renal cysts are s een. Prominent common bile duct is incidentally noted measuring approximately 15 mm. IMPRESSION: 1. No evidence of cord compression or significant neuroforaminal narrowing. 2. Multilevel compression deformity as above. ACT 112: Negative or not required by law. Electronically signed by: Josh Cervantes M.D. 06/13/2023 8:12 PM
[2023-06-14] MEDS: ONDANSETRON INJ 2 MG/ML 2 ML VIAL IV PRN (06:10)
--- NOTE | 2023-06-14 09:25 | Gastroenterology Progress Note ---
Date of Service June 14, 2023 Assessment & Plan (1) Constipation: Plan: No response to relistor. Will give colonoscopy prep Admission and Anticipated Discharge Date Admission Date: June 12, 2023 Subjective No results from relistor. Still with "sore" abdomen. Just passing "jillian" Physical Exam Physical Exam: She looks well Constitutional: WD/WN, vitals as above Results & Data Vital Signs (Past 12 Hours) Vital Signs Temp Pulse Resp BP Pulse Ox O2 Del Method 06/14/23 06:56 36.8 C 66 16 131/75 93 Room Air (1) Constipation Constipation type: slow transit constipation Qualified Code(s): K59.01 - Slow transit constipation
[2023-06-14] MEDS ORDERED: LAVAGE SOLUTION 4000ML PO SCH (09:30)
[2023-06-14 09:43] LABS: BUN Creatinine Ratio 8.4 (10-20); Calcium 8.3 mg/dl (8.6-10.3); Creatinine Clr Calc Pharmacy 56.5 ml/min; Est GFR (African American) 90.1 ml/min; Est GFR (Non-African American) 77.7 ml/min; Magnesium 1.6 mg/dl (1.7-2.4); Potassium 3.1 mmol/L (3.5-5.1)
[2023-06-14] MEDS: LAVAGE SOLUTION 4000ML PO SCH (09:54)
--- NOTE | 2023-06-14 11:16 | Orthopedic Consultation ---
Date of Consultation June 14, 2023 Assessment & Plan (1) Compression fracture of L1 vertebra: MRI available for review demonstrates healing of the L1 compression fracture. She has previous fusion L5-S1. There is some evidence of inflammatory changes within the bilateral SI joints. Plan at this time I suspect her symptoms are not related to the compression fractures that is healing and she has no significant pain in this region. She has more right buttock discomfort. This could be her sacroiliitis. I do not appreciate any gross neural compression on her lumbar MRI. I would recommend that she follow-up with interventional pain management for possible injections to the SI joints. History of Present Illness Reason for Consultation: Back pain Attending Physician: Toby Allen MD History of Present Illness This is a 50-year-old female who presents with multiple medical issues. She also is describing significant lumbar sacral back pain rating into the right buttock. She denies any radicular component to this pain. She has no significant mid back or thoracolumbar discomfort. She denies any recent trauma fall or event. Allergies Allergy/AdvReac Type Severity Reaction Status Date / Time oxybutynin [From Ditropan] AdvReac Severe DRY MOUTH Verified 05/08/23 10:12 Home Medications Medication Instructions Recorded Confirmed Type idzsxmd-iwzxmutrfvfaf-bezxhgrg 250 2 tab PO Q6H PRN Pain 03/18/23 06/12/23 History mg-250 mg-65 mg tablet (Excedrin Extra Strength) atorvastatin 20 mg tablet 20 mg PO QAM 03/18/23 06/12/23 History famotidine 40 mg tablet 40 mg PO HS PRN Heartburn 03/18/23 06/12/23 History furosemide 20 mg tablet (Lasix) 20 mg PO DAILY PRN fluid 03/18/23 06/12/23 History accumulation hydroxyzine pamoate 50 mg capsule 50 mg PO HS Sleep 03/18/23 06/12/23 History metoprolol succinate 25 mg 12.5 mg PO QAM 03/18/23 06/12/23 History tablet,extended release 24 hr ondansetron HCl 4 mg tablet 4 mg PO Q8H PRN Nausea 03/18/23 06/12/23 History potassium chloride 10 mEq 10 meq PO DAILY PRN if taking Lasix 03/18/23 06/12/23 History tablet,extended release(part/cryst) trazodone 100 mg tablet 100 mg PO HS 03/18/23 06/12/23 History buprenorphine 8 mg-naloxone 2 mg 1 film sublingual BID 06/12/23 06/12/23 History sublingual film cholecalciferol (vitamin D3) 50 50 mcg PO DAILY 06/12/23 06/12/23 History mcg (2,000 unit) tablet lorazepam 0.5 mg tablet 0.5 mg PO DAILY PRN severe anxiety 06/12/23 06/12/23 History pantoprazole 40 mg tablet,delayed 40 mg PO AMHS 06/12/23 06/12/23 History release teriparatide 20 mcg/dose (600 20 mcg subcut QAM 06/12/23 06/12/23 History mcg/2.4 mL) subcutaneous pen injector (Forteo) venlafaxine 25 mg tablet 25 mg PO QAM 06/12/23 06/12/23 History venlafaxine 75 mg capsule,extended 75 mg PO QAM 06/12/23 06/12/23 History release 24 hr Patient History Medical History Renal colic on right side Surgical History History of cystoscopy History of cholecystectomy History of hysterectomy Social History Smoking Status: Current every day smoker Tobacco Type: Cigarettes Cigarettes Per Day: 15; Second Hand Exposure: No; Do You Dip or Chew Tobacco: No; Tobacco Cessation Education Requested by Patient: No Hx Alcohol Use: No Hx Substance Use: No Preferred Language: Greenlandic Communication Ability: Effective Cytogeneticist Required: No Beliefs That Will Affect Care: None Current Living Situation: Alone Other Information That Helps Us Care for You: No Feels Safe at Home: Yes Safety Concerns: Feels Safe At This Time Assistive Devices: Cane, Glasses and Hospital Bed Physical Exam Physical Exam: On exam she is in bed. She has good strength testing lower extremities. She is able to sit up without difficulty. There is no tenderness palpation of the mid lumbar spine. She is tender palpation over the right SI joint and sciatic notch. Results & Data Vital Signs (Past 12 Hours) Vital Signs Temp Pulse Resp BP Pulse Ox O2 Del Method 06/14/23 06:56 36.8 C 66 16 131/75 93 Room Air
[2023-06-14] MEDS: PROMETHAZINE HCL 12.5 MG in SODIUM CHLORIDE 0.9% 50 ML IV PRN (12:07)
--- NOTE | 2023-06-14 13:56 | Hospitalist Progress Note ---
Date of Service June 14, 2023 Assessment & Plan (1) Abdominal pain: (2) Constipation: (3) Stercoral colitis: Plan: - Admit to med surg - Gen surg has seen the patient and are recommending that GI be consulted for follow up - Started on tap water enema and do Q6H starting now, will continue dulcolax and miralax daily, pt has trialed lactulose at home without effect - Cont IV zosyn - Follow blood cultures, negative lactic, afebrile here, WBC is stable at 8.27 and other labs appear WNL - Replace potassium as it is 2.9 on admission with 40 meq PO, 20 meq IV, trend am labs 06/12 Constipation secondary to Suboxone GI consulted-Relistor ordered Continue with tapwater enemas Monitor closely 06/13 Golytely ordered Low K, Mg from poor intake IV K and Mg ordered (4) Osteoporosis: Plan: - Hx of such, continue vit D supplementation 1999 U - PT/OT consults (5) Tobacco use: Plan: - Ordered nicotine patch 14 mcg daily - encouraged cessation at bedside (6) Compression fracture of L1 vertebra: Plan: - Noted on CT as acute L1 fracutre, consult ortho spine for possible recommendation with brace - PT/OT consults - Pain control with Suboxone which is likely contributing to constipation as above 06/[address] León ff up with Pain management as outpatient (7) Opioid dependence on agonist therapy: Plan: - As above, may continue suboxone therapy for now (8) Venous stasis ulcers: Plan: - Hx of such, non currently - Pressure offloading measures and repositioning with hx of lymphedema DVT ppx: teds, scds FEN/GI: Clear liquids Lines: 2 PIV CODE: FULL Dispo: anticipate to return home when medically stable Admission and Anticipated Discharge Date Admission Date: June 12, 2023 Subjective ff up for constipation, etc seen resting in bed, comfortable still without BM has some mild nausea no abdominal pain no other new symptoms Review of Systems Review of Systems: all noted and negative except for above Physical Exam Physical Exam: General- oriented x 3, not in distress, speaks in sentences with no effort or accessory muscle use Eyes- anicteric Neck- no JVD Lungs- clear breath sounds bilaterally, no crackles/wheezing Heart- normal rate, regular rhythm; no murmurs Abdomen- normal bowel sounds, nondistended, soft, mild L quadrant tenderness Extremities- no pretibial edema, no calf tenderness Neuro- alert, oriented x 3; no gross focal neurologic deficits Skin- warm & dry Results & Data Results & Data Vital Signs (Past 12 Hours) Vital Signs Temp Pulse Resp BP Pulse Ox O2 Del Method 06/14/23 06:56 36.8 C 66 16 131/75 93 Room Air all noted and reviewed including below (8) Venous stasis ulcers Venous stasis ulcer site: calf Varicose vein presence: unspecified whether present Laterality: unspecified laterality Non-pressure ulcer stage: limited to breakdown of skin Qualified Code(s): I83.002 - Varicose veins of unspecified lower extremity with ulcer of calf; L97.201 - Non-pressure chronic ulcer of unspecified calf limited to breakdown of skin
[2023-06-14] MEDS: POTASSIUM CHLORIDE / WTR 10 MEQ/100 ML PLCT IV SCH (14:17)
[2023-06-14] MEDS: MAGNESIUM SULFATE / D5W 1 GM/100 ML BAG IV ONE (14:17)
--- NOTE | 2023-06-15 09:47 | Gastroenterology Progress Note ---
Date of Service June 15, 2023 Assessment & Plan (1) Constipation: Plan: 58 year old female with stercoral colitis, constipation now moving bowels, abd pain resolved given previous imaging w/ mild pneumatosis of the left colon consider repeat imaging prior to discharge she would like to discuss tapering off of her Suboxone with her prescriber Miralax 2 capfuls twice daily, titrated to bowel movements OP Colonoscopy Recall GI as needed. (2) Stercoral colitis: Admission and Anticipated Discharge Date Admission Date: June 12, 2023 Supervising Physician Co-Signing Physician Notes I personally saw and evaluated the patient on 06/15/2023 with RAZ Galvan and agree with her findings and plan of care. Abdomen soft and non-tender. 58 y/o F with history of opiate abuse on suboxone for which GI was consulted for constipation and CT findings of severe constipation and stercoral colitis. She had no bowel movements after a dose of Relistor this weekend but was given a Golytley bowel prep yesterday and has had good success with 5 bowel movements so far. Abdomen soft. Patient is asking to go home. She had 2 colonoscopies in 2012 and 2019 but both were poor preps and not adequate for any screening. Patient reports she would like to come off Suboxone completely and I agree this is going to be the best thing to manage her chronic opiate induced constipation. She is going to discuss with her outpatient provider about being tapered off this. Would recommend 2 capfuls of Miralax twice daily as outpatient when discharged. She should have an outpatient colonoscopy for screening given poor preps in the past that we will arrange. Will need a 3 day bowel prep. Consider repeat abdominal imaging prior to being discharged as there was concern for mild pneumatosis of L colon on CT from 06/11 that surgery had been consulted for. Silva Buchanan, DO Gastroenterology and Hepatology Subjective Feeling well! Started to move bowels Abd pain is improved. No black or bloody stools. Review of Systems Review of Systems: All systems reviewed & are unremarkable except as noted in HPI & below Physical Exam Constitutional: WD/WN, vitals as above Respiratory: normal respiratory effort, lungs clear to auscultation Cardiovascular: Rate/Rhythm: regular rate Gastrointestinal (Abdomen): normal bowel sounds, soft, nontender, no hepatosplenomegaly Skin: no rashes, warm and dry Results & Data Vital Signs (Past 12 Hours) Vital Signs Temp Pulse Resp BP Pulse Ox O2 Del Method 06/15/23 07:39 37.1 C 60 16 151/81 H 92 Room Air (1) Constipation Constipation type: slow transit constipation Qualified Code(s): K59.01 - Slow transit constipation
[2023-06-15 11:07] LABS: Basophils # (auto) 0.05 K/uL (0.00-0.20); Eosinophils # (auto) 0.18 K/uL (0.00-0.50); Eosinophils % (auto) 3.5 %; Hematocrit (blood only) 28.5 % (37.0-47.0); Hemoglobin 9.7 g/dl (12.0-16.0); Immature Granulocytes # (auto) 0.01 K/uL (0.01-0.20); Immature Granulocytes % (auto) 0.2 %; Lymphocytes # (auto) 0.78 K/uL (1.20-3.40); Mean Corpuscular Hemoglobin 29.3 pg (25.0-34.0); Mean Corpuscular Volume 86.1 fL (80.0-100.0); Mean Platelet Volume 9.3 fL (9.4-12.4); Monocytes # (auto) 0.37 K/uL (0.11-0.59); Monocytes % (auto) 7.1 %; Neutrophils # (auto) 3.81 K/uL (1.40-6.50); Neutrophils % (auto) 73.2 %; Platelet Count 244 K/uL (130-400); RDW Coefficient of Variation 12.4 % (11.5-14.5); RDW Standard Deviation 39.1 fL (36.4-46.3); Red Blood Count 3.31 M/uL (4.20-5.40)
[2023-06-15 11:13] LABS: BUN Creatinine Ratio 8.4 (10-20); Calcium 8.4 mg/dl (8.6-10.3); Creatinine Clr Calc Pharmacy 56.5 ml/min; Est GFR (African American) 90.1 ml/min; Est GFR (Non-African American) 77.7 ml/min; Magnesium 1.8 mg/dl (1.7-2.4); Potassium 3.4 mmol/L (3.5-5.1)
--- NOTE | 2023-06-15 16:25 | XRay Report ---
KUB HISTORY: Follow UP FECAL RETENTION COMPARISON: Chest and abdominal series 09/20/2018. Abdomen and pelvis CT 06/12/2023. FINDINGS: The bowel gas pattern is unremarkable. There are no dilated loops of small bowel to suggest an obstruction. No renal calculi. No ureteral calculi. No pneumoperitoneum or pneumatosis. Postoper ative changes again noted within the lower lumbar spine. Surgical clips within the right side of the abdomen consistent with prior cholecystectomy. [id number] fecal retention has improved. L1 comp ression fracture again noted. T11 vertebroplasty, unchanged. Healing left lower rib fractures. The jennifer ng bases are clear. IMPRESSION: 1. [id number] fecal retention is improved. 2. No evidence for a bowel obstruction. 3. L1 compression fracture again noted. 4. Healing left lower rib fractures, unchanged. ACT 112: Negative or not required by law. Electronically signed by: Coleman Smith M.D. 06/15/2023 4:24 PM
--- NOTE | 2023-06-15 18:23 | Hospitalist Progress Note ---
Date of Service June 15, 2023 Assessment & Plan (1) Abdominal pain: (2) Constipation: (3) Stercoral colitis: Plan: - Admit to med surg - Gen surg has seen the patient and are recommending that GI be consulted for follow up - Started on tap water enema and do Q6H starting now, will continue dulcolax and miralax daily, pt has trialed lactulose at home without effect - Cont IV zosyn - Follow blood cultures, negative lactic, afebrile here, WBC is stable at 8.27 and other labs appear WNL - Replace potassium as it is 2.9 on admission with 40 meq PO, 20 meq IV, trend am labs 06/12 Constipation secondary to Suboxone GI consulted-Relistor ordered Continue with tapwater enemas Monitor closely 06/13 Golytely ordered Low K, Mg from poor intake IV K and Mg ordered 06/14 Positive BM Replace potassium with oral K Will need bowel regimen upon discharge (4) Osteoporosis: Plan: - Hx of such, continue vit D supplementation 1999 U - PT/OT consults (5) Tobacco use: Plan: - Ordered nicotine patch 14 mcg daily - encouraged cessation at bedside (6) Compression fracture of L1 vertebra: Plan: - Noted on CT as acute L1 fracutre, consult ortho spine for possible recommendation with brace - PT/OT consults - Pain control with Suboxone which is likely contributing to constipation as above 06/[address] León ff up with Pain management as outpatient (7) Opioid dependence on agonist therapy: Plan: - As above, may continue suboxone therapy for now (8) Venous stasis ulcers: Plan: - Hx of such, non currently - Pressure offloading measures and repositioning with hx of lymphedema DVT ppx: teds, scds FEN/GI: Clear liquids Lines: 2 PIV CODE: FULL Dispo: anticipate to return home when medically stable, likely tomorrow Admission and Anticipated Discharge Date Admission Date: June 12, 2023 Subjective Follow-up for severe fecal retention, constipation, etc. Seen resting in bed, comfortable, not in distress Had multiple bowel movements last night and today Abdominal pain much better, very minimal now No nausea or vomiting Requesting to advance diet No other new symptom Review of Systems Review of Systems: all noted and negative except for above Physical Exam Physical Exam: General- oriented x 3, not in distress, speaks in sentences with no effort or accessory muscle use Eyes- anicteric Neck- no JVD Lungs- clear breath sounds bilaterally Heart- normal rate, regular rhythm; no murmurs Abdomen- normal bowel sounds, nondistended, soft, nontender Extremities- no pretibial edema, no calf tenderness Neuro- alert, oriented x 3; no gross focal neurologic deficits Skin- warm & dry Results & Data Results & Data Vital Signs (Past 12 Hours) Vital Signs Temp Pulse Resp BP Pulse Ox O2 Del Method 06/15/23 15:12 36.8 C 62 16 126/72 93 Room Air 06/15/23 07:39 37.1 C 60 16 151/81 H 92 Room Air all noted and reviewed including below (8) Venous stasis ulcers Venous stasis ulcer site: calf Varicose vein presence: unspecified whether present Laterality: unspecified laterality Non-pressure ulcer stage: limited to breakdown of skin Qualified Code(s): I83.002 - Varicose veins of unspecified lower extremity with ulcer of calf; L97.201 - Non-pressure chronic ulcer of unspecified calf limited to breakdown of skin
[2023-06-15] MEDS: POTASSIUM CHLORIDE CRTAB 20 MEQ TABCR PO STA (21:32)
[2023-06-16 08:15] LABS: Basophils # (auto) 0.06 K/uL (0.00-0.20); Basophils % (auto) 1.3 %; Eosinophils # (auto) 0.25 K/uL (0.00-0.50); Eosinophils % (auto) 5.5 %; Hematocrit (blood only) 28.8 % (37.0-47.0); Hemoglobin 9.6 g/dl (12.0-16.0); Immature Granulocytes # (auto) 0.05 K/uL (0.01-0.20); Immature Granulocytes % (auto) 1.1 %; Lymphocytes # (auto) 1.24 K/uL (1.20-3.40); Lymphocytes % (auto) 27.2 %; Mean Corpuscular Hemoglobin 28.7 pg (25.0-34.0); Mean Corpuscular Hgb Conc 33.3 g/dL (32.0-36.0); Mean Corpuscular Volume 86.2 fL (80.0-100.0); Mean Platelet Volume 9.2 fL (9.4-12.4); Monocytes # (auto) 0.41 K/uL (0.11-0.59); Neutrophils # (auto) 2.55 K/uL (1.40-6.50); Neutrophils % (auto) 55.9 %; Platelet Count 239 K/uL (130-400); RDW Coefficient of Variation 12.5 % (11.5-14.5); RDW Standard Deviation 39.5 fL (36.4-46.3); Red Blood Count 3.34 M/uL (4.20-5.40); White Blood Count 4.56 K/ul (4.8-10.8)
[2023-06-16 08:40] LABS: BUN Creatinine Ratio 8.8 (10-20); Calcium 8.4 mg/dl (8.6-10.3); Creatinine Clr Calc Pharmacy 58.7 ml/min; Est GFR (African American) 94.2 ml/min; Est GFR (Non-African American) 81.3 ml/min; Magnesium 1.7 mg/dl (1.7-2.4); Potassium 3.3 mmol/L (3.5-5.1)
--- NOTE | 2023-06-16 09:20 | CT Scan Report ---
CT OF THE ABDOMEN AND PELVIS WITHOUT CONTRAST CLINICAL HISTORY: Evaluate for improvement of pneumatosis L colon. COMPARISON STUDY: CT of the abdomen and pelvis June 12, 2023 and KUB June 15, 2023. TECHNIQUE: Axial images of the abdomen and pelvis were obtained without IV contrast. Images were revi ewed in the axial, sagittal, and coronal planes. Automated exposure control was utilized for the caroline dy. A dose lowering technique was utilized adhering to the principles of ALARA. FINDINGS: There are trace bilateral pleural effusions. Small subpleural nodules within the visualized lower chest are similar to CT of December 30, 2013. These are benign. Subpleural opacities reflect atelectasis. No pneumatosis, free air or portal venous gas is present. Wall thickening of the proxima l to mid descending colon is again noted. There is mild pericolonic inflammation, decreased since laya or examination. There is trace pericolonic fluid. No fluid collection is present. The amount of stool within the colon has significantly decreased since prior CT. Biliary ductal dilatation is unchanged and likely related to cholecystectomy. Liver, adrenal glands, left kidney and pancreas are normal. Se veral right renal calculi measure up to 4 mm. There are no ureteral calculi. There is no hydronephros is. There is no evidence for a bowel obstruction. There is no lymphadenopathy. L1 compression fractur e with moderate loss of vertebral body height and mild retropulsion is unchanged in appearance since prior CT. This is likely subacute. There is a T11 kyphoplasty and L5-S1 discectomy and fusion. S2 peyton tebral fracture is likely chronic. No acute fractures are identified. There are old bilateral sacral insufficiency fractures. IMPRESSION: 1. No pneumatosis, free air or portal venous gas. Findings consistent with a left-sided colitis, impr kallie since CT of June 12, 2023. Residual colonic wall thickening with mild pericolonic inflammation a nd trace fluid. No abscess. Significant decrease in amount of stool within the colon. 2. Trace bilateral pleural effusions. 3. No bowel obstruction. 4. Right-sided nephrolithiasis. ACT 112: Negative or not required by law. Electronically signed by: Alexander Flores M.D. 06/16/2023 9:18 AM
[2023-06-16] MEDS: POTASSIUM CHLORIDE CRTAB 20 MEQ TABCR PO STA (09:21)
--- NOTE | 2023-06-16 11:33 | Discharge Summary ---
Discharge Summary Date of Service June 16, 2023 Notes For Next Care Provider Patient admitted for opiate induced constipation and stercoral colitis. She required a strict bowel regimen, subcu Relistor and GoLytely prep. Eventually she did have significant evacuation of bowels. Initial CT on admission showed pneumatosis of left colon, moderate constipation, colitis, incidental L1 compression fx and 2 cm L renal lesion, likely cystic. She is being discharged on aggressive bowel regimen. It is recommend she has close outpatient follow up. She will complete a 10 day course of oral Augmentin for treatment of colitis. She wishes to follow up with Suboxone provider to hopefully taper off this medication. Medication Changes From Visit Augmentin 875 mg take by mouth twice daily for additional 10 days. Florastor 1 tablet daily for 10 days. This is a probiotic to be utilized while on antibiotic therapy. Due to recent history of constipation it is important to maintain a good bowel regimen. Recommend taking MiraLAX, 2 capfuls twice daily. Recommend docusate sodium 1 tablet twice daily. Recommend senna 1 tablet twice daily. Recommend daily Metamucil. Upon discharge you may need to alter the bowel regimen based on how frequently you are moving your bowels. If your bowels are too loose or going to frequently it is recommended you reduce the bowel regimen. If you still are on the constipated side it is recommended that you continue your bowel regimen and increase your MiraLAX. Admission HPI Per Admitting Provider This is a 58-year-old female with PMHx of osteoporosis, history of closed fracture of the sacrum which is now healed, chronic tobacco use, CKD stage III, hypothyroidism, hx of venous stasis ulceration and following with wound care, bipolar type II disorder, iron deficiency anemia, history of opioid abuse, who presents to the hospital with acute abdominal pain. She is found to have moderate to severe constipation/fecal retention concerning for stercoral constipation, as well as an acute L1 compression fracture noted on imaging. General surgery was consulted and is recommending GI involvement. She has previously followed with Dr. Sol with [facility]. Pt reports hx of constipation for the past 3 weeks, small bowel movements previously, but no BM for the past week. Reports she is passing gas. Po intake is difficult for her due to abdominal pain and she is eating only 1 meal per day. Pt is taking suboxone 8-2 film daily which was switched over from tablet on Thursday this past week. She also reports that at home was using Lactulose 2 Tbsp BID along with dulcolax BID and didn't see any improvement in constipation. She reports lower abdominal pain on the left and right. Reporting subjective fevers and shaking intermittently in the past 2 days or so. Lives at home, ambulates with cane at baseline. Admission Exam Per Admitting Provider General: awake, alert, no apparent distress, appears older than stated age Head: Normocephalic, atraumatic ENT: PERRL, EOMI, no pharyngeal exudate, mucous membranes moist Chest: Clear to auscultation, on room air, no adventitious breath sounds Cardiac: Regular rate and rhythm, + FLAKITA, no JVD, normal peripheral pulses, good capillary refill Abdominal: + hypoactive BS x 4 quadrants, no tinkling or high pitch sounds, distended, hard LLQ + tender to palpation in LLQ and RLQ, no rebound or guarding Extremities: + lymphedema, no pitting edema, + healed venous ulcerations, no surrounding erythema, otherwise normal inspection,calfs nontender to palpation Psych: Normal mood and affect Neuro: AAO x 3, strength intact bilaterally and rated 5/5, no motor deficits, speech is clear, no peripheral sensory deficits Principal Dx & Hospital Course #1 = Principal Diagnosis (1) Abdominal pain: (2) Constipation: (3) Stercoral colitis: - Admit to med surg - Gen surg has seen the patient and are recommending that GI be consulted for follow up - Started on tap water enema and do Q6H starting now, will continue dulcolax and miralax daily, pt has trialed lactulose at home without effect - Cont IV zosyn - Follow blood cultures, negative lactic, afebrile here, WBC is stable at 8.27 and other labs appear WNL - Replace potassium as it is 2.9 on admission with 40 meq PO, 20 meq IV, trend am labs 06/12 Constipation secondary to Suboxone GI consulted-Relistor ordered Continue with tapwater enemas Monitor closely 06/13 Golytely ordered Low K, Mg from poor intake IV K and Mg ordered 06/14 Positive BM Replace potassium with oral K Will need bowel regimen upon discharge (4) Osteoporosis: - Hx of such, continue vit D supplementation 1999 U - PT/OT consults (5) Tobacco use: - Ordered nicotine patch 14 mcg daily - encouraged cessation at bedside (6) Compression fracture of L1 vertebra: - Noted on CT as acute L1 fracutre, consult ortho spine for possible recommendation with brace - PT/OT consults - Pain control with Suboxone which is likely contributing to constipation as above 06/[address] León ff up with Pain management as outpatient (7) Opioid dependence on agonist therapy: - As above, may continue suboxone therapy for now (8) Venous stasis ulcers: - Hx of such, non currently - Pressure offloading measures and repositioning with hx of lymphedema DVT ppx: teds, scds FEN/GI: Clear liquids Lines: 2 PIV CODE: FULL Dispo: anticipate to return home when medically stable, likely tomorrow Plan This is a 58-year-old female with PMHx of osteoporosis, history of closed fracture of the sacrum which is now healed, chronic tobacco use, CKD stage III, hypothyroidism, hx of venous stasis ulceration and following with wound care, bipolar type II disorder, iron deficiency anemia, history of opioid abuse, who presents to the hospital with acute abdominal pain. She is found to have moderate to severe constipation/fecal retention concerning for stercoral constipation, as well as an acute L1 compression fracture noted on imaging. She was started on tapwater enema, Dulcolax and MiraLAX. She did try lactulose at home without effect. Gastroenterology was consulted who increased MiraLAX, GoLytely was ordered and Relistor was also trialed. She did eventually have several bowel movements, her abdominal pain resolved and on day of discharge she was tolerating a regular diet. At baseline she struggles with constipation secondary to opiate use, Suboxone. Typically she utilizes docusate 2 tablets at bedtime, but 3 weeks ago this stopped working. Her hospital course was complicated with Electrolyte abnormalities requiring potassium and magnesium supplementation. She was also noted to have a compression fracture of her L1 vertebra. Orthospine was consulted who recommended follow-up with pain management as outpatient. She also incidentally had a 2.1 cm cystic lesion noted on her left kidney. It is recommended she have nonemergent renal ultrasound done as outpatient. On day of discharge she was educated regarding continuing proper bowel regimen, exercise, fluid intake and high-fiber diet. She was also educated that she likely will need to adjust her bowel regimen based on frequency of her bowel movements. In setting of her stercoral colitis she was treated with IV antibiotics while inpatient. She is being discharged on oral Augmentin for additional 10 days and probiotic therapy. Discharge Exam Gen: WD/WN, NAD, A&O x3 HEENT: Normocephalic, atraumatic, conjunctivae moist, sclerae anicteric, mucous membranes moist. Lung: Clear to Auscultation bilaterally, no wheezes/rales/rhonchi Heart: Regular rate, regular rhythm, no murmurs, rubs, or gallops Abdomen: Soft, NT, ND +BS x 4 Extremities: No edema Skin: Warm, no rash, negative turgor. Updated Medication List Medication Instructions Recorded Confirmed Type vltftrc-qurguubzxylpr-xscrytmq 250 2 tab PO Q6H PRN Pain 03/18/23 06/12/23 History mg-250 mg-65 mg tablet (Excedrin Extra Strength) atorvastatin 20 mg tablet 20 mg PO QAM 03/18/23 06/12/23 History famotidine 40 mg tablet 40 mg PO HS PRN Heartburn 03/18/23 06/12/23 History furosemide 20 mg tablet (Lasix) 20 mg PO DAILY PRN fluid 03/18/23 06/12/23 History accumulation hydroxyzine pamoate 50 mg capsule 50 mg PO HS Sleep 03/18/23 06/12/23 History metoprolol succinate 25 mg 12.5 mg PO QAM 03/18/23 06/12/23 History tablet,extended release 24 hr ondansetron HCl 4 mg tablet 4 mg PO Q8H PRN Nausea 03/18/23 06/12/23 History potassium chloride 10 mEq 10 meq PO DAILY PRN if taking Lasix 03/18/23 06/12/23 History tablet,extended release(part/cryst) trazodone 100 mg tablet 100 mg PO HS 03/18/23 06/12/23 History buprenorphine 8 mg-naloxone 2 mg 1 film sublingual BID 06/12/23 06/12/23 History sublingual film cholecalciferol (vitamin D3) 50 50 mcg PO DAILY 06/12/23 06/12/23 History mcg (2,000 unit) tablet lorazepam 0.5 mg tablet 0.5 mg PO DAILY PRN severe anxiety 06/12/23 06/12/23 History pantoprazole 40 mg tablet,delayed 40 mg PO AMHS 06/12/23 06/12/23 History release teriparatide 20 mcg/dose (600 20 mcg subcut QAM 06/12/23 06/12/23 History mcg/2.4 mL) subcutaneous pen injector (Forteo) venlafaxine 25 mg tablet 25 mg PO QAM 06/12/23 06/12/23 History venlafaxine 75 mg capsule,extended 75 mg PO QAM 06/12/23 06/12/23 History release 24 hr Saccharomyces boulardii 250 mg 250 mg PO DAILY #10 caps 06/16/23 Rx capsule (Florastor) amoxicillin 875 mg-potassium 1 tab PO Q12H 10 days #20 tabs 06/16/23 Rx clavulanate 125 mg tablet Hospital Stay Data Consultations 06/12/23 16:47 Consult General Surgery Routine Her CT images and results were personally viewed and interpreted by myself She has moderate constipation and some inflammation of her left colon consistent with stercoral colitis No plans for any surgical intervention Can have clears tonight from my perspective Would give IV ABX and consult GI for aggressive bowel regimen She would only require surgery if her colon perforated 06/12/23 17:31 Consult Gastroenterology Routine (1) Constipation: Plan: 58 year old female with stercoral colitis, constipation now moving bowels, abd pain resolved given previous imaging w/ mild pneumatosis of the left colon consider repeat imaging prior to discharge she would like to discuss tapering off of her Suboxone with her prescriber Miralax 2 capfuls twice daily, titrated to bowel movements OP Colonoscopy Recall GI as needed. 06/12/23 17:44 Consult Orthopedic Spine Surgery Routine Assessment & Plan (1) Compression fracture of L1 vertebra: MRI available for review demonstrates healing of the L1 compression fracture. She has previous fusion L5-S1. There is some evidence of inflammatory changes within the bilateral SI joints. Plan at this time I suspect her symptoms are not related to the compression fractures that is healing and she has no significant pain in this region. She has more right buttock discomfort. This could be her sacroiliitis. I do not appreciate any gross neural compression on her lumbar MRI. I would recommend that she follow-up with interventional pain management for possible injections to the SI joints. Diagnostic Imagining Performed Abdomen/Pelvis CT 06/12/23 14:30 CT SCAN OF THE ABDOMEN AND PELVIS WITH IV CONTRAST CLINICAL HISTORY: Left lower quadrant abdominal pain. COMPARISON STUDY: Abdominal CT dated 12/30/2013. TECHNIQUE: Following the IV administration of 91 cc of Optiray 320, CT scan of the abdomen and pelvis is performed from the lung bases to the proximal femora. Images are reviewed in the axial, sagittal, and coronal planes. IV contrast was administered without complication. A dose lowering technique was utilized adhering to the principles of ALARA. CT DOSE: 848.51 mGy.cm FINDINGS: Lung bases: The heart is normal in size and without pericardial effusion. There is bibasilar scarring/atelectasis. There is trace left pleural effusion. No airspace consolidation is seen typical for pneumonia. A 10 mm pleural-based nodule in the right middle lobe is seen on image #10 and a pleural-based nodule in the left lower lobe is seen on image #19. These are unchanged from 2014 and of doubtful significance. Liver: The contrast-enhanced liver is normal in size, contour, and attenuation. There is mild to moderate intrahepatic biliary ductal dilatation. The hepatic veins and portal veins are patent. Gallbladder: Surgically absent noting clips in the gallbladder fossa. Spleen: Normal in size and attenuation. Pancreas: Unremarkable. Adrenal glands: Unremarkable. Kidneys: The contrast enhanced kidneys are normal in size and without hydronephrosis. The kidneys enhance symmetrically. A 2.1 cm indeterminate low- attenuation lesion in the lower pole of left kidney is been present dating back to 2013 and likely represents a complex cyst. Additional subcentimeter cortical hypodensities also likely represent cysts but are too small for definitive characterization. Abdominal vasculature: The abdominal aorta is normal in course and caliber noting moderate atherosclerotic calcification. Bowel: There is no bowel obstruction. Moderate to severe fecal retention is noted in the right colon extending to the descending colon. There is wall thickening and pericolonic inflammation and fluid involving the left colon at and below the splenic flexure. This is consistent with a nonspecific colitis, likely STIR coronal. The appendix is not visualized. Peritoneum: There is no intraperitoneal free air or abdominal ascites. There is a fat-containing umbilical hernia. There is also a fat and fluid containing supraumbilical hernia. Lymphadenopathy: None. Pelvic viscera: The bladder is normal as visualized. The uterus is surgically absent. No adnexal lesion is seen. Skeletal structures: The skeletal structures are osteopenic. There is a onrt-qu-ymqoqmfe acute to subacute appearing superior end plate compression fracture of L1. Fragment retropulsed at this level by up to 6 mm. Paravertebral edema is noted. There is a chronic compression deformity of T11 with evidence of prior vertebroplasty. There is spondylotic change throughout the lumbar spine with surgical change at the lumbosacral junction. No lytic or blastic lesions are seen. There are subacute/healing left-sided rib fractures. There are bilateral sacral insufficiency fractures. IMPRESSION: 1. There is moderate to severe fecal retention in the right colon. 2. There is wall thickening involving the left colon at and below the splenic flexure with surrounding infiltration and fluid. The appearance is consistent with a nonspecific colitis, possibly stercoral. Clinical correlation will be required. 3. No bowel obstruction is seen. 4. There is an acute subacute appearing superior endplate compression fracture of L1 with surrounding paravertebral edema. Correlate clinically. 5. There are subacute/healing left-sided rib fractures. 6. Bilateral sacral insufficiency fractures. 7. There is a 2.1 cm indeterminate lesion in the lower pole of left kidney. This has been present dating back to 2013 and likely represents a complex cyst. Nonemergent renal ultrasound is recommended in follow-up. 8. Trace left pleural effusion. 9. Additional findings as above. ACT 112: Negative or not required by law. Electronically signed by: Robbin Lee M.D. 06/12/2023 4:16 PM Lumbar Spine MRI 06/13/23 07:25 MR lumbar spine wo con CLINICAL HISTORY: compression fractures TECHNIQUE: Multiplanar sequences through the lumbar spine were obtained, without intravenous contrast. Comparison: Comparison is made to lumbar spine radiographs 06/13/2023 FINDINGS: There is compression deformity of T11 and L1 which is chronic. Posterior fixation hardware spans L5-S1. T12-L1: Mild right neural foraminal stenosis. L1-L2: No significant abnormality. L2-L3: No significant abnormality. L3-L4: No significant abnormality. L4-L5: No significant abnormality. L5-S1: No significant abnormality. The spinal ligaments are intact, without evidence of disruption or abnormal signal intensity. The spinal cord is normal in signal intensity and there is no evidence of cord contusion. There is no evidence of an extradural, intradural, extramedullary or intramedullary lesion. Bilateral renal cysts are seen. Prominent common bile duct is incidentally noted measuring approximately 15 mm. IMPRESSION: 1. No evidence of cord compression or significant neuroforaminal narrowing. 2. Multilevel compression deformity as above. ACT 112: Negative or not required by law. Electronically signed by: Josh Cervantes M.D. 06/13/2023 8:12 PM Lumbar Spine X-Ray 06/13/23 07:25 XR lumbar spine 2-3V CLINICAL HISTORY: standing films if possible TECHNIQUE: 3 views of the lumbar spine were obtained. Comparison: Comparison is made to CT abdomen pelvis 06/12/2023 FINDINGS: There is no evidence of an acute fracture. Redemonstration of compression deformity of L1 and compression deformity with cement arthroplasty of T11. Posterior fixation hardware spans L5-S1. The alignment is normal. No soft tissue abnormality is seen. IMPRESSION: Old compression deformities without evidence of acute fracture. ACT 112: Negative or not required by law. Electronically signed by: Josh Cervantes M.D. 06/13/2023 9:16 AM KUB X-Ray 06/15/23 15:17 KUB HISTORY: Follow UP FECAL RETENTION COMPARISON: Chest and abdominal series 09/20/2018. Abdomen and pelvis CT 06/12/2023. FINDINGS: The bowel gas pattern is unremarkable. There are no dilated loops of small bowel to suggest an obstruction. No renal calculi. No ureteral calculi. No pneumoperitoneum or pneumatosis. Postoperative changes again noted within the lower lumbar spine. Surgical clips within the right side of the abdomen consistent with prior cholecystectomy. Zepb-zi-acjfyged fecal retention has improved. L1 compression fracture again noted. T11 vertebroplasty, unchanged. Healing left lower rib fractures. The lung bases are clear. IMPRESSION: 1. Yrhq-bm-lziimedk fecal retention is improved. 2. No evidence for a bowel obstruction. 3. L1 compression fracture again noted. 4. Healing left lower rib fractures, unchanged. ACT 112: Negative or not required by law. Electronically signed by: Coleman Smith M.D. 06/15/2023 4:24 PM Abdomen/Pelvis CT 06/16/23 07:57 CT OF THE ABDOMEN AND PELVIS WITHOUT CONTRAST CLINICAL HISTORY: Evaluate for improvement of pneumatosis L colon. COMPARISON STUDY: CT of the abdomen and pelvis June 12, 2023 and KUB June 15, 2023. TECHNIQUE: Axial images of the abdomen and pelvis were obtained without IV contrast. Images were reviewed in the axial, sagittal, and coronal planes. Automated exposure control was utilized for the study. A dose lowering technique was utilized adhering to the principles of ALARA. FINDINGS: There are trace bilateral pleural effusions. Small subpleural nodules within the visualized lower chest are similar to CT of December 30, 2013. These are benign. Subpleural opacities reflect atelectasis. No pneumatosis, free air or portal venous gas is present. Wall thickening of the proximal to mid descending colon is again noted. There is mild pericolonic inflammation, decreased since prior examination. There is trace pericolonic fluid. No fluid collection is present. The amount of stool within the colon has significantly decreased since prior CT. Biliary ductal dilatation is unchanged and likely related to cholecystectomy. Liver, adrenal glands, left kidney and pancreas are normal. Several right renal calculi measure up to 4 mm. There are no ureteral calculi. There is no hydronephrosis. There is no evidence for a bowel obstruction. There is no lymphadenopathy. L1 compression fracture with moderate loss of vertebral body height and mild retropulsion is unchanged in appearance since prior CT. This is likely subacute. There is a T11 kyphoplasty and L5-S1 discectomy and fusion. S2 vertebral fracture is likely chronic. No acute fractures are identified. There are old bilateral sacral insufficiency fractures. IMPRESSION: 1. No pneumatosis, free air or portal venous gas. Findings consistent with a left-sided colitis, improved since CT of June 12, 2023. Residual colonic wall thickening with mild pericolonic inflammation and trace fluid. No abscess. Significant decrease in amount of stool within the colon. 2. Trace bilateral pleural effusions. 3. No bowel obstruction. 4. Right-sided nephrolithiasis. ACT 112: Negative or not required by law. Electronically signed by: Alexander Flores M.D. 06/16/2023 9:18 AM Pending Results Patient Have Any Pending Studies at Discharge: No Discharge Instructions Given to Patient (Per Discharging Provider) MEDICATION CHANGES: Augmentin 875 mg take by mouth twice daily for additional 10 days. Florastor 1 tablet daily for 10 days. This is a probiotic to be utilized while on antibiotic therapy. Due to recent history of constipation it is important to maintain a good bowel regimen. Recommend taking MiraLAX, 2 capfuls twice daily. Recommend docusate sodium 1 tablet twice daily. Recommend senna 1 tablet twice daily. Recommend daily Metamucil. Upon discharge you may need to alter the bowel regimen based on how frequently you are moving your bowels. If your bowels are too loose or going to frequently it is recommended you reduce the bowel regimen. If you still are on the constipated side it is recommended that you continue your bowel regimen and increase your MiraLAX. SUMMARY OF TEST RESULTS: You admitted to hospital secondary to abdominal pain and constipation. This resulted in inflammation of your colon. You were started on aggressive bowel regimen. You were seen and evaluated by gastroenterology and eventually had a good bowel movement. You were started on antibiotics due to the colitis. You will be discharged on a 10-day course of antibiotics. Your potassium and magnesium were low. These were replaced. You were noticed to have a compression fracture of your L1 vertebrae noted on CT scan. You were seen and evaluated by orthopedic spine who recommended you foll ow-up with pain management as an outpatient. It was discussed about weaning off Suboxone. It is recommended you follow-up with your Suboxone provider for this. PENDING TEST RESULTS: none RECOMMENDATIONS FOR FOLLOW-UP: Please follow-up with your primary care provider as scheduled. If you do not have a bowel movement within 4 days please contact your primary care provider for further instruction to prevent recurrence. Please take all medications as prescribed. Please refer to medication changes regarding your bowel regimen that was discussed with you prior to discharge. It is encouraged that you discontinue tobacco. It is strongly encouraged that you discuss with your Suboxone provider regarding tapering off and discontinuing this medication. It is recommended that you have a colonoscopy. Your primary care provider can arrange this. It is recommended that you have a Non emergent Left Renal Ultrasound due to an incidental 2.1cm cyst that was noted on imaging. Your Primary care can arrange this. OTHER INSTRUCTIONS: Seek medical attention if you have: * temperature above 101 * chest pain or trouble breathing * abdominal pain, nausea, vomiting * diarrhea, dark stools or bloody stools * any unanswered questions or concerns Call 911 if symptoms are severe. Please take good care of yourself. It has been a pleasure taking care of you. Please take care of yourself. If you have any questions regarding your recent hospitalization please contact [facility] and request fredo Bernal @ [phone]. Marizol Boland PA-C Total Time Total Time Spent Total Time Spent (In Minutes): 45 minutes Supervising Physician Co-Signing Physician Notes Attending Addendum: care coordinated with JAY Boland please refer to her notes for full details, I agree with her notes patient seen and examined, records reviewed by myself as well diagnoses and plan of care as per JAY Allen MD
== END 2023-06-16 12:30 | disposition home or self-care (01) | DRG 392 ==
LOC: ED 14:21 → EDINP 17:31 → 3N 22:09